=== PATIENT | female | born 1990 ===

== ENCOUNTER 2017-07-04 11:11 | Inpatient (IN) | payer MEDICAID ==
--- NOTE | 2017-07-04 12:13 | C.PDOC ---
History Of Present Illness 27 year old female, with PMHx of chronic kidney disease on dialysis, presents to ED for evaluation of cough, fever, nausea, vomiting, and shortness of breath for the last 3 days. Patient has h/o ESRD on HD . Notes last dialysis was 2 days ago, and is due for dialysis today. Slp Teacher is . Otherwise, denies chest pain, palpitations, headache, dizziness, abdominal pain , diarrhea, or any other associated symptoms at this time. Chief Complaint (Nursing): Shortness Of Breath History Per: Patient History/Exam Limitations: no limitations Onset/Duration Of Symptoms: Days Current Symptoms Are (Timing): Still Present Associated Symptoms: Fever. denies: Sweating, Chest Pain, Bloody Cough, Heart Racing, Leg/Calf Pain, Ankle/Leg Swelling, Dizziness, Light-headedness Recent travel outside of the [place]: No Additional History Per: Patient Past Medical History Reviewed: Historical Data, Nursing Documentation, Vital Signs Vital Signs: Last Vital Signs Temp 98.8 F 07/04/17 17:00 Pulse 82 07/04/17 17:00 Resp 24 07/04/17 17:00 BP 129/76 07/04/17 17:00 Pulse Ox 95 07/04/17 17:00 - Medical History PMH: HTN, Chronic Kidney Disease Family History: States: Unknown Family Hx - Social History Hx Alcohol Use: No Hx Substance Use: No - Immunization History Hx Tetanus Toxoid Vaccination: No Hx Influenza Vaccination: No Hx Pneumococcal Vaccination: No Review Of Systems Except As Marked, All Systems Reviewed And Found Negative. Constitutional: Positive for: Fever Cardiovascular: Negative for: Chest Pain, Palpitations, Edema, Light Headedness Respiratory: Positive for: Cough, Shortness of Breath Gastrointestinal: Positive for: Nausea, Vomiting. Negative for: Abdominal Pain , Diarrhea Genitourinary: Negative for: Dysuria, Frequency, Hematuria Neurological: Negative for: Headache, Dizziness Physical Exam - Physical Exam Appears: Non-toxic, Chronically Ill Skin: Normal Color, Warm, Dry Head: Atraumatic, Normacephalic Eye(s): bilateral: Normal Inspection, EOMI Oral Mucosa: Moist Neck: Normal ROM, Supple Chest: Symmetrical Cardiovascular: Rhythm Regular, No Murmur Respiratory: No Accessory Muscle Use, No Rales, No Rhonchi, No Wheezing, Other ( crackles bilaterally) Gastrointestinal/Abdominal: Soft, No Tenderness Extremity: Normal ROM, No Pedal Edema Neurological/Psych: Oriented x3, Normal Speech ED Course And Treatment - Laboratory Results Result Diagrams: 07/04/17 12:36 07/04/17 12:36 O2 Sat by Pulse Oximetry: 95 (RA) Pulse Ox Interpretation: Normal - Other Rad CXR X-Ray: Viewed By Me, Read By Radiologist Interpretation: Accession No. : [id number]. Patient Name / ID : KERRIE GILMAN / [id number]. Exam Date : 07/04/2017 14:33:44 ( Approved ). Study Comment : Sex / Age : F / 27Y. Creator : Sarbjit Eaton MD. Dictator : Sarbjit Eaton MD. Colloid Mill Operator : Dust Operator : Sarbjit Eaton MD. Approver2 : Report Date : 07/04/2017 15:24:06. My Comment : . HISTORY: fever/cough. COMPARISON: No prior. FINDINGS: LUNGS: There are heterogeneous opacity at the left lung may represent pneumonia. Mild-to- moderate pulmonary vascular congestion is noted. PLEURA: No significant pleural effusion identified, no pneumothorax apparent. CARDIOVASCULAR: Cardiomegaly is noted. OSSEOUS STRUCTURES: No significant abnormalities. VISUALIZED UPPER ABDOMEN: Normal. OTHER FINDINGS: None. IMPRESSION: Heterogeneous opacity at the left lung may represent a pneumonia. Mild-to- moderate pulmonary vascular congestion and moderate cardiomegaly. Progress Note: Blood work, influenza AB ordered and reviewed. Pt was given Tylenol. CXR is pos for Pneumonia. Rocephin and Zithro ordered. ase was d/w who accepted case for an admission. president finance company was informed. Disposition - Disposition Disposition: HOSPITALIZED Disposition Time: 15:12 Condition: FAIR - Clinical Impression Clinical Impression: Pneumonia - PA / MANAGER PHP / Resident Statement MD/DO has reviewed & agrees with the documentation as recorded. - Scribe Statement The provider has reviewed the documentation as recorded by the Scribe Tracey Darnell All medical record entries made by the Scribe were at my direction and personally dictated by me. I have reviewed the chart and agree that the record accurately reflects my personal performance of the history, physical exam, medical decision making, and the department course for this patient. I have also personally directed, reviewed, and agree with the discharge instructions and disposition. Decision To Admit - Pt Status Changed To: Hospital Disposition Of: Inpatient - Admit Certification Admit to Inpatient:: After my assessment, the patient will require hospitalization for at least two midnights. This is because of the severity of symptoms shown, intensity of services needed, and/or the medical risk in this patient being treated as an outpatient. - InPatient: Physician Admission Certification: I certify that this patient requires 2 or more midnights of care for the following reason:: Patient with Pmeumonia will need more than 2 days of IV antibiotics. - . Bed Request Type: Regular Patient Diagnosis: Pneumonia
[2017-07-04 12:43] LABS: BASO # 0.1 K/uL (0.0-0.2); BASO % 1.1 % (0.0-2.0); EOS # 0.1 K/uL (0.0-0.7); EOS % 1.1 % (0.0-4.0); HEMOGLOBIN 9.9 g/dL (11.0-16.0); LYMPH # 0.9 K/uL (1.0-4.3); LYMPH % 9.1 % (20.0-40.0); MEAN CELL VOLUME 82.7 fL (81.0-99.0); MEAN CORPUSCULAR HEMOGLOBIN 28.8 pg (27.0-31.0); MEAN CORPUSCULAR HGB CONC 34.8 g/dL (33.0-37.0); MEAN PLATELET VOLUME 7.1 fL (7.2-11.7); MONO % 10.2 % (0.0-10.0); NEUT # 7.6 K/uL (1.8-7.0); NEUT % 78.5 % (50.0-75.0); PLATELET COUNT 182 K/uL (130-400); RBC 3.43 Mil/uL (3.80-5.20); RED CELL DISTRIBUTION WIDTH 15.3 % (11.5-14.5); WHITE BLOOD COUNT 9.7 K/uL (4.8-10.8)
[2017-07-04 12:48] LABS: VENOUS BLOOD GAS BASE EXCESS 11.6 mmol/L (0.0-2.0); VENOUS BLOOD GAS PCO2 44 mmHg (40-60); VENOUS BLOOD GAS PO2 58 mm/Hg (30-55); VENOUS BLOOD PH 7.52 (7.32-7.43)
[2017-07-04 13:01] LABS: ANISOCYTOSIS SLIGHT; BANDS 5 % (0-2); HYPOCHROMIC SLIGHT; LYMPHOCYTE 11 % (20-40); MONOCYTE 10 % (0-10); NEUTROPHIL 74 % (50-75); PLATELET ESTIMATE NORMAL (NORMAL); TOTAL CELLS COUNTED 100
[2017-07-04 13:42] LABS: ALB/GLOB RATIO 1.3 (1.0-2.1); ALT/SGPT 20 U/L (9-52); AST/SGOT 13 U/L (14-36); BLOOD UREA NITROGEN 54 mg/dL (7-17); CALCIUM 9.2 mg/dl (8.6-10.4); GFR AFRICAN-AMERICAN 7; GFR NON-AFRICAN AMERICAN 6
[2017-07-04] MEDS ORDERED: Albuterol-Ipratrop 3 mg / 0.5 (3 ml) UD IH STA (14:37)
[2017-07-04] MEDS ORDERED: Azithromycin 500 MG in Sodium Chloride 0.9% 250 ML IVPB STA (15:02)
[2017-07-04] MEDS ORDERED: Albuterol-Ipratrop 3 mg / 0.5 (3 ml) UD ONE (15:04)
--- NOTE | 2017-07-04 15:25 | RAD ---
HISTORY: fever/cough COMPARISON: No prior. FINDINGS: LUNGS: There are heterogeneous opacity at the left lung may represent pneumonia. [id number] pulmonary vascular congestion is noted. PLEURA: No significant pleural effusion identified, no pneumothorax apparent. CARDIOVASCULAR: Cardiomegaly is noted. OSSEOUS STRUCTURES: No significant abnormalities. VISUALIZED UPPER ABDOMEN: Normal. OTHER FINDINGS: None. IMPRESSION: Heterogeneous opacity at the left lung may represent a pneumonia. [id number] pulmonary vascular congestion and moderate cardiomegaly.
--- NOTE | 2017-07-04 15:29 | CP.PCM.PN ---
Subjective - Date & Time of Evaluation Date of Evaluation: 07/04/17 Time of Evaluation: 15:22 - Subjective Subjective: PGY-2 H&P for Dr. Wilson's service: Patient is a 27 year old female, with PMHx of ESRD, presenting to ED for worsening cough. Patient reports that for the last three days she has been coughing "non-stop" producing a green pleghm. The cough became associated with fever, nausea, vomiting, and worsening shortness of breath over the last 2 days. She Notes last dialysis was 2 days ago, and is due for dialysis today. Otherwise, denies chest pain, palpitations, headache, dizziness, abdominal pain , diarrhea, or any other associated symptoms at this time. PMHx: PSHx: Allergies: shrimp, vancomycin SHx: Fam Hx: Meds: Objective - Vital Signs/Intake and Output Vital Signs (last 24 hours): Temp Pulse Resp BP Pulse Ox 99.7 F H 94 H 24 152/83 H 95 07/04/17 14:28 07/04/17 13:18 07/04/17 13:18 07/04/17 13:18 07/04/17 15:17 - Medications Medications: Current Medications Ceftriaxone Sodium 1 gm/ (Sodium Chloride) 100 mls @ 100 mls/hr IVPB STAT STA Stop: 07/04/17 16:01 Azithromycin 500 mg/ Sodium (Chloride) 250 mls @ 250 mls/hr IVPB STAT STA Stop: 07/04/17 16:01 - Labs Labs: 07/04/17 12:36 07/04/17 12:36
--- NOTE | 2017-07-04 15:38 | CP.PCM.HP ---
History of Present Illness - History of Present Illness History of Present Illness: PGY-2 H&P [address] Wilson's service: CC: "I've had a productive cough and fever for 3 days" HPI: Patient is a 27 year old female, with PMHx of ESRD, presenting to ED for worsening cough. Patient reports that for the last three days she has been coughing "non-stop" producing a green phlegm. The cough became associated with subjective fever, and worsening shortness of breath over the last 2 days. Patient was for dialysis today but it was aborted and she was sent up to the ED by Dr. Correia. Last completed dialysis was 2 days ago. Patient admits making small amount of urine, and reports her normal dry weight is 44.9 kg. She denies fever, chills, chest pain, palpitations, abdominal pain, diarrhea. She denies sick contacts. She denies receiving flu vaccine this year. PMHx: ESRD, HTN PSHx: Kidney transplant (~2008) Allergies: shrimp, vancomycin SHx: denies tobacco, alcohol, illicit drugs; lives with parents; unemployed Fam Hx: Denies PMD: unknown Nephro: Masood Meds: Prednisone 5mg PO Daily Mycophenolate 250mg PO BID Nifedipine 60 mg PO BID B Complex Vitamins Calcium Acetate 667 mg PO TID Present on Admission - Present on Admission Any Indicators Present on Admission: No Review of Systems - Constitutional Constitutional: Chills, Fever - EENT Eyes: absent: Change in Vision Ears: absent: Tinnitus - Cardiovascular Cardiovascular: absent: Chest Pain, Dyspnea - Respiratory Respiratory: Cough, Dyspnea - Gastrointestinal Gastrointestinal: Nausea, Vomiting. absent: Diarrhea - Genitourinary Genitourinary: absent: Difficulty Urinating, Dysuria - Musculoskeletal Musculoskeletal: absent: Numbness, Tingling - Integumentary Integumentary: absent: Dry Skin, Wounds - Neurological Neurological: absent: Tremor, Weakness - Psychiatric Psychiatric: absent: Anxiety, Depression - Endocrine Endocrine: absent: Fatigue, Palpitations Past Patient History - Past Social History Smoking Status: Never Smoked - CARDIAC Hx Hypertension: Yes - RENAL Hx Chronic Kidney Disease: Yes - PSYCHIATRIC Hx Substance Use: No - SURGICAL HISTORY Hx Surgeries: Yes Hx Vascular Access Device: Yes (left arm dialysis) Meds Allergies/Adverse Reactions: Allergies Allergy/AdvReac Type Severity Reaction Status Date / Time shrimp Allergy Verified 07/04/17 11:21 vancomycin Allergy Verified 07/04/17 11:21 Physical Exam - Constitutional Appears: Non-toxic, No Acute Distress, Chronically Ill - Head Exam Head Exam: ATRAUMATIC, NORMAL INSPECTION - Eye Exam Eye Exam: EOMI, Normal appearance. absent: Scleral icterus - ENT Exam ENT Exam: Mucous Membranes Moist - Neck Exam Neck exam: Positive for: Full Rom. Negative for: Tenderness - Respiratory Exam Respiratory Exam: Rhonchi (bases bilaterally), NORMAL BREATHING PATTERN. absent : Clear to Auscultation Bilateral - Cardiovascular Exam Cardiovascular Exam: REGULAR RHYTHM, +S1, +S2 - GI/Abdominal Exam GI & Abdominal Exam: Normal Bowel Sounds, Soft. absent: Tenderness - Extremities Exam Extremities exam: Positive for: normal inspection. Negative for: pedal edema Additional comments: avf left extremity - Back Exam Back exam: absent: CVA tenderness (L), CVA tenderness (R) Additional comments: Scar left midline: Kidney transplant right - Neurological Exam Neurological exam: Alert, Oriented x3 - Psychiatric Exam Psychiatric exam: Normal Affect, Normal Mood - Skin Skin Exam: Normal Color, Warm Results - Vital Signs Recent Vital Signs: Last Vital Signs Temp 99.7 F H 07/04/17 14:28 Pulse 94 H 07/04/17 13:18 Resp 24 07/04/17 13:18 BP 152/83 H 07/04/17 13:18 Pulse Ox 95 07/04/17 15:17 - Labs Result Diagrams: 07/04/17 12:36 07/04/17 12:36 Labs: Laboratory Results - last 24 hr 07/04/17 07/04/17 07/04/17 12:20 12:36 12:36 WBC 9.7 RBC 3.43 L Hgb 9.9 L Hct 28.4 L MCV 82.7 MCH 28.8 MCHC 34.8 RDW 15.3 H Plt Count 182 MPV 7.1 L Neut % (Auto) 78.5 H Lymph % (Auto) 9.1 L [place] % (Auto) 10.2 H Eos % (Auto) 1.1 Baso % (Auto) 1.1 Neut # (Auto) 7.6 H Lymph # (Auto) 0.9 L [place] # (Auto) 1.0 H Eos # (Auto) 0.1 Baso # (Auto) 0.1 Neutrophils % (Manual) 74 Band Neutrophils % 5 H Lymphocytes % (Manual) 11 L Monocytes % (Manual) 10 Platelet Estimate Normal Hypochromasia (manual) Slight Anisocytosis (manual) Slight pO2 VBG pH VBG pCO2 VBG HCO3 VBG Total CO2 VBG O2 Sat (Calc) VBG Base Excess VBG Potassium Sodium 136 Chloride 88 L Glucose Lactate Potassium 4.3 Carbon Dioxide 32 H Anion Gap 20 BUN 54 H Creatinine 8.4 H* Est GFR ( Amer) 7 Est GFR (Non-Af Amer) 6 Random Glucose 90 Calcium 9.2 Total Bilirubin 1.3 AST 13 L ALT 20 Alkaline Phosphatase 55 Total Protein 7.1 Albumin 4.0 Globulin 3.2 Albumin/Globulin Ratio 1.3 Beta HCG, Quant < 2.39 Venous Blood Potassium Influenza Typ A,B (EIA) Negative for flu a/b 07/04/17 12:36 WBC RBC Hgb Hct MCV MCH MCHC RDW Plt Count MPV Neut % (Auto) Lymph % (Auto) [place] % (Auto) Eos % (Auto) Baso % (Auto) Neut # (Auto) Lymph # (Auto) [place] # (Auto) Eos # (Auto) Baso # (Auto) Neutrophils % (Manual) Band Neutrophils % Lymphocytes % (Manual) Monocytes % (Manual) Platelet Estimate Hypochromasia (manual) Anisocytosis (manual) pO2 58 H VBG pH 7.52 H VBG pCO2 44 VBG HCO3 33.8 VBG Total CO2 37.3 H VBG O2 Sat (Calc) 91.4 H VBG Base Excess 11.6 H VBG Potassium 4.2 Sodium 137.0 Chloride 97.0 L Glucose 88 Lactate 0.7 Potassium Carbon Dioxide Anion Gap BUN Creatinine Est GFR ( Amer) Est GFR (Non-Af Amer) Random Glucose Calcium Total Bilirubin AST ALT Alkaline Phosphatase Total Protein Albumin Globulin Albumin/Globulin Ratio Beta HCG, Quant Venous Blood Potassium 4.2 Influenza Typ A,B (EIA) Assessment & Plan - Assessment and Plan (Free Text) Plan: Community Acquired Pneumonia Admit to med/surg No elevated WBC; minor left shift, 5 bands 2L O2 PRN CXR (07/04/17): Heterogeneous opacity at left lung base. Mild to moderate pulmonary vascular congestion. Moderated cardiomegaly. Lactate 0.7 Negative for flu Nephrology consult, Dr. Castro, help appreciated - f/u reccs Ceftriaxone 1gm IV Daily (start 07/04/17) Azithromycin 500mg IV Daily (start 07/04/17) Duonebs Q4H PRN Tylenol 650mg PO Q4H PRN Robitussin PRN cough f/u blood cultures f/u atypicals ESRD (MWF) Pt reports dry weight of 44.[address] Correia, [place], help appreciated: - last dialysis 07/02/17 History of kidney transplant Transplant 8 years ago - Left Continue Cellcept 250mg PO BID Anemia of Chronic Disease 2/2 CKD Hgb 9.9 f/u Nephro reccs Monitor Prophylaxis Lovenox 30mg SC Daily (renally adjusted) SCDs Pepcid 20mg PO Daily Heart Healthy, low sodium, renal dialysis diet Nicolas Archuleta PGY-2 All medical management per Dr. Wilson
[2017-07-04] MEDS ORDERED: cefTRIAXone IV 1 gm in Dextros 0 ML IVPB ONE (15:43)
[2017-07-04] MEDS ORDERED: cefTRIAXone IV 1 gm in Dextros 50 ML IVPB STA (15:45)
[2017-07-04] MEDS ORDERED: cefTRIAXone IV 1 gm in Dextros 50 ML IVPB ONE (15:46)
[2017-07-04] MEDS ORDERED: Albuterol-Ipratrop 3 mg / 0.5 (3 ml) UD INH PRN (16:24)
--- NOTE | 2017-07-04 19:04 | CP.PCM.CON ---
History of Present Illness - History of Present Illness History of Present Illness: 27 year old female, with PMHx of chronic kidney disease on dialysis, presents to ED for evaluation of cough, fever, nausea, vomiting, and shortness of breath for the last 3 days. Patient has h/o ESRD on HD . Notes last dialysis was 2 days ago, and is due for dialysis today. Grade Recorder is . Otherwise, denies chest pain, palpitations, headache, dizziness, abdominal pain , diarrhea, or any other associated symptoms at this time. is on mycophenalate- ? indication unclear coughing up yellow phlegm add zyvox for MRSA pending cultures in view of HD status - Medical History PMH: HTN, Chronic Kidney Disease Family History: States: Unknown Family Hx Review of Systems - Review of Systems All systems: reviewed and no additional remarkable complaints except - Constitutional Constitutional: As Per HPI, Chills, Fever - EENT Eyes: absent: As Per HPI, Blind Spots, Blurred Vision, Change in Vision, Decreased Night Vision, Diplopia, Discharge, Dry Eye, Exophthalmos, Floaters, Irritation, Itchy Eyes, Loss of Peripheral Vision, Pain, Photophobia, Requires Corrective Lenses, Sees Flashes, Spots in Vision, Tunnel Vision, Other Visual Disturbances, Loss of Vision, Other Ears: absent: As Per HPI, Decreased Hearing, Ear Discharge, Ear Pain, Tinnitus, Abnormal Hearing, Disequilibrium, Dizziness, Other Nose/Mouth/Throat: absent: As Per HPI, Epistaxis, Nasal Congestion, Nasal Discharge, Nasal Obstruction, Nasal Trauma, Nose Pain, Post Nasal Drip, Sinus Pain, Sinus Pressure, Bleeding Gums, Change in Voice, Dental Pain, Dry Mouth, Dysphagia, Halitosis, Hoarsness, Lip Swelling, Mouth Lesions, Mouth Pain, Odynophagia, Sore Throat, Throat Swelling, Tongue Swelling, Facial Pain, Neck Pain, Neck Mass, Other - Breasts Breasts: absent: As Per HPI, Change in Shape, Mass, Pain, Nipple Discharge, Nipple Inversion, Skin Changes, Swelling, Other - Cardiovascular Cardiovascular: As Per HPI - Respiratory Respiratory: As Per HPI, Cough, Dyspnea. absent: Hemoptysis - Gastrointestinal Gastrointestinal: absent: As Per HPI, Abdominal Pain, Belching, Bloating, Change in Bowel Habits, Change in Stool Character, Coffee Ground Emesis, Constipation, Cramping, Diarrhea, Dyspepsia, Dysphagia, Early Satiety, Excessive Flatus, Fecal Incontinence, Heartburn, Hematemesis, Hematochezia, Loose Stools, Melena, Nausea, Odynophagia, Temesmus, Vomiting, Other - Genitourinary Genitourinary: absent: As Per HPI, Change in Urinary Stream, Difficulty Urinating, Dysuria, Flank Pain, Hematuria, Pyuria, Nocturia, Urinary Incontinence, Urinary Frequency, Urinary Hesitance, Urinary Urgency, Voiding Freq/Small Amts, Freq UTI, Hx Renal/Bladder Calculi, Hx /Renal Surgery, Bladder Distension, Other - Reproductive: Female Reproductive:Female: absent: As Per HPI, Amenorrhea, Amenorrhea/ Control, Currently Menstual, Cycle <21 Days, Cycle >35 Days, Cycle Variable, Menses 1-7 Days, Menses >/= 8 Days, Menses Variable, Cycle > 4 Weeks Between, No Menses for 6 Months, Heavy Menses, Light Menses, Normal Menses, Spotting Between Cycles , S/P Hysterectomy, Menopausal, Post Menopausal, Premenarche, Abnormal Vaginal Bleeding, Dysmenorrhea, Dyspareunia, Genital Lesions, Genital Pruritis, Pelvic Pain, Prolapse Symptoms, Sexual Dysfunction, Vaginal Discharge, Vaginal Dryness , Vaginal Odor, Vaginal Pruritis, Other - Menstruation Menstruation: absent: As Per HPI, Amenorrhea, Amenorrhea/ Control, Currently Menstual, Cycle <21 Days, Cycle >35 Days, Cycle Variable, Menses 1-7 Days, Menses >/= 8 Days, Menses Variable, Cycle > 4 Weeks Between, No Menses for 6 Months, Heavy Menses, Light Menses, Normal Menses, Spotting Between Cycles , S/P Hysterectomy, Menopausal, Post Menopausal, Premenarche, Abnormal Vaginal Bleeding, Dysmenorrhea, Other - Musculoskeletal Musculoskeletal: absent: As Per HPI, Abnormal Gait, Arthralgias, Atrophy, Back Pain, Deformity, Joint Swelling, Limited Range of Motion, Loss of Height, Muscle Cramps, Muscle Weakness, Myalgias, Neck Pain, Numbness, Radiating Pain into Limb, Stiffness, Tingling, Other - Integumentary Integumentary: absent: As Per HPI, Acne, Alopecia, Bleeding Lesions, Change in Hair, Change in Nails, Change in Pigmentation, Changing Lesions, Dry Skin, Erythema, Furuncle, Hirsutism, Lesions, New Lesions, Non-Healing Lesions, Photosensitivity, Pruritus, Rash, Skin Pain, Skin Ulcer, Sores, Striae, Swelling , Unusual Bruising, Wounds, Jaundice, Other - Neurological Neurological: absent: As Per HPI, Abnormal Gait, Abnormal Hearing, Abnormal Movements, Abnormal Speech, Behavioral Changes, Burning Sensations, Confusion, Convulsions, Disequilibrium, Dizziness, Numbness, Focal Weakness, Frequent Falls , Headaches, Lack of Coordination, Loss of Vision, Memory Loss, Paresthesias, Radicular Pain, Restless Legs, Sensory Deficit, Syncope, Tingling, Tremor, Vertigo, Weakness, Other Visual Disturbances, Other - Psychiatric Psychiatric: absent: As Per HPI, Abnormal Sleep Pattern, Anhedonia, Anxiety, Auditory Hallucinations, Behavioral Changes, Change in Appetite, Change in Libido, Confusion, Depression, Difficulty Concentrating, Hallucinations, Homicidal Ideation, Hopelessness, Irritability, Memory Loss, Mood Swings, Panic Attacks, Paranoia, Suicidal Ideation, Visual Hallucinations, Tactile Hallucinations, Other - Endocrine Endocrine: absent: As Per HPI, Change in Body Appearance, Change in Libido, Cold Intolorance, Deepening of Voice, Excessive Sweating, Fatigue, Flushing, Heat Intolorance, Increase in Ring/Shoe/Hat Size, Palpitations, Polydipsia, Polyphagia, Polyuria, Other - Hematologic/Lymphatic Hematologic: absent: As Per HPI, Easy Bleeding, Easy Bruising, Lymphadenopathy, Other Past Patient History - Past Social History Smoking Status: Never Smoked - CARDIAC Hx Hypertension: Yes - RENAL Hx Chronic Kidney Disease: Yes - PSYCHIATRIC Hx Substance Use: No - SURGICAL HISTORY Hx Surgeries: Yes Hx Vascular Access Device: Yes (left arm dialysis) Meds Allergies/Adverse Reactions: Allergies Allergy/AdvReac Type Severity Reaction Status Date / Time shrimp Allergy Verified 07/04/17 11:21 vancomycin Allergy Verified 07/04/17 11:21 - Medications Medications: Current Medications Acetaminophen (Tylenol 325mg Tab) 650 mg PO Q6 PRN PRN Reason: Fever >100.4 F Albuterol/Ipratropium (Duoneb 3 Mg/0.5 Mg (3 Ml) Ud) 3 ml INH RQ4 PRN PRN Reason: Shortness of Breath Enoxaparin Sodium (Lovenox) 30 mg SC DAILY VASILIY Guaifenesin (Robitussin) 100 mg PO Q4H PRN PRN Reason: Cough Ceftriaxone Sodium 1 gm/ (Sodium Chloride) 100 mls @ 100 mls/hr IVPB DAILY [facility] Azithromycin 500 mg/ Sodium (Chloride) 250 mls @ 250 mls/hr IVPB DAILY [facility] Mycophenolate Mofetil (Cellcept Cap) 250 mg PO BID VASILIY Physical Exam - Constitutional Appears: Toxic, No Acute Distress - Head Exam Head Exam: NORMOCEPHALIC - Eye Exam Eye Exam: PERRL. absent: Scleral icterus - ENT Exam ENT Exam: Mucous Membranes Dry, Normal External Ear Exam - Neck Exam Neck exam: Negative for: Lymphadenopathy - Respiratory Exam Respiratory Exam: Decreased Breath Sounds, Rales, Rhonchi - Cardiovascular Exam Cardiovascular Exam: REGULAR RHYTHM, +S1, +S2 - GI/Abdominal Exam GI & Abdominal Exam: Diminished Bowel Sounds, Soft. absent: Tenderness - Rectal Exam Rectal Exam: Deferred - Exam Exam: NORMAL INSPECTION - Extremities Exam Extremities exam: Positive for: pedal pulses present. Negative for: calf tenderness, pedal edema, tenderness - Back Exam Back exam: absent: CVA tenderness (L), CVA tenderness (R) - Neurological Exam Neurological exam: Alert, CN II-XII Intact, Oriented x3, Reflexes Normal - Psychiatric Exam Psychiatric exam: Depressed Results - Vital Signs Recent Vital Signs: Last Vital Signs Temp 98.8 F 07/04/17 17:00 Pulse 82 07/04/17 17:00 Resp 24 07/04/17 17:00 BP 129/76 07/04/17 17:00 Pulse Ox 95 07/04/17 17:31 - Labs Result Diagrams: 07/04/17 12:36 07/04/17 12:36 Labs: Laboratory Results - last 24 hr 07/04/17 07/04/17 07/04/17 12:20 12:36 12:36 WBC 9.7 RBC 3.43 L Hgb 9.9 L Hct 28.4 L MCV 82.7 MCH 28.8 MCHC 34.8 RDW 15.3 H Plt Count 182 MPV 7.1 L Neut % (Auto) 78.5 H Lymph % (Auto) 9.1 L [place] % (Auto) 10.2 H Eos % (Auto) 1.1 Baso % (Auto) 1.1 Neut # (Auto) 7.6 H Lymph # (Auto) 0.9 L [place] # (Auto) 1.0 H Eos # (Auto) 0.1 Baso # (Auto) 0.1 Neutrophils % (Manual) 74 Band Neutrophils % 5 H Lymphocytes % (Manual) 11 L Monocytes % (Manual) 10 Platelet Estimate Normal Hypochromasia (manual) Slight Anisocytosis (manual) Slight pO2 VBG pH VBG pCO2 VBG HCO3 VBG Total CO2 VBG O2 Sat (Calc) VBG Base Excess VBG Potassium Sodium 136 Chloride 88 L Glucose Lactate Potassium 4.3 Carbon Dioxide 32 H Anion Gap 20 BUN 54 H Creatinine 8.4 H* Est GFR ( Amer) 7 Est GFR (Non-Af Amer) 6 Random Glucose 90 Calcium 9.2 Total Bilirubin 1.3 AST 13 L ALT 20 Alkaline Phosphatase 55 Total Protein 7.1 Albumin 4.0 Globulin 3.2 Albumin/Globulin Ratio 1.3 Beta HCG, Quant < 2.39 Venous Blood Potassium Influenza Typ A,B (EIA) Negative for flu a/b 07/04/17 12:36 WBC RBC Hgb Hct MCV MCH MCHC RDW Plt Count MPV Neut % (Auto) Lymph % (Auto) [place] % (Auto) Eos % (Auto) Baso % (Auto) Neut # (Auto) Lymph # (Auto) [place] # (Auto) Eos # (Auto) Baso # (Auto) Neutrophils % (Manual) Band Neutrophils % Lymphocytes % (Manual) Monocytes % (Manual) Platelet Estimate Hypochromasia (manual) Anisocytosis (manual) pO2 58 H VBG pH 7.52 H VBG pCO2 44 VBG HCO3 33.8 VBG Total CO2 37.3 H VBG O2 Sat (Calc) 91.4 H VBG Base Excess 11.6 H VBG Potassium 4.2 Sodium 137.0 Chloride 97.0 L Glucose 88 Lactate 0.7 Potassium Carbon Dioxide Anion Gap BUN Creatinine Est GFR ( Amer) Est GFR (Non-Af Amer) Random Glucose Calcium Total Bilirubin AST ALT Alkaline Phosphatase Total Protein Albumin Globulin Albumin/Globulin Ratio Beta HCG, Quant Venous Blood Potassium 4.2 Influenza Typ A,B (EIA) Assessment & Plan (1) ESRD (end stage renal disease) on dialysis Status: Acute (2) Immunocompromised state Status: Acute (3) Pneumonia Status: Acute
[2017-07-04] MEDS: Linezolid 600 mg in D5W 300 ml 600 MG/300 ML BAG IVPB SCH (21:25)
[2017-07-05] MEDS: Linezolid 600 mg in D5W 300 ml 600 MG/300 ML BAG IVPB SCH ×2 (08:07→19:26)
[2017-07-05] MEDS: guaiFENesin 100 mg/5 ml Syrup UD PO PRN ×2 (08:12→17:56)
[2017-07-05 08:44] LABS: BASO % 0.5 % (0.0-2.0); EOS # 0.2 K/uL (0.0-0.7); EOS % 1.9 % (0.0-4.0); HEMOGLOBIN 9.7 g/dL (11.0-16.0); LYMPH # 1.4 K/uL (1.0-4.3); LYMPH % 16.9 % (20.0-40.0); MEAN CELL VOLUME 83.5 fL (81.0-99.0); MEAN CORPUSCULAR HEMOGLOBIN 28.8 pg (27.0-31.0); MEAN CORPUSCULAR HGB CONC 34.5 g/dL (33.0-37.0); MEAN PLATELET VOLUME 7.5 fL (7.2-11.7); MONO # 0.8 K/uL (0.0-0.8); NEUT # 5.7 K/uL (1.8-7.0); NEUT % 70.7 % (50.0-75.0); RBC 3.36 Mil/uL (3.80-5.20); RED CELL DISTRIBUTION WIDTH 15.5 % (11.5-14.5); WHITE BLOOD COUNT 8.1 K/uL (4.8-10.8)
[2017-07-05 08:52] LABS: ALB/GLOB RATIO 1.2 (1.0-2.1); ALBUMIN 3.6 g/dL (3.5-5.0); CALCIUM 8.7 mg/dl (8.6-10.4); MAGNESIUM 1.9 mg/dL (1.6-2.3)
[2017-07-05] MEDS ORDERED: Albuterol-Ipratrop 3 mg / 0.5 (3 ml) UD INH STA (08:52)
[2017-07-05] MEDS ORDERED: Azithromycin 500 MG in Sodium Chloride 0.9% 250 ML IVPB SCH (10:00)
--- NOTE | 2017-07-05 10:27 | CP.PCM.CON ---
History of Present Illness - History of Present Illness History of Present Illness: Patient is a 27 year old female, with PMHx of ESRD, presenting to ED for fever, worsening cough. Patient reports that for the last three days she has been coughing "non-stop" producing a green phlegm. The cough became associated with subjective fever, and worsening shortness of breath over the last 2 days. Patient was for dialysis today but it was aborted and she was sent up to the ED because of fever . Last completed dialysis was 2 days ago. Patient admits making small amount of urine . She denies fever, chills, chest pain, palpitations, abdominal pain, diarrhea. She denies sick contacts. She denies receiving flu vaccine this year. CXR done in the ER showed- b/l infiltrates , concer for PNA and also volume overload She had dialysis last night PMHx: ESRD, HTN PSHx: Kidney transplant (~2008) Allergies: shrimp, vancomycin SHx: denies tobacco, alcohol, illicit drugs; lives with parents; unemployed Fam Hx: no family history of kidney disease Review of Systems - Review of Systems Review of Systems: as per HPI, other than that 10 point ROS negative Past Patient History - Past Medical History & Family History Past Medical History?: Yes - Past Social History Smoking Status: Never Smoked - CARDIAC Hx Cardiac Disorders: Yes Hx Hypertension: Yes - PULMONARY Hx Respiratory Disorders: No Other/Comment: patient ahving pnemonia at present. - NEUROLOGICAL Hx Neurological Disorder: No - HEENT Hx HEENT Problems: No - RENAL Hx Chronic Kidney Disease: Yes Hx Dialysis: Yes Type of Dialysis Access: left arm av shunt. Date of Last Dialysis Treatment: 07/02/17 - ENDOCRINE/METABOLIC Hx Endocrine Disorders: No - HEMATOLOGICAL/ONCOLOGICAL Hx Blood Disorders: No - INTEGUMENTARY Hx Dermatological Problems: No - MUSCULOSKELETAL/RHEUMATOLOGICAL Hx Musculoskeletal Disorders: No Hx Falls: No - GASTROINTESTINAL Hx Gastrointestinal Disorders: No - GENITOURINARY/GYNECOLOGICAL Hx Genitourinary Disorders: No - PSYCHIATRIC Hx Psychophysiologic Disorder: No Hx Substance Use: No - SURGICAL HISTORY Hx Surgeries: Yes Hx Vascular Access Device: Yes (left arm dialysis) - ANESTHESIA Hx Anesthesia: Yes Hx Anesthesia Reactions: No Hx Malignant Hyperthermia: No Has any member of the family had a problem w/ anesthesia?: No Meds Allergies/Adverse Reactions: Allergies Allergy/AdvReac Type Severity Reaction Status Date / Time shrimp Allergy Verified 07/04/17 11:21 vancomycin Allergy Verified 07/04/17 11:21 - Medications Medications: Current Medications Acetaminophen (Tylenol 325mg Tab) 650 mg PO Q6 PRN PRN Reason: Fever >100.4 F Albuterol/Ipratropium (Duoneb 3 Mg/0.5 Mg (3 Ml) Ud) 3 ml INH RQ4 PRN PRN Reason: Shortness of Breath Enoxaparin Sodium (Lovenox) 30 mg SC DAILY [facility] Guaifenesin (Robitussin) 100 mg PO Q4H PRN PRN Reason: Cough Last Admin: 07/05/17 08:12 Dose: 100 mg Ceftriaxone Sodium (Rocephin Iv 1 Gm Duplex) 50 mls @ 100 mls/hr IVPB DAILY [facility] Azithromycin 500 mg/ Sodium (Chloride) 250 mls @ 250 mls/hr IVPB DAILY [facility] Linezolid (Zyvox 600mg/300ml D5w) 600 mg in 300 mls @ 200 mls/hr IVPB Q12H [facility] Last Admin: 07/05/17 08:07 Dose: 200 mls/hr Mycophenolate Mofetil (Cellcept Cap) 250 mg PO BID [facility] Physical Exam - Constitutional Appears: Non-toxic, In Acute Distress - Head Exam Head Exam: ATRAUMATIC, NORMOCEPHALIC - Eye Exam Eye Exam: EOMI, PERRL - ENT Exam ENT Exam: Mucous Membranes Moist - Respiratory Exam Respiratory Exam: Clear to Auscultation Bilateral. absent: Rhonchi, Wheezes - Cardiovascular Exam Cardiovascular Exam: REGULAR RHYTHM, +S1, +S2 - GI/Abdominal Exam GI & Abdominal Exam: Soft. absent: Tenderness - Extremities Exam Extremities exam: Positive for: full ROM. Negative for: pedal edema - Neurological Exam Neurological exam: Alert, Oriented x3 - Psychiatric Exam Psychiatric exam: Normal Affect, Normal Mood - Skin Skin Exam: Dry, Normal Color Results - Vital Signs Recent Vital Signs: Last Vital Signs Temp 98.3 F 07/05/17 01:00 Pulse 61 07/05/17 01:00 Resp 18 07/05/17 01:00 BP 111/70 07/05/17 01:00 Pulse Ox 98 07/05/17 01:00 - Labs Result Diagrams: 07/05/17 08:26 07/05/17 08:26 Labs: Laboratory Results - last 24 hr 07/04/17 07/04/17 07/04/17 12:20 12:36 12:36 WBC 9.7 RBC 3.43 L Hgb 9.9 L Hct 28.4 L MCV 82.7 MCH 28.8 MCHC 34.8 RDW 15.3 H Plt Count 182 MPV 7.1 L Neut % (Auto) 78.5 H Lymph % (Auto) 9.1 L [place] % (Auto) 10.2 H Eos % (Auto) 1.1 Baso % (Auto) 1.1 Neut # (Auto) 7.6 H Lymph # (Auto) 0.9 L [place] # (Auto) 1.0 H Eos # (Auto) 0.1 Baso # (Auto) 0.1 Neutrophils % (Manual) 74 Band Neutrophils % 5 H Lymphocytes % (Manual) 11 L Monocytes % (Manual) 10 Platelet Estimate Normal Hypochromasia (manual) Slight Anisocytosis (manual) Slight pO2 VBG pH VBG pCO2 VBG HCO3 VBG Total CO2 VBG O2 Sat (Calc) VBG Base Excess VBG Potassium Sodium 136 Chloride 88 L Glucose Lactate Potassium 4.3 Carbon Dioxide 32 H Anion Gap 20 BUN 54 H Creatinine 8.4 H* Est GFR ( Amer) 7 Est GFR (Non-Af Amer) 6 Random Glucose 90 Calcium 9.2 Phosphorus Magnesium Total Bilirubin 1.3 AST 13 L ALT 20 Alkaline Phosphatase 55 Total Protein 7.1 Albumin 4.0 Globulin 3.2 Albumin/Globulin Ratio 1.3 Beta HCG, Quant < 2.39 Venous Blood Potassium Influenza Typ A,B (EIA) Negative for flu a/b 07/04/17 07/05/17 07/05/17 12:36 08:26 08:26 WBC 8.1 RBC 3.36 L Hgb 9.7 L Hct 28.0 L MCV 83.5 MCH 28.8 MCHC 34.5 RDW 15.5 H Plt Count 170 MPV 7.5 Neut % (Auto) 70.7 Lymph % (Auto) 16.9 L [place] % (Auto) 10.0 Eos % (Auto) 1.9 Baso % (Auto) 0.5 Neut # (Auto) 5.7 Lymph # (Auto) 1.4 [place] # (Auto) 0.8 Eos # (Auto) 0.2 Baso # (Auto) 0.0 Neutrophils % (Manual) Band Neutrophils % Lymphocytes % (Manual) Monocytes % (Manual) Platelet Estimate Hypochromasia (manual) Anisocytosis (manual) pO2 58 H VBG pH 7.52 H VBG pCO2 44 VBG HCO3 33.8 VBG Total CO2 37.3 H VBG O2 Sat (Calc) 91.4 H VBG Base Excess 11.6 H VBG Potassium 4.2 Sodium 137.0 137 Chloride 97.0 L 91 L Glucose 88 Lactate 0.7 Potassium 4.3 Carbon Dioxide 33 H Anion Gap 18 BUN 32 H Creatinine 5.8 H Est GFR ( Amer) 11 Est GFR (Non-Af Amer) 9 Random Glucose 80 Calcium 8.7 Phosphorus 5.2 H Magnesium 1.9 Total Bilirubin 1.1 AST 13 L ALT 21 Alkaline Phosphatase 45 Total Protein 6.7 Albumin 3.6 Globulin 3.1 Albumin/Globulin Ratio 1.2 Beta HCG, Quant Venous Blood Potassium 4.2 Influenza Typ A,B (EIA) Assessment & Plan (1) Anemia Status: Acute (2) ESRD (end stage renal disease) on dialysis Status: Acute (3) Immunocompromised state Status: Acute (4) Pneumonia Status: Acute - Assessment and Plan (Free Text) Plan: Maintain HD MWF will try3-4 L uf friday fluid restriction Antibiotics for pneumonia check blood cultures - Date & Time Date: 07/05/17 Time: 10:30
[2017-07-05] MEDS: cefTRIAXone IV 1 gm in Dextros 50 ML IVPB SCH (10:57)
[2017-07-05] MEDS: Enoxaparin 30 mg Syringe SC SCH (10:59)
--- NOTE | 2017-07-05 17:09 | CP.PCM.PN ---
Subjective - Date & Time of Evaluation Date of Evaluation: 07/05/17 Time of Evaluation: 17:03 - Subjective Subjective: Medicine progress note for Dr. Wilson's service Patient was seen and examined at bedside in no acute distress. Patient reports feeling slightly better, however still feels short of breath and cough with yellow phlegm. Patient had dialysis yesterday and states she normally has dialysis MWF. Patient denies having chest pain, abdominal pain, vomiting, fevers , and headaches. Objective - Vital Signs/Intake and Output Vital Signs (last 24 hours): Temp Pulse Resp BP Pulse Ox 99.4 F 88 20 117/80 96 07/05/17 17:01 07/05/17 17:01 07/05/17 17:01 07/05/17 17:01 07/05/17 16:48 Intake and Output: 07/05/17 07/05/17 06:59 18:59 Intake Total 520 Balance 520 - Medications Medications: Current Medications Acetaminophen (Tylenol 325mg Tab) 650 mg PO Q6 PRN PRN Reason: Fever >100.4 F Albuterol/Ipratropium (Duoneb 3 Mg/0.5 Mg (3 Ml) Ud) 3 ml INH RQ4 PRN PRN Reason: Shortness of Breath Last Admin: 07/05/17 17:01 Dose: 3 ml Azithromycin (Zithromax) 500 mg PO DAILY [facility] Enoxaparin Sodium (Lovenox) 30 mg SC DAILY [facility] Last Admin: 07/05/17 10:59 Dose: 30 mg Guaifenesin (Robitussin) 100 mg PO Q4H PRN PRN Reason: Cough Last Admin: 07/05/17 08:12 Dose: 100 mg Ceftriaxone Sodium (Rocephin Iv 1 Gm Duplex) 50 mls @ 100 mls/hr IVPB DAILY [facility] Last Admin: 07/05/17 10:57 Dose: 100 mls/hr Linezolid (Zyvox 600mg/300ml D5w) 600 mg in 300 mls @ 200 mls/hr IVPB Q12H [facility] Last Admin: 07/05/17 08:07 Dose: 200 mls/hr Mycophenolate Mofetil (Cellcept Cap) 250 mg PO BID [facility] Last Admin: 07/05/17 10:59 Dose: 250 mg Ondansetron HCl (Zofran Inj) 4 mg IVP Q6H PRN PRN Reason: Nausea/Vomiting Pneumococcal Polyvalent Vaccine (Pneumovax 23 Vaccine) 0.5 ml IM .ONCE ONE Stop: 07/07/17 10:01 - Labs Labs: 07/05/17 08:26 07/05/17 08:26 - Constitutional Appears: No Acute Distress - Head Exam Head Exam: ATRAUMATIC, NORMAL INSPECTION - Eye Exam Eye Exam: EOMI, Normal appearance - ENT Exam ENT Exam: Mucous Membranes Moist - Respiratory Exam Respiratory Exam: Rhonchi, Wheezes, NORMAL BREATHING PATTERN. absent: Clear to Ausculation Bilateral, Rales, Respiratory Distress - Cardiovascular Exam Cardiovascular Exam: REGULAR RHYTHM, +S1, +S2 - GI/Abdominal Exam GI & Abdominal Exam: Soft, Normal Bowel Sounds. absent: Distended, Firm, Tenderness - Neurological Exam Neurological Exam: Alert, Awake, Oriented x3 - Psychiatric Exam Psychiatric exam: Normal Affect, Normal Mood - Skin Skin Exam: Dry, Intact, Normal Color, Warm Assessment and Plan - Assessment and Plan (Free Text) Plan: Community Acquired Pneumonia * Admit to med/surg * No elevated WBC; minor left shift, 5 bands * 2L O2 PRN * CXR (07/04/17): Heterogeneous opacity at left lung base. Mild to moderate pulmonary vascular congestion. Moderated cardiomegaly. * Lactate 0.7 * Negative for flu * ID consult, Dr. Castro, help appreciated * f/u reccs * Pulmonology consulted, Dr. Wing, help appreciated * Blood cultures- no growth * f/u atypicals * Medications: * Ceftriaxone 1gm IV Daily (start 07/04/17) * Azithromycin 500mg IV Daily (start 07/04/17) * Duonebs Q4H [facility] * Tylenol 650mg PO Q4H PRN * Robitussin PRN cough * Solumedrol 40mg IV BID ESRD (MWF) * Pt reports dry weight of 44.9 kg * Dr. Correia, [employer], help appreciated: * Had HD 07/04/17 History of kidney transplant * Transplant 8 years ago - Left * Continue Cellcept 250mg PO BID Anemia of Chronic Disease * 2/2 CKD * Hgb 9.9 * f/u Nephro reccs * Monitor Hyperphosphatemia * phoslo daily Prophylaxis * Lovenox 30mg SC Daily (renally adjusted) * SCDs * Pepcid 20mg PO Daily * Heart Healthy, low sodium, renal dialysis diet * Zofran for nausea Discussed with Dr. Wilson All medical management per Dr. Wilson
[2017-07-05] MEDS: MethylPREDNISolone 40 mg Vial IVP SCH (17:59)
[2017-07-05] MEDS: Albuterol-Ipratrop 3 mg / 0.5 (3 ml) UD INH SCH (19:53)
[2017-07-06] MEDS: Albuterol-Ipratrop 3 mg / 0.5 (3 ml) UD INH SCH ×6 (00:59→20:02)
[2017-07-06] MEDS: Linezolid 600 mg in D5W 300 ml 600 MG/300 ML BAG IVPB SCH (08:20)
[2017-07-06 09:00] LABS: BASO % 0.4 % (0.0-2.0); HEMOGLOBIN 10.2 g/dL (11.0-16.0); LYMPH # 1.1 K/uL (1.0-4.3); LYMPH % 18.8 % (20.0-40.0); MEAN CELL VOLUME 82.8 fL (81.0-99.0); MEAN CORPUSCULAR HEMOGLOBIN 28.2 pg (27.0-31.0); MEAN CORPUSCULAR HGB CONC 34.1 g/dL (33.0-37.0); MEAN PLATELET VOLUME 7.9 fL (7.2-11.7); MONO # 0.5 K/uL (0.0-0.8); MONO % 8.5 % (0.0-10.0); NEUT # 4.2 K/uL (1.8-7.0); NEUT % 72.3 % (50.0-75.0); NRBC % 0.1 % (0.0-2.0); RBC 3.61 Mil/uL (3.80-5.20); RED CELL DISTRIBUTION WIDTH 15.3 % (11.5-14.5); WHITE BLOOD COUNT 5.8 K/uL (4.8-10.8)
--- NOTE | 2017-07-06 09:20 | CP.PCM.PN ---
Subjective - Date & Time of Evaluation Date of Evaluation: 07/06/17 Time of Evaluation: 09:18 - Subjective Subjective: Medicine progress note for Dr. Wilson's service Patient was seen and examined at bedside in no acute distress. Patient laying comfortably in bed and reports feeling better and has no complaints. Patient reports her breathing has improved. Patient denies having chest pain, abdominal pain, vomiting, fevers, and headaches. Objective - Vital Signs/Intake and Output Vital Signs (last 24 hours): Temp Pulse Resp BP Pulse Ox 98.7 F 77 20 156/75 H 97 07/06/17 00:00 07/06/17 00:00 07/06/17 00:00 07/06/17 00:00 07/06/17 00:00 Intake and Output: 07/06/17 07/06/17 06:59 18:59 Intake Total 550 Balance 550 - Medications Medications: Current Medications Acetaminophen (Tylenol 325mg Tab) 650 mg PO Q6 PRN PRN Reason: Fever >100.4 F Albuterol/Ipratropium (Duoneb 3 Mg/0.5 Mg (3 Ml) Ud) 3 ml INH RQ4 [facility] Last Admin: 07/06/17 07:53 Dose: 3 ml Azithromycin (Zithromax) 500 mg PO DAILY [facility] Calcium Acetate (Phoslo) 667 mg PO BIDCC [facility] Last Admin: 07/06/17 08:19 Dose: 667 mg Enoxaparin Sodium (Lovenox) 30 mg SC DAILY [facility] Last Admin: 07/05/17 10:59 Dose: 30 mg Guaifenesin (Robitussin) 100 mg PO Q4H PRN PRN Reason: Cough Last Admin: 07/05/17 17:56 Dose: 100 mg Ceftriaxone Sodium (Rocephin Iv 1 Gm Duplex) 50 mls @ 100 mls/hr IVPB DAILY [facility] Last Admin: 07/05/17 10:57 Dose: 100 mls/hr Linezolid (Zyvox 600mg/300ml D5w) 600 mg in 300 mls @ 200 mls/hr IVPB Q12H [facility] Last Admin: 07/06/17 08:20 Dose: 200 mls/hr Methylprednisolone (Solu-Medrol) 40 mg IVP BID [facility] Last Admin: 07/05/17 17:59 Dose: 40 mg Mycophenolate Mofetil (Cellcept Cap) 250 mg PO BID [facility] Last Admin: 07/05/17 17:55 Dose: 250 mg Ondansetron HCl (Zofran Inj) 4 mg IVP Q6H PRN PRN Reason: Nausea/Vomiting Pneumococcal Polyvalent Vaccine (Pneumovax 23 Vaccine) 0.5 ml IM .ONCE ONE Stop: 07/07/17 10:01 - Labs Labs: 07/06/17 08:38 07/05/17 08:26 - Additional Findings Additional findings: - Constitutional Appears: No Acute Distress - Head Exam Head Exam: ATRAUMATIC, NORMAL INSPECTION - Eye Exam Eye Exam: EOMI, Normal appearance - ENT Exam ENT Exam: Mucous Membranes Moist - Respiratory Exam Respiratory Exam: Wheezes (improving), NORMAL BREATHING PATTERN. absent: Clear to Ausculation Bilateral, Rales, Respiratory Distress, Rhonchi. - Cardiovascular Exam Cardiovascular Exam: REGULAR RHYTHM, +S1, +S2 - GI/Abdominal Exam GI & Abdominal Exam: Soft, Normal Bowel Sounds. absent: Distended, Firm, Tenderness - Neurological Exam Neurological Exam: Alert, Awake, Oriented x3 - Psychiatric Exam Psychiatric exam: Normal Affect, Normal Mood - Skin Skin Exam: Dry, Intact, Normal Color, Warm Assessment and Plan - Assessment and Plan (Free Text) Plan: Community Acquired Pneumonia * Admit to med/surg * No elevated WBC; minor left shift, 5 bands * 2L O2 PRN * CXR (07/04/17): Heterogeneous opacity at left lung base. Mild to moderate pulmonary vascular congestion. Moderated cardiomegaly. * Lactate 0.7 * Negative for flu * ID consult, Dr. Castro, help appreciated * f/u reccs * Pulmonology consulted, Dr. Wing, help appreciated * Blood cultures- no growth * f/u atypicals * Medications: * Ceftriaxone 1gm IV Daily (start 07/04/17) * Azithromycin 500mg IV Daily (start 07/04/17) * Duonebs Q4H [facility] * Tylenol 650mg PO Q4H PRN * Robitussin PRN cough * Solumedrol 40mg IV BID ESRD (MWF) * Pt reports dry weight of 44.9 kg * Dr. Correia, [employer], help appreciated: * Had HD 07/04/17 * Continue to monitor BUN/Cr History of kidney transplant * Transplant 8 years ago - Left * Continue Cellcept 250mg PO BID HTN * Continue home med: Nifidepine 60mg PO BID * Monitor vitals Anemia of Chronic Disease * 2/2 CKD * Hgb 9.9, improving--> 10.2 * f/u Nephro reccs * Monitor Hyperphosphatemia * phoslo daily Prophylaxis * Lovenox 30mg SC Daily (renally adjusted) * SCDs * Pepcid 20mg PO Daily * Heart Healthy, low sodium, renal dialysis diet * Zofran for nausea Will discuss with Dr. Wilson All medical management per Dr. Wilson
[2017-07-06 09:22] LABS: ALB/GLOB RATIO 1.3 (1.0-2.1); CALCIUM 8.6 mg/dl (8.6-10.4); MAGNESIUM 2.2 mg/dL (1.6-2.3)
[2017-07-06] MEDS: MethylPREDNISolone 40 mg Vial IVP SCH ×2 (11:17→17:44)
[2017-07-06] MEDS: Enoxaparin 30 mg Syringe SC SCH (11:17)
[2017-07-06] MEDS: cefTRIAXone IV 1 gm in Dextros 50 ML IVPB SCH (11:18)
[2017-07-06] MEDS: guaiFENesin 100 mg/5 ml Syrup UD PO PRN ×2 (11:19→17:44)
[2017-07-06] MEDS: NIFEdipine 60 mg ER Tab PO SCH ×2 (11:31→17:44)
--- NOTE | 2017-07-06 15:32 | CP.PCM.PN ---
Subjective - Date & Time of Evaluation Date of Evaluation: 07/06/17 Time of Evaluation: 09:00 - Subjective Subjective: afebrile on Cellcept less cough less sob cultures pending PMHx: ESRD, HTN PSHx: Kidney transplant (~2008) Allergies: shrimp, vancomycin SHx: denies tobacco, alcohol, illicit drugs; lives with parents; unemployed Fam Hx: no family history of kidney disease Objective - Vital Signs/Intake and Output Vital Signs (last 24 hours): Temp Pulse Resp BP Pulse Ox 98.7 F 77 20 180/112 H 90 L 07/06/17 00:00 07/06/17 00:00 07/06/17 00:00 07/06/17 10:29 07/06/17 10:29 Intake and Output: 07/06/17 07/06/17 06:59 18:59 Intake Total 550 Balance 550 - Medications Medications: Current Medications Acetaminophen (Tylenol 325mg Tab) 650 mg PO Q6 PRN PRN Reason: Fever >100.4 F Albuterol/Ipratropium (Duoneb 3 Mg/0.5 Mg (3 Ml) Ud) 3 ml INH RQ4 [facility] Last Admin: 07/06/17 13:45 Dose: 3 ml Azithromycin (Zithromax) 500 mg PO DAILY [facility] Last Admin: 07/06/17 11:19 Dose: 500 mg Calcium Acetate (Phoslo) 667 mg PO BIDCC [facility] Last Admin: 07/06/17 08:19 Dose: 667 mg Enoxaparin Sodium (Lovenox) 30 mg SC DAILY [facility] Last Admin: 07/06/17 11:17 Dose: 30 mg Guaifenesin (Robitussin) 100 mg PO Q4H PRN PRN Reason: Cough Last Admin: 07/06/17 11:19 Dose: 100 mg Ceftriaxone Sodium (Rocephin Iv 1 Gm Duplex) 50 mls @ 100 mls/hr IVPB DAILY [facility] Last Admin: 07/06/17 11:18 Dose: 100 mls/hr Linezolid (Zyvox 600mg/300ml D5w) 600 mg in 300 mls @ 200 mls/hr IVPB Q12H [facility] Last Admin: 07/06/17 08:20 Dose: 200 mls/hr Methylprednisolone (Solu-Medrol) 40 mg IVP BID [facility] Last Admin: 07/06/17 11:17 Dose: 40 mg Mycophenolate Mofetil (Cellcept Cap) 250 mg PO BID [facility] Last Admin: 07/06/17 11:19 Dose: 250 mg Nifedipine (Procardia Xl) 60 mg PO BID [facility] Last Admin: 07/06/17 11:31 Dose: 60 mg Ondansetron HCl (Zofran Inj) 4 mg IVP Q6H PRN PRN Reason: Nausea/Vomiting Pneumococcal Polyvalent Vaccine (Pneumovax 23 Vaccine) 0.5 ml IM .ONCE ONE Stop: 07/07/17 10:01 - Labs Labs: 07/06/17 08:38 07/06/17 08:38 - Constitutional Appears: Non-toxic, Chronically Ill - Head Exam Head Exam: NORMOCEPHALIC - Eye Exam Eye Exam: PERRL - ENT Exam ENT Exam: Mucous Membranes Dry - Neck Exam Neck Exam: absent: Lymphadenopathy - Respiratory Exam Respiratory Exam: Decreased Breath Sounds - Cardiovascular Exam Cardiovascular Exam: REGULAR RHYTHM, +S1, +S2 - GI/Abdominal Exam GI & Abdominal Exam: Distended, Soft - Rectal Exam Rectal Exam: Deferred - Exam Exam: NORMAL INSPECTION - Extremities Exam Extremities Exam: absent: Pedal Edema - Back Exam Back Exam: absent: CVA tenderness (L), CVA tenderness (R) - Neurological Exam Neurological Exam: Alert, Awake, CN II-XII Intact, Oriented x3 Neuro motor strength exam: Left Upper Extremity: 4, Right Upper Extremity: 4, Left Lower Extremity: 4, Right Lower Extremity: 4 - Psychiatric Exam Psychiatric exam: Depressed - Skin Skin Exam: Dry Assessment and Plan (1) ESRD (end stage renal disease) on dialysis Status: Acute (2) Immunocompromised state Status: Acute (3) Pneumonia Status: Acute - Assessment and Plan (Free Text) Assessment: 27 year old female, with PMHx of ESRD, presenting to ED for fever, worsening cough. Patient reports that for the last three days she has been coughing "non-stop" producing a green phlegm.
[2017-07-07] MEDS: Albuterol-Ipratrop 3 mg / 0.5 (3 ml) UD INH SCH ×6 (00:34→20:04)
--- NOTE | 2017-07-07 07:38 | CP.PCM.PN ---
Subjective - Date & Time of Evaluation Date of Evaluation: 07/07/17 Time of Evaluation: 07:38 - Subjective Subjective: Medicine progress note for Dr. Wilson's service Patient was seen and examined at bedside in the morning. Patient was getting dialysis. Patient had a few episodes of vomiting in the morning and continued to have nausea/vomiting during dialysis. Patient admits to acid/burning sensation in chest and throat. Patient denies abdominal pain, fevers, headaches. Objective - Vital Signs/Intake and Output Vital Signs (last 24 hours): Temp Pulse Resp BP Pulse Ox 98.5 F 91 H 20 167/92 H 95 07/06/17 23:50 07/06/17 23:50 07/06/17 23:50 07/06/17 23:50 07/06/17 23:50 Intake and Output: 07/07/17 07/07/17 06:59 18:59 Intake Total 300 Balance 300 - Medications Medications: Current Medications Acetaminophen (Tylenol 325mg Tab) 650 mg PO Q6 PRN PRN Reason: Fever >100.4 F Last Admin: 07/07/17 06:57 Dose: 650 mg Albuterol/Ipratropium (Duoneb 3 Mg/0.5 Mg (3 Ml) Ud) 3 ml INH RQ4 [facility] Last Admin: 07/07/17 04:00 Dose: Not Given Azithromycin (Zithromax) 500 mg PO DAILY [facility] Last Admin: 07/06/17 11:19 Dose: 500 mg Calcium Acetate (Phoslo) 667 mg PO BIDCC [facility] Last Admin: 07/06/17 17:44 Dose: 667 mg Enoxaparin Sodium (Lovenox) 30 mg SC DAILY [facility] Last Admin: 07/06/17 11:17 Dose: 30 mg Guaifenesin (Robitussin) 100 mg PO Q4H PRN PRN Reason: Cough Last Admin: 07/06/17 17:44 Dose: 100 mg Ceftriaxone Sodium (Rocephin Iv 1 Gm Duplex) 50 mls @ 100 mls/hr IVPB DAILY [facility] Last Admin: 07/06/17 11:18 Dose: 100 mls/hr Methylprednisolone (Solu-Medrol) 40 mg IVP BID [facility] Last Admin: 07/06/17 17:44 Dose: 40 mg Mycophenolate Mofetil (Cellcept Cap) 250 mg PO BID [facility] Last Admin: 07/06/17 17:43 Dose: 250 mg Nifedipine (Procardia Xl) 60 mg PO BID [facility] Last Admin: 07/06/17 17:44 Dose: 60 mg Ondansetron HCl (Zofran Inj) 4 mg IVP Q6H PRN PRN Reason: Nausea/Vomiting Pneumococcal Polyvalent Vaccine (Pneumovax 23 Vaccine) 0.5 ml IM .ONCE ONE Stop: 07/07/17 10:01 - Labs Labs: 07/06/17 08:38 07/06/17 08:38 - Head Exam Head Exam: ATRAUMATIC, NORMAL INSPECTION - Eye Exam Eye Exam: EOMI, Normal appearance - ENT Exam ENT Exam: Mucous Membranes Moist - Respiratory Exam Respiratory Exam: Rhonchi, Wheezes, NORMAL BREATHING PATTERN. absent: Clear to Ausculation Bilateral, Rales, Respiratory Distress - Cardiovascular Exam Cardiovascular Exam: REGULAR RHYTHM, +S1, +S2 - GI/Abdominal Exam GI & Abdominal Exam: Soft, Tenderness (epigastric), Normal Bowel Sounds - Extremities Exam Extremities Exam: Normal Inspection - Neurological Exam Neurological Exam: Alert, Awake - Skin Skin Exam: Dry, Intact, Normal Color, Warm Assessment and Plan - Assessment and Plan (Free Text) Plan: Community Acquired Pneumonia * Admit to med/surg * No elevated WBC; minor left shift, 5 bands * 2L O2 PRN * CXR (07/04/17): Heterogeneous opacity at left lung base. Mild to moderate pulmonary vascular congestion. Moderated cardiomegaly. * Lactate 0.7 * Negative for flu * ID consult, Dr. Castro, help appreciated * f/u reccs * Pulmonology consulted, Dr. Wing, help appreciated * Blood cultures- no growth * f/u atypicals * Medications: * Ceftriaxone 1gm IV Daily (start 07/04/17) * Azithromycin 500mg IV Daily (start 07/04/17) * Duonebs Q4H [facility] * Tylenol 650mg PO Q4H PRN * Robitussin PRN cough * Solumedrol 20mg IV BID ESRD (MWF) * Pt reports dry weight of 44.9 kg * Dr. Correia, [employer], help appreciated: * Had HD 07/04/17, 07/07/17 * Continue to monitor BUN/Cr History of kidney transplant * Transplant 8 years ago - Left * Discontinue Cellcept 250mg PO BID as per Dr. Correia; Patient does not need to continue taking medication HTN * Continue home med: Nifidepine 60mg PO BID * Clonidine 0.2mg PO BID * Labetalol 100mg PO BID * Monitor vitals Anemia of Chronic Disease * 2/2 CKD * Hgb 9.9, improving--> 10.2 * f/u Nephro reccs * Monitor Hyperphosphatemia * phoslo daily Prolonged QT on EKG * Discontinued zofran. * Avoid QT prolonging medications. Epigastric pain * Abdominal/pelvic CT: f/u results Prophylaxis * Lovenox 30mg SC Daily (renally adjusted)--> held as per Dr. Correia * SCDs * Protonix 40mg PO daily * Heart Healthy, low sodium, renal dialysis diet Discussed with Dr. Wilson All medical management per Dr. Wilson
[2017-07-07 08:20] LABS: ALB/GLOB RATIO 1.2 (1.0-2.1); ALBUMIN 4.1 g/dL (3.5-5.0); CALCIUM 9.1 mg/dl (8.6-10.4); MAGNESIUM 2.5 mg/dL (1.6-2.3)
[2017-07-07 08:21] LABS: BASO % 0.2 % (0.0-2.0); HEMOGLOBIN 10.4 g/dL (11.0-16.0); LYMPH # 1.5 K/uL (1.0-4.3); LYMPH % 12.6 % (20.0-40.0); MEAN CELL VOLUME 82.9 fL (81.0-99.0); MEAN CORPUSCULAR HEMOGLOBIN 28.1 pg (27.0-31.0); MEAN CORPUSCULAR HGB CONC 33.9 g/dL (33.0-37.0); MEAN PLATELET VOLUME 7.8 fL (7.2-11.7); MONO # 1.3 K/uL (0.0-0.8); MONO % 11.5 % (0.0-10.0); NEUT # 8.7 K/uL (1.8-7.0); NEUT % 75.7 % (50.0-75.0); NRBC % 0.1 % (0.0-2.0); RBC 3.7 Mil/uL (3.80-5.20); RED CELL DISTRIBUTION WIDTH 15.5 % (11.5-14.5); WHITE BLOOD COUNT 11.5 K/uL (4.8-10.8)
[2017-07-07] MEDS: guaiFENesin 100 mg/5 ml Syrup UD PO PRN (09:10)
[2017-07-07] MEDS: Enoxaparin 30 mg Syringe SC SCH (09:43)
[2017-07-07] MEDS ORDERED: Pneumococcal 23-Valent Vaccine IM ONE (10:00)
[2017-07-07] MEDS ORDERED: Influenza Vaccine 60 mcg/0.5 mL SYR (4YR UP) IM ONE (10:00)
[2017-07-07] MEDS: NIFEdipine 60 mg ER Tab PO SCH ×2 (11:34→17:57)
--- NOTE | 2017-07-07 11:41 | CP.PCM.PN ---
Subjective - Date & Time of Evaluation Date of Evaluation: 07/07/17 Time of Evaluation: 11:38 - Subjective Subjective: seen at dialysis wretching coffee grounds BP still uncontrolled phos elevated Objective - Vital Signs/Intake and Output Vital Signs (last 24 hours): Temp Pulse Resp BP Pulse Ox 97.4 F L 90 20 163/107 H 98 07/07/17 09:20 07/07/17 09:20 07/07/17 09:20 07/07/17 10:35 07/07/17 09:20 Intake and Output: 07/07/17 07/07/17 06:59 18:59 Intake Total 300 Balance 300 - Medications Medications: Current Medications Acetaminophen (Tylenol 325mg Tab) 650 mg PO Q6 PRN PRN Reason: Fever >100.4 F Last Admin: 07/07/17 06:57 Dose: 650 mg Albuterol/Ipratropium (Duoneb 3 Mg/0.5 Mg (3 Ml) Ud) 3 ml INH RQ4 [facility] Last Admin: 07/07/17 11:20 Dose: Not Given Azithromycin (Zithromax) 500 mg PO DAILY [facility] Last Admin: 07/06/17 11:19 Dose: 500 mg Calcium Acetate (Phoslo) 1,334 mg PO TID [facility] Clonidine HCl (Catapres) 0.2 mg PO BID [facility] Guaifenesin (Robitussin) 100 mg PO Q4H PRN PRN Reason: Cough Last Admin: 07/07/17 09:10 Dose: 100 mg Ceftriaxone Sodium (Rocephin Iv 1 Gm Duplex) 50 mls @ 100 mls/hr IVPB DAILY [facility] Last Admin: 07/06/17 11:18 Dose: 100 mls/hr Methylprednisolone (Solu-Medrol) 20 mg IVP BID [facility] Nifedipine (Procardia Xl) 60 mg PO BID [facility] Last Admin: 07/07/17 11:34 Dose: 60 mg Ondansetron HCl (Zofran Inj) 4 mg IVP Q6H PRN PRN Reason: Nausea/Vomiting Last Admin: 07/07/17 08:07 Dose: 4 mg Pantoprazole Sodium (Protonix Ec Tab) 40 mg PO DAILY [facility] - Labs Labs: 07/07/17 07:44 07/07/17 07:44 - Constitutional Appears: In Acute Distress, Chronically Ill - Head Exam Head Exam: ATRAUMATIC, NORMAL INSPECTION - Eye Exam Eye Exam: EOMI, Normal appearance - Neck Exam Neck Exam: Normal Inspection. absent: Tenderness - Respiratory Exam Respiratory Exam: Decreased Breath Sounds, Respiratory Distress - Cardiovascular Exam Cardiovascular Exam: REGULAR RHYTHM, +S1 - GI/Abdominal Exam GI & Abdominal Exam: Soft. absent: Tenderness - Extremities Exam Extremities Exam: Normal Inspection. absent: Tenderness - Neurological Exam Neurological Exam: Alert, CN II-XII Intact - Skin Skin Exam: Dry, Warm Assessment and Plan (1) CHF (congestive heart failure) Status: Acute (2) HTN (hypertension) Status: Acute (3) ESRD (end stage renal disease) on dialysis Status: Acute (4) Pneumonia Status: Acute - Assessment and Plan (Free Text) Plan: Increase UF goal with HD Increase UF BP meds stop lovenox decrease steroids stop cellcept-unclear why pt is on this increase phoslo
[2017-07-07] MEDS: MethylPREDNISolone 40 mg Vial IVP SCH ×2 (12:11→18:00)
[2017-07-07] MEDS: Pantoprazole 40 mg EC Tab PO SCH (12:55)
[2017-07-07] MEDS: cefTRIAXone IV 1 gm in Dextros 50 ML IVPB SCH (12:59)
--- NOTE | 2017-07-07 13:59 | CP.PCM.CON ---
History of Present Illness - History of Present Illness History of Present Illness: reason for consultation: cough and fever 27-year-old female with end-stage renal disease on hemodialysis, hypertension presented to emergency room with cough and shortness of breath associated with fever for the past 2 days. Chest x-ray done in the emergency room consistent with pneumonia. PMHx: ESRD, HTN PSHx: Kidney transplant (~2008) Allergies: shrimp, vancomycin SHx: denies tobacco, alcohol, illicit drugs; lives with parents; unemployed Fam Hx: Denies Review of Systems - Review of Systems All systems: reviewed and no additional remarkable complaints except (cough and shortness of breath) Past Patient History - Past Medical History & Family History Past Medical History?: Yes - Past Social History Smoking Status: Never Smoked - CARDIAC Hx Cardiac Disorders: Yes Hx Hypertension: Yes - PULMONARY Hx Respiratory Disorders: No Other/Comment: patient ahving pnemonia at present. - NEUROLOGICAL Hx Neurological Disorder: No - HEENT Hx HEENT Problems: No - RENAL Hx Chronic Kidney Disease: Yes Hx Dialysis: Yes Type of Dialysis Access: left arm av shunt. Date of Last Dialysis Treatment: 07/02/17 - ENDOCRINE/METABOLIC Hx Endocrine Disorders: No - HEMATOLOGICAL/ONCOLOGICAL Hx Blood Disorders: No - INTEGUMENTARY Hx Dermatological Problems: No - MUSCULOSKELETAL/RHEUMATOLOGICAL Hx Musculoskeletal Disorders: No Hx Falls: No - GASTROINTESTINAL Hx Gastrointestinal Disorders: No - GENITOURINARY/GYNECOLOGICAL Hx Genitourinary Disorders: No - PSYCHIATRIC Hx Psychophysiologic Disorder: No Hx Substance Use: No - SURGICAL HISTORY Hx Surgeries: Yes Hx Vascular Access Device: Yes (left arm dialysis) - ANESTHESIA Hx Anesthesia: Yes Hx Anesthesia Reactions: No Hx Malignant Hyperthermia: No Has any member of the family had a problem w/ anesthesia?: No Meds Allergies/Adverse Reactions: Allergies Allergy/AdvReac Type Severity Reaction Status Date / Time shrimp Allergy Verified 07/04/17 11:21 vancomycin Allergy Verified 07/04/17 11:21 - Medications Medications: Current Medications Acetaminophen (Tylenol 325mg Tab) 650 mg PO Q6 PRN PRN Reason: Fever >100.4 F Last Admin: 07/07/17 06:57 Dose: 650 mg Albuterol/Ipratropium (Duoneb 3 Mg/0.5 Mg (3 Ml) Ud) 3 ml INH RQ4 [facility] Last Admin: 07/07/17 11:20 Dose: Not Given Azithromycin (Zithromax) 500 mg PO DAILY [facility] Calcium Acetate (Phoslo) 1,334 mg PO TIDCC [facility] Last Admin: 07/07/17 12:55 Dose: 1,334 mg Clonidine HCl (Catapres) 0.2 mg PO BID [facility] Guaifenesin (Robitussin) 100 mg PO Q4H PRN PRN Reason: Cough Last Admin: 07/07/17 09:10 Dose: 100 mg Ceftriaxone Sodium (Rocephin Iv 1 Gm Duplex) 50 mls @ 100 mls/hr IVPB DAILY [facility] Last Admin: 07/07/17 12:59 Dose: 100 mls/hr Methylprednisolone (Solu-Medrol) 20 mg IVP BID [facility] Nifedipine (Procardia Xl) 60 mg PO BID [facility] Last Admin: 07/07/17 11:34 Dose: 60 mg Ondansetron HCl (Zofran Inj) 4 mg IVP Q6H PRN PRN Reason: Nausea/Vomiting Last Admin: 07/07/17 08:07 Dose: 4 mg Pantoprazole Sodium (Protonix Ec Tab) 40 mg PO DAILY [facility] Last Admin: 07/07/17 12:55 Dose: 40 mg Physical Exam - Head Exam Head Exam: ATRAUMATIC, NORMOCEPHALIC - Eye Exam Eye Exam: Normal appearance - ENT Exam ENT Exam: Mucous Membranes Moist - Neck Exam Neck exam: Positive for: Normal Inspection - Respiratory Exam Respiratory Exam: Rales - Cardiovascular Exam Cardiovascular Exam: REGULAR RHYTHM - GI/Abdominal Exam GI & Abdominal Exam: Normal Bowel Sounds Results - Vital Signs Recent Vital Signs: Last Vital Signs Temp 98 F 07/07/17 12:20 Pulse 90 07/07/17 09:20 Resp 18 07/07/17 12:20 BP 194/109 H 07/07/17 12:20 Pulse Ox 100 07/07/17 12:20 - Labs Result Diagrams: 07/07/17 07:44 07/07/17 07:44 Labs: Laboratory Results - last 24 hr 07/07/17 07/07/17 07:44 07:44 WBC 11.5 H D RBC 3.70 L Hgb 10.4 L Hct 30.7 L MCV 82.9 MCH 28.1 MCHC 33.9 RDW 15.5 H Plt Count 234 MPV 7.8 Neut % (Auto) 75.7 H Lymph % (Auto) 12.6 L [place] % (Auto) 11.5 H Eos % (Auto) 0.0 Baso % (Auto) 0.2 Neut # (Auto) 8.7 H Lymph # (Auto) 1.5 [place] # (Auto) 1.3 H Eos # (Auto) 0.0 Baso # (Auto) 0.0 Sodium 135 Potassium 4.7 Chloride 85 L Carbon Dioxide 31 H Anion Gap 24 H BUN 80 H Creatinine 10.9 H* D Est GFR ( Amer) 5 Est GFR (Non-Af Amer) 4 Random Glucose 105 Calcium 9.1 Phosphorus 6.5 H Magnesium 2.5 H Total Bilirubin 1.0 AST 25 ALT 22 Alkaline Phosphatase 50 Total Protein 7.7 Albumin 4.1 Globulin 3.6 Albumin/Globulin Ratio 1.2 Assessment & Plan - Assessment and Plan (Free Text) Assessment: 27-year-old female presented to emergency room with shortness of breath and cough for the past 2 days Chest x-ray showed left lower lung infiltrate. Continue IV antibiotics Followup culture and sensitivity Check pro calcitonin level Continue hemodialysis
--- NOTE | 2017-07-07 15:45 | PCM.RRT ---
[facility] Nurses Assessment - Situation Date: 07/07/17 - Head Head Exam: NORMAL INSPECTION - Eyes Eye Exam: EOMI, Normal appearance - Cardiovascular Exam Cardiovascular Exam: Tachycardia, +S1, +S2 - GI/Abdominal Exam GI & Abdominal Exam: Soft, Tenderness (epigastric). absent: Distended, Firm - Neurological Exam Neurological Exam: Awake - Extremities Exam Extremities Exam: Normal Inspection Plan - Assessment of Findings&Treatment Plan [facility] was called for hypertension. Patient with history ESRD s/p dialysis this morning has had persistent elevated blood pressure. Patient's blood pressure medication, Nifidepine 60mg PO was given after dialysis. Blood pressure was retaken and still elevated. Labetalol 200mg PO was added. Patient vomited, likely vomited up medication. Vitals were taken: BP 170/101, HR 112, T98.4, O2sat 96%. [facility] was called. Patient was alert, awake, but appeared uncomfortable. Vitals were retaken, 175/108. Hydralazine 10mg IVP was given once. EKG was ordered and showed QT prolongation. Zofran (prn for nausea/ vomiting) was discontinued. Ativan 1mg IV once was given. Abdomen/pelvis CT without contrast was ordered for epigastric pain. Vitals were rechecked: BP 151/ 102, HR 102. Patient laying in bed comfortably.
[2017-07-08] MEDS: Albuterol-Ipratrop 3 mg / 0.5 (3 ml) UD INH SCH ×6 (00:01→19:23)
[2017-07-08 07:40] LABS: BASO % 0.3 % (0.0-2.0); HEMOGLOBIN 11.6 g/dL (11.0-16.0); LYMPH # 2.5 K/uL (1.0-4.3); LYMPH % 18.7 % (20.0-40.0); MEAN CELL VOLUME 82.2 fL (81.0-99.0); MEAN CORPUSCULAR HEMOGLOBIN 28.5 pg (27.0-31.0); MEAN CORPUSCULAR HGB CONC 34.6 g/dL (33.0-37.0); MEAN PLATELET VOLUME 7.4 fL (7.2-11.7); MONO # 1.6 K/uL (0.0-0.8); MONO % 12.3 % (0.0-10.0); NEUT # 9.1 K/uL (1.8-7.0); NEUT % 68.7 % (50.0-75.0); RBC 4.07 Mil/uL (3.80-5.20); RED CELL DISTRIBUTION WIDTH 15.9 % (11.5-14.5); WHITE BLOOD COUNT 13.3 K/uL (4.8-10.8)
[2017-07-08 08:14] LABS: ALB/GLOB RATIO 1.1 (1.0-2.1); ALBUMIN 3.8 g/dL (3.5-5.0); MAGNESIUM 2.4 mg/dL (1.6-2.3)
[2017-07-08] MEDS: NIFEdipine 60 mg ER Tab PO SCH ×2 (09:28→17:24)
[2017-07-08] MEDS: Pantoprazole 40 mg EC Tab PO SCH (09:28)
[2017-07-08] MEDS: cefTRIAXone IV 1 gm in Dextros 50 ML IVPB SCH (09:29)
[2017-07-08] MEDS: MethylPREDNISolone 40 mg Vial IVP SCH ×2 (09:29→17:27)
--- NOTE | 2017-07-08 10:11 | CP.PCM.PN ---
Subjective - Date & Time of Evaluation Date of Evaluation: 07/08/17 Time of Evaluation: 10:08 - Subjective Subjective: Medicine progress note for Dr. Wilson's service Patient was seen and examined at bedside in the morning. Patient reports feeling better than yesterday, denies nausea, vomiting, epigastric pain. Patient had no acute events overnight. Patient denies chest pain, shortness of breath, abdominal pain, nausea, vomiting, fevers, headaches. Objective - Vital Signs/Intake and Output Vital Signs (last 24 hours): Temp Pulse Resp BP Pulse Ox 98.3 F 98 H 20 118/63 97 07/08/17 07:40 07/08/17 07:40 07/08/17 07:40 07/08/17 07:40 07/08/17 07:40 Intake and Output: 07/08/17 07/08/17 06:59 18:59 Intake Total 120 Balance 120 - Medications Medications: Current Medications Acetaminophen (Tylenol 325mg Tab) 650 mg PO Q6 PRN PRN Reason: Fever >100.4 F Last Admin: 07/07/17 06:57 Dose: 650 mg Albuterol/Ipratropium (Duoneb 3 Mg/0.5 Mg (3 Ml) Ud) 3 ml INH RQ4 [facility] Last Admin: 07/08/17 08:45 Dose: 3 ml Azithromycin (Zithromax) 500 mg PO DAILY [facility] Last Admin: 07/08/17 09:32 Dose: 500 mg Calcium Acetate (Phoslo) 1,334 mg PO TIDCC [facility] Last Admin: 07/08/17 07:42 Dose: 1,334 mg Clonidine HCl (Catapres) 0.2 mg PO BID [facility] Last Admin: 07/08/17 09:28 Dose: 0.2 mg Guaifenesin (Robitussin) 100 mg PO Q4H PRN PRN Reason: Cough Last Admin: 07/07/17 09:10 Dose: 100 mg Ceftriaxone Sodium (Rocephin Iv 1 Gm Duplex) 50 mls @ 100 mls/hr IVPB DAILY [facility] Last Admin: 07/08/17 09:29 Dose: 100 mls/hr Labetalol HCl (Trandate) 100 mg PO BID [facility] Last Admin: 07/08/17 09:32 Dose: Not Given Methylprednisolone (Solu-Medrol) 20 mg IVP BID [facility] Last Admin: 07/08/17 09:29 Dose: 20 mg Nifedipine (Procardia Xl) 60 mg PO BID [facility] Last Admin: 07/08/17 09:28 Dose: 60 mg Pantoprazole Sodium (Protonix Ec Tab) 40 mg PO DAILY [facility] Last Admin: 07/08/17 09:28 Dose: 40 mg - Labs Labs: 07/08/17 07:27 07/08/17 07:27 - Additional Findings Additional findings: - Head Exam Head Exam: ATRAUMATIC, NORMAL INSPECTION - Eye Exam Eye Exam: EOMI, Normal appearance - ENT Exam ENT Exam: Mucous Membranes Moist - Respiratory Exam Respiratory Exam: Wheezes, NORMAL BREATHING PATTERN. absent: Clear to Ausculation Bilateral, Rales, Respiratory Distress, Rhonchi - Cardiovascular Exam Cardiovascular Exam: REGULAR RHYTHM, +S1, +S2 - GI/Abdominal Exam GI & Abdominal Exam: Soft, Normal Bowel Sounds. Absent: Tenderness - Extremities Exam Extremities Exam: Normal Inspection - Neurological Exam Neurological Exam: Alert, Awake - Skin Skin Exam: Dry, Intact, Normal Color, Warm Assessment and Plan - Assessment and Plan (Free Text) Plan: Community Acquired Pneumonia * Admit to med/surg * No elevated WBC; minor left shift, 5 bands * 2L O2 PRN * CXR (07/04/17): Heterogeneous opacity at left lung base. Mild to moderate pulmonary vascular congestion. Moderated cardiomegaly. * Lactate 0.7 * Negative for flu * ID consult, Dr. Castro, help appreciated * f/u reccs * Pulmonology consulted, Dr. Wing, help appreciated * Blood cultures- no growth * f/u atypicals * Procalcitonin: f/u * Medications: * Ceftriaxone 1gm IV Daily (start 07/04/17) * Azithromycin 500mg IV Daily (start 07/04/17) * Duonebs Q4H [facility] * Tylenol 650mg PO Q4H PRN * Robitussin PRN cough * Solumedrol 20mg IV BID ESRD (MWF) * Pt reports dry weight of 44.9 kg * Dr. Correia, Rehabilitation Tech, help appreciated: * Had HD 07/04/17, 07/07/17 * Continue to monitor BUN/Cr History of kidney transplant * Transplant 8 years ago - Left * Discontinue Cellcept 250mg PO BID as per Dr. Correia,patient does not need to continue taking medication HTN * Continue home med: Nifidepine 60mg PO BID * Clonidine 0.2mg PO BID * Labetalol 100mg PO BID (hold if SBP <160, HR<60) * Monitor vitals Anemia of Chronic Disease * 2/2 CKD * Hgb 9.9, improving--> 10.2 * f/u Nephro reccs * Monitor Hyperphosphatemia * phoslo daily Prolonged QT on EKG * Discontinued zofran. * Avoid QT prolonging medications. Epigastric pain * Abdominal/pelvic CT: f/u results Prophylaxis * Lovenox 30mg SC Daily (renally adjusted)--> held as per Dr. Correia * SCDs * Protonix 40mg PO daily * Heart Healthy, low sodium, renal dialysis diet Discussed with Dr. Wilson All medical management per Dr. Wilson
--- NOTE | 2017-07-08 11:20 | CP.PCM.PN ---
Subjective - Date & Time of Evaluation Date of Evaluation: 07/08/17 Time of Evaluation: 11:19 - Subjective Subjective: s/p hd yesterday improved breathing denies any fevers chills nausea vomiting diarrhea dizziness rash. Objective - Vital Signs/Intake and Output Vital Signs (last 24 hours): Temp Pulse Resp BP Pulse Ox 98.3 F 98 H 20 118/63 97 07/08/17 07:40 07/08/17 07:40 07/08/17 07:40 07/08/17 07:40 07/08/17 07:40 Intake and Output: 07/08/17 07/08/17 06:59 18:59 Intake Total 120 Balance 120 - Medications Medications: Current Medications Acetaminophen (Tylenol 325mg Tab) 650 mg PO Q6 PRN PRN Reason: Fever >100.4 F Last Admin: 07/07/17 06:57 Dose: 650 mg Albuterol/Ipratropium (Duoneb 3 Mg/0.5 Mg (3 Ml) Ud) 3 ml INH RQ4 [facility] Last Admin: 07/08/17 08:45 Dose: 3 ml Azithromycin (Zithromax) 500 mg PO DAILY [facility] Last Admin: 07/08/17 09:32 Dose: 500 mg Calcium Acetate (Phoslo) 1,334 mg PO TIDCC [facility] Last Admin: 07/08/17 07:42 Dose: 1,334 mg Clonidine HCl (Catapres) 0.2 mg PO BID [facility] Last Admin: 07/08/17 09:28 Dose: 0.2 mg Guaifenesin (Robitussin) 100 mg PO Q4H PRN PRN Reason: Cough Last Admin: 07/07/17 09:10 Dose: 100 mg Ceftriaxone Sodium (Rocephin Iv 1 Gm Duplex) 50 mls @ 100 mls/hr IVPB DAILY [facility] Last Admin: 07/08/17 09:29 Dose: 100 mls/hr Labetalol HCl (Trandate) 100 mg PO BID [facility] Last Admin: 07/08/17 09:32 Dose: Not Given Methylprednisolone (Solu-Medrol) 20 mg IVP BID [facility] Last Admin: 07/08/17 09:29 Dose: 20 mg Nifedipine (Procardia Xl) 60 mg PO BID [facility] Last Admin: 07/08/17 09:28 Dose: 60 mg Pantoprazole Sodium (Protonix Ec Tab) 40 mg PO DAILY [facility] Last Admin: 07/08/17 09:28 Dose: 40 mg - Labs Labs: 07/08/17 07:27 07/08/17 07:27 - Constitutional Appears: Non-toxic, No Acute Distress - Head Exam Head Exam: NORMAL INSPECTION - Eye Exam Eye Exam: Normal appearance, PERRL Pupil Exam: PERRL - ENT Exam ENT Exam: Mucous Membranes Moist, Normal Exam - Neck Exam Neck Exam: Full ROM, Normal Inspection - Respiratory Exam Respiratory Exam: Decreased Breath Sounds, NORMAL BREATHING PATTERN - Cardiovascular Exam Cardiovascular Exam: REGULAR RHYTHM, RRR - GI/Abdominal Exam GI & Abdominal Exam: Soft, Normal Bowel Sounds - Extremities Exam Extremities Exam: Full ROM, Normal Inspection Assessment and Plan (1) Anemia Status: Acute (2) ESRD (end stage renal disease) on dialysis Status: Acute (3) HTN (hypertension) Status: Acute (4) Pneumonia Status: Acute - Assessment and Plan (Free Text) Assessment: maintain hd mwf antibiotics supportive care bp acceptable
--- NOTE | 2017-07-08 12:27 | CT ---
PROCEDURE: CT Abdomen and Pelvis without Oral or IV contrast. HISTORY: epigastric pain, nausea/vomiting COMPARISON: Chest x-ray performed 07/04/17 TECHNIQUE: Contiguous axial images of the abdomen and pelvis. No oral or IV contrast administered. Coronal and Sagittal reformats generated and reviewed. Radiation dose: Total exam DLP = 360.18 mGy-cm. This CT exam was performed using one or more of the following dose reduction techniques: Automated exposure control, adjustment of the mA and/or kV according to patient size, and/or use of iterative reconstruction technique. FINDINGS: Markedly limited study due to lack of oral or IV contrast as well as patient motion and paucity of intra-abdominal or intrapelvic fat. LOWER THORAX: Bilateral lower lobe infiltrates/edema. Severe cardiomegaly and large pericardial effusion, partially imaged. There is no visible pleural effusion or pneumothorax. LIVER: Unremarkable unenhanced appearance. GALLBLADDER AND BILE DUCTS: Not well-visualized. Grossly unremarkable unenhanced appearance. PANCREAS: Not well-visualized. Grossly unremarkable unenhanced appearance. SPLEEN: Unremarkable unenhanced appearance. ADRENALS: Unremarkable unenhanced appearance. KIDNEYS AND URETERS: Atrophic [place] kidneys. Right iliac fossa transplant kidney with fatty hilum. BLADDER: Under distension limits evaluation. REPRODUCTIVE: Uterus is present. APPENDIX: Not visualized. BOWEL: The stomach is nondistended. Lack of oral contrast limits evaluation for bowel pathology. The bowel loops appear within normal limits of caliber without evidence of intestinal obstruction. PERITONEUM: Moderate pelvic ascites. No definite free air. LYMPH NODES: No bulky lymphadenopathy identified. VASCULATURE: No aortic aneurysm. BONES: No acute osseous abnormality is detected. OTHER FINDINGS: None. IMPRESSION: Limited study as above. Severe cardiomegaly and large pericardial effusion, partially imaged. Bilateral lower lobe infiltrates/edema. Moderate pelvic ascites. Atrophic [place] kidneys. Right iliac fossa transplant kidney with fatty hilum. Additional findings as above.
--- NOTE | 2017-07-08 17:14 | CP.PCM.PN ---
Subjective - Date & Time of Evaluation Date of Evaluation: 07/08/17 Time of Evaluation: 13:00 - Subjective Subjective: Patient seen and examined at bedside. Patient reports that she is much less short of breath than yesterday after receiving her breathing treatments. She denies chest pain and subjective fevers. She reports decreased nausea and is tolerating food well. Objective - Vital Signs/Intake and Output Vital Signs (last 24 hours): Temp Pulse Resp BP Pulse Ox 98.4 F 93 H 20 111/49 L 93 L 07/08/17 16:00 07/08/17 16:00 07/08/17 16:00 07/08/17 16:00 07/08/17 16:00 Intake and Output: 07/08/17 07/08/17 06:59 18:59 Intake Total 120 Balance 120 - Medications Medications: Current Medications Acetaminophen (Tylenol 325mg Tab) 650 mg PO Q6 PRN PRN Reason: Fever >100.4 F Last Admin: 07/07/17 06:57 Dose: 650 mg Albuterol/Ipratropium (Duoneb 3 Mg/0.5 Mg (3 Ml) Ud) 3 ml INH RQ4 [facility] Last Admin: 07/08/17 16:35 Dose: 3 ml Azithromycin (Zithromax) 500 mg PO DAILY [facility] Last Admin: 07/08/17 09:32 Dose: 500 mg Calcium Acetate (Phoslo) 1,334 mg PO TIDCC [facility] Last Admin: 07/08/17 12:09 Dose: 1,334 mg Clonidine HCl (Catapres) 0.2 mg PO BID [facility] Last Admin: 07/08/17 09:28 Dose: 0.2 mg Guaifenesin (Robitussin) 100 mg PO Q4H PRN PRN Reason: Cough Last Admin: 07/07/17 09:10 Dose: 100 mg Ceftriaxone Sodium (Rocephin Iv 1 Gm Duplex) 50 mls @ 100 mls/hr IVPB DAILY [facility] Last Admin: 07/08/17 09:29 Dose: 100 mls/hr Labetalol HCl (Trandate) 100 mg PO BID [facility] Last Admin: 07/08/17 09:32 Dose: Not Given Methylprednisolone (Solu-Medrol) 20 mg IVP BID [facility] Last Admin: 07/08/17 09:29 Dose: 20 mg Nifedipine (Procardia Xl) 60 mg PO BID [facility] Last Admin: 07/08/17 09:28 Dose: 60 mg Pantoprazole Sodium (Protonix Ec Tab) 40 mg PO DAILY [facility] Last Admin: 07/08/17 09:28 Dose: 40 mg - Labs Labs: 07/08/17 07:27 07/08/17 07:27 - Head Exam Head Exam: ATRAUMATIC, NORMOCEPHALIC - Eye Exam Eye Exam: Normal appearance - ENT Exam ENT Exam: Mucous Membranes Moist - Neck Exam Neck Exam: Normal Inspection - Respiratory Exam Respiratory Exam: Rales - Cardiovascular Exam Cardiovascular Exam: REGULAR RHYTHM - GI/Abdominal Exam GI & Abdominal Exam: Soft, Normal Bowel Sounds Assessment and Plan - Assessment and Plan (Free Text) Plan: 1. Pneumonia - Continue IV antibiotics - Influenza A/B negative - follow up on Pro-calcitonin results - followup culture and sensitivity
[2017-07-09] MEDS: Albuterol-Ipratrop 3 mg / 0.5 (3 ml) UD INH SCH ×6 (00:04→19:32)
--- NOTE | 2017-07-09 07:13 | CP.PCM.PN ---
Subjective - Date & Time of Evaluation Date of Evaluation: 07/09/17 Time of Evaluation: 07:13 - Subjective Subjective: Medicine progress note for [facility] service Patient was seen and examined at bedside in the morning. Patient getting dialysis. She reports feeling well today, but admits to having a cough with white phlegm. Patient had no acute events overnight. Patient denies chest pain, shortness of breath, abdominal pain, nausea, vomiting, fevers, headaches. Objective - Vital Signs/Intake and Output Vital Signs (last 24 hours): Temp Pulse Resp BP Pulse Ox 98.9 F 82 20 125/57 L 96 07/09/17 00:00 07/09/17 00:00 07/09/17 00:00 07/09/17 00:00 07/09/17 00:00 Intake and Output: 07/09/17 07/09/17 06:59 18:59 Intake Total 150 Balance 150 - Medications Medications: Current Medications Acetaminophen (Tylenol 325mg Tab) 650 mg PO Q6 PRN PRN Reason: Fever >100.4 F Last Admin: 07/07/17 06:57 Dose: 650 mg Albuterol/Ipratropium (Duoneb 3 Mg/0.5 Mg (3 Ml) Ud) 3 ml INH RQ4 [facility] Last Admin: 07/09/17 03:20 Dose: Not Given Azithromycin (Zithromax) 500 mg PO DAILY [facility] Last Admin: 07/08/17 09:32 Dose: 500 mg Calcium Acetate (Phoslo) 1,334 mg PO TIDCC [facility] Last Admin: 07/08/17 17:25 Dose: 1,334 mg Clonidine HCl (Catapres) 0.2 mg PO BID [facility] Last Admin: 07/08/17 17:24 Dose: 0.2 mg Guaifenesin (Robitussin) 100 mg PO Q4H PRN PRN Reason: Cough Last Admin: 07/07/17 09:10 Dose: 100 mg Ceftriaxone Sodium (Rocephin Iv 1 Gm Duplex) 50 mls @ 100 mls/hr IVPB DAILY [facility] Last Admin: 07/08/17 09:29 Dose: 100 mls/hr Labetalol HCl (Trandate) 100 mg PO BID [facility] Last Admin: 07/08/17 17:25 Dose: Not Given Methylprednisolone (Solu-Medrol) 20 mg IVP BID [facility] Last Admin: 07/08/17 17:27 Dose: 20 mg Nifedipine (Procardia Xl) 60 mg PO BID [facility] Last Admin: 07/08/17 17:24 Dose: 60 mg Pantoprazole Sodium (Protonix Ec Tab) 40 mg PO DAILY [facility] Last Admin: 07/08/17 09:28 Dose: 40 mg - Labs Labs: 07/08/17 07:27 07/08/17 07:27 - Additional Findings Additional findings: - Head Exam Head Exam: ATRAUMATIC, NORMAL INSPECTION - Eye Exam Eye Exam: EOMI, Normal appearance - ENT Exam ENT Exam: Mucous Membranes Moist - Respiratory Exam Respiratory Exam: Wheezes, Rhonchi, NORMAL BREATHING PATTERN. absent: Clear to Ausculation Bilateral, Rales, Respiratory Distress, - Cardiovascular Exam Cardiovascular Exam: REGULAR RHYTHM, +S1, +S2 - GI/Abdominal Exam GI & Abdominal Exam: Soft, Normal Bowel Sounds. Absent: Tenderness - Extremities Exam Extremities Exam: Normal Inspection - Neurological Exam Neurological Exam: Alert, Awake - Skin Skin Exam: Dry, Intact, Normal Color, Warm Assessment and Plan - Assessment and Plan (Free Text) Plan: Community Acquired Pneumonia * Admit to med/surg * No elevated WBC; minor left shift, 5 bands * 2L O2 PRN * CXR (07/04/17): Heterogeneous opacity at left lung base. Mild to moderate pulmonary vascular congestion. Moderated cardiomegaly. * Lactate 0.7 * Negative for flu * ID consult, Dr. Castro, help appreciated * f/u reccs * Pulmonology consulted, Dr. Wing, help appreciated * Blood cultures- no growth * f/u atypicals * Mycoplasma IgG 3.33, IgM 528 * Procalcitonin: 1.51 * Medications: * Ceftriaxone 1gm IV Daily (start 07/04/17) * Azithromycin 500mg IV Daily (start 07/04/17) * Duonebs Q4H [facility] * Tylenol 650mg PO Q4H PRN * Robitussin PRN cough * Solumedrol 20mg IV BID ESRD (MWF) * Pt reports dry weight of 44.9 kg * Dr. Correia, Evening Or Night Nurse Supervisor, help appreciated: * Had HD 07/04/17, 07/07/17, 07/09/17 * Continue to monitor BUN/Cr History of kidney transplant * Transplant 8 years ago - Left * Discontinue Cellcept 250mg PO BID as per Dr. Correia,patient does not need to continue taking medication HTN * Continue home med: Nifidepine 60mg PO BID * Clonidine 0.2mg PO BID * Labetalol 100mg PO BID (hold if SBP <160, HR<60) * Monitor vitals Anemia of Chronic Disease * 2/2 CKD * Hgb 9.9, improving--> 10.2 * f/u Nephro reccs * Monitor Hyperphosphatemia * phoslo daily Prolonged QT on EKG * Discontinued zofran. * Avoid QT prolonging medications. Epigastric pain * Abdominal/pelvic CT: severe cardiomegaly, large pericardial effusion; b/l lower lobe infiltrates/edema; moderate pelvic ascites; atrophic [place] kidney; right iliac fossa transplant kidney with fatty hilum. Prophylaxis * Lovenox 30mg SC Daily (renally adjusted)--> held as per Dr. Correia * SCDs * Protonix 40mg PO daily * Heart Healthy, low sodium, renal dialysis diet Discussed with Dr. Wilson All medical management per Dr. Wilson
[2017-07-09 08:11] LABS: BASO % 0.2 % (0.0-2.0); EOS % 0.1 % (0.0-4.0); LYMPH # 2.2 K/uL (1.0-4.3); LYMPH % 19.2 % (20.0-40.0); MEAN CELL VOLUME 82.2 fL (81.0-99.0); MEAN CORPUSCULAR HEMOGLOBIN 27.2 pg (27.0-31.0); MEAN CORPUSCULAR HGB CONC 33.1 g/dL (33.0-37.0); MEAN PLATELET VOLUME 7.5 fL (7.2-11.7); MONO # 1.5 K/uL (0.0-0.8); MONO % 13.5 % (0.0-10.0); NEUT # 7.6 K/uL (1.8-7.0); RBC 3.42 Mil/uL (3.80-5.20); WHITE BLOOD COUNT 11.3 K/uL (4.8-10.8)
[2017-07-09 08:18] LABS: HEMOGLOBIN 9.3 g/dL (11.0-16.0)
[2017-07-09 08:56] LABS: ALB/GLOB RATIO 1.3 (1.0-2.1); ALBUMIN 3.6 g/dL (3.5-5.0); CALCIUM 9.1 mg/dl (8.6-10.4)
[2017-07-09] MEDS: guaiFENesin 100 mg/5 ml Syrup UD PO PRN (10:34)
[2017-07-09] MEDS: NIFEdipine 60 mg ER Tab PO SCH ×2 (10:43→17:57)
[2017-07-09] MEDS: Pantoprazole 40 mg EC Tab PO SCH (10:43)
--- NOTE | 2017-07-09 13:10 | CP.PCM.PN ---
Subjective - Date & Time of Evaluation Date of Evaluation: 07/09/17 Time of Evaluation: 13:07 - Subjective Subjective: Seen at dialysis today BP now controlled UF 2500ml with HD afebrile now; no chill, nausea, SOB, diarrhea, CPs Objective - Vital Signs/Intake and Output Vital Signs (last 24 hours): Temp Pulse Resp BP Pulse Ox 98 F 90 15 138/74 95 07/09/17 09:30 07/09/17 12:00 07/09/17 12:00 07/09/17 12:00 07/09/17 12:00 Intake and Output: 07/09/17 07/09/17 06:59 18:59 Intake Total 150 Balance 150 - Medications Medications: Current Medications Acetaminophen (Tylenol 325mg Tab) 650 mg PO Q6 PRN PRN Reason: Fever >100.4 F Last Admin: 07/07/17 06:57 Dose: 650 mg Albuterol/Ipratropium (Duoneb 3 Mg/0.5 Mg (3 Ml) Ud) 3 ml INH RQ4 [facility] Last Admin: 07/09/17 11:14 Dose: Not Given Azithromycin (Zithromax) 500 mg PO DAILY [facility] Last Admin: 07/08/17 09:32 Dose: 500 mg Calcium Acetate (Phoslo) 1,334 mg PO TIDCC [facility] Last Admin: 07/09/17 07:50 Dose: 1,334 mg Clonidine HCl (Catapres) 0.2 mg PO BID [facility] Last Admin: 07/09/17 10:42 Dose: Not Given Guaifenesin (Robitussin) 100 mg PO Q4H PRN PRN Reason: Cough Last Admin: 07/09/17 10:34 Dose: 100 mg Ceftriaxone Sodium (Rocephin Iv 1 Gm Duplex) 50 mls @ 100 mls/hr IVPB DAILY [facility] Last Admin: 07/08/17 09:29 Dose: 100 mls/hr Labetalol HCl (Trandate) 100 mg PO BID [facility] Last Admin: 07/09/17 10:43 Dose: Not Given Methylprednisolone (Solu-Medrol) 20 mg IVP BID [facility] Last Admin: 07/08/17 17:27 Dose: 20 mg Nifedipine (Procardia Xl) 60 mg PO BID [facility] Last Admin: 07/09/17 10:43 Dose: Not Given Pantoprazole Sodium (Protonix Ec Tab) 40 mg PO DAILY [facility] Last Admin: 07/09/17 10:43 Dose: Not Given - Labs Labs: 07/09/17 07:50 07/09/17 07:50 - Constitutional Appears: No Acute Distress, Chronically Ill - Head Exam Head Exam: ATRAUMATIC, NORMAL INSPECTION - Eye Exam Eye Exam: EOMI, Normal appearance - Neck Exam Neck Exam: Normal Inspection. absent: Tenderness - Respiratory Exam Respiratory Exam: Clear to Ausculation Bilateral, NORMAL BREATHING PATTERN - Cardiovascular Exam Cardiovascular Exam: REGULAR RHYTHM, +S1 - GI/Abdominal Exam GI & Abdominal Exam: Soft. absent: Tenderness - Extremities Exam Extremities Exam: Normal Inspection. absent: Tenderness - Neurological Exam Neurological Exam: Alert, CN II-XII Intact - Skin Skin Exam: Dry, Warm Assessment and Plan (1) CHF (congestive heart failure) Status: Acute (2) HTN (hypertension) Status: Acute (3) ESRD (end stage renal disease) on dialysis Status: Acute (4) Pneumonia Status: Acute - Assessment and Plan (Free Text) Plan: Same dialysis Same BP meds OK for discharge soon- same HD, meds as outpt
[2017-07-09] MEDS: cefTRIAXone IV 1 gm in Dextros 50 ML IVPB SCH (14:01)
[2017-07-09] MEDS: MethylPREDNISolone 40 mg Vial IVP SCH ×2 (14:03→17:58)
--- NOTE | 2017-07-09 18:35 | CP.PCM.PN ---
Subjective - Date & Time of Evaluation Date of Evaluation: 07/09/17 Time of Evaluation: 10:00 - Subjective Subjective: afebrile alert less cough and less sob Objective - Vital Signs/Intake and Output Vital Signs (last 24 hours): Temp Pulse Resp BP Pulse Ox 98.8 F 91 H 20 121/56 L 93 L 07/09/17 15:56 07/09/17 15:56 07/09/17 15:56 07/09/17 15:56 07/09/17 15:56 Intake and Output: 07/09/17 07/09/17 06:59 18:59 Intake Total 150 530 Balance 150 530 - Medications Medications: Current Medications Acetaminophen (Tylenol 325mg Tab) 650 mg PO Q6 PRN PRN Reason: Fever >100.4 F Last Admin: 07/07/17 06:57 Dose: 650 mg Albuterol/Ipratropium (Duoneb 3 Mg/0.5 Mg (3 Ml) Ud) 3 ml INH RQ4 [facility] Last Admin: 07/09/17 16:05 Dose: 3 ml Azithromycin (Zithromax) 500 mg PO DAILY [facility] Last Admin: 07/09/17 14:01 Dose: 500 mg Calcium Acetate (Phoslo) 1,334 mg PO TIDCC [facility] Last Admin: 07/09/17 17:57 Dose: 1,334 mg Clonidine HCl (Catapres) 0.2 mg PO BID [facility] Last Admin: 07/09/17 17:57 Dose: 0.2 mg Guaifenesin (Robitussin) 100 mg PO Q4H PRN PRN Reason: Cough Last Admin: 07/09/17 10:34 Dose: 100 mg Ceftriaxone Sodium (Rocephin Iv 1 Gm Duplex) 50 mls @ 100 mls/hr IVPB DAILY [facility] Last Admin: 07/09/17 14:01 Dose: 100 mls/hr Labetalol HCl (Trandate) 100 mg PO BID [facility] Last Admin: 07/09/17 17:57 Dose: 100 mg Methylprednisolone (Solu-Medrol) 20 mg IVP BID [facility] Last Admin: 07/09/17 17:58 Dose: 20 mg Nifedipine (Procardia Xl) 60 mg PO BID [facility] Last Admin: 07/09/17 17:57 Dose: 60 mg Pantoprazole Sodium (Protonix Ec Tab) 40 mg PO DAILY [facility] Last Admin: 07/09/17 10:43 Dose: Not Given - Labs Labs: 07/09/17 07:50 07/09/17 07:50 - Constitutional Appears: Non-toxic, Chronically Ill - Head Exam Head Exam: NORMOCEPHALIC - Eye Exam Eye Exam: PERRL - ENT Exam ENT Exam: Mucous Membranes Dry - Neck Exam Neck Exam: absent: Lymphadenopathy - Respiratory Exam Respiratory Exam: Decreased Breath Sounds, Rhonchi - Cardiovascular Exam Cardiovascular Exam: REGULAR RHYTHM, +S1, +S2 - GI/Abdominal Exam GI & Abdominal Exam: Distended, Soft - Rectal Exam Rectal Exam: Deferred - Exam Exam: NORMAL INSPECTION Assessment and Plan (1) ESRD (end stage renal disease) on dialysis Status: Acute (2) Immunocompromised state Status: Acute (3) Pneumonia Status: Acute - Assessment and Plan (Free Text) Assessment: cont iv then po rx
[2017-07-10] MEDS: Albuterol-Ipratrop 3 mg / 0.5 (3 ml) UD INH SCH ×6 (00:22→19:58)
--- NOTE | 2017-07-10 06:58 | CP.PCM.PN ---
Subjective - Date & Time of Evaluation Date of Evaluation: 07/10/17 Time of Evaluation: 06:58 - Subjective Subjective: Medicine progress note for [facility] service Patient was seen and examined at bedside in the morning. Patient reports feeling well today and has no complaints. Patient had no acute events overnight. Patient denies chest pain, shortness of breath, abdominal pain, nausea, vomiting, fevers, headaches. Objective - Vital Signs/Intake and Output Vital Signs (last 24 hours): Temp Pulse Resp BP Pulse Ox 98 F 77 20 124/72 96 07/09/17 23:58 07/09/17 23:58 07/09/17 23:58 07/09/17 23:58 07/09/17 23:58 Intake and Output: 07/09/17 07/10/17 18:59 06:59 Intake Total 530 300 Balance 530 300 - Medications Medications: Current Medications Acetaminophen (Tylenol 325mg Tab) 650 mg PO Q6 PRN PRN Reason: Fever >100.4 F Last Admin: 07/07/17 06:57 Dose: 650 mg Albuterol/Ipratropium (Duoneb 3 Mg/0.5 Mg (3 Ml) Ud) 3 ml INH RQ4 [facility] Last Admin: 07/10/17 03:14 Dose: Not Given Azithromycin (Zithromax) 500 mg PO DAILY [facility] Last Admin: 07/09/17 14:01 Dose: 500 mg Calcium Acetate (Phoslo) 1,334 mg PO TIDCC [facility] Last Admin: 07/09/17 17:57 Dose: 1,334 mg Clonidine HCl (Catapres) 0.2 mg PO BID [facility] Last Admin: 07/09/17 17:57 Dose: 0.2 mg Guaifenesin (Robitussin) 100 mg PO Q4H PRN PRN Reason: Cough Last Admin: 07/09/17 10:34 Dose: 100 mg Ceftriaxone Sodium (Rocephin Iv 1 Gm Duplex) 50 mls @ 100 mls/hr IVPB DAILY [facility] Last Admin: 07/09/17 14:01 Dose: 100 mls/hr Labetalol HCl (Trandate) 100 mg PO BID [facility] Last Admin: 07/09/17 17:57 Dose: 100 mg Methylprednisolone (Solu-Medrol) 20 mg IVP BID [facility] Last Admin: 07/09/17 17:58 Dose: 20 mg Nifedipine (Procardia Xl) 60 mg PO BID [facility] Last Admin: 07/09/17 17:57 Dose: 60 mg Pantoprazole Sodium (Protonix Ec Tab) 40 mg PO DAILY [facility] Last Admin: 07/09/17 10:43 Dose: Not Given - Labs Labs: 07/09/17 07:50 07/09/17 07:50 - Additional Findings Additional findings: - Head Exam Head Exam: ATRAUMATIC, NORMAL INSPECTION - Eye Exam Eye Exam: EOMI, Normal appearance - ENT Exam ENT Exam: Mucous Membranes Moist - Respiratory Exam Respiratory Exam: Wheezes, Rhonchi, NORMAL BREATHING PATTERN. absent: Clear to Ausculation Bilateral, Rales, Respiratory Distress, - Cardiovascular Exam Cardiovascular Exam: REGULAR RHYTHM, +S1, +S2 - GI/Abdominal Exam GI & Abdominal Exam: Soft, Normal Bowel Sounds. Absent: Tenderness - Extremities Exam Extremities Exam: Normal Inspection - Neurological Exam Neurological Exam: Alert, Awake - Skin Skin Exam: Dry, Intact, Normal Color, Warm Assessment and Plan - Assessment and Plan (Free Text) Plan: Community Acquired Pneumonia * Admit to med/surg * No elevated WBC; minor left shift, 5 bands * 2L O2 PRN * CXR (07/04/17): Heterogeneous opacity at left lung base. Mild to moderate pulmonary vascular congestion. Moderated cardiomegaly. * Lactate 0.7 * Negative for flu * ID consult, Dr. Castro, help appreciated * f/u reccs * Pulmonology consulted, Dr. Wing, help appreciated * Blood cultures- no growth * f/u atypicals * Mycoplasma IgG 3.33, IgM 528 * Procalcitonin: 1.51 * Procalcitonin repeat: f/u * Medications: * Ceftriaxone 1gm IV Daily (start 07/04/17) * Azithromycin 500mg IV Daily (start 07/04/17) * Duonebs Q4H [facility] * Tylenol 650mg PO Q4H PRN * Robitussin PRN cough * Solumedrol 20mg IV BID ESRD (MWF) * Pt reports dry weight of 44.9 kg * Dr. Correia, Shank Pinner, help appreciated: * Had HD 07/04/17, 07/07/17, 07/09/17 * Continue to monitor BUN/Cr History of kidney transplant * Transplant 8 years ago - Left * Discontinue Cellcept 250mg PO BID as per Dr. Correia,patient does not need to continue taking medication HTN * Stable * Continue home med: Nifidepine 60mg PO BID * Clonidine 0.2mg PO BID * Labetalol 100mg PO BID (hold if SBP <160, HR<60) * Monitor vitals Anemia of Chronic Disease * 2/2 CKD * Hgb 9.9, improving--> 10.2 * f/u Nephro reccs * Monitor Hyperphosphatemia * phoslo daily Prolonged QT on EKG * Discontinued zofran. * Avoid QT prolonging medications. Epigastric pain * Abdominal/pelvic CT: severe cardiomegaly, large pericardial effusion; b/l lower lobe infiltrates/edema; moderate pelvic ascites; atrophic [place] kidney; right iliac fossa transplant kidney with fatty hilum. Prophylaxis * Lovenox 30mg SC Daily (renally adjusted)--> held as per Dr. Correia * SCDs * Protonix 40mg PO daily * Heart Healthy, low sodium, renal dialysis diet Discussed with Dr. Wilson All medical management per Dr. Wilson
[2017-07-10 07:48] LABS: BASO % 0.1 % (0.0-2.0); HEMOGLOBIN 9.8 g/dL (11.0-16.0); LYMPH # 1.5 K/uL (1.0-4.3); MEAN CELL VOLUME 83.7 fL (81.0-99.0); MEAN CORPUSCULAR HEMOGLOBIN 28.4 pg (27.0-31.0); MEAN PLATELET VOLUME 7.4 fL (7.2-11.7); MONO # 1.1 K/uL (0.0-0.8); NEUT # 7.7 K/uL (1.8-7.0); NEUT % 74.9 % (50.0-75.0); NRBC % 0.1 % (0.0-2.0); RBC 3.44 Mil/uL (3.80-5.20); RED CELL DISTRIBUTION WIDTH 15.8 % (11.5-14.5); WHITE BLOOD COUNT 10.3 K/uL (4.8-10.8)
[2017-07-10 08:07] LABS: ALB/GLOB RATIO 1.2 (1.0-2.1); ALBUMIN 3.4 g/dL (3.5-5.0)
[2017-07-10] MEDS: NIFEdipine 60 mg ER Tab PO SCH ×2 (09:31→17:58)
[2017-07-10] MEDS: Pantoprazole 40 mg EC Tab PO SCH (09:32)
[2017-07-10] MEDS: MethylPREDNISolone 40 mg Vial IVP SCH ×2 (09:33→17:58)
[2017-07-10] MEDS: guaiFENesin 100 mg/5 ml Syrup UD PO PRN (09:35)
--- NOTE | 2017-07-10 09:54 | CP.PCM.PN ---
Subjective - Date & Time of Evaluation Date of Evaluation: 07/10/17 Time of Evaluation: 09:51 - Subjective Subjective: less dyspneic stable dialysis 2/7- UF 2500ml BP controlled less cough Objective - Vital Signs/Intake and Output Vital Signs (last 24 hours): Temp Pulse Resp BP Pulse Ox 98.5 F 70 20 131/66 96 07/10/17 07:32 07/10/17 07:32 07/10/17 07:32 07/10/17 07:32 07/09/17 23:58 Intake and Output: 07/10/17 07/10/17 06:59 18:59 Intake Total 300 Balance 300 - Medications Medications: Current Medications Acetaminophen (Tylenol 325mg Tab) 650 mg PO Q6 PRN PRN Reason: Fever >100.4 F Last Admin: 07/07/17 06:57 Dose: 650 mg Albuterol/Ipratropium (Duoneb 3 Mg/0.5 Mg (3 Ml) Ud) 3 ml INH RQ4 [facility] Last Admin: 07/10/17 07:27 Dose: 3 ml Azithromycin (Zithromax) 500 mg PO DAILY [facility] Last Admin: 07/10/17 09:33 Dose: 500 mg Calcium Acetate (Phoslo) 1,334 mg PO TIDCC [facility] Last Admin: 07/10/17 08:00 Dose: 1,334 mg Clonidine HCl (Catapres) 0.2 mg PO BID [facility] Last Admin: 07/10/17 09:33 Dose: 0.2 mg Guaifenesin (Robitussin) 100 mg PO Q4H PRN PRN Reason: Cough Last Admin: 07/10/17 09:35 Dose: 100 mg Ceftriaxone Sodium (Rocephin Iv 1 Gm Duplex) 50 mls @ 100 mls/hr IVPB DAILY [facility] Last Admin: 07/09/17 14:01 Dose: 100 mls/hr Labetalol HCl (Trandate) 100 mg PO BID [facility] Last Admin: 07/10/17 09:31 Dose: 100 mg Methylprednisolone (Solu-Medrol) 20 mg IVP BID [facility] Last Admin: 07/10/17 09:33 Dose: 20 mg Nifedipine (Procardia Xl) 60 mg PO BID [facility] Last Admin: 07/10/17 09:31 Dose: 60 mg Pantoprazole Sodium (Protonix Ec Tab) 40 mg PO DAILY [facility] Last Admin: 07/10/17 09:32 Dose: 40 mg - Labs Labs: 07/10/17 07:17 07/10/17 07:17 - Constitutional Appears: No Acute Distress, Chronically Ill - Head Exam Head Exam: ATRAUMATIC, NORMAL INSPECTION - Eye Exam Eye Exam: EOMI, Normal appearance - Neck Exam Neck Exam: Normal Inspection. absent: Tenderness - Respiratory Exam Respiratory Exam: Rhonchi, NORMAL BREATHING PATTERN - Cardiovascular Exam Cardiovascular Exam: REGULAR RHYTHM, +S1 - GI/Abdominal Exam GI & Abdominal Exam: Soft. absent: Tenderness - Extremities Exam Extremities Exam: Normal Inspection. absent: Tenderness - Neurological Exam Neurological Exam: Alert, CN II-XII Intact - Skin Skin Exam: Dry, Warm Assessment and Plan (1) CHF (congestive heart failure) Status: Acute (2) HTN (hypertension) Status: Acute (3) ESRD (end stage renal disease) on dialysis Status: Acute (4) Pneumonia Status: Acute - Assessment and Plan (Free Text) Plan: IV ABs as per ID increase UF with HD Same BP meds recheck labs
[2017-07-10] MEDS: cefTRIAXone IV 1 gm in Dextros 50 ML IVPB SCH (10:00)
--- NOTE | 2017-07-10 17:31 | CP.PCM.PN ---
Subjective - Date & Time of Evaluation Date of Evaluation: 07/10/17 Time of Evaluation: 07:00 - Subjective Subjective: less cough wheezing still all cultures neg Objective - Vital Signs/Intake and Output Vital Signs (last 24 hours): Temp Pulse Resp BP Pulse Ox 98 F 81 20 146/80 93 L 07/10/17 16:00 07/10/17 16:00 07/10/17 16:00 07/10/17 16:00 07/10/17 16:00 Intake and Output: 07/10/17 07/10/17 06:59 18:59 Intake Total 300 Balance 300 - Medications Medications: Current Medications Acetaminophen (Tylenol 325mg Tab) 650 mg PO Q6 PRN PRN Reason: Fever >100.4 F Last Admin: 07/07/17 06:57 Dose: 650 mg Albuterol/Ipratropium (Duoneb 3 Mg/0.5 Mg (3 Ml) Ud) 3 ml INH RQ4 [facility] Last Admin: 07/10/17 16:29 Dose: 3 ml Azithromycin (Zithromax) 500 mg PO DAILY [facility] Last Admin: 07/10/17 09:33 Dose: 500 mg Calcium Acetate (Phoslo) 1,334 mg PO TIDCC [facility] Last Admin: 07/10/17 12:00 Dose: 1,334 mg Clonidine HCl (Catapres) 0.2 mg PO BID [facility] Last Admin: 07/10/17 09:33 Dose: 0.2 mg Guaifenesin (Robitussin) 100 mg PO Q4H PRN PRN Reason: Cough Last Admin: 07/10/17 09:35 Dose: 100 mg Ceftriaxone Sodium (Rocephin Iv 1 Gm Duplex) 50 mls @ 100 mls/hr IVPB DAILY [facility] Last Admin: 07/10/17 10:00 Dose: 100 mls/hr Labetalol HCl (Trandate) 100 mg PO BID [facility] Last Admin: 07/10/17 09:31 Dose: 100 mg Methylprednisolone (Solu-Medrol) 20 mg IVP BID [facility] Last Admin: 07/10/17 09:33 Dose: 20 mg Nifedipine (Procardia Xl) 60 mg PO BID [facility] Last Admin: 07/10/17 09:31 Dose: 60 mg Pantoprazole Sodium (Protonix Ec Tab) 40 mg PO DAILY [facility] Last Admin: 02/08/18 09:32 Dose: 40 mg - Labs Labs: 07/10/17 07:17 07/10/17 07:17 - Constitutional Appears: Non-toxic, Chronically Ill - Head Exam Head Exam: NORMOCEPHALIC - Eye Exam Eye Exam: absent: Scleral icterus - ENT Exam ENT Exam: Mucous Membranes Dry - Neck Exam Neck Exam: absent: Lymphadenopathy - Respiratory Exam Respiratory Exam: Decreased Breath Sounds, Rhonchi - Cardiovascular Exam Cardiovascular Exam: REGULAR RHYTHM - GI/Abdominal Exam GI & Abdominal Exam: Distended, Soft - Rectal Exam Rectal Exam: Deferred Assessment and Plan (1) ESRD (end stage renal disease) on dialysis Status: Acute (2) Immunocompromised state Status: Acute (3) Pneumonia Status: Acute - Assessment and Plan (Free Text) Assessment: will repeat procalcitonin level
--- NOTE | 2017-07-10 17:58 | CP.PCM.PN ---
Subjective - Date & Time of Evaluation Date of Evaluation: 07/10/17 Time of Evaluation: 11:30 - Subjective Subjective: Patient seen and examined at bedside. Patient reports that her shortness of breath has completely resolved. She denies chest pain and subjective fevers. She reports decreased nausea and is tolerating food well. Patient is inquiring about when she will be discharged. 1. Pneumonia - Continue IV antibiotics - Influenza A/B negative - Pro-calcitonin:1.51 - Mycoplasma IgM below range - duonebs q4h - Robitussin PRN -Solumedrol 20 mg IV BID Objective - Vital Signs/Intake and Output Vital Signs (last 24 hours): Temp Pulse Resp BP Pulse Ox 98 F 81 20 146/80 93 L 07/10/17 16:00 07/10/17 16:00 07/10/17 16:00 07/10/17 16:00 07/10/17 16:00 Intake and Output: 07/10/17 07/10/17 06:59 18:59 Intake Total 300 Balance 300 - Medications Medications: Current Medications Acetaminophen (Tylenol 325mg Tab) 650 mg PO Q6 PRN PRN Reason: Fever >100.4 F Last Admin: 07/07/17 06:57 Dose: 650 mg Albuterol/Ipratropium (Duoneb 3 Mg/0.5 Mg (3 Ml) Ud) 3 ml INH RQ4 [facility] Last Admin: 07/10/17 16:29 Dose: 3 ml Azithromycin (Zithromax) 500 mg PO DAILY [facility] Last Admin: 07/10/17 09:33 Dose: 500 mg Calcium Acetate (Phoslo) 1,334 mg PO TIDCC [facility] Last Admin: 07/10/17 12:00 Dose: 1,334 mg Clonidine HCl (Catapres) 0.2 mg PO BID [facility] Last Admin: 07/10/17 09:33 Dose: 0.2 mg Guaifenesin (Robitussin) 100 mg PO Q4H PRN PRN Reason: Cough Last Admin: 07/10/17 09:35 Dose: 100 mg Ceftriaxone Sodium (Rocephin Iv 1 Gm Duplex) 50 mls @ 100 mls/hr IVPB DAILY [facility] Last Admin: 07/10/17 10:00 Dose: 100 mls/hr Labetalol HCl (Trandate) 100 mg PO BID [facility] Last Admin: 07/10/17 09:31 Dose: 100 mg Methylprednisolone (Solu-Medrol) 20 mg IVP BID [facility] Last Admin: 07/10/17 09:33 Dose: 20 mg Nifedipine (Procardia Xl) 60 mg PO BID [facility] Last Admin: 07/10/17 09:31 Dose: 60 mg Pantoprazole Sodium (Protonix Ec Tab) 40 mg PO DAILY [facility] Last Admin: 07/10/17 09:32 Dose: 40 mg - Labs Labs: 07/10/17 07:17 07/10/17 07:17
[2017-07-11] MEDS: Albuterol-Ipratrop 3 mg / 0.5 (3 ml) UD INH SCH ×4 (00:28→17:24)
[2017-07-11 07:12] LABS: BASO % 0.2 % (0.0-2.0); EOS % 0.1 % (0.0-4.0); HEMOGLOBIN 9.9 g/dL (11.0-16.0); LYMPH # 2.1 K/uL (1.0-4.3); LYMPH % 12.6 % (20.0-40.0); MEAN CELL VOLUME 83.3 fL (81.0-99.0); MEAN CORPUSCULAR HEMOGLOBIN 27.8 pg (27.0-31.0); MEAN CORPUSCULAR HGB CONC 33.4 g/dL (33.0-37.0); MEAN PLATELET VOLUME 7.2 fL (7.2-11.7); MONO # 1.5 K/uL (0.0-0.8); MONO % 8.9 % (0.0-10.0); NEUT # 12.9 K/uL (1.8-7.0); NEUT % 78.2 % (50.0-75.0); RBC 3.57 Mil/uL (3.80-5.20); RED CELL DISTRIBUTION WIDTH 15.6 % (11.5-14.5); WHITE BLOOD COUNT 16.5 K/uL (4.8-10.8)
[2017-07-11 08:42] LABS: ALB/GLOB RATIO 1.2 (1.0-2.1); ALBUMIN 3.6 g/dL (3.5-5.0); CALCIUM 9.5 mg/dl (8.6-10.4)
--- NOTE | 2017-07-11 10:02 | CP.PCM.PN ---
Subjective - Date & Time of Evaluation Date of Evaluation: 07/11/17 Time of Evaluation: 10:00 - Subjective Subjective: Medicine progress note for [facility] service Patient was seen and examined at bedside in the morning. Patient reports feeling well today and has no complaints. Patient had no acute events overnight. She says her cough has improved and has minimal white phelgm. Patient denies chest pain, shortness of breath, abdominal pain, nausea, vomiting , fevers, headaches. Objective - Vital Signs/Intake and Output Vital Signs (last 24 hours): Temp Pulse Resp BP Pulse Ox 98.1 F 66 20 141/80 100 07/11/17 07:31 07/11/17 07:31 07/11/17 07:31 07/11/17 07:31 07/11/17 07:31 Intake and Output: 07/11/17 07/11/17 06:59 18:59 Intake Total 450 Balance 450 - Medications Medications: Current Medications Acetaminophen (Tylenol 325mg Tab) 650 mg PO Q6 PRN PRN Reason: Fever >100.4 F Last Admin: 07/07/17 06:57 Dose: 650 mg Albuterol/Ipratropium (Duoneb 3 Mg/0.5 Mg (3 Ml) Ud) 3 ml INH RQ4 [facility] Last Admin: 07/11/17 07:32 Dose: 3 ml Azithromycin (Zithromax) 500 mg PO DAILY [facility] Last Admin: 07/10/17 09:33 Dose: 500 mg Calcium Acetate (Phoslo) 1,334 mg PO TIDCC [facility] Last Admin: 07/11/17 08:12 Dose: 1,334 mg Clonidine HCl (Catapres) 0.2 mg PO BID [facility] Last Admin: 07/10/17 17:58 Dose: 0.2 mg Guaifenesin (Robitussin) 100 mg PO Q4H PRN PRN Reason: Cough Last Admin: 07/10/17 09:35 Dose: 100 mg Ceftriaxone Sodium (Rocephin Iv 1 Gm Duplex) 50 mls @ 100 mls/hr IVPB DAILY [facility] Last Admin: 07/10/17 10:00 Dose: 100 mls/hr Labetalol HCl (Trandate) 100 mg PO BID [facility] Last Admin: 07/10/17 17:59 Dose: 100 mg Methylprednisolone (Solu-Medrol) 20 mg IVP BID [facility] Last Admin: 07/10/17 17:58 Dose: 20 mg Nifedipine (Procardia Xl) 60 mg PO BID [facility] Last Admin: 07/10/17 17:58 Dose: 60 mg Pantoprazole Sodium (Protonix Ec Tab) 40 mg PO DAILY [facility] Last Admin: 07/10/17 09:32 Dose: 40 mg - Labs Labs: 07/11/17 06:37 07/11/17 06:37 - Additional Findings Additional findings: - Head Exam Head Exam: ATRAUMATIC, NORMAL INSPECTION - Eye Exam Eye Exam: EOMI, Normal appearance - ENT Exam ENT Exam: Mucous Membranes Moist - Respiratory Exam Respiratory Exam: Wheezes (improving), Rhonchi (improving), NORMAL BREATHING PATTERN. absent: Clear to Ausculation Bilateral, Rales, Respiratory Distress, - Cardiovascular Exam Cardiovascular Exam: REGULAR RHYTHM, +S1, +S2 - GI/Abdominal Exam GI & Abdominal Exam: Soft, Normal Bowel Sounds. Absent: Tenderness - Extremities Exam Extremities Exam: Normal Inspection - Neurological Exam Neurological Exam: Alert, Awake - Skin Skin Exam: Dry, Intact, Normal Color, Warm Assessment and Plan - Assessment and Plan (Free Text) Plan: Community Acquired Pneumonia * Admit to med/surg * No elevated WBC; minor left shift, 5 bands * 2L O2 PRN * CXR (07/04/17): Heterogeneous opacity at left lung base. Mild to moderate pulmonary vascular congestion. Moderated cardiomegaly. * Lactate 0.7 * Negative for flu * ID consult, Dr. Castro, help appreciated * f/u reccs * Pulmonology consulted, Dr. Wing, help appreciated * Blood cultures- no growth * f/u atypicals * Mycoplasma IgG 3.33, IgM 528 * Procalcitonin: 1.51 * Procalcitonin repeat: f/u * Medications: * Ceftriaxone 1gm IV Daily (start 07/04/17) * Azithromycin 500mg IV Daily (start 07/04/17) * Duonebs Q4H [facility] * Tylenol 650mg PO Q4H PRN * Robitussin PRN cough * Solumedrol 20mg IV BID ESRD (MWF) * Pt reports dry weight of 44.9 kg * Dr. Correia, [employer], help appreciated: * Had HD 07/04/17, 07/07/17, 07/09/17 * Planned for HD today, 07/11/17 * Continue to monitor BUN/Cr History of kidney transplant * Transplant 8 years ago - Left * Discontinue Cellcept 250mg PO BID as per Dr. Correia,patient does not need to continue taking medication HTN * Stable * Continue home med: Nifidepine 60mg PO BID * Clonidine 0.2mg PO BID * Labetalol 100mg PO BID (hold if SBP <160, HR<60) * Monitor vitals Anemia of Chronic Disease * 2/2 CKD * Hgb 9.9, improving--> 10.2 * f/u Nephro reccs * Monitor Hyperphosphatemia * phoslo daily Prolonged QT on EKG * Discontinued zofran. * Avoid QT prolonging medications. Epigastric pain * Abdominal/pelvic CT: severe cardiomegaly, large pericardial effusion; b/l lower lobe infiltrates/edema; moderate pelvic ascites; atrophic [place] kidney; right iliac fossa transplant kidney with fatty hilum. Prophylaxis * Lovenox 30mg SC Daily (renally adjusted)--> held as per Dr. Correia * SCDs * Protonix 40mg PO daily * Heart Healthy, low sodium, renal dialysis diet Discussed with Dr. Wilson All medical management per Dr. Wilson
[2017-07-11] MEDS: NIFEdipine 60 mg ER Tab PO SCH ×2 (10:31→17:11)
--- NOTE | 2017-07-11 12:23 | CP.PCM.PN ---
Subjective - Date & Time of Evaluation Date of Evaluation: 07/11/17 Time of Evaluation: 12:21 - Subjective Subjective: Seen at dialysis- to UF 3000ml BP better controlled Still sl tachy all cultures neg feels better Objective - Vital Signs/Intake and Output Vital Signs (last 24 hours): Temp Pulse Resp BP Pulse Ox 97.7 F 83 16 155/83 H 96 07/11/17 10:00 07/11/17 11:00 07/11/17 11:00 07/11/17 11:00 07/11/17 11:00 Intake and Output: 07/11/17 07/11/17 06:59 18:59 Intake Total 450 Balance 450 - Medications Medications: Current Medications Acetaminophen (Tylenol 325mg Tab) 650 mg PO Q6 PRN PRN Reason: Fever >100.4 F Last Admin: 07/07/17 06:57 Dose: 650 mg Albuterol/Ipratropium (Duoneb 3 Mg/0.5 Mg (3 Ml) Ud) 3 ml INH RQ4 [facility] Last Admin: 07/11/17 07:32 Dose: 3 ml Azithromycin (Zithromax) 500 mg PO DAILY [facility] Last Admin: 07/10/17 09:33 Dose: 500 mg Calcium Acetate (Phoslo) 1,334 mg PO TIDCC [facility] Last Admin: 07/11/17 08:12 Dose: 1,334 mg Clonidine HCl (Catapres) 0.2 mg PO BID [facility] Last Admin: 07/11/17 10:31 Dose: Not Given Guaifenesin (Robitussin) 100 mg PO Q4H PRN PRN Reason: Cough Last Admin: 07/10/17 09:35 Dose: 100 mg Ceftriaxone Sodium (Rocephin Iv 1 Gm Duplex) 50 mls @ 100 mls/hr IVPB DAILY [facility] Last Admin: 07/10/17 10:00 Dose: 100 mls/hr Labetalol HCl (Trandate) 100 mg PO BID [facility] Last Admin: 07/11/17 10:33 Dose: Not Given Methylprednisolone (Solu-Medrol) 20 mg IVP BID [facility] Last Admin: 07/10/17 17:58 Dose: 20 mg Nifedipine (Procardia Xl) 60 mg PO BID [facility] Last Admin: 07/11/17 10:31 Dose: Not Given Pantoprazole Sodium (Protonix Ec Tab) 40 mg PO DAILY [facility] Last Admin: 07/10/17 09:32 Dose: 40 mg - Labs Labs: 07/11/17 06:37 07/11/17 06:37 - Constitutional Appears: No Acute Distress, Chronically Ill - Head Exam Head Exam: ATRAUMATIC, NORMAL INSPECTION - Eye Exam Eye Exam: EOMI, Normal appearance - Neck Exam Neck Exam: Normal Inspection. absent: Tenderness - Respiratory Exam Respiratory Exam: Rhonchi, NORMAL BREATHING PATTERN - Cardiovascular Exam Cardiovascular Exam: REGULAR RHYTHM, +S1 - GI/Abdominal Exam GI & Abdominal Exam: Soft. absent: Tenderness - Extremities Exam Extremities Exam: Normal Inspection. absent: Tenderness - Neurological Exam Neurological Exam: Alert, CN II-XII Intact - Skin Skin Exam: Dry, Warm Assessment and Plan (1) CHF (congestive heart failure) Status: Acute (2) HTN (hypertension) Status: Acute (3) ESRD (end stage renal disease) on dialysis Status: Acute (4) Pneumonia Status: Acute - Assessment and Plan (Free Text) Plan: Same dialysis MWF IV ABs as per ID Increase labetalol dose
[2017-07-11] MEDS: MethylPREDNISolone 40 mg Vial IVP SCH ×2 (13:59→17:12)
[2017-07-11] MEDS: Pantoprazole 40 mg EC Tab PO SCH (14:00)
[2017-07-11] MEDS: cefTRIAXone IV 1 gm in Dextros 50 ML IVPB SCH (14:01)
[2017-07-11 16:22] VITALS: PULSE 86
[2017-07-11 17:20] VITALS: BP 131/68; RESP 20; TEMP 98.2; O2SAT 94
--- NOTE | 2017-07-11 18:56 | CP.PCM.DIS ---
Provider - Provider Date of Admission: 07/04/17 15:11 Attending physician: Smith Wilson Jr, MD Consults: Nephrology: Dr. Correia ID: Dr. Castro Pulmonology: Dr. Wing Time Spent in preparation of Discharge (in minutes): 45 Hospital Course - Lab Results Lab Results: Micro Results 07/04/17 12:55 Blood Blood Culture - Final NO GROWTH AFTER 5 DAYS 07/04/17 12:55 Blood Gram Stain - Final TEST NOT PERFORMED 07/04/17 12:30 Blood Blood Culture - Final NO GROWTH AFTER 5 DAYS 07/04/17 12:30 Blood Gram Stain - Final TEST NOT PERFORMED Most Recent Lab Values WBC 16.5 K/uL (4.8-10.8) H D 07/11/17 06:37 RBC 3.57 Mil/uL (3.80-5.20) L 07/11/17 06:37 Hgb 9.9 g/dL (11.0-16.0) L 07/11/17 06:37 Hct 29.7 % (34.0-47.0) L 07/11/17 06:37 MCV 83.3 fL (81.0-99.0) 07/11/17 06:37 MCH 27.8 pg (27.0-31.0) 07/11/17 06:37 MCHC 33.4 g/dL (33.0-37.0) 07/11/17 06:37 RDW 15.6 % (11.5-14.5) H 07/11/17 06:37 Plt Count 339 K/uL (130-400) 07/11/17 06:37 MPV 7.2 fL (7.2-11.7) 07/11/17 06:37 Neut % (Auto) 78.2 % (50.0-75.0) H 07/11/17 06:37 Lymph % (Auto) 12.6 % (20.0-40.0) L 07/11/17 06:37 Parke % (Auto) 8.9 % (0.0-10.0) 07/11/17 06:37 Eos % (Auto) 0.1 % (0.0-4.0) 07/11/17 06:37 Baso % (Auto) 0.2 % (0.0-2.0) 07/11/17 06:37 Neut # (Auto) 12.9 K/uL (1.8-7.0) H 07/11/17 06:37 Lymph # (Auto) 2.1 K/uL (1.0-4.3) 07/11/17 06:37 Parke # (Auto) 1.5 K/uL (0.0-0.8) H 07/11/17 06:37 Eos # (Auto) 0.0 K/uL (0.0-0.7) 07/11/17 06:37 Baso # (Auto) 0.0 K/uL (0.0-0.2) 07/11/17 06:37 Neutrophils % (Manual) 74 % (50-75) 07/04/17 12:36 Band Neutrophils % 5 % (0-2) H 07/04/17 12:36 Lymphocytes % (Manual) 11 % (20-40) L 07/04/17 12:36 Monocytes % (Manual) 10 % (0-10) 07/04/17 12:36 Platelet Estimate Normal (NORMAL) 07/04/17 12:36 Hypochromasia (manual) Slight 07/04/17 12:36 Anisocytosis (manual) Slight 07/04/17 12:36 pO2 58 mm/Hg (30-55) H 07/04/17 12:36 VBG pH 7.52 (7.32-7.43) H 07/04/17 12:36 VBG pCO2 44 mmHg (40-60) 07/04/17 12:36 VBG HCO3 33.8 mmol/L 07/04/17 12:36 VBG Total CO2 37.3 mmol/L (22-28) H 07/04/17 12:36 VBG O2 Sat (Calc) 91.4 % (40-65) H 07/04/17 12:36 VBG Base Excess 11.6 mmol/L (0.0-2.0) H 07/04/17 12:36 VBG Potassium 4.2 mmol/L (3.6-5.2) 07/04/17 12:36 Sodium 137.0 mmol/l (132-148) 07/04/17 12:36 Chloride 97.0 mmol/L (98-107) L 07/04/17 12:36 Glucose 88 mg/dl (65-105) 07/04/17 12:36 Lactate 0.7 mmol/L (0.7-2.1) 07/04/17 12:36 Sodium 131 mmol/L (132-148) L 07/11/17 06:37 Potassium 4.4 mmol/L (3.6-5.2) 07/11/17 06:37 Chloride 90 mmol/L (98-107) L 07/11/17 06:37 Carbon Dioxide 28 mmol/L (22-30) 07/11/17 06:37 Anion Gap 17 (10-20) 07/11/17 06:37 BUN 71 mg/dL (7-17) H 07/11/17 06:37 Creatinine 7.9 mg/dL (0.7-1.2) H* D 07/11/17 06:37 Est GFR ( Amer) 8 07/11/17 06:37 Est GFR (Non-Af Amer) 6 07/11/17 06:37 POC Glucose (mg/dL) 94 mg/dL (65-110) 07/09/17 11:51 Random Glucose 96 mg/dL (65-105) 07/11/17 06:37 Calcium 9.5 mg/dl (8.6-10.4) 07/11/17 06:37 Phosphorus 3.2 mg/dL (2.5-4.5) 07/11/17 06:37 Magnesium 2.4 mg/dL (1.6-2.3) H 07/08/17 07:27 % Saturation 34 (20-55) 07/11/17 06:37 Ferritin 622.0 ng/mL 07/11/17 06:37 Total Bilirubin 0.7 mg/dL (0.2-1.3) 07/11/17 06:37 AST 24 U/L (14-36) 07/11/17 06:37 ALT 38 U/L (9-52) 07/11/17 06:37 Alkaline Phosphatase 43 U/L (38-126) 07/11/17 06:37 Total Protein 6.6 g/dL (6.3-8.3) 07/11/17 06:37 Albumin 3.6 g/dL (3.5-5.0) 07/11/17 06:37 Globulin 3.0 gm/dL (2.2-3.9) 07/11/17 06:37 Albumin/Globulin Ratio 1.2 (1.0-2.1) 07/11/17 06:37 Procalcitonin 0.56 NG/ML (0.19-0.49) H 07/11/17 06:37 Beta HCG, Quant < 2.39 mIU/ML 07/04/17 12:36 Venous Blood Potassium 4.2 mmol/L (3.6-5.2) 07/04/17 12:36 Influenza Typ A,B (EIA) Negative for flu a/b (NEGATIVE) 07/04/17 12:20 Mycoplasma pneumon IgG 3.33 (<=0.90) H 07/04/17 16:46 Mycoplasma pneumon IgM 528 U/mL (<770) 07/04/17 16:46 - Hospital Course Hospital Course: CC: "I've had a productive cough and fever for 3 days" HPI: Patient is a 27 year old female, with PMHx of ESRD, presenting to ED for worsening cough. Patient reports that for the last three days she has been coughing "non-stop" producing a green phlegm. The cough became associated with subjective fever, and worsening shortness of breath over the last 2 days. Patient was for dialysis today but it was aborted and she was sent up to the ED by Dr. Correia. Last completed dialysis was 2 days ago. Patient admits making small amount of urine, and reports her normal dry weight is 44.9 kg. She denies fever, chills, chest pain, palpitations, abdominal pain, diarrhea. She denies sick contacts. She denies receiving flu vaccine this year. PMD: unknown Nephro: Masood PMHx: ESRD, HTN PSHx: Kidney transplant (~2008) Allergies: shrimp, vancomycin SHx: denies tobacco, alcohol, illicit drugs; lives with parents; unemployed Fam Hx: Denies Meds: Prednisone 5mg PO Daily, Mycophenolate 250mg PO BID, Nifedipine 60 mg PO BID, B Complex Vitamins, Calcium Acetate 667 mg PO TID Hospital course: Patient was admitted on 07/04/17 for pneumonia. In the ED, labs were drawn, images taken, and medications were given. Chest xray showed heterogeneous opacity at left lung base; mild to moderate pulmonary vascular congestion; moderated cardiomegaly. On labs, no leukocytosis or elevated lactate noted. Procalcitonin was slightly elevated, however, trended down. Influenza was negative. Atypical pneumonias were tested and were negative for acute infection. Patient was started on antibiotics, nebulizer treatments, and robitussin. Pulmonology, Dr. Wing, and ID, Dr. Castro, were consulted. History of ESRD with dialysis was monitored daily and patient continued her dialysis schedule of MWF. Personnel Representative, Dr. Correia, was consulted. Rapid response was called for hypertension. Patient was started on clonidine and labetalol. Patient hypertension then stablized and remained controlled throughout hospital course. Patient was seen and examined; patient reports feeling better, breathing has improved and cough has improved. Patient has no complaints today. Patient is stable for discharge to home with new medications, azithromycin, advair, labetalol and clonidine. Patient must continue MWF dialysis schedule and must follow up with PMD and peace officer. This is a brief summary of the hospital course. Please see EMR for more details. Discharge Exam - Additional Findings Additional findings: - Head Exam Head Exam: ATRAUMATIC, NORMAL INSPECTION - Eye Exam Eye Exam: EOMI, Normal appearance - ENT Exam ENT Exam: Mucous Membranes Moist - Respiratory Exam Respiratory Exam: Wheezes (improving), Rhonchi (improving), NORMAL BREATHING PATTERN. absent: Clear to Ausculation Bilateral, Rales, Respiratory Distress, - Cardiovascular Exam Cardiovascular Exam: REGULAR RHYTHM, +S1, +S2 - GI/Abdominal Exam GI & Abdominal Exam: Soft, Normal Bowel Sounds. Absent: Tenderness - Extremities Exam Extremities Exam: Normal Inspection - Neurological Exam Neurological Exam: Alert, Awake - Skin Skin Exam: Dry, Intact, Normal Color, Warm Discharge Plan - Discharge Medications Prescriptions: Azithromycin [Z-Sean] 250 mg PO ASDIR #6 tab cloNIDine [Catapres] 0.2 mg PO BID #60 tab Fluticasone/Salmeterol [Advair 250-50 Diskus] 1 each IH DAILY #1 inh Labetalol [Trandate] 200 mg PO BID #60 tab - Follow Up Plan Condition: GOOD Disposition: HOME/ ROUTINE Instructions: Labetalol (By mouth), Clonidine (By mouth), Azithromycin (By mouth), Fluticasone/Salmeterol (By breathing), Dialysis Diet (DC), Pneumonia (DC ), End Stage Kidney Disease (DC) Additional Instructions: Patient is stable for discharge to home. Patient must continue home medications and must continue dialysis schedule (MWF). Patient must discontinue Cellcept. Patient must take new medications as directed: 1. Azithromycin (Z-pack)- take as directed 2. Labetalol 200mg PO BID- take 1 tablet twice a day for hypertension 3. Clonidine 0.2mg PO BID- take 1 tablet twice a day for hypertension 4. Advair Diskus 250-50- take 1 puff daily [Rx sent electronically to preferred pharmacy] Patient must follow up with PMD within 1-2 weeks of discharge. Patient must follow up with peace officer within 1 week of discharge. If symptoms reoccur or worsen, patient should return to the ED. Referrals: Dav Correia MD [Staff Provider] - Smith Wilson Jr., MD [Family Provider] -
--- NOTE | 2017-07-14 11:37 | CARD ---
APPROVED REPORT EKG Measurement Heart [id number] <Conclusion> Sinus rhythm with short OH Biatrial enlargement Prolonged QT Abnormal ECG
== END 2017-07-11 20:18 | disposition home or self-care (01) | DRG 89 ==
LOC: C.ER 11:11 → C.9S 15:11 → C.9E 16:50 → C.3T 18:23
PROVIDERS: ADMIT Internal Medicine; ATTEND Internal Medicine
PROC: 5A1D70Z Performance of Urinary Filtration, Intermittent, Less than 6 Hours Per Day (ICD-10-PCS; principal; 2017-07-04)
DX: J18.9 Pneumonia, unspecified organism (principal); I13.2 Hypertensive heart and chronic kidney disease with heart failure and with stage 5 chronic kidney disease, or end stage renal disease; N18.6 End stage renal disease; D89.9 Disorder involving the immune mechanism, unspecified; Z94.0 Kidney transplant status; E83.39 Other disorders of phosphorus metabolism; I50.9 Heart failure, unspecified; Z99.2 Dependence on renal dialysis; D63.1 Anemia in chronic kidney disease

== ENCOUNTER 2017-07-30 13:47 | Inpatient (IN) | payer MEDICAID ==
--- NOTE | 2017-07-30 14:49 | C.PDOC ---
History Of Present Illness 27 y/o female, with history of HTN and chronic kidney disease, sent by dialysis to the ER for an onset of midsternal chest pain and SOB which began 1 hour [employer]IST. Patient describes the pain as sharp and states that the pain radiates to her throat. Patient had a renal transplant 9 years ago which failed. She denies cough. She is currently undergoing dialysis on Friday, Wednesdays, and Fridays. According to Beto Correia she was diagnosed with a pericardial effusion several weeks ago. Time Seen by Provider: 07/30/17 14:38 Chief Complaint (Nursing): Chest Pain History Per: Patient History/Exam Limitations: no limitations Onset/Duration Of Symptoms: Hrs Current Symptoms Are (Timing): Still Present Severity: Moderate Past Medical History Reviewed: Historical Data, Nursing Documentation, Vital Signs Vital Signs: Last Vital Signs Temp 99.2 F 07/30/17 19:04 Pulse 85 07/30/17 19:04 Resp 16 07/30/17 19:04 BP 114/59 L 07/30/17 19:04 Pulse Ox 100 07/30/17 19:04 - Medical History PMH: HTN, Chronic Kidney Disease - [facility] Procedures (07/04/17) Family History: States: Unknown Family Hx - Social History Hx Alcohol Use: No Hx Substance Use: No - Immunization History Hx Tetanus Toxoid Vaccination: No Hx Influenza Vaccination: No Hx Pneumococcal Vaccination: No Review Of Systems Except As Marked, All Systems Reviewed And Found Negative. Constitutional: Negative for: Fever, Chills Cardiovascular: Positive for: Chest Pain Respiratory: Positive for: Shortness of Breath. Negative for: Cough Physical Exam - Physical Exam Appears: Non-toxic, Other (anxious, restless) Skin: Normal Color, Warm Head: Atraumatic, Normacephalic Eye(s): bilateral: Normal Inspection Nose: Normal Oral Mucosa: Moist Neck: Supple Chest: Symmetrical Cardiovascular: Rhythm Irregular (tachycardiac) Respiratory: Normal Breath Sounds, No Accessory Muscle Use, No Rales, No Rhonchi , No Wheezing Gastrointestinal/Abdominal: Normal Exam, Soft, No Tenderness Extremity: Normal ROM Neurological/Psych: Oriented x3, Normal Speech, Normal Motor, Normal Sensation ED Course And Treatment - Laboratory Results Result Diagrams: 07/30/17 16:12 07/30/17 15:39 ECG: Interpreted By Me ECG Rhythm: Sinus Tachycardia, ST/T Changes, Nonspecific Changes O2 Sat by Pulse Oximetry: 99 (RA) Pulse Ox Interpretation: Normal - Radiology CXR: Viewed By Me CXR Interpretation: Yes: Cardiomegaly Reevaluation Time: 19:34 Reassessment Condition: Unchanged - Physician Consult Information Physician Contacted: Smith Wilson Jr. Outcome Of Conversation: Patient to be admitted for cardiac evaluation and anemia Medical Decision Making Medical Decision Making: Plan: --Labs --Angio Chest PE Disposition - Disposition Disposition: HOSPITALIZED Disposition Time: 18:00 Condition: FAIR - POA Present On Arrival: None - Clinical Impression Clinical Impression: Precordial pain, ESRD (end stage renal disease) on dialysis, Pericardial effusion, Anemia - Scribe Statement The provider has reviewed the documentation as recorded by the Marina Randolph Provider Attestation: All medical record entries made by the Leonelaibe were at my direction and personally dictated by me. I have reviewed the chart and agree that the record accurately reflects my personal performance of the history, physical exam, medical decision making, and the department course for this patient. I have also personally directed, reviewed, and agree with the discharge instructions and disposition.
[2017-07-30 14:50] VITALS: BMI 20.8
--- NOTE | 2017-07-30 14:59 | CP.PCM.CON ---
History of Present Illness - History of Present Illness History of Present Illness: 27 y/o HF presents with severe CPs all through dialysis sesion today Finished about 2.5 hrs of dialysis; BP initially high, then decreased Recent hospitalization noted for uncontrolled BP and CHF. Also CT had shown large pericardial effusion. PMH: FAILED RENAL TRANSPLANT- BACK ON DILAYSIS LAST 10 MOS HTN CHF PSH: RENAL TRANSPLANT AV FISTULA Review of Systems - Review of Systems Systems not reviewed;Unavailable: Acuity of Condition - Cardiovascular Cardiovascular: Chest Pain at Rest - Respiratory Respiratory: Dyspnea on Exertion - Genitourinary Genitourinary: As Per HPI - Musculoskeletal Musculoskeletal: Muscle Weakness, Myalgias - Psychiatric Psychiatric: Anxiety, Panic Attacks Past Patient History - Past Medical History & Family History Past Medical History?: Yes Past Family History: Reviewed and not pertinent - Past Social History Smoking Status: Never Smoked Chewing Tobacco Use: No Cigar Use: No Alcohol: None Drugs: Denies Home Situation {Lives}: With Family - CARDIAC Hx Hypertension: Yes - PULMONARY Hx Respiratory Disorders: No Other/Comment: patient ahving pnemonia at present. - NEUROLOGICAL Hx Neurological Disorder: No - HEENT Hx HEENT Problems: No - RENAL Hx Chronic Kidney Disease: Yes - ENDOCRINE/METABOLIC Hx Endocrine Disorders: No - HEMATOLOGICAL/ONCOLOGICAL Hx Blood Disorders: No - INTEGUMENTARY Hx Dermatological Problems: No - MUSCULOSKELETAL/RHEUMATOLOGICAL Hx Musculoskeletal Disorders: No Hx Falls: No - GASTROINTESTINAL Hx Gastrointestinal Disorders: No - GENITOURINARY/GYNECOLOGICAL Hx Genitourinary Disorders: No - PSYCHIATRIC Hx Substance Use: No - SURGICAL HISTORY Hx Surgeries: Yes Hx Vascular Access Device: Yes (left arm dialysis) - ANESTHESIA Hx Anesthesia: Yes Hx Anesthesia Reactions: No Hx Malignant Hyperthermia: No Meds Allergies/Adverse Reactions: Allergies Allergy/AdvReac Type Severity Reaction Status Date / Time shrimp Allergy Verified 07/04/17 11:21 vancomycin Allergy Verified 07/04/17 11:21 Physical Exam - Constitutional Appears: In Acute Distress, Chronically Ill - Head Exam Head Exam: ATRAUMATIC, NORMAL INSPECTION - Eye Exam Eye Exam: EOMI, Normal appearance - Neck Exam Neck exam: Positive for: Normal Inspection. Negative for: Tenderness - Respiratory Exam Respiratory Exam: Clear to Auscultation Bilateral, NORMAL BREATHING PATTERN - Cardiovascular Exam Cardiovascular Exam: Tachycardia, Rubs, +S1, Systolic Murmur - GI/Abdominal Exam GI & Abdominal Exam: Soft. absent: Tenderness - Extremities Exam Extremities exam: Positive for: normal inspection. Negative for: tenderness - Neurological Exam Neurological exam: Alert, Oriented x3 - Skin Skin Exam: Dry, Warm Results - Vital Signs Recent Vital Signs: Last Vital Signs Temp 97.9 F 07/30/17 14:11 Pulse 101 H 07/30/17 14:11 Resp 20 07/30/17 14:11 BP 118/64 07/30/17 14:11 Pulse Ox 99 07/30/17 14:49 Assessment & Plan (1) Hypertensive chronic kidney disease with stage 5 chronic kidney disease or end stage renal disease Status: Acute (2) Failed kidney transplant Status: Acute (3) Pericardial effusion Status: Acute (4) End stage renal disease Status: Acute - Assessment and Plan (Free Text) Plan: Monitor BP- hold meds for now Stat echo dialysis MWF can do CT chest to assess effusion again might need pericardiocentesis
[2017-07-30 16:00] LABS: ALB/GLOB RATIO 1.5 (1.0-2.1); ALBUMIN 3.3 g/dL (3.5-5.0); CALCIUM 8.7 mg/dl (8.6-10.4)
[2017-07-30 16:09] LABS: TROPONIN I 0.051 ng/mL (0.00-0.120)
[2017-07-30 16:15] LABS: BASO # 0.1 K/uL (0.0-0.2); BASO % 0.5 % (0.0-2.0); EOS % 0.1 % (0.0-4.0); LYMPH # 2.2 K/uL (1.0-4.3); LYMPH % 13.1 % (20.0-40.0); MEAN CELL VOLUME 90.7 fL (81.0-99.0); MEAN CORPUSCULAR HEMOGLOBIN 29.5 pg (27.0-31.0); MEAN CORPUSCULAR HGB CONC 32.6 g/dL (33.0-37.0); MEAN PLATELET VOLUME 7.4 fL (7.2-11.7); MONO # 1.7 K/uL (0.0-0.8); MONO % 10.1 % (0.0-10.0); NEUT # 12.6 K/uL (1.8-7.0); NEUT % 76.2 % (50.0-75.0); NRBC % 0.1 % (0.0-2.0); RBC 1.35 Mil/uL (3.80-5.20); RED CELL DISTRIBUTION WIDTH 22.2 % (11.5-14.5); WHITE BLOOD COUNT 16.5 K/uL (4.8-10.8)
--- NOTE | 2017-07-30 18:38 | CP.PCM.HP ---
History of Present Illness - History of Present Illness History of Present Illness: HPI: Patient is a 27 year old female with PMH of HTN and ESRD on hemodialysis MWF, who presents to the ED with midsternal chest pain and SOB that started during dialysis this afternoon, about 1 hour prior to coming to the ED. Patient was given morphine prior to arrival and is not answering my questions, just mumbling. Patient's parents are present at bedside and say she has not been speaking to them since the dose of morphine because she is drowsy, therefore ROS was unattainable. Per ED note patient was complaining of sharp pain radiating to her throat. Of note, patient was recently admitted for pneumonia and chest CT showed pericardial effusion, and Echo done in the ED on this admission confirmed large pericardial effusion. PMH: HTN, ESRD on HD MWF PSH: Failed kidney transplant (2008), AV fistula Meds: will need to call pharmacy, as parents do not have a list and are unsure Allergies: denies, but per EMR zoltano and fredi FH: HTN (father) SH: denies tobacco, alcohol, and drug use Present on Admission - Present on Admission Any Indicators Present on Admission: No Review of Systems - Review of Systems Systems not reviewed;Unavailable: Altered Mental Status Past Patient History - Past Medical History & Family History Past Medical History?: Yes Past Family History: Reviewed and not pertinent - Past Social History Smoking Status: Never Smoked Chewing Tobacco Use: No Cigar Use: No Alcohol: None Drugs: Denies Home Situation {Lives}: With Family - CARDIAC Hx Hypertension: Yes - PULMONARY Hx Respiratory Disorders: No Other/Comment: patient ahving pnemonia at present. - NEUROLOGICAL Hx Neurological Disorder: No - HEENT Hx HEENT Problems: No - RENAL Hx Chronic Kidney Disease: Yes - ENDOCRINE/METABOLIC Hx Endocrine Disorders: No - HEMATOLOGICAL/ONCOLOGICAL Hx Blood Disorders: No - INTEGUMENTARY Hx Dermatological Problems: No - MUSCULOSKELETAL/RHEUMATOLOGICAL Hx Musculoskeletal Disorders: No Hx Falls: No - GASTROINTESTINAL Hx Gastrointestinal Disorders: No - GENITOURINARY/GYNECOLOGICAL Hx Genitourinary Disorders: No - PSYCHIATRIC Hx Substance Use: No - SURGICAL HISTORY Hx Surgeries: Yes Hx Vascular Access Device: Yes (left arm dialysis) - ANESTHESIA Hx Anesthesia: Yes Hx Anesthesia Reactions: No Hx Malignant Hyperthermia: No Meds Allergies/Adverse Reactions: Allergies Allergy/AdvReac Type Severity Reaction Status Date / Time shrimp Allergy Verified 07/30/17 15:46 vancomycin Allergy Verified 07/30/17 15:46 Physical Exam - Constitutional Appears: Non-toxic, No Acute Distress, Confused (2/2 morphine ) - Head Exam Head Exam: ATRAUMATIC, NORMOCEPHALIC - ENT Exam ENT Exam: Mucous Membranes Moist - Neck Exam Neck exam: Negative for: Lymphadenopathy, Thyromegaly - Respiratory Exam Respiratory Exam: Clear to Auscultation Bilateral, NORMAL BREATHING PATTERN. absent: Accessory Muscle Use, Rales, Rhonchi, Wheezes, Respiratory Distress - Cardiovascular Exam Cardiovascular Exam: Tachycardia, RRR, Rubs, +S1, +S2, Systolic Murmur. absent : Bradycardia - GI/Abdominal Exam GI & Abdominal Exam: Normal Bowel Sounds, Soft. absent: Distended - Extremities Exam Extremities exam: Positive for: normal capillary refill, normal inspection, pedal pulses present. Negative for: pedal edema Additional comments: AV fistula - Neurological Exam Neurological exam: Altered - Skin Skin Exam: Dry, Intact, Normal Color, Warm Results - Vital Signs Recent Vital Signs: Last Vital Signs Temp 97.9 F 07/30/17 14:11 Pulse 92 H 07/30/17 16:13 Resp 20 07/30/17 16:13 BP 102/41 L 07/30/17 16:13 Pulse Ox 99 07/30/17 16:13 - Labs Result Diagrams: 07/30/17 16:12 07/30/17 15:39 Labs: Laboratory Results - last 24 hr 07/30/17 07/30/17 07/30/17 15:39 15:39 16:12 WBC 16.5 H RBC 1.35 L Hgb 4.0 L* D Hct 12.2 L MCV 90.7 D MCH 29.5 MCHC 32.6 L RDW 22.2 H Plt Count 145 D MPV 7.4 Neut % (Auto) 76.2 H Lymph % (Auto) 13.1 L Christian % (Auto) 10.1 H Eos % (Auto) 0.1 Baso % (Auto) 0.5 Neut # (Auto) 12.6 H Lymph # (Auto) 2.2 Christian # (Auto) 1.7 H Eos # (Auto) 0.0 Baso # (Auto) 0.1 Sodium 134 Potassium 3.2 L Chloride 89 L Carbon Dioxide 35 H Anion Gap 13 BUN 31 H Creatinine 3.4 H Est GFR ( Amer) 20 Est GFR (Non-Af Amer) 16 Random Glucose 76 Calcium 8.7 Total Bilirubin 0.4 AST 26 ALT 33 Alkaline Phosphatase 37 L Troponin I 0.0510 Total Protein 5.5 L Albumin 3.3 L Globulin 2.2 Albumin/Globulin Ratio 1.5 Beta HCG, Quant < 2.39 Blood Type Blood Type Confirm Antibody Screen 07/30/17 16:45 WBC RBC Hgb Hct MCV MCH MCHC RDW Plt Count MPV Neut % (Auto) Lymph % (Auto) Christian % (Auto) Eos % (Auto) Baso % (Auto) Neut # (Auto) Lymph # (Auto) Christian # (Auto) Eos # (Auto) Baso # (Auto) Sodium Potassium Chloride Carbon Dioxide Anion Gap BUN Creatinine Est GFR ( Amer) Est GFR (Non-Af Amer) Random Glucose Calcium Total Bilirubin AST ALT Alkaline Phosphatase Troponin I Total Protein Albumin Globulin Albumin/Globulin Ratio Beta HCG, Quant Blood Type A NEGATIVE Blood Type Confirm A NEGATIVE Antibody Screen Negative Assessment & Plan (1) Anemia Assessment and Plan: * admit to telemetry * H&H: 4.0/12.2 * Tachycardic * Transfused 2 units of pRBCs in ED * Ordered additional 1 unit of pRBCs to transfuse after * f/u morning labs Status: Acute (2) Pericardial effusion Assessment and Plan: * Echo done in ED, preliminary read confirms pericardial effusion seen on chest CT last admission * Cardiology consuled, Dr. Jacobs, help appreciated Status: Acute (3) Leukocytosis Assessment and Plan: * WBC: 16.5 on admission * recent admission had pneumonia, discharged with azithromycin (completed) * f/u CXR * f/u blood cultures Status: Acute (4) ESRD (end stage renal disease) on dialysis Assessment and Plan: * BUN/Cr: 31/3.4 * Nephrology consulted, Dr. Correia, help appreciated * Recommends continuing MWF dialysis * hold BP meds for now Status: Chronic (5) HTN (hypertension) Assessment and Plan: * BP low on admission (102/41) * Per Dr. Correia, hold BP meds at this time Status: Chronic (6) Prophylactic measure Assessment and Plan: * DVT: SCDs, chemical ppx contraindicated * GI: Protonix daily Status: Acute
--- NOTE | 2017-07-30 22:49 | CP.PCM.CON ---
History of Present Illness - History of Present Illness History of Present Illness: Patient seen and evaluated for Pericardial effusion No hemodynamic compromise Check ECHO HPI: Patient is a 27 year old female with PMH of HTN and ESRD on hemodialysis MWF, who presents to the ED with midsternal chest pain and SOB that started during dialysis this afternoon, about 1 hour prior to coming to the ED. Patient was given morphine prior to arrival and is not answering my questions, just mumbling. Patient's parents are present at bedside and say she has not been speaking to them since the dose of morphine because she is drowsy, therefore ROS was unattainable. Per ED note patient was complaining of sharp pain radiating to her throat. Of note, patient was recently admitted for pneumonia and chest CT showed pericardial effusion, and Echo done in the ED on this admission confirmed large pericardial effusion. PMH: HTN, ESRD on HD MWF PSH: Failed kidney transplant (2008), AV fistula Meds: will need to call pharmacy, as parents do not have a list and are unsure Allergies: denies, but per EMR dinah and fredi FH: HTN (father) SH: denies tobacco, alcohol, and drug use Review of Systems - Review of Systems Systems not reviewed;Unavailable: Altered Mental Status Physical Exam - Constitutional Appears: Non-toxic, No Acute Distress, Confused (2/2 morphine ) - Head Exam Head Exam: ATRAUMATIC, NORMOCEPHALIC - ENT Exam ENT Exam: Mucous Membranes Moist - Neck Exam Neck exam: Negative for: Lymphadenopathy, Thyromegaly - Respiratory Exam Respiratory Exam: Clear to Auscultation Bilateral, NORMAL BREATHING PATTERN. absent: Accessory Muscle Use, Rales, Rhonchi, Wheezes, Respiratory Distress - Cardiovascular Exam Cardiovascular Exam: Tachycardia, RRR, Rubs, +S1, +S2, Systolic Murmur. absent : Bradycardia - GI/Abdominal Exam GI & Abdominal Exam: Normal Bowel Sounds, Soft. absent: Distended - Extremities Exam Extremities exam: Positive for: normal capillary refill, normal inspection, pedal pulses present. Negative for: pedal edema Additional comments: AV fistula - Neurological Exam Neurological exam: Altered - Skin Skin Exam: Dry, Intact, Normal Color, Warm Results Past Patient History - Past Medical History & Family History Past Medical History?: Yes Past Family History: Reviewed and not pertinent - Past Social History Smoking Status: Never Smoked Chewing Tobacco Use: No Cigar Use: No Alcohol: None Drugs: Denies Home Situation {Lives}: With Family - CARDIAC Hx Hypertension: Yes - PULMONARY Hx Respiratory Disorders: No Other/Comment: patient ahving pnemonia at present. - NEUROLOGICAL Hx Neurological Disorder: No - HEENT Hx HEENT Problems: No - RENAL Hx Chronic Kidney Disease: Yes - ENDOCRINE/METABOLIC Hx Endocrine Disorders: No - HEMATOLOGICAL/ONCOLOGICAL Hx Blood Disorders: No - INTEGUMENTARY Hx Dermatological Problems: No - MUSCULOSKELETAL/RHEUMATOLOGICAL Hx Falls: No - GASTROINTESTINAL Hx Gastrointestinal Disorders: No - GENITOURINARY/GYNECOLOGICAL Hx Genitourinary Disorders: No - PSYCHIATRIC Hx Substance Use: No - SURGICAL HISTORY Hx Surgeries: Yes Hx Vascular Access Device: Yes (left arm dialysis) - ANESTHESIA Hx Anesthesia: Yes Hx Anesthesia Reactions: No Hx Malignant Hyperthermia: No Meds Allergies/Adverse Reactions: Allergies Allergy/AdvReac Type Severity Reaction Status Date / Time shrimp Allergy Verified 07/30/17 15:46 vancomycin Allergy Verified 07/30/17 15:46 - Medications Medications: Current Medications Pantoprazole Sodium (Protonix Ec Tab) 40 mg PO DAILY VASILIY Results - Vital Signs Recent Vital Signs: Last Vital Signs Temp 99.0 F 07/30/17 22:19 Pulse 87 07/30/17 22:19 Resp 20 07/30/17 22:19 BP 111/64 07/30/17 22:19 Pulse Ox 100 07/30/17 20:08 - Labs Result Diagrams: 07/31/17 11:11 07/31/17 11:11 Labs: Laboratory Results - last 24 hr 07/30/17 07/30/17 07/30/17 15:39 15:39 16:12 WBC 16.5 H RBC 1.35 L Hgb 4.0 L* D Hct 12.2 L MCV 90.7 D MCH 29.5 MCHC 32.6 L RDW 22.2 H Plt Count 145 D MPV 7.4 Neut % (Auto) 76.2 H Lymph % (Auto) 13.1 L Chester % (Auto) 10.1 H Eos % (Auto) 0.1 Baso % (Auto) 0.5 Neut # (Auto) 12.6 H Lymph # (Auto) 2.2 Chester # (Auto) 1.7 H Eos # (Auto) 0.0 Baso # (Auto) 0.1 Sodium 134 Potassium 3.2 L Chloride 89 L Carbon Dioxide 35 H Anion Gap 13 BUN 31 H Creatinine 3.4 H Est GFR ( Amer) 20 Est GFR (Non-Af Amer) 16 Random Glucose 76 Calcium 8.7 Total Bilirubin 0.4 AST 26 ALT 33 Alkaline Phosphatase 37 L Troponin I 0.0510 Total Protein 5.5 L Albumin 3.3 L Globulin 2.2 Albumin/Globulin Ratio 1.5 Beta HCG, Quant < 2.39 Blood Type Blood Type Confirm Antibody Screen 07/30/17 16:45 WBC RBC Hgb Hct MCV MCH MCHC RDW Plt Count MPV Neut % (Auto) Lymph % (Auto) Chester % (Auto) Eos % (Auto) Baso % (Auto) Neut # (Auto) Lymph # (Auto) Chester # (Auto) Eos # (Auto) Baso # (Auto) Sodium Potassium Chloride Carbon Dioxide Anion Gap BUN Creatinine Est GFR ( Amer) Est GFR (Non-Af Amer) Random Glucose Calcium Total Bilirubin AST ALT Alkaline Phosphatase Troponin I Total Protein Albumin Globulin Albumin/Globulin Ratio Beta HCG, Quant Blood Type A NEGATIVE Blood Type Confirm A NEGATIVE Antibody Screen Negative Assessment & Plan - Assessment and Plan (Free Text) Assessment: (1) Anemia Assessment and Plan: * admit to telemetry * H&H: 4.0/12.2 * Tachycardic * Transfused 2 units of pRBCs in ED * Ordered additional 1 unit of pRBCs to transfuse after * f/u morning labs Status: Acute (2) Pericardial effusion Assessment and Plan: * No signs of Tamponade * ECHO in am Status: Acute (3) Leukocytosis Assessment and Plan: * WBC: 16.5 on admission * recent admission had pneumonia, discharged with azithromycin (completed) * f/u CXR * f/u blood cultures Status: Acute (4) ESRD (end stage renal disease) on dialysis Assessment and Plan: * BUN/Cr: 31/3.4 * Nephrology consulted, Dr. Correia, help appreciated * Recommends continuing MWF dialysis * hold BP meds for now Status: Chronic (5) HTN (hypertension) Assessment and Plan: * BP low on admission (102/41) * Per Dr. Correia, hold BP meds at this time Status: Chronic (6) Prophylactic measure Assessment and Plan: * DVT: SCDs, chemical ppx contraindicated * GI: Protonix daily Status: Acute
[2017-07-31] MEDS: Potassium Chloride 20 mEq ER Tab PO SCH ×2 (02:06→09:40)
--- NOTE | 2017-07-31 07:52 | CP.PCM.PN ---
Subjective - Date & Time of Evaluation Date of Evaluation: 07/31/17 Time of Evaluation: 07:51 - Subjective Subjective: PGY1 Medicine Note for Dr. Wilson Patient seen and examined at bedside this morning. Patient states she feels like she has much more energy compared to yesterday. She vomited dark, coffee ground emesis in front of resident. She stated that she did not experience any abdominal pain and was only nauseous for a short period. Patient stated after she vomited she felt much better. Denies fevers, chills, diarrhea, constipation , chest pain, abdominal pain, headaches, blurry vision, double vision, numbness or tingling. Objective - Vital Signs/Intake and Output Vital Signs (last 24 hours): Temp Pulse Resp BP Pulse Ox 98.5 F 84 18 108/65 100 07/31/17 05:58 07/31/17 05:58 07/31/17 05:58 07/31/17 05:58 07/30/17 23:10 Intake and Output: 07/31/17 07/31/17 06:59 18:59 Intake Total 1400 Balance 1400 - Medications Medications: Current Medications Pantoprazole Sodium (Protonix Ec Tab) 40 mg PO DAILY VASILIY Potassium Chloride (K-Dur 20 Meq Er Tab) 40 meq PO DAILY VASILIY Last Admin: 07/31/17 02:06 Dose: 40 meq - Labs Labs: 07/30/17 16:12 07/30/17 15:39 - Constitutional Appears: Non-toxic, No Acute Distress - Head Exam Head Exam: ATRAUMATIC, NORMOCEPHALIC - Eye Exam Eye Exam: EOMI - ENT Exam ENT Exam: Mucous Membranes Moist - Respiratory Exam Respiratory Exam: Clear to Ausculation Bilateral, NORMAL BREATHING PATTERN. absent: Accessory Muscle Use, Rales, Rhonchi, Wheezes, Respiratory Distress - Cardiovascular Exam Cardiovascular Exam: REGULAR RHYTHM, +S1, +S2 - GI/Abdominal Exam GI & Abdominal Exam: Soft, Normal Bowel Sounds. absent: Distended, Firm, Guarding, Rigid, Tenderness Additional comments: Large amount of coffee ground emesis. - Rectal Exam Additional comments: Positive stool occult. - Extremities Exam Extremities Exam: absent: Calf Tenderness, Pedal Edema - Neurological Exam Neurological Exam: Alert, Awake, Oriented x3 - Psychiatric Exam Psychiatric exam: Normal Affect, Normal Mood - Skin Skin Exam: Dry, Warm Assessment and Plan - Assessment and Plan (Free Text) Plan: GI Bleed * Fecal stool occult positive * Coffee ground emesis - Heme positive * Consult GI, Dr. Stevenson - help appreciated Anemia * H&H: 4.0/12.2 upon admission * Today's H&H: 8.7/25.5 * Transfused 3 units of pRBCs on 07/30/17 Pericardial effusion * Echo done in ED, preliminary read confirms pericardial effusion seen on chest CT last admission * Cardiology consuled, Dr. Jacobs, help appreciated Leukocytosis * WBC: 10.3 * 16.5 on admission * recent admission for pneumonia, discharged with azithromycin (completed) * CXR - small left pleural effusion with left basilar consolidative changes. Small nodular density at the right lung base may represent vessel on end. Venous congestion. Cardiomegaly. * f/u blood cultures ESRD (end stage renal disease) on dialysis * BUN/Cr: 50/5.5 * Nephrology consulted, Dr. Correia, help appreciated * MWF dialysis * hold BP meds for now HTN (hypertension) * BP low on admission (102/41) * Per Dr. Correia, hold BP meds at this time Hyperkalemia * K+ 5.6 * EKG - unchanged * Calcium Gluconate 4.65 IV meq given * Sodium Bicarb 50 IV meq given * Kayexalate 30 gm PO once Prophylactic measure * DVT: SCDs, chemical ppx contraindicated * GI: Protonix daily Case discussed with Dr. Katie Hazel Opal PGY1
--- NOTE | 2017-07-31 08:59 | RAD ---
Chest x-ray single frontal view History: Leukocytosis. Comparison: 07/04/2017 Findings: Small left pleural effusion with adjacent left basilar consolidative changes. Small nodular density at the right lung base may represent vessel on end. Venous congestion. Cardiomegaly. Degenerative changes in the spine. Impression: Small left pleural effusion with adjacent left basilar consolidative changes. Small nodular density at the right lung base may represent vessel on end. Venous congestion. Cardiomegaly.
--- NOTE | 2017-07-31 09:24 | CP.PCM.PN ---
Subjective - Date & Time of Evaluation Date of Evaluation: 07/31/17 Time of Evaluation: 09:21 - Subjective Subjective: seen in ED last PM; Hg came back at 4.0 receiving total 4 units prbc blood transfusions claims to have had heavy menses x mos echo confirmed large pericardial effusions BP low but feeling better Objective - Vital Signs/Intake and Output Vital Signs (last 24 hours): Temp Pulse Resp BP Pulse Ox 98.1 F 76 18 118/75 96 07/31/17 08:00 07/31/17 08:00 07/31/17 08:00 07/31/17 08:00 07/31/17 08:00 Intake and Output: 07/31/17 07/31/17 06:59 18:59 Intake Total 1400 Balance 1400 - Medications Medications: Current Medications Pantoprazole Sodium (Protonix Ec Tab) 40 mg PO DAILY VASILIY Potassium Chloride (K-Dur 20 Meq Er Tab) 40 meq PO DAILY VASILIY Last Admin: 07/31/17 02:06 Dose: 40 meq - Labs Labs: 07/30/17 16:12 07/30/17 15:39 - Constitutional Appears: No Acute Distress, Chronically Ill - Head Exam Head Exam: ATRAUMATIC, NORMAL INSPECTION - Eye Exam Eye Exam: EOMI, Normal appearance - Neck Exam Neck Exam: Normal Inspection. absent: Tenderness - Respiratory Exam Respiratory Exam: Clear to Ausculation Bilateral, NORMAL BREATHING PATTERN - Cardiovascular Exam Cardiovascular Exam: REGULAR RHYTHM, +S1 - GI/Abdominal Exam GI & Abdominal Exam: Soft. absent: Tenderness - Extremities Exam Extremities Exam: Normal Inspection. absent: Tenderness - Neurological Exam Neurological Exam: Awake, CN II-XII Intact - Skin Skin Exam: Dry, Warm Assessment and Plan (1) Hypertensive chronic kidney disease with stage 5 chronic kidney disease or end stage renal disease Status: Acute (2) Failed kidney transplant Status: Acute (3) Pericardial effusion Status: Acute (4) End stage renal disease Status: Acute - Assessment and Plan (Free Text) Plan: cardio eval- will need pericardectomy HD MWF blood transfusions now add provera monitor BP
[2017-07-31] MEDS: Pantoprazole 40 mg EC Tab PO SCH (09:40)
[2017-07-31 11:19] LABS: BASO % 0.2 % (0.0-2.0); EOS # 0.1 K/uL (0.0-0.7); EOS % 0.7 % (0.0-4.0); LYMPH # 1.9 K/uL (1.0-4.3); LYMPH % 18.5 % (20.0-40.0); MEAN CELL VOLUME 89.5 fL (81.0-99.0); MEAN CORPUSCULAR HEMOGLOBIN 30.7 pg (27.0-31.0); MEAN CORPUSCULAR HGB CONC 34.3 g/dL (33.0-37.0); MEAN PLATELET VOLUME 7.5 fL (7.2-11.7); MONO # 1.1 K/uL (0.0-0.8); MONO % 10.7 % (0.0-10.0); NEUT # 7.2 K/uL (1.8-7.0); NEUT % 69.9 % (50.0-75.0); RBC 2.85 Mil/uL (3.80-5.20); RED CELL DISTRIBUTION WIDTH 17.3 % (11.5-14.5); WHITE BLOOD COUNT 10.3 K/uL (4.8-10.8)
[2017-07-31 11:21] LABS: HEMOGLOBIN 8.7 g/dL (11.0-16.0)
[2017-07-31 11:34] LABS: PROTHROMBIN TIME 10.8 SECONDS (9.7-12.2)
[2017-07-31 11:38] LABS: ALB/GLOB RATIO 1.4 (1.0-2.1); ALBUMIN 3.2 g/dL (3.5-5.0); CALCIUM 7.7 mg/dl (8.6-10.4)
[2017-07-31] MEDS ORDERED: Sod Polystyrene Sulf 15 gm/60 ml Susp PO ONE (13:15)
[2017-07-31] MEDS ORDERED: Calcium Gluconate 4.65 mEq/10 ml Inj IVP ONE (13:45)
[2017-07-31] MEDS ORDERED: Sodium Bicarbonate (8.4%) 50 Meq Syringe IVP ONE (13:49)
--- NOTE | 2017-07-31 18:44 | CARD ---
APPROVED REPORT EXAM: Two-dimensional and M-mode echocardiogram with Doppler and color Doppler. Other Information Quality : GoodRhythm : INDICATION Pericardial Effusion CKD/ Renal Failure 2D DIMENSIONS IVSd0.9 (0.7-1.1cm)LVDd5.7 (3.9-5.9cm) PWd1.2 (0.7-1.1cm)LVDs3.7 (2.5-4.0cm) FS (%) 34.7 %LVEF (%)63.1 (>50%) M-Mode DIMENSIONS Left Atrium (MM)3.88 (2.5-4.0cm)Aortic Root3.04 (2.2-3.7cm) Aortic Cusp Exc.2.54 (1.5-2.0cm) Aortic Valve AoV Peak Bzgrrpza114.5cm/Rafa Peak GR.24mmHg Mitral Valve MV E Zgarejnb564.3cm/sMV A Yftqeyns816.8cm/sE/A ratio1.5 TDI E/Lateral E'0.0E/Medial E'0.0 Tricuspid Valve TR Peak [id number]/sTR Peak Gr.[id number] LEFT VENTRICLE The left ventricle is normal size. There is mild concentric left ventricular hypertrophy. The left ventricular function is normal. The left ventricular ejection fraction is within the normal range. 60%. No regional wall motion abnormalities noted. Transmitral Doppler flow pattern is Grade II-pseudonormal filling dynamics. No left ventricle thrombus noted on this study. There is no ventricular septal defect visualized. There is no left ventricular aneurysm. There is no mass noted in the left ventricle. RIGHT VENTRICLE The right ventricle is normal size. There is normal right ventricular wall thickness. The right ventricular systolic function is normal. ATRIA The left atrium size is normal. The right atrium size is normal. The interatrial septum is intact with no evidence for an atrial septal defect. AORTIC VALVE The aortic valve is normal in structure and function. Mild aortic regurgitation is present. There is no aortic valvular stenosis. There is no aortic valvular vegetation. MITRAL VALVE The mitral valve is normal in structure and function. There is no evidence of mitral valve prolapse. There is no mitral valve stenosis. There is mild mitral valve regurgitation noted. TRICUSPID VALVE The tricuspid valve is normal in structure and function. There is moderate tricuspid valve regurgitation noted. Estimated PA systolic pressure is 68 mm Hg. There is no tricuspid valve prolapse or vegetation. There is no tricuspid valve stenosis. PULMONIC VALVE The pulmonary valve is normal in structure and function. There is no pulmonic valvular regurgitation. There is no pulmonic valvular stenosis. GREAT VESSELS The aortic root is normal in size. The ascending aorta is normal in size. The pulmonary artery is normal. The IVC is normal in size and collapses >50% with inspiration. PERICARDIAL EFFUSION The pericardium appears normal. A small pleural effusion is noted, circumferential. With PW doppler, onl a 15% respiratory variation is noted. <Conclusion> Normal LV systolic function with mild LVH/ Type II diastolic filling, pseudonormal pattern. Small pericardial effusion. Severe pulmonary HTN. Mild aortic and mild mitral regurgitation.
--- NOTE | 2017-07-31 18:55 | CARD ---
APPROVED REPORT EKG Measurement Heart [id number] <Conclusion> Sinus tachycardia Nonspecific ST and T wave abnormality Prolonged QT Abnormal ECG
--- NOTE | 2017-07-31 21:06 | CP.PCM.PN ---
Subjective - Date & Time of Evaluation Date of Evaluation: 07/31/17 Time of Evaluation: 08:30 - Subjective Subjective: Patient seen and evaluated Denies chest pain Physical examination - Constitutional Appears: Non-toxic, No Acute Distress - Head Exam Head Exam: ATRAUMATIC, NORMOCEPHALIC - Eye Exam Eye Exam: EOMI - ENT Exam ENT Exam: Mucous Membranes Moist - Respiratory Exam Respiratory Exam: Clear to Ausculation Bilateral, NORMAL BREATHING PATTERN. absent: Accessory Muscle Use, Rales, Rhonchi, Wheezes, Respiratory Distress - Cardiovascular Exam Cardiovascular Exam: REGULAR RHYTHM, +S1, +S2 - GI/Abdominal Exam GI & Abdominal Exam: Soft, Normal Bowel Sounds. absent: Distended, Firm, Guarding, Rigid, Tenderness Additional comments: Large amount of coffee ground emesis. - Rectal Exam Additional comments: Positive stool occult. - Extremities Exam Extremities Exam: absent: Calf Tenderness, Pedal Edema - Neurological Exam Neurological Exam: Alert, Awake, Oriented x3 - Psychiatric Exam Psychiatric exam: Normal Affect, Normal Mood - Skin Skin Exam: Dry, Warm Objective - Vital Signs/Intake and Output Vital Signs (last 24 hours): Temp Pulse Resp BP Pulse Ox 99 F 86 20 159/91 H 100 07/31/17 17:21 07/31/17 17:21 07/31/17 17:21 07/31/17 17:21 07/31/17 17:21 Intake and Output: 07/31/17 08/01/17 18:59 06:59 Intake Total 325 Balance 325 - Medications Medications: Current Medications Epoetin Mustapha (Procrit) 10,000 unit IV MWF [facility] Pantoprazole Sodium (Protonix Ec Tab) 40 mg PO DAILY [facility] Last Admin: 07/31/17 09:40 Dose: 40 mg Potassium Chloride (K-Dur 20 Meq Er Tab) 40 meq PO DAILY [facility] Last Admin: 07/31/17 09:40 Dose: 40 meq - Labs Labs: 07/31/17 11:11 07/31/17 11:11 PT 10.8 SECONDS (9.7-12.2) 07/31/17 11:11 INR 1.0 07/31/17 11:11 APTT 27 SECONDS (21-34) 07/31/17 11:11 Assessment and Plan - Assessment and Plan (Free Text) Assessment: (1) Anemia Assessment and Plan: * PMD management Status: Acute (2) Pericardial effusion Assessment and Plan: * No signs of Tamponade * ECHO: Mild pericardial effusion Status: Acute (3) Leukocytosis Assessment and Plan: * WBC: 16.5 on admission * recent admission had pneumonia, discharged with azithromycin (completed) * f/u CXR * f/u blood cultures Status: Acute (4) ESRD (end stage renal disease) on dialysis Assessment and Plan: * BUN/Cr: 31/3.4 * Nephrology consulted, Dr. Correia, help appreciated * Recommends continuing MWF dialysis * hold BP meds for now Status: Chronic (5) HTN (hypertension) Assessment and Plan: * BP low on admission (102/41) * Per Dr. Correia, hold BP meds at this time Status: Chronic (6) Prophylactic measure Assessment and Plan: * DVT: SCDs, chemical ppx contraindicated * GI: Protonix daily Status: Acute
[2017-08-01 07:01] LABS: ALB/GLOB RATIO 1.3 (1.0-2.1); ALBUMIN 2.8 g/dL (3.5-5.0); ALT/SGPT 30 U/L (9-52); AST/SGOT 25 U/L (14-36); BLOOD UREA NITROGEN 93 mg/dL (7-17); CALCIUM 7.7 mg/dl (8.6-10.4); GFR AFRICAN-AMERICAN 8; GFR NON-AFRICAN AMERICAN 7
[2017-08-01 07:16] LABS: BASO % 0.2 % (0.0-2.0); EOS # 0.1 K/uL (0.0-0.7); LYMPH # 2.4 K/uL (1.0-4.3); LYMPH % 19.4 % (20.0-40.0); MEAN CORPUSCULAR HEMOGLOBIN 30.4 pg (27.0-31.0); MEAN CORPUSCULAR HGB CONC 33.7 g/dL (33.0-37.0); MEAN PLATELET VOLUME 7.8 fL (7.2-11.7); MONO # 1.3 K/uL (0.0-0.8); NEUT # 8.3 K/uL (1.8-7.0); NEUT % 68.4 % (50.0-75.0); NRBC % 0.1 % (0.0-2.0); RBC 2.1 Mil/uL (3.80-5.20); RED CELL DISTRIBUTION WIDTH 16.4 % (11.5-14.5); WHITE BLOOD COUNT 12.2 K/uL (4.8-10.8)
[2017-08-01 07:21] LABS: HEMOGLOBIN 6.4 g/dL (11.0-16.0)
[2017-08-01] MEDS ORDERED: Pantoprazole 80 MG in Sodium Chloride 0.9% 100 ML IVP SCH (07:30)
[2017-08-01] MEDS ORDERED: Phenylephrine 10 mg/ml Inj ONE (08:38)
[2017-08-01] MEDS ORDERED: ePHEDrine 50 mg/ml Inj ONE (08:43)
[2017-08-01] MEDS ORDERED: EPOETIN ALFA 10,000 UNIT/ML ML IV SCH (09:00)
[2017-08-01] MEDS ORDERED: Etomidate 20 mg/10ml Inj IV ONE ×2 (09:04→09:09)
[2017-08-01] MEDS ORDERED: Midazolam 2 MG/2 ML VIAL ONE (09:04)
[2017-08-01] MEDS ORDERED: Propofol 10 mg/ml Inj (20 ML) ONE (09:10)
[2017-08-01] MEDS: Pantoprazole 40 mg EC Tab PO SCH (10:56)
--- NOTE | 2017-08-01 13:51 | CP.PCM.PN ---
Subjective - Date & Time of Evaluation Date of Evaluation: 08/01/17 Time of Evaluation: 13:47 - Subjective Subjective: feels better receiving another unit prbc blood transfusion BP controlled for dialysis today Hg improved has had heavy menses HCG neg- can order provera echo- small pericardial effusion/ severe pulm HTN Objective - Vital Signs/Intake and Output Vital Signs (last 24 hours): Temp Pulse Resp BP Pulse Ox 98.8 F 99 H 20 143/83 100 08/01/17 12:05 08/01/17 12:05 08/01/17 12:05 08/01/17 12:05 08/01/17 09:55 Intake and Output: 08/01/17 08/01/17 06:59 18:59 Intake Total 0 50 Balance 0 50 - Medications Medications: Current Medications Epoetin Mustapha (Procrit) 10,000 unit IV MWF [facility] Pantoprazole Sodium 80 mg/ (Sodium Chloride) 100 mls @ 10 mls/hr IV .Q10H [facility] PRN Reason: 8 MG/HR Metoclopramide HCl (Reglan) 5 mg IVP Q6H [facility] Last Admin: 08/01/17 10:56 Dose: 5 mg Ondansetron HCl (Zofran Inj) 4 mg IVP Q4H PRN PRN Reason: Nausea/Vomiting - Labs Labs: 08/01/17 06:18 08/01/17 06:18 PT 10.8 SECONDS (9.7-12.2) 07/31/17 11:11 INR 1.0 07/31/17 11:11 APTT 27 SECONDS (21-34) 07/31/17 11:11 - Constitutional Appears: No Acute Distress, Chronically Ill - Head Exam Head Exam: ATRAUMATIC, NORMAL INSPECTION - Eye Exam Eye Exam: EOMI, Normal appearance - Neck Exam Neck Exam: Normal Inspection. absent: Tenderness - Respiratory Exam Respiratory Exam: Clear to Ausculation Bilateral, NORMAL BREATHING PATTERN - Cardiovascular Exam Cardiovascular Exam: REGULAR RHYTHM, +S1, Murmur - GI/Abdominal Exam GI & Abdominal Exam: Soft. absent: Tenderness - Extremities Exam Extremities Exam: Normal Inspection. absent: Tenderness - Neurological Exam Neurological Exam: Awake, CN II-XII Intact - Skin Skin Exam: Dry, Warm Assessment and Plan (1) Hypertensive chronic kidney disease with stage 5 chronic kidney disease or end stage renal disease Status: Acute (2) Failed kidney transplant Status: Acute (3) Pericardial effusion Status: Acute (4) End stage renal disease Status: Acute (5) Pulmonary HTN Status: Acute - Assessment and Plan (Free Text) Plan: provera blood transfusion increase UF with HD
--- NOTE | 2017-08-01 14:37 | CP.PCM.PN ---
Subjective - Date & Time of Evaluation Date of Evaluation: 08/01/17 Time of Evaluation: 07:35 - Subjective Subjective: PGY1 Medicine Note for Dr. Wilson Patient seen and examined at bedside this morning. Patient stated she was feeling well. She was experiencing some abdominal pain, which was relieved by pain medication. During the interview, the patient stated that she got extremely nauseous. She then vomiting a significant amount of dark red blood. Patient stated she felt much better after vomiting. She is currently in no pain. Patient is scheduled for EGD with Dr. Stevenson early this morning. Patient has no complaints at this time. Patient reports dark, black stools. Denies fevers, chills, diarrhea, constipation, cough, chest pain, headaches, lightheadedness, dizziness, numbness or tingling. Objective - Vital Signs/Intake and Output Vital Signs (last 24 hours): Temp Pulse Resp BP Pulse Ox 98.8 F 99 H 20 143/83 100 08/01/17 12:05 08/01/17 12:05 08/01/17 12:05 08/01/17 12:05 08/01/17 09:55 Intake and Output: 08/01/17 08/01/17 06:59 18:59 Intake Total 0 50 Balance 0 50 - Medications Medications: Current Medications Epoetin Mustapha (Procrit) 10,000 unit IV MWF [facility] Pantoprazole Sodium 80 mg/ (Sodium Chloride) 100 mls @ 10 mls/hr IV .Q10H [facility] PRN Reason: 8 MG/HR Medroxyprogesterone Acetate (Provera) 10 mg PO DAILY [facility] Metoclopramide HCl (Reglan) 5 mg IVP Q6H [facility] Last Admin: 08/01/17 10:56 Dose: 5 mg Ondansetron HCl (Zofran Inj) 4 mg IVP Q4H PRN PRN Reason: Nausea/Vomiting - Labs Labs: 08/01/17 06:18 08/01/17 06:18 PT 10.8 SECONDS (9.7-12.2) 07/31/17 11:11 INR 1.0 07/31/17 11:11 APTT 27 SECONDS (21-34) 07/31/17 11:11 - Constitutional Appears: Non-toxic, No Acute Distress - Head Exam Head Exam: ATRAUMATIC, NORMOCEPHALIC - Eye Exam Eye Exam: EOMI, Normal appearance - ENT Exam ENT Exam: Mucous Membranes Moist - Respiratory Exam Respiratory Exam: Clear to Ausculation Bilateral, NORMAL BREATHING PATTERN. absent: Accessory Muscle Use, Rales, Rhonchi, Wheezes, Respiratory Distress - Cardiovascular Exam Cardiovascular Exam: REGULAR RHYTHM, +S1, +S2 - GI/Abdominal Exam GI & Abdominal Exam: Soft, Normal Bowel Sounds. absent: Distended, Firm, Guarding, Rigid, Tenderness Additional comments: Patient vomited a significant amount of dark red blood during exam. Approximately 1 quarter of a large basin. - Extremities Exam Extremities Exam: absent: Calf Tenderness, Pedal Edema - Neurological Exam Neurological Exam: Alert, Awake, Oriented x3 - Psychiatric Exam Psychiatric exam: Normal Affect, Normal Mood - Skin Skin Exam: Dry, Warm Assessment and Plan - Assessment and Plan (Free Text) Plan: GI Bleed * Fecal stool occult positive * Coffee ground emesis - Heme positive * Protonix drip * Consult GI, Dr. Stevenson - help appreciated * EGD 08/01 - Erythematous mucosa in the stomach, gastric ulcer with clean base x 2 (biopsied). 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 Normal duodenum. * Dr. Stevenson recs * Clear liquid diet * Continue present medications * await path results * repeat EGD in 10 weeks for surveillance based on path results * Reglan 5mg IV QID * Abdominal US tomorrow. Anemia * Hgb dropped to 6.4 today from 8.7 on 07/31. - transfused 2 units of pRBCs * H&H: 4.0/12.2 upon admission * Transfused 3 units of pRBCs on 07/30/17 Pericardial effusion * Echo done in ED, preliminary read confirms pericardial effusion seen on chest CT last admission * Cardiology consuled, Dr. Jacobs, help appreciated Leukocytosis * WBC: 12.2 * 16.5 on admission * recent admission for pneumonia, discharged with azithromycin (completed) * CXR - small left pleural effusion with left basilar consolidative changes. Small nodular density at the right lung base may represent vessel on end. Venous congestion. Cardiomegaly. * blood cultures - no growth at 24 hours x 2 ESRD (end stage renal disease) on dialysis * BUN/Cr: 93/7.5 * Nephrology consulted, Dr. Correia, help appreciated * MWF dialysis * hold BP meds for now HTN (hypertension) * BP low on admission (102/41) * Per Dr. Correia, hold BP meds at this time Hyperkalemia * K+ 5.0 Prophylactic measure * DVT: SCDs, chemical ppx contraindicated * GI: Protonix daily Case discussed with Dr. Katie Hazel Opal PGY1
[2017-08-01] MEDS ORDERED: Epoetin Alfa 10,000 unit/ml Dialysis IV SCH (16:30)
[2017-08-01] MEDS: Pantoprazole 80 MG in Sodium Chloride 0.9% 100 ML IV SCH (19:13)
--- NOTE | 2017-08-01 23:41 | CP.PCM.PN ---
Subjective - Date & Time of Evaluation Date of Evaluation: 08/01/17 Time of Evaluation: 15:30 - Subjective Subjective: Patient seen and evaluated Denies chest pain and dyspnea Small to moderate pericardial effusion Anemia/GIB Objective - Vital Signs/Intake and Output Vital Signs (last 24 hours): Temp Pulse Resp BP Pulse Ox 98.6 F 96 H 20 174/101 H 100 08/01/17 19:06 08/01/17 19:06 08/01/17 19:06 08/01/17 19:06 08/01/17 19:06 Intake and Output: 08/01/17 08/02/17 18:59 06:59 Intake Total 700 Balance 700 - Medications Medications: Current Medications Epoetin Mustapha (Procrit) 10,000 unit IV MWF [facility] Last Admin: 08/01/17 17:22 Dose: 10,000 unit Pantoprazole Sodium 80 mg/ (Sodium Chloride) 100 mls @ 10 mls/hr IV .Q10H [facility] PRN Reason: 8 MG/HR Last Admin: 08/01/17 19:13 Dose: 10 mls/hr Medroxyprogesterone Acetate (Provera) 10 mg PO DAILY [facility] Last Admin: 08/01/17 19:12 Dose: 10 mg Metoclopramide HCl (Reglan) 5 mg IVP Q6H [facility] Last Admin: 08/01/17 22:41 Dose: 5 mg Ondansetron HCl (Zofran Inj) 4 mg IVP Q4H PRN PRN Reason: Nausea/Vomiting - Labs Labs: 08/01/17 06:18 08/01/17 06:18 PT 10.8 SECONDS (9.7-12.2) 07/31/17 11:11 INR 1.0 07/31/17 11:11 APTT 27 SECONDS (21-34) 07/31/17 11:11
[2017-08-02 00:42] LABS: BASO % 0.2 % (0.0-2.0); EOS # 0.1 K/uL (0.0-0.7); EOS % 0.5 % (0.0-4.0); HEMOGLOBIN 8.9 g/dL (11.0-16.0); LYMPH # 1.3 K/uL (1.0-4.3); MEAN CELL VOLUME 88.6 fL (81.0-99.0); MEAN CORPUSCULAR HEMOGLOBIN 30.5 pg (27.0-31.0); MEAN CORPUSCULAR HGB CONC 34.5 g/dL (33.0-37.0); MEAN PLATELET VOLUME 7.2 fL (7.2-11.7); MONO # 1.2 K/uL (0.0-0.8); NEUT # 9.3 K/uL (1.8-7.0); NEUT % 78.3 % (50.0-75.0); NRBC % 0.1 % (0.0-2.0); RBC 2.9 Mil/uL (3.80-5.20); RED CELL DISTRIBUTION WIDTH 15.2 % (11.5-14.5); WHITE BLOOD COUNT 11.9 K/uL (4.8-10.8)
[2017-08-02] MEDS: Pantoprazole 80 MG in Sodium Chloride 0.9% 100 ML IV SCH ×3 (03:30→14:30)
[2017-08-02 08:08] LABS: BASO # 0.1 K/uL (0.0-0.2); BASO % 0.6 % (0.0-2.0); EOS # 0.1 K/uL (0.0-0.7); EOS % 1.5 % (0.0-4.0); HEMOGLOBIN 9.2 g/dL (11.0-16.0); LYMPH # 1.5 K/uL (1.0-4.3); LYMPH % 16.8 % (20.0-40.0); MEAN CELL VOLUME 88.5 fL (81.0-99.0); MEAN CORPUSCULAR HEMOGLOBIN 31.3 pg (27.0-31.0); MEAN CORPUSCULAR HGB CONC 35.4 g/dL (33.0-37.0); MEAN PLATELET VOLUME 7.5 fL (7.2-11.7); MONO # 0.9 K/uL (0.0-0.8); MONO % 10.4 % (0.0-10.0); NEUT # 6.3 K/uL (1.8-7.0); NEUT % 70.7 % (50.0-75.0); RBC 2.94 Mil/uL (3.80-5.20); RED CELL DISTRIBUTION WIDTH 15.2 % (11.5-14.5); WHITE BLOOD COUNT 8.9 K/uL (4.8-10.8)
[2017-08-02 08:28] LABS: ALB/GLOB RATIO 1.2 (1.0-2.1); ALBUMIN 2.9 g/dL (3.5-5.0); CALCIUM 8.1 mg/dl (8.6-10.4)
--- NOTE | 2017-08-02 09:02 | CARD ---
APPROVED REPORT EKG Measurement Heart [id number] <Conclusion> Sinus rhythm Normal ECG
--- NOTE | 2017-08-02 09:41 | CP.PCM.PN ---
Subjective - Date & Time of Evaluation Date of Evaluation: 08/02/17 Time of Evaluation: 09:38 - Subjective Subjective: Notes reviewed Comfortable in bed No overnight events reported Hgb improving post transfusion No pain, no active bleeding reported Received dialysis without difficulty 3/2 Objective - Vital Signs/Intake and Output Vital Signs (last 24 hours): Temp Pulse Resp BP Pulse Ox 98.0 F 90 18 186/99 H 96 08/02/17 08:06 08/02/17 08:06 08/02/17 08:06 08/02/17 08:06 08/02/17 08:06 - Medications Medications: Current Medications Epoetin Mustapha (Procrit) 10,000 unit IV MWF [facility] Last Admin: 08/01/17 17:22 Dose: 10,000 unit Pantoprazole Sodium 80 mg/ (Sodium Chloride) 100 mls @ 10 mls/hr IV .Q10H [facility] PRN Reason: 8 MG/HR Last Admin: 08/02/17 05:44 Dose: 10 mls/hr Medroxyprogesterone Acetate (Provera) 10 mg PO DAILY [facility] Last Admin: 08/01/17 19:12 Dose: 10 mg Metoclopramide HCl (Reglan) 5 mg IVP Q6H [facility] Last Admin: 08/02/17 03:30 Dose: Not Given Ondansetron HCl (Zofran Inj) 4 mg IVP Q4H PRN PRN Reason: Nausea/Vomiting Sucralfate (Carafate Oral Susp) 1 gm PO TIDHS [facility] - Labs Labs: 08/02/17 07:58 08/02/17 07:58 PT 10.8 SECONDS (9.7-12.2) 07/31/17 11:11 INR 1.0 07/31/17 11:11 APTT 27 SECONDS (21-34) 07/31/17 11:11 - Constitutional Appears: Well, Non-toxic - Head Exam Head Exam: ATRAUMATIC, NORMAL INSPECTION - Eye Exam Eye Exam: EOMI, Normal appearance - ENT Exam ENT Exam: Mucous Membranes Moist, Normal Oropharynx - Neck Exam Neck Exam: absent: Lymphadenopathy, Thyromegaly - Respiratory Exam Respiratory Exam: Clear to Ausculation Bilateral, NORMAL BREATHING PATTERN. absent: Rales, Rhonchi, Wheezes - Cardiovascular Exam Cardiovascular Exam: +S1, +S2. absent: JVD, Rubs - GI/Abdominal Exam GI & Abdominal Exam: Soft, Normal Bowel Sounds - Extremities Exam Extremities Exam: absent: Joint Swelling, Pedal Edema, Tenderness - Neurological Exam Neurological Exam: Alert, Awake, Oriented x3 - Psychiatric Exam Psychiatric exam: Normal Affect, Normal Mood - Skin Skin Exam: Dry, Intact Assessment and Plan (1) Anemia Status: Acute (2) End stage renal disease Status: Acute (3) Hypertensive chronic kidney disease with stage 5 chronic kidney disease or end stage renal disease Status: Acute (4) HTN (hypertension) Status: Chronic - Assessment and Plan (Free Text) Assessment: Maintain dialysis schedule, next treatment 3/5 Increase bp meds Follow up with GI evaluation HGB appears to be stable post transfusion
[2017-08-02] MEDS: Sucralfate 1 gm/10 ml Oral Susp UD PO SCH ×4 (09:45→21:08)
--- NOTE | 2017-08-02 10:03 | US ---
HISTORY: coffee ground emesis; s/p EGD with no findings COMPARISON: None. TECHNIQUE: Sonographic evaluation of the abdomen. FINDINGS: LIVER: Measures 13.4 cm. Normal echogenicity of the liver parenchyma. No mass. No intrahepatic bile duct dilatation. GALLBLADDER: Small mobile gallstone versus polyp measuring 0.3 cm. COMMON BILE DUCT: Measures 2 mm. No stones. No dilatation. PANCREAS: Unremarkable as visualized. No mass. No ductal dilatation. RIGHT KIDNEY: Transplant kidney in the right lower quadrant. Measures 9.4 x 4.5 x 4.4cm. Normal echogenicity. No calculus, mass, or hydronephrosis. [place] right kidney not well-visualized. LEFT KIDNEY: [place] left kidney not well-visualized. SPLEEN: Normal in size and contour. No mass. AORTA: No aneurysmal dilatation. IVC: Unremarkable. OTHER FINDINGS: None. IMPRESSION: Small 3 mm mobile gallstone versus polyp. Right lower quadrant transplant kidney. Otherwise, unremarkable abdominal ultrasound.
--- NOTE | 2017-08-02 10:38 | CP.PCM.PN ---
Subjective - Date & Time of Evaluation Date of Evaluation: 08/02/17 Time of Evaluation: 09:00 - Subjective Subjective: Medicine Note For Dr. Wilson's Service Patient was seen and examined at bedside. Patient reports she no longer has coffee ground emesis. She reports having some blood in stools. Denied fever, chills, headache, chest pain, SOB, abdominal pain, n/v/d/c, or urinary symptoms. Objective - Vital Signs/Intake and Output Vital Signs (last 24 hours): Temp Pulse Resp BP Pulse Ox 98.0 F 90 18 186/99 H 96 08/02/17 08:06 08/02/17 08:06 08/02/17 08:06 08/02/17 08:06 08/02/17 08:06 - Medications Medications: Current Medications Amlodipine Besylate (Norvasc) 5 mg PO DAILY [facility] Epoetin Mustapha (Procrit) 10,000 unit IV MWF [facility] Last Admin: 08/01/17 17:22 Dose: 10,000 unit Pantoprazole Sodium 80 mg/ (Sodium Chloride) 100 mls @ 10 mls/hr IV .Q10H [facility] PRN Reason: 8 MG/HR Last Admin: 08/02/17 05:44 Dose: 10 mls/hr Medroxyprogesterone Acetate (Provera) 10 mg PO DAILY [facility] Last Admin: 08/02/17 09:45 Dose: 10 mg Metoclopramide HCl (Reglan) 5 mg IVP Q6H [facility] Last Admin: 08/02/17 09:45 Dose: 5 mg Ondansetron HCl (Zofran Inj) 4 mg IVP Q4H PRN PRN Reason: Nausea/Vomiting Sucralfate (Carafate Oral Susp) 1 gm PO TIDHS [facility] Last Admin: 08/02/17 09:45 Dose: 1 gm - Labs Labs: 08/02/17 07:58 08/02/17 07:58 PT 10.8 SECONDS (9.7-12.2) 07/31/17 11:11 INR 1.0 07/31/17 11:11 APTT 27 SECONDS (21-34) 07/31/17 11:11 - Additional Findings Additional findings: - Constitutional Appears: Non-toxic, No Acute Distress - Head Exam Head Exam: ATRAUMATIC, NORMOCEPHALIC - Eye Exam Eye Exam: EOMI, Normal appearance - ENT Exam ENT Exam: Mucous Membranes Moist - Respiratory Exam Respiratory Exam: Clear to Ausculation Bilateral, NORMAL BREATHING PATTERN. absent: Accessory Muscle Use, Rales, Rhonchi, Wheezes, Respiratory Distress - Cardiovascular Exam Cardiovascular Exam: REGULAR RHYTHM, +S1, +S2 - GI/Abdominal Exam GI & Abdominal Exam: Soft, Normal Bowel Sounds. absent: Distended, Firm, Guarding, Rigid, Tenderness Additional comments: - Extremities Exam Extremities Exam: absent: Calf Tenderness, Pedal Edema , AVF - Neurological Exam Neurological Exam: Alert, Awake, Oriented x3 - Psychiatric Exam Psychiatric exam: Normal Affect, Normal Mood - Skin Skin Exam: Dry, Warm Assessment and Plan - Assessment and Plan (Free Text) Plan: GI Bleed Consult GI, Dr. Stevenson - help appreciated * Fecal stool occult positive * Coffee ground emesis - Heme positive * Protonix drip * EGD 08/01 - Erythematous mucosa in the stomach, gastric ulcer with clean base x 2 (biopsied). 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 Normal duodenum. * Dr. Stevenson recs * Clear liquid diet * Continue present medications * await path results * repeat EGD in 10 weeks for surveillance based on path results * Reglan 5mg IV QID * Abdominal US f/U * Patient reported BRBPR - f/u stool occult Anemia Patient received total 5 units since admission; hemoglobin stable at 9.2 H&H: 4.0/12.2 upon admission Transfused 3 units of pRBCs on 07/30/17 * Hgb dropped to 6.4 today from 8.7 on 07/31. - transfused 2 units of pRBCs Pericardial effusion * Echo done in ED, preliminary read confirms pericardial effusion seen on chest CT last admission * Cardiology consuled, Dr. Jacobs, help appreciated ESRD (end stage renal disease) on dialysis * BUN/Cr: 93/7.5 * Nephrology consulted, Dr. Correia, help appreciated * MWF dialysis * Started on Norvasc 5mg PO daily HTN (hypertension) * BP low on admission (102/41) * Started on Norvasc 5mg PO daily by nephro 08/02/17 Leukocytosis - resolved * WBC: 12.2 * 16.5 on admission * recent admission for pneumonia, discharged with azithromycin (completed) * CXR - small left pleural effusion with left basilar consolidative changes. Small nodular density at the right lung base may represent vessel on end. Venous congestion. Cardiomegaly. * blood cultures - no growth at 24 hours x 2 Prophylactic measure * DVT: SCDs, chemical ppx contraindicated * GI: Protonix drip DW Dr. Wilson, Marva Pike DO, PGY-1
--- NOTE | 2017-08-02 13:09 | PN ---
DATE: LOCATION: [facility], bed A. This is a 27-year-old female, post upper endoscopy due to recurrent episodes of nausea and vomiting, appeared to be awake, alert, oriented with no reported active bleeding, chest pain or palpitation this morning. The entire chart is reviewed including but not limited to the most recent lab and radiology study results, current and the previous medication list, current and the previous medical events. Case discussed with the staff at length. Today's lab showed leukocytosis of 11.9, hemoglobin 8.9, hematocrit 25.7 with normal platelet count. Rest of the lab results still pending and the patient on hemodialysis with increased BUN and creatinine. PHYSICAL EXAMINATION: GENERAL: A 27 years old female, afebrile with pulse of 90, respiratory rate 20 to 22, blood pressure of 154/86. HEENT: Showed pale, dry, oral mucous membrane. Nonicteric sclerae. LUNGS: Few scattered crepitation. Decreased air entry at bases. HEART: S1 and S2. ABDOMEN: Soft with [id number] tenderness in the mid epigastric area. No mass or organomegaly. No rebound tenderness or guarding. EXTREMITIES: Without significant clubbing, cyanosis, or edema. NEUROLOGIC: No reported new neurological deficits, sensory or motor. IMPRESSION: 1. Gastric ulcer with acute gastritis and recurrent episode of nausea and vomiting secondary to above. 2. Poorly controlled hypertension, which could be a factor for the patient's nausea and vomiting. 3. Chronic renal failure, on hemodialysis. SUGGESTION: 1. Continue current management. 2. Proton pump inhibitors IV twice a day. Reglan IV 5 mg twice a day. 3. The patient will need abdominal ultrasound as well as serum lipase, amylase level. 4. Adjust diet as tolerated. Haylee Farley MD cc: Haylee Farley MD.
--- NOTE | 2017-08-02 22:29 | CP.PCM.PN ---
Subjective - Date & Time of Evaluation Date of Evaluation: 08/02/17 Time of Evaluation: 10:20 - Subjective Subjective: Patient seen and evaluated feels better denies chest pain and dyspnea Objective - Vital Signs/Intake and Output Vital Signs (last 24 hours): Temp Pulse Resp BP Pulse Ox 99 F 90 20 163/90 H 96 08/02/17 15:00 08/02/17 16:00 08/02/17 15:00 08/02/17 15:00 08/02/17 15:00 Intake and Output: 08/02/17 08/03/17 18:59 06:59 Intake Total 80 Balance 80 - Medications Medications: Current Medications Amlodipine Besylate (Norvasc) 5 mg PO DAILY [facility] Epoetin Mustapha (Procrit) 10,000 unit IV MWF [facility] Last Admin: 08/01/17 17:22 Dose: 10,000 unit Pantoprazole Sodium 80 mg/ (Sodium Chloride) 100 mls @ 10 mls/hr IV .Q10H [facility] PRN Reason: 8 MG/HR Last Admin: 08/02/17 14:30 Dose: 10 mls/hr Medroxyprogesterone Acetate (Provera) 10 mg PO DAILY [facility] Last Admin: 08/02/17 09:45 Dose: 10 mg Metoclopramide HCl (Reglan) 5 mg IVP Q6H [facility] Last Admin: 08/02/17 21:08 Dose: 5 mg Ondansetron HCl (Zofran Inj) 4 mg IVP Q4H PRN PRN Reason: Nausea/Vomiting Sucralfate (Carafate Oral Susp) 1 gm PO TIDHS [facility] Last Admin: 08/02/17 21:08 Dose: 1 gm - Labs Labs: 08/02/17 07:58 08/02/17 07:58 PT 10.8 SECONDS (9.7-12.2) 07/31/17 11:11 INR 1.0 07/31/17 11:11 APTT 27 SECONDS (21-34) 07/31/17 11:11
[2017-08-03] MEDS: Pantoprazole 80 MG in Sodium Chloride 0.9% 100 ML IV SCH ×2 (00:29→10:33)
[2017-08-03 07:56] LABS: BASO # 0.1 K/uL (0.0-0.2); BASO % 0.8 % (0.0-2.0); EOS # 0.2 K/uL (0.0-0.7); EOS % 2.4 % (0.0-4.0); HEMOGLOBIN 8.6 g/dL (11.0-16.0); LYMPH # 1.5 K/uL (1.0-4.3); LYMPH % 17.9 % (20.0-40.0); MEAN CELL VOLUME 89.7 fL (81.0-99.0); MEAN CORPUSCULAR HEMOGLOBIN 31.3 pg (27.0-31.0); MEAN CORPUSCULAR HGB CONC 34.9 g/dL (33.0-37.0); MEAN PLATELET VOLUME 7.4 fL (7.2-11.7); MONO # 0.8 K/uL (0.0-0.8); MONO % 9.6 % (0.0-10.0); NEUT % 69.3 % (50.0-75.0); RBC 2.75 Mil/uL (3.80-5.20); RED CELL DISTRIBUTION WIDTH 15.8 % (11.5-14.5); WHITE BLOOD COUNT 8.6 K/uL (4.8-10.8)
[2017-08-03 08:14] LABS: ALB/GLOB RATIO 1.1 (1.0-2.1); ALBUMIN 2.7 g/dL (3.5-5.0); CALCIUM 8.1 mg/dl (8.6-10.4)
[2017-08-03 09:27] VITALS: BP 171/99; PULSE 79; RESP 18; TEMP 98.4; O2SAT 98
--- NOTE | 2017-08-03 09:43 | CP.PCM.DIS ---
Provider - Provider Date of Admission: 07/30/17 18:12 Attending physician: Smith Wilson Jr, MD Consults: Dr. Correia, Dr. Jacobs, Dr. Stevenson Time Spent in preparation of Discharge (in minutes): 55 Hospital Course - Lab Results Lab Results: Micro Results 07/30/17 23:30 Blood Blood Culture - Preliminary NO GROWTH AFTER 48 HOURS 07/30/17 23:00 Blood Blood Culture - Preliminary NO GROWTH AFTER 48 HOURS Most Recent Lab Values WBC 8.6 K/uL (4.8-10.8) 08/03/17 07:37 RBC 2.75 Mil/uL (3.80-5.20) L 08/03/17 07:37 Hgb 8.6 g/dL (11.0-16.0) L 08/03/17 07:37 Hct 24.6 % (34.0-47.0) L 08/03/17 07:37 MCV 89.7 fL (81.0-99.0) 08/03/17 07:37 MCH 31.3 pg (27.0-31.0) H 08/03/17 07:37 MCHC 34.9 g/dL (33.0-37.0) 08/03/17 07:37 RDW 15.8 % (11.5-14.5) H 08/03/17 07:37 Plt Count 202 K/uL (130-400) 08/03/17 07:37 MPV 7.4 fL (7.2-11.7) 08/03/17 07:37 Neut % (Auto) 69.3 % (50.0-75.0) 08/03/17 07:37 Lymph % (Auto) 17.9 % (20.0-40.0) L 08/03/17 07:37 [place] % (Auto) 9.6 % (0.0-10.0) 08/03/17 07:37 Eos % (Auto) 2.4 % (0.0-4.0) 08/03/17 07:37 Baso % (Auto) 0.8 % (0.0-2.0) 08/03/17 07:37 Neut # (Auto) 6.0 K/uL (1.8-7.0) 08/03/17 07:37 Lymph # (Auto) 1.5 K/uL (1.0-4.3) 08/03/17 07:37 [place] # (Auto) 0.8 K/uL (0.0-0.8) 08/03/17 07:37 Eos # (Auto) 0.2 K/uL (0.0-0.7) 08/03/17 07:37 Baso # (Auto) 0.1 K/uL (0.0-0.2) 08/03/17 07:37 Smear Path Review 07/30/17 16:12 PT 10.8 SECONDS (9.7-12.2) 07/31/17 11:11 INR 1.0 07/31/17 11:11 APTT 27 SECONDS (21-34) 07/31/17 11:11 Sodium 138 mmol/L (132-148) 08/03/17 07:37 Potassium 5.1 mmol/L (3.6-5.2) 08/03/17 07:37 Chloride 98 mmol/L (98-107) 08/03/17 07:37 Carbon Dioxide 29 mmol/L (22-30) 08/03/17 07:37 Anion Gap 16 (10-20) 08/03/17 07:37 BUN 44 mg/dL (7-17) H 08/03/17 07:37 Creatinine 7.7 mg/dL (0.7-1.2) H* D 08/03/17 07:37 Est GFR ( Amer) 8 08/03/17 07:37 Est GFR (Non-Af Amer) 6 08/03/17 07:37 Random Glucose 73 mg/dL (65-105) 08/03/17 07:37 Calcium 8.1 mg/dl (8.6-10.4) L 08/03/17 07:37 Total Bilirubin 0.6 mg/dL (0.2-1.3) 08/03/17 07:37 AST 26 U/L (14-36) 08/03/17 07:37 ALT 22 U/L (9-52) 08/03/17 07:37 Alkaline Phosphatase 37 U/L (38-126) L 08/03/17 07:37 Troponin I 0.0510 ng/mL (0.00-0.120) 07/30/17 15:39 Total Protein 5.2 g/dL (6.3-8.3) L 08/03/17 07:37 Albumin 2.7 g/dL (3.5-5.0) L 08/03/17 07:37 Globulin 2.5 gm/dL (2.2-3.9) 08/03/17 07:37 Albumin/Globulin Ratio 1.1 (1.0-2.1) 08/03/17 07:37 Beta HCG, Quant < 2.39 mIU/ML 08/01/17 06:18 Blood Type A NEGATIVE 07/30/17 16:45 Blood Type Confirm A NEGATIVE 07/30/17 16:45 Antibody Screen Negative 07/30/17 16:45 - Hospital Course Hospital Course: Upon Admission: HPI: Patient is a 27 year old female with PMH of HTN and ESRD on hemodialysis MWF, who presents to the ED with midsternal chest pain and SOB that started during dialysis this afternoon, about 1 hour prior to coming to the ED. Patient was given morphine prior to arrival and is not answering my questions, just mumbling. Patient's parents are present at bedside and say she has not been speaking to them since the dose of morphine because she is drowsy, therefore ROS was unattainable. Per ED note patient was complaining of sharp pain radiating to her throat. Of note, patient was recently admitted for pneumonia and chest CT showed pericardial effusion, and Echo done in the ED on this admission confirmed large pericardial effusion. PMH: HTN, ESRD on HD MWF PSH: Failed kidney transplant (2008), AV fistula Meds: will need to call pharmacy, as parents do not have a list and are unsure Allergies: denies, but per EMR vanco and shrimp FH: HTN (father) SH: denies tobacco, alcohol, and drug use Throughout Hospital Course: GI Bleed Consult GI, Dr. Stevenson - help appreciated * Fecal stool occult positive * Coffee ground emesis - Heme positive * Protonix drip * EGD 3/2 - Erythematous mucosa in the stomach, gastric ulcer with clean base x 2 (biopsied). 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 Normal duodenum. * Dr. Stevenson recs * Clear liquid diet * Continue present medications * await path results * repeat EGD in 10 weeks for surveillance based on path results * Reglan 5mg IV QID * Abdominal US: small 3mm mobile gallstone versus polyp Anemia Patient received total 5 units since admission; hemoglobin stable 8.6 today H&H: 4.0/12.2 upon admission Transfused 3 units of pRBCs on 07/30/17 * Hgb dropped to 6.4 today from 8.7 on 07/31. - transfused 2 units of pRBCs Pericardial effusion * Echo done in ED, preliminary read confirms pericardial effusion seen on chest CT last admission * Cardiology consuled, Dr. Jacobs, help appreciated ESRD (end stage renal disease) on dialysis * BUN/Cr: 93/7.5 * Nephrology consulted, Dr. Correia, help appreciated * MWF dialysis * Started on Norvasc 5mg PO daily HTN (hypertension) * BP low on admission (102/41) * Started on Norvasc 5mg PO daily by nephro 08/02/17 Will restart home meds: Labetalol 100mg PO BID, Nifedipine xL 60mg PO BID Leukocytosis - resolved * WBC: 12.2 * 16.5 on admission * recent admission for pneumonia, discharged with azithromycin (completed) * CXR - small left pleural effusion with left basilar consolidative changes. Small nodular density at the right lung base may represent vessel on end. Venous congestion. Cardiomegaly. * blood cultures - no growth at 24 hours x 2 This is a brief summary of the patient's hospital course. Please review EMR for full record. Discharge Exam - Head Exam Head Exam: ATRAUMATIC, NORMAL INSPECTION Discharge Plan - Discharge Medications Prescriptions: Fluticasone/Salmeterol [Advair 250-50 Diskus] 1 each IH DAILY #1 inh Labetalol [Trandate] 200 mg PO BID #60 tab Nifedipine [Adalat cc] 60 mg PO BID #60 tablet.er Pantoprazole [Protonix] 40 mg PO DAILY #30 ect - Follow Up Plan Condition: FAIR Disposition: HOME/ ROUTINE Additional Instructions: Patient must continue home medications and must continue dialysis schedule (MWF) . You are to continue the following medications For your blood pressure: Labetalol 100mg PO BID Nifedipine xL 60mg PO BID Advair Diskus 250-50- take 1 puff daily Patient must discontinue Cellcept. Patient must follow up with PMD within 1-2 weeks of discharge. Patient must follow up with harpsichord maker within 1 week of discharge. If symptoms reoccur or worsen, patient should return to the Emergency Room. ------- El paciente debe continuar con los medicamentos en el hogar y debe continuar el programa de dilisis (MWF). Debe continuar los siguientes medicamentos Para echevarria presin arterial: Labetalol 100mg PO BID Nifedipine xL 60mg PO BID Advair Diskus 250-50: tome 1 inhalacin al da El paciente debe descontinuar Cellcept. El paciente debe seguir con PMD dentro de 1-2 semanas de kirstin. El paciente debe realizar un seguimiento con el nefrlogo dentro de la semana posterior al kirstin. Si los sntomas reaparecen o empeoran, el paciente debe regresar a la celia de emergencias. Referrals: Smith Wilson Jr., MD [Medical Doctor] -
[2017-08-03] MEDS: Sucralfate 1 gm/10 ml Oral Susp UD PO SCH (10:31)
--- NOTE | 2017-08-03 11:40 | CON ---
DATE: 07/31/[address] Farley to Dr. Wilson. I was called for GI consultation by the admitting MD. The patient is seen and fully examined at 07/31/2017 as requested by the admitting medical staff. The entire chart is reviewed including but not limited to the most recent lab and radiology and pathology results, current and the previous medication list, current and the previous medical events, allergy to medication list, as well as all the available current and previous medical records. Case discussed with the staff at length. This is a 27-year-old female with main complaint of mid lower sternal abdominal pain, epigastric pain, recurrent nausea and vomiting, intermittent periods of shortness of breath with generalized weakness and malaise. No reported chills, fever or active bleeding, but she was recently diagnosed with pericardial effusion several weeks ago. Recently, the patient to follow up episode of hematemesis of some coffee-ground material with sharp epigastric pain. PAST MEDICAL HISTORY: Including, but not limited to, 1. Hypertension. 2. Chronic renal failure, on hemodialysis. 3. Peptic ulcer disease. FAMILY HISTORY: Unknown. SOCIAL HISTORY: No known history of cigarette smoking, or alcohol intake. CURRENT MEDICATIONS: Medication lists were reviewed. ALLERGY: ALLERGY TO MEDICATION, UNCLEAR. LABORATORY DATA: At the time of admission, the patient's hemoglobin was 4.0, hematocrit 12.2, leukocytosis 16.5, BUN 31, creatinine 3.4, CO2 content 35, potassium 3.2. PHYSICAL EXAMINATION GENERAL/VITAL SIGNS: A 27-year-old female, Turkmen spoken, complaining of epigastric pain with nausea and vomiting with some coffee-ground material with low grade temperature of 99.2, pulse of 82, respiratory rate 18 to 20, and blood pressure 110/66. HEENT: Shows mildly pale dry oral mucous membrane, anicteric sclerae. LYMPH NODES: No lymphadenitis or lymphadenopathy. LUNGS: Few scattered crepitations with decreased air entry at bases. HEART: Positive S1 and S2. ABDOMEN: Soft with mid epigastric tenderness and mild distention. No mass or organomegaly. No rebound tenderness or guarding. RECTAL: The patient refused. EXTREMITIES: Mild lower extremity edematous changes. No clubbing or cyanosis. NEUROLOGIC: No reported new neurological deficits, sensory or motor. IMPRESSION: 1. Upper gastrointestinal bleeding, to rule out gastric versus duodenal ulcer. 2. Chronic renal failure, on hemodialysis. 3. History of hypertension. 4. Status post renal transplant 9 years ago, failed. 5. Severe anemia secondary to above. 6. Electrolyte imbalance due to the patient's renal failure. SUGGESTIONS: 1. Continue current management. 2. Blood transfusion to keep hemoglobin around 10 gm percent. 3. . 4. Abdominal ultrasound. Serum lipase and amylase level. 5. Upper endoscopy. Further recommendations to follow. Haylee Farley MD
--- NOTE | 2017-08-03 12:16 | PN ---
LOCATION: 651, bed A. SUBJECTIVE: This is a 27-year-old female, seen and examined early in rounds with much less reported nausea dyspepsia, but no reported vomiting this morning, with reported increased blood pressure again. No reported active bleeding, significant complaint of chest pain, shortness of breath or palpitation. No reported chills or fever, but with generalized weakness and malaise. All the information obtained through a executive meeting manager. The patient still has intermittent period of complaint of abdominal pain and mild distention. The entire chart is reviewed including, but not limited to the most recent lab and radiology study results, current and the previous medication list, current and the previous medical events. Today's lab is still pending, but the patient's latest white blood cells was normal with low hemoglobin, hematocrit, and normal platelet count with increased CO2 content indicative of respiratory alkalosis with increased BUN and creatinine compatible with the patient's known history of renal failure. Calcium is low as well as total protein and albumin. Abdominal ultrasound was performed yesterday indicative of a small mobile gallstone versus possible gallbladder polyp. Serum lipase and amylase level report is still pending. PHYSICAL EXAMINATION: GENERAL: A 27-year-old female. VITAL SIGNS: Afebrile with blood pressure 174/96, respiratory rate 20 to 22, pulse of 86. HEENT: Showed pale dry oral mucous membrane. Nonicteric sclerae. LUNGS: Few scattered crepitation. Decreased air entry at bases. HEART: Positive S1 and S2. ABDOMEN: Soft with mild generalized tenderness. No mass or organomegaly. No rebound tenderness or guarding. Mild abdominal distention noticed. EXTREMITIES: With slight lower extremity edematous changes. No clubbing or cyanosis. NEUROLOGIC: No reported new neurological deficits, sensory or motor. IMPRESSION: 1. Gastric ulcer with acute erosive gastritis inducing nausea and vomiting before. 2. Poorly controlled hypertension. 3. Chronic renal disease, no hemodialysis. 4. Electrolyte imbalance with anemia secondary to above. SUGGESTIONS: 1. Continue current management. 2. Due to the abnormal ultrasound of the abdomen, repeat serum lipase and amylase level at a.m. is advised. 3. Further recommendation to follow. 4. No further aggressive GI workup in the meantime. Alaa Salah-Graham, MD [facility] # [id number]
== END 2017-08-03 12:53 | disposition home or self-care (01) | DRG 544 ==
LOC: C.ER 13:47 → C.9E 18:12 → C.6T 19:55
PROVIDERS: ADMIT Internal Medicine; ATTEND Internal Medicine
PROC: 5A1D70Z Performance of Urinary Filtration, Intermittent, Less than 6 Hours Per Day (ICD-10-PCS; principal; 2017-07-31)
PROC: 0DB68ZX Excision of Stomach, Via Natural or Artificial Opening Endoscopic, Diagnostic (ICD-10-PCS; 2017-08-01)
DX: I13.2 Hypertensive heart and chronic kidney disease with heart failure and with stage 5 chronic kidney disease, or end stage renal disease (principal); K25.4 Chronic or unspecified gastric ulcer with hemorrhage; E87.3 Alkalosis; T86.12 Kidney transplant failure; I27.20 Pulmonary hypertension, unspecified; I31.3 Pericardial effusion (noninflammatory); N18.6 End stage renal disease; I50.9 Heart failure, unspecified; D72.829 Elevated white blood cell count, unspecified; K29.00 Acute gastritis without bleeding; N92.0 Excessive and frequent menstruation with regular cycle; Z99.2 Dependence on renal dialysis

== ENCOUNTER 2017-10-11 20:02 | Inpatient (IN) | payer MEDICAID ==
[2017-10-11 20:03] VITALS: BMI 20.8
[2017-10-11] MEDS ORDERED: Sodium Chloride 0.9% 1,000 ML IV ONE ×2 (20:19→20:28)
--- NOTE | 2017-10-11 20:24 | C.PDOC ---
History Of Present Illness 27 year old female presents to the ER with a complaint of severe lower abdominal pain that began tonight. Denies fever or chills. Chief Complaint (Nursing): Abdominal Pain History Per: Patient History/Exam Limitations: no limitations Onset/Duration Of Symptoms: Hrs Current Symptoms Are (Timing): Still Present Location Of Pain/Discomfort: RLQ, LLQ Quality Of Discomfort: Unable To Describe Associated Symptoms: denies: Fever, Chills Exacerbating Factors: None Alleviating Factors: None Recent travel outside of the [place]: No Abnormal Vaginal Bleeding: No Past Medical History Reviewed: Historical Data, Nursing Documentation, Vital Signs Vital Signs: Last Vital Signs Temp 98.1 F 10/11/17 20:11 Pulse 69 10/11/17 20:11 Resp 18 10/11/17 20:11 BP 107/80 10/11/17 20:11 Pulse Ox 97 10/11/17 23:15 - Medical History PMH: HTN, Chronic Kidney Disease - [facility] (07/30/17) EXCISION OF STOMACH, ENDO, DIAGN (07/30/17) Family History: States: Unknown Family Hx - Social History Hx Alcohol Use: No Hx Substance Use: No - Immunization History Hx Tetanus Toxoid Vaccination: Yes Hx Influenza Vaccination: Yes Hx Pneumococcal Vaccination: Yes Review Of Systems Constitutional: Negative for: Fever, Chills Cardiovascular: Negative for: Chest Pain, Palpitations Respiratory: Negative for: Cough, Shortness of Breath Gastrointestinal: Positive for: Abdominal Pain. Negative for: Nausea, Vomiting Physical Exam - Physical Exam Appears: Non-toxic, In Acute Distress Skin: Normal Color, Warm, Dry Head: Atraumatic, Normacephalic Eye(s): bilateral: Normal Inspection Oral Mucosa: Moist Neck: Normal, Supple Chest: Symmetrical, No Tenderness Cardiovascular: Rhythm Regular Respiratory: Normal Breath Sounds, No Rales, No Rhonchi, No Wheezing Gastrointestinal/Abdominal: Soft, Tenderness (Bilateral lower quadrants), Distention (Bilateral lower quadrants), No Guarding, No Rebound Neurological/Psych: Oriented x3, Normal Speech ED Course And Treatment - Laboratory Results Result Diagrams: 10/11/17 20:52 10/11/17 20:52 ECG: Interpreted By Me, Viewed By Me ECG Rhythm: Sinus Rhythm ECG Interpretation: Abnormal Interpretation Of ECG: NSR, RAD, nonspc. st-t abnormality, prolonged QT interval , abnormal traacings, no tenting of T wave. Rate From EC O2 Sat by Pulse Oximetry: 97 (Room air) Pulse Ox Interpretation: Normal Progress Note: CT abd/pel, blood work, and urinalysis ordered. Toradol and IV fluids administered. Case discussed with Dr. Wilson who will admit patient. Case discussed with Dr. Florentino who is covering for Dr. Correia, the patient's charge poster, who advised to do repeat potassium every 4 hours for further management. residential real estate sales manager aware of patient. Disposition Discussed With Dr.: Smith Wilson Jr. Doctor Will See Patient In The: Hospital Counseled Patient/Family Regarding: Diagnosis - Disposition Disposition: HOSPITALIZED Disposition Time: 23:13 Condition: STABLE Forms: [facility] (Upper Sorbian) - POA Present On Arrival: None - Clinical Impression Clinical Impression: ESRD (end stage renal disease) on dialysis, Hyperkalemia, Abdominal pain, Constipation, Pericardial effusion - Scribe Statement The provider has reviewed the documentation as recorded by the Scribpenny Betancourt All medical record entries made by the Leonelaibpenny were at my direction and personally dictated by me. I have reviewed the chart and agree that the record accurately reflects my personal performance of the history, physical exam, medical decision making, and the department course for this patient. I have also personally directed, reviewed, and agree with the discharge instructions and disposition.
[2017-10-11] MEDS ORDERED: Iodixanol 320 MG/ML 100 ML BOTTLE IV ONE (20:27)
[2017-10-11] MEDS ORDERED: Sodium Chloride 0.9% 1,000 ML ONE (20:28)
[2017-10-11] MEDS ORDERED: Iohexol 240 (50 ml) PO ONE (20:30)
[2017-10-11] MEDS ORDERED: Morphine 4 MG/ML VIAL ONE (20:34)
[2017-10-11 20:55] LABS: BASO # 0.1 K/uL (0.0-0.2); BASO % 0.7 % (0.0-2.0); EOS % 0.2 % (0.0-4.0); LYMPH # 0.8 K/uL (1.0-4.3); LYMPH % 5.2 % (20.0-40.0); MEAN CELL VOLUME 84.6 fL (81.0-99.0); MEAN CORPUSCULAR HEMOGLOBIN 27.4 pg (27.0-31.0); MEAN CORPUSCULAR HGB CONC 32.4 g/dL (33.0-37.0); MEAN PLATELET VOLUME 7.3 fL (7.2-11.7); MONO # 0.8 K/uL (0.0-0.8); MONO % 5.2 % (0.0-10.0); NEUT % 88.7 % (50.0-75.0); NRBC % 0.4 % (0.0-2.0); PLATELET COUNT 290 K/uL (130-400); RBC 4.02 Mil/uL (3.80-5.20); RED CELL DISTRIBUTION WIDTH 18.7 % (11.5-14.5); WHITE BLOOD COUNT 15.8 K/uL (4.8-10.8)
[2017-10-11 21:11] LABS: ALB/GLOB RATIO 1.4 (1.0-2.1); CALCIUM 9.6 mg/dl (8.6-10.4)
[2017-10-11] MEDS ORDERED: Dextrose 50% SYRINGE Inj (50 ml) IV STA (21:22)
[2017-10-11] MEDS ORDERED: (Novolin R) Insulin Human Regular 100 units/ml vial IV STA (21:22)
[2017-10-11 21:23] LABS: BANDS 6 % (0-2); GIANT PLATELETS PRESENT; LYMPHOCYTE 7 % (20-40); MONOCYTE 4 % (0-10); NEUTROPHIL 82 % (50-75); PLATELET ESTIMATE NORMAL (NORMAL); REACTIVE LYMPHOCYTES 1 % (0-0); TOTAL CELLS COUNTED 100
[2017-10-11] MEDS ORDERED: Sodium Bicarbonate (8.4%) 50 Meq Syringe IVP STA (21:23)
[2017-10-11] MEDS ORDERED: Sodium Bicarbonate (8.4%) 50 Meq Syringe ONE (21:29)
[2017-10-11] MEDS ORDERED: (Novolin R) Insulin Human Regular 100 units/ml vial ONE (21:29)
[2017-10-11] MEDS ORDERED: Dextrose 50% SYRINGE Inj (50 ml) ONE (21:30)
--- NOTE | 2017-10-11 22:39 | CT ---
EXAM: CT Chest Without Intravenous Contrast CT Abdomen and Pelvis Without Intravenous Contrast CLINICAL HISTORY: 27 years old, female; Pain; Abdominal pain; Generalized; Chest pain; Type not specified; Patient HX: Esrd; Additional info: Esrd/ abd pain TECHNIQUE: Axial computed tomography images of the chest, abdomen and pelvis without intravenous contrast. All CT scans at this facility use one or more dose reduction techniques, viz.: automated exposure control; ma/kV adjustment per patient size (including targeted exams where dose is matched to indication; i.e. head); or iterative reconstruction technique. Coronal and sagittal reformatted images were created and reviewed. COMPARISON: No relevant prior studies available. FINDINGS: CHEST: Lungs: Diffuse bilateral groundglass opacity throughout both lungs. Pleural space: Trace left pleural fluid. No pneumothorax. Heart: Severe cardiomegaly. Moderate pericardial effusion, stable. ABDOMEN: Liver: Hepatomegaly. Gallbladder and bile ducts: Unremarkable. No calcified stones. No ductal dilation. Pancreas: Unremarkable. No ductal dilation. Spleen: Unremarkable. No splenomegaly. Adrenals: Unremarkable. No mass. Kidneys and ureters: Atrophic [place] kidneys. Stomach and bowel: Large amount of retained stool in the colon. Impacted feces in region of splenic flexure. PELVIS: Appendix: No findings to suggest acute appendicitis. Bladder: Unremarkable. No stones. Reproductive: Unremarkable as visualized. CHEST, ABDOMEN and PELVIS: Intraperitoneal space: Small to moderate amount of ascites. No free air. Bones/joints: Right iliac fossa renal transplant Congenital left hip deformity. No acute fracture. No dislocation. Soft tissues: Unremarkable. Vasculature: Enlarged veins, left upper extremity, may be related to fistula. Lymph nodes: Unremarkable. No enlarged lymph nodes. IMPRESSION: 1. Severe constipation and fecal impaction, as above. 2. Severe cardiomegaly and moderate pericardial effusion, stable. 3. Small to moderate amount of ascites. 4. Remainder of findings as above.
[2017-10-11] MEDS ORDERED: Sod Polystyrene Sulf 15 gm/60 ml Susp PO STA (23:05)
--- NOTE | 2017-10-11 23:18 | CP.PCM.HP ---
History of Present Illness - History of Present Illness History of Present Illness: CC: Lower quadrant pain HPI 27F presents to the ER with a complaint of severe lower abdominal pain that began tonight. Patient states she had a normal BM in the morning of 10/10 and around 1pm, started feeling lower abdominal pain. Pain does not radiate anywhere. Patient did not take anything for the pain and decided to come straight to emergency room. Patient states she does not have a history of diverticulosis. Patient states no family history of colon cancer. Patient denies dizziness, fever, chills, nausea, vomiting, diarrhea, hematochezia, chest pain, shortness of breath. Patient had a CT abdomen/pelvis with contrast showing constipation. No obstruction noted. ED doctor spoke to Practice Clinician covering for Dr. Correia and requests follow up cmp at 1 am to see changes to CMP after treatment in ER. PMH: ESRD on HD M,W,F and HTN Surgical History: left kidney transplant (around 2008) Social History: denies smoking, drinking etoh, illicit drugs Allergies: Shrimp, vancomycin PMD: Dr. Wilson Present on Admission - Present on Admission Any Indicators Present on Admission: No History of DVT/PE: No History of Uncontrolled Diabetes: No Urinary Catheter: No Decubitus Ulcer Present: No Review of Systems - Review of Systems All systems: reviewed and no additional remarkable complaints except Past Patient History - Past Medical History & Family History Past Medical History?: Yes - Past Social History Smoking Status: Never Smoked - CARDIAC Hx Hypertension: Yes - PULMONARY Hx Respiratory Disorders: No - NEUROLOGICAL Hx Neurological Disorder: No - HEENT Hx HEENT Problems: No - RENAL Hx Chronic Kidney Disease: Yes - ENDOCRINE/METABOLIC Hx Endocrine Disorders: No - HEMATOLOGICAL/ONCOLOGICAL Hx Blood Disorders: No - INTEGUMENTARY Hx Dermatological Problems: No - MUSCULOSKELETAL/RHEUMATOLOGICAL Hx Falls: No - GASTROINTESTINAL Hx Gastrointestinal Disorders: No - GENITOURINARY/GYNECOLOGICAL Hx Genitourinary Disorders: No - PSYCHIATRIC Hx Substance Use: No - SURGICAL HISTORY Hx Surgeries: Yes Hx Vascular Access Device: Yes (LEFT ARM SHUNT) - ANESTHESIA Hx Anesthesia: Yes Hx Anesthesia Reactions: No Hx Malignant Hyperthermia: No Meds Allergies/Adverse Reactions: Allergies Allergy/AdvReac Type Severity Reaction Status Date / Time shrimp Allergy Verified 10/11/17 20:17 vancomycin Allergy Verified 10/11/17 20:17 Physical Exam - Head Exam Head Exam: ATRAUMATIC, NORMAL INSPECTION, NORMOCEPHALIC - Eye Exam Eye Exam: EOMI, Normal appearance - ENT Exam ENT Exam: Mucous Membranes Moist, Normal Exam - Neck Exam Neck exam: Positive for: Full Rom, Normal Inspection. Negative for: Lymphadenopathy - Respiratory Exam Respiratory Exam: Clear to Auscultation Bilateral, NORMAL BREATHING PATTERN. absent: Respiratory Distress - Cardiovascular Exam Cardiovascular Exam: REGULAR RHYTHM, +S1, +S2. absent: Bradycardia, Tachycardia - GI/Abdominal Exam GI & Abdominal Exam: Soft, Tenderness (mild LLQ). absent: Distended, Firm, Guarding - Extremities Exam Extremities exam: Positive for: full ROM. Negative for: pedal edema Additional comments: left AVF on upper arm - Back Exam Back exam: FULL ROM. absent: tenderness, vertebral tenderness - Neurological Exam Neurological exam: Alert, CN II-XII Intact, Oriented x3 - Skin Skin Exam: Dry, Normal Color, Warm Results - Vital Signs Recent Vital Signs: Last Vital Signs Temp 98.1 F 10/11/17 20:11 Pulse 69 10/11/17 20:11 Resp 18 10/11/17 20:11 BP 107/80 10/11/17 20:11 Pulse Ox 97 10/11/17 23:15 - Labs Result Diagrams: 10/11/17 20:52 10/11/17 20:52 Labs: Laboratory Results - last 24 hr 10/11/17 10/11/17 10/11/17 20:52 20:52 21:40 WBC 15.8 H D RBC 4.02 Hgb 11.0 D Hct 34.0 MCV 84.6 D MCH 27.4 MCHC 32.4 L RDW 18.7 H Plt Count 290 MPV 7.3 Neut % (Auto) 88.7 H Lymph % (Auto) 5.2 L [place] % (Auto) 5.2 Eos % (Auto) 0.2 Baso % (Auto) 0.7 Neut # (Auto) 14.0 H Lymph # (Auto) 0.8 L [place] # (Auto) 0.8 Eos # (Auto) 0.0 Baso # (Auto) 0.1 Neutrophils % (Manual) 82 H Band Neutrophils % 6 H Lymphocytes % (Manual) 7 L Reactive Lymphs % 1 H Monocytes % (Manual) 4 Platelet Estimate Normal Giant Platelets Present Sodium 141 Potassium 6.5 H* D Chloride 95 L Carbon Dioxide 32 H Anion Gap 20 BUN 32 H Creatinine 5.9 H Est GFR ( Amer) 11 Est GFR (Non-Af Amer) 9 Random Glucose 79 Calcium 9.6 Total Bilirubin 1.0 AST 21 ALT 18 Alkaline Phosphatase 88 Total Protein 6.9 Albumin 4.0 Globulin 2.9 Albumin/Globulin Ratio 1.4 Amylase 86 Lipase 93 Beta HCG, Quant < 2.39 Assessment & Plan - Assessment and Plan (Free Text) Assessment: 27 F pmh htn, ESRD on dialysis M,W,F presents for abdominal pain, was found to have constipation on CT abdomen and found to have hyperkalemia admit to telemetry. Hyperkalemia EKG f/u CMP 01:00 in ED: Kayexalate 30gm once, Insulin 10 u with D50, Phosphate enema 135 cc TX , Sodium Bicarb 50meq ESRD (end stage renal disease) on HD dialysis M,W,F Nephrology consulted, Dr. Correia, help appreciated Pericardial effusion, asymptomatic seen on previous CT Chest as well HTN (hypertension) Will restart home meds: Labetalol 100mg PO BID, Nifedipine xL 60mg PO BID was started on Norvasc 5mg PO daily by nephro 08/02/17, not in current orders. will monitor vitals to see if patient needs to continue. NS @ 50 cc/hr Prophylaxis: protonix 40mg PO QD SCDs, patient can ambulate Dr. Katie Valentino, PGY1 - Date & Time Date: 10/12/17 Time: 00:05
[2017-10-11] MEDS ORDERED: Sod Polystyrene Sulf 15 gm/60 ml Susp ONE (23:33)
[2017-10-12 01:58] LABS: BASO # 0.1 K/uL (0.0-0.2); BASO % 0.5 % (0.0-2.0); EOS % 0.1 % (0.0-4.0); HEMOGLOBIN 11.3 g/dL (11.0-16.0); LYMPH # 1.2 K/uL (1.0-4.3); LYMPH % 5.4 % (20.0-40.0); MEAN CELL VOLUME 85.4 fL (81.0-99.0); MEAN CORPUSCULAR HEMOGLOBIN 27.4 pg (27.0-31.0); MEAN CORPUSCULAR HGB CONC 32.1 g/dL (33.0-37.0); MEAN PLATELET VOLUME 7.5 fL (7.2-11.7); MONO # 1.4 K/uL (0.0-0.8); MONO % 6.5 % (0.0-10.0); NEUT # 19.5 K/uL (1.8-7.0); NEUT % 87.5 % (50.0-75.0); NRBC % 0.3 % (0.0-2.0); PLATELET COUNT 296 K/uL (130-400); RBC 4.14 Mil/uL (3.80-5.20); RED CELL DISTRIBUTION WIDTH 18.2 % (11.5-14.5); WHITE BLOOD COUNT 22.3 K/uL (4.8-10.8)
[2017-10-12 02:12] LABS: ALB/GLOB RATIO 1.3 (1.0-2.1); ALBUMIN 3.5 g/dL (3.5-5.0)
[2017-10-12 03:22] LABS: BANDS 7 % (0-2); LYMPHOCYTE 5 % (20-40); MONOCYTE 3 % (0-10); NEUTROPHIL 82 % (50-75); PLATELET ESTIMATE NORMAL (NORMAL); REACTIVE LYMPHOCYTES 3 % (0-0); TOTAL CELLS COUNTED 100
--- NOTE | 2017-10-12 07:43 | CP.PCM.PN ---
<Marva Pike - Last Filed: 10/12/17 10:35> Subjective - Date & Time of Evaluation Date of Evaluation: 10/12/17 Time of Evaluation: 07:00 - Subjective Subjective: Medicine Note for Dr. Wilson's Service Patient was seen and examined at bedside. Patient reports immense abdominal pain that started last night. The pain is unbearable. CT abdomen showed severe constipation and fecal impaction. Abdominal flat plate showed free air in the abdomen. Concern for perforation. Patient is for OR today with Dr. Hinds. Objective - Vital Signs/Intake and Output Vital Signs (last 24 hours): Temp Pulse Resp BP Pulse Ox 97.2 F L 94 H 16 135/84 95 10/12/17 00:10 10/12/17 00:10 10/12/17 00:10 10/12/17 00:10 10/12/17 05:33 Intake and Output: 10/12/17 10/12/17 06:59 18:59 Intake Total 320 Output Total 0 Balance 320 - Medications Medications: Current Medications Docusate Sodium (Colace) 100 mg PO TID VASILIY Sodium Chloride (Sodium Chloride 0.9%) 1,000 mls @ 50 mls/hr IV .Q20H ONE Stop: 10/12/17 16:27 Last Admin: 10/11/17 20:38 Dose: 50 mls/hr Labetalol HCl (Trandate) 200 mg PO BID VASILIY Nifedipine (Procardia Xl) 60 mg PO BID VASILIY Pantoprazole Sodium (Protonix Ec Tab) 40 mg PO DAILY VASILIY - Labs Labs: 10/12/17 01:55 10/12/17 01:55 - Constitutional Appears: In Acute Distress - Head Exam Head Exam: NORMAL INSPECTION, NORMOCEPHALIC - Eye Exam Eye Exam: EOMI, Normal appearance, PERRL - ENT Exam ENT Exam: Mucous Membranes Moist, Normal Exam - Neck Exam Neck Exam: Full ROM - Respiratory Exam Respiratory Exam: Clear to Ausculation Bilateral, NORMAL BREATHING PATTERN - Cardiovascular Exam Cardiovascular Exam: Tachycardia - GI/Abdominal Exam GI & Abdominal Exam: Distended, Soft, Tenderness, Normal Bowel Sounds - Rectal Exam Rectal Exam: Deferred - Extremities Exam Extremities Exam: Normal Inspection. absent: Pedal Edema, Tenderness - Neurological Exam Neurological Exam: Alert, Awake, CN II-XII Intact, Oriented x3 - Psychiatric Exam Psychiatric exam: Normal Affect, Normal Mood - Skin Skin Exam: Dry, Intact, Normal Color, Warm Assessment and Plan - Assessment and Plan (Free Text) Assessment: This is a 27 year old Female with PMHx of ESRD MWF, HTN, Anemia of Chronic Disease presents to the ED with severe abdominal pain found to have severe constipation and fecal impaction, noted free air on flat plate. Plan for OR today 11:30am. Plan: Free air in the abdomen Concern for perforation Surgery consulted - Dr. Hinds - patient for OR 11:30am Noted on Flat plate CT Abdomen/pelvis- severe constipation and fecal impaction Hyperkalemia On admission Was given in the ED: Kayexalate 30gm once, Insulin 10 u with D50, Phosphate enema 135 cc HI, Sodium Bicarb 50meq Repeat BMP 4.6 HTN Restarted home meds: Labetalol 100mg PO BID, Nifedipine xL 60mg PO BID, was started on Norvasc 5mg PO daily by nephro 08/02/17 Will monitor vitals; will resume as necessary ESRD MWF Nephrology consulted - Dr. Correia - help appreciated Pericardial Effusion Seen during previous admissions Disposition: Patient is for OR TODAY 11:30am for suspected perforation. DW Marva Peters DO, PGY-1 <Smith Wilson Jr. - Last Filed: 10/18/17 14:54> Objective - Vital Signs/Intake and Output Vital Signs (last 24 hours): Temp Pulse Resp BP Pulse Ox 100.5 F H 77 39 H 238/30 H 71 L 10/14/17 12:00 10/14/17 17:39 10/14/17 17:39 10/14/17 17:39 10/14/17 16:59 - Labs Labs: 10/14/17 15:53 10/14/17 15:05 PT 16.6 SECONDS (9.7-12.2) H D 10/14/17 11:00 INR 1.5 D 10/14/17 11:00 APTT 29 SECONDS (21-34) 10/14/17 11:00 Attending/Attestation - Attestation I have personally seen and examined this patient.: Yes I have fully participated in the care of the patient.: Yes I have reviewed all pertinent clinical information, including history, physical exam and plan: Yes Notes (Text): 10/18/17 14:54 agree with resident note findings and plan of care.
[2017-10-12] MEDS ORDERED: Morphine 4 MG/ML VIAL IVP PRN (08:47)
[2017-10-12] MEDS: NIFEdipine 60 mg ER Tab PO SCH ×2 (09:15→19:37)
[2017-10-12] MEDS ORDERED: Magnesium Hydroxide Susp 30 ml UD PO ONE (09:15)
--- NOTE | 2017-10-12 09:22 | CP.PCM.CON ---
<Giovanna Navarro - Last Filed: 10/12/17 11:11> History of Present Illness - History of Present Illness History of Present Illness: General surgery consult note for Dr. Hinds-Giovanna Navarro, PGY-1 Pt S & E at bedside at 0900 27F w/PMH sig for ERD On HD, HTN consulted for fecal impaction. Pt originally admitted for severe, constant, non radiating, diffuse abdominal pain x 1 day. Pt reports last BM was one day prior to evaluation. Stool was hard, which is normal for pt. Admits to diaphoresis, tiredness, SOB. Denies N & V, F & C, chest pain, other complaints. CT ab w/Large amount of retained stool in the colon. Impacted feces in region of splenic flexure.Pt on colace, given lactulose x 2, fleet's enema x1 without BM. Hyperkalemic on admission, given kayexelate. Leukocytosis of 22.3 from 15.8. Afebrile. Ab x-ray with free air. PMH: ESRD On HD (MWF), HTN, hx constipation PSH: Left kidney transplant, LUE AVF creation All: Shrimp, vancomycin SH: Denies ETOH, tobacco or illicit drug use FH: Aunt with breast CA, no colon CA hx or constipation hx PMD: Dr. Wilson Review of Systems - Review of Systems All systems: reviewed and no additional remarkable complaints except - Constitutional Constitutional: Weakness. absent: Chills, Fever - EENT Ears: absent: Dizziness Nose/Mouth/Throat: absent: Sore Throat - Cardiovascular Cardiovascular: absent: Chest Pain - Gastrointestinal Gastrointestinal: Abdominal Pain, Constipation. absent: Diarrhea, Nausea, Vomiting - Musculoskeletal Musculoskeletal: absent: Back Pain - Integumentary Integumentary: absent: New Lesions Past Patient History - Past Medical History & Family History Past Medical History?: Yes - Past Social History Smoking Status: Never Smoked - CARDIAC Hx Hypertension: Yes - PULMONARY Hx Respiratory Disorders: No - NEUROLOGICAL Hx Neurological Disorder: No - HEENT Hx HEENT Problems: No - RENAL Hx Chronic Kidney Disease: Yes - ENDOCRINE/METABOLIC Hx Endocrine Disorders: No - HEMATOLOGICAL/ONCOLOGICAL Hx Blood Disorders: No - INTEGUMENTARY Hx Dermatological Problems: No - MUSCULOSKELETAL/RHEUMATOLOGICAL Hx Falls: No - GASTROINTESTINAL Hx Gastrointestinal Disorders: No - GENITOURINARY/GYNECOLOGICAL Hx Genitourinary Disorders: No - PSYCHIATRIC Hx Substance Use: No - SURGICAL HISTORY Hx Surgeries: Yes Hx Vascular Access Device: Yes (LEFT ARM SHUNT) - ANESTHESIA Hx Anesthesia: Yes Hx Anesthesia Reactions: No Hx Malignant Hyperthermia: No Meds Allergies/Adverse Reactions: Allergies Allergy/AdvReac Type Severity Reaction Status Date / Time shrimp Allergy Verified 10/11/17 20:17 vancomycin Allergy Verified 10/11/17 20:17 - Medications Medications: Current Medications Docusate Sodium (Colace) 100 mg PO TID [facility] Last Admin: 10/12/17 09:15 Dose: 100 mg Sodium Chloride (Sodium Chloride 0.9%) 1,000 mls @ 50 mls/hr IV .Q20H ONE Stop: 10/12/17 16:27 Last Admin: 10/11/17 20:38 Dose: 50 mls/hr Ketorolac Tromethamine (Toradol) 30 mg IVP Q6 PRN PRN Reason: Pain, moderate (4-7) Last Admin: 10/12/17 09:13 Dose: 30 mg Labetalol HCl (Trandate) 200 mg PO BID [facility] Last Admin: 10/12/17 09:15 Dose: 200 mg Nifedipine (Procardia Xl) 60 mg PO BID [facility] Last Admin: 10/12/17 09:15 Dose: 60 mg Pantoprazole Sodium (Protonix Ec Tab) 40 mg PO DAILY [facility] Last Admin: 10/12/17 09:15 Dose: 40 mg Physical Exam - Constitutional Appears: Non-toxic, No Acute Distress - Head Exam Head Exam: ATRAUMATIC, NORMAL INSPECTION, NORMOCEPHALIC - Eye Exam Eye Exam: EOMI, Normal appearance - ENT Exam ENT Exam: Mucous Membranes Moist, Normal Exam - Neck Exam Neck exam: Positive for: Full Rom, Normal Inspection - Respiratory Exam Respiratory Exam: Clear to Auscultation Bilateral, NORMAL BREATHING PATTERN. absent: Rales, Rhonchi, Wheezes - Cardiovascular Exam Cardiovascular Exam: REGULAR RHYTHM, +S1, +S2 - GI/Abdominal Exam GI & Abdominal Exam: Distended, Hypoactive Bowel Sounds, Tenderness (diffuse). absent: Guarding, Hernia, Rigid - Rectal Exam Rectal Exam: NORMAL INSPECTION. absent: Black Stool, Bloody Stool, Fecal Impaction - Extremities Exam Extremities exam: Negative for: normal inspection (LUE AVF), tenderness - Back Exam Back exam: NORMAL INSPECTION - Neurological Exam Neurological exam: Alert, CN II-XII Intact, Oriented x3 - Psychiatric Exam Psychiatric exam: Normal Affect, Normal Mood - Skin Skin Exam: Dry, Intact, Normal Color, Warm Results - Vital Signs Recent Vital Signs: Last Vital Signs Temp 97.5 F L 10/12/17 07:00 Pulse 102 H 10/12/17 07:00 Resp 18 10/12/17 07:00 BP 148/93 H 10/12/17 07:00 Pulse Ox 95 10/12/17 07:00 - Labs Result Diagrams: 10/12/17 01:55 10/12/17 01:55 Labs: Laboratory Results - last 24 hr 10/11/17 10/11/17 10/11/17 20:52 20:52 21:40 WBC 15.8 H D RBC 4.02 Hgb 11.0 D Hct 34.0 MCV 84.6 D MCH 27.4 MCHC 32.4 L RDW 18.7 H Plt Count 290 MPV 7.3 Neut % (Auto) 88.7 H Lymph % (Auto) 5.2 L Faulkner % (Auto) 5.2 Eos % (Auto) 0.2 Baso % (Auto) 0.7 Neut # (Auto) 14.0 H Lymph # (Auto) 0.8 L Faulkner # (Auto) 0.8 Eos # (Auto) 0.0 Baso # (Auto) 0.1 Neutrophils % (Manual) 82 H Band Neutrophils % 6 H Lymphocytes % (Manual) 7 L Reactive Lymphs % 1 H Monocytes % (Manual) 4 Platelet Estimate Normal Giant Platelets Present Sodium 141 Potassium 6.5 H* D Chloride 95 L Carbon Dioxide 32 H Anion Gap 20 BUN 32 H Creatinine 5.9 H Est GFR ( Amer) 11 Est GFR (Non-Af Amer) 9 Random Glucose 79 Calcium 9.6 Phosphorus Magnesium Total Bilirubin 1.0 AST 21 ALT 18 Alkaline Phosphatase 88 Total Protein 6.9 Albumin 4.0 Globulin 2.9 Albumin/Globulin Ratio 1.4 Amylase 86 Lipase 93 Beta HCG, Quant < 2.39 10/12/17 10/12/17 10/12/17 01:55 01:55 07:27 WBC 22.3 H RBC 4.14 Hgb 11.3 Hct 35.3 MCV 85.4 MCH 27.4 MCHC 32.1 L RDW 18.2 H Plt Count 296 MPV 7.5 Neut % (Auto) 87.5 H Lymph % (Auto) 5.4 L Faulkner % (Auto) 6.5 Eos % (Auto) 0.1 Baso % (Auto) 0.5 Neut # (Auto) 19.5 H Lymph # (Auto) 1.2 Faulkner # (Auto) 1.4 H Eos # (Auto) 0.0 Baso # (Auto) 0.1 Neutrophils % (Manual) 82 H Band Neutrophils % 7 H Lymphocytes % (Manual) 5 L Reactive Lymphs % 3 H Monocytes % (Manual) 3 Platelet Estimate Normal Giant Platelets Sodium 147 Potassium 4.6 Chloride 97 L Carbon Dioxide 35 H Anion Gap 20 BUN 36 H Creatinine 6.4 H Est GFR ( Amer) 10 Est GFR (Non-Af Amer) 8 Random Glucose 60 L Calcium 9.0 Phosphorus 5.5 H Magnesium 2.6 H Total Bilirubin 1.3 AST 29 ALT 26 Alkaline Phosphatase 75 Total Protein 6.1 L Albumin 3.5 Globulin 2.6 Albumin/Globulin Ratio 1.3 Amylase Lipase Beta HCG, Quant Assessment & Plan - Assessment and Plan (Free Text) Assessment: 27F w/PMH sig for ESRD On HD, HTN consulted for severe fecal constipation, now with acute abdomen 2/2 free air Plan: OR today Consent in chart Type & screen Blood consent in chart Pain control NPO Further mgmt as per primary team SHEY attending Melanie, PGY-1 - Date & Time Date: 10/12/17 Time: 09:20 <Leonard Hinds - Last Filed: 10/18/17 18:01> Results - Vital Signs Recent Vital Signs: Last Vital Signs Temp 100.5 F H 10/14/17 12:00 Pulse 77 10/14/17 17:39 Resp 39 H 10/14/17 17:39 BP 238/30 H 10/14/17 17:39 Pulse Ox 71 L 10/14/17 16:59 - Labs Result Diagrams: 10/14/17 15:53 10/14/17 15:05 Attending/Attestation - Attestation I have personally seen and examined this patient.: Yes I have fully participated in the care of the patient.: Yes I have reviewed all pertinent clinical information: Yes Notes (Text): Pt was seen and examined at bedside Agree with above note and assessment Pt with severe abdominal griffin and board like rigidity Labs and radiology reviewed Ass: ESRD, Pl Effusion, Perforated viscus and acute abdomen Plan : OR for Exp Lap, Bowel resection and possible Ostomy Consent IV antibiotics NPO, IVF Plan d.w pt and parents in detail Risk and benefit explained in detail.
[2017-10-12] MEDS ORDERED: Pantoprazole 40 mg EC Tab PO SCH (10:00)
[2017-10-12] MEDS: Simethicone 80 mg Chewtab PO SCH ×3 (10:12→19:37)
--- NOTE | 2017-10-12 10:41 | RAD ---
HISTORY: abdominal distension COMPARISON: Chest, Abdomen and Pelvis CT 10/11/2017. FINDINGS: BOWEL: There is now free intraperitoneal gas outlining the joy of large and small bowel loops at the left diane abdomen laterally, so called Rigler's sign. Gas seen mild to mildly distending numerous loops of large and small bowel otherwise. No right hemidiaphragm free intrarenal gas appreciable grossly. No prominent intra-abdominal or pelvic calcifications. 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 OTHER FINDINGS: None. IMPRESSION: Prominent free intraperitoneal gas is identified at the left flank/ diane abdomen. Repeat abdomen pelvis CT advised. Right hemidiaphragm appears grossly nonfocal. Findings discussed with Dr. Durham with written down and read back verification 10/12/2017 10:20 a.m..
[2017-10-12] MEDS ORDERED: BUPIVACAINE 0.125%/0.9% NACL 600 ML IJ ONE (11:09)
[2017-10-12] MEDS ORDERED: Midazolam 2 MG/2 ML VIAL ONE (13:38)
[2017-10-12] MEDS ORDERED: Propofol 10 mg/ml Inj (20 ML) ONE (13:38)
[2017-10-12] MEDS ORDERED: Ciprofloxacin 400mg/200ml D5W 400 MG/200 ML BAG IVPB ONE (13:39)
[2017-10-12] MEDS ORDERED: metroNIDAZOLE IV 500 mg/100 ml 500 MG/100 ML BAG ONE (13:39)
[2017-10-12] MEDS: Ciprofloxacin 400mg/200ml D5W 400 MG/200 ML BAG IVPB SCH (14:15)
[2017-10-12] MEDS ORDERED: Succinylcholine Chloride 20 mg/ml Syr (5 ml) IV ONE (14:34)
[2017-10-12] MEDS ORDERED: Bupivacaine HCl 0.25% PF (30 ml) Inj ONE (15:28)
[2017-10-12] MEDS ORDERED: Dextrose 50% SYRINGE Inj (50 ml) ONE (17:12)
--- NOTE | 2017-10-12 17:19 | PCM.SURG1 ---
Surgeon's Initial Post Op Note - Surgeon's Notes Surgeon: Dr. Hinds Artist'S Manager: Giovanna Navarro, PGY-1 Pre-Operative Diagnosis: Acute abdomen, free air Operative Findings: See op report Post-Operative Diagnosis: necrotic transverse and descending colon due to fecal retention Operation Performed: Transverse and descending colon colectomy, primary anastomosis, drainage of abdominal collection, abdominal wash out with irricept and placement of OnQ Specimen/Specimens Removed: Transverse colon, peritoneal fluid Estimated Blood Loss: EBL {In ML}: 100 Blood Products Given: N/A Drains Used: Jason Post-Op Condition: Fair Date of Surgery/Procedure: 10/12/17 Time of Surgery/Procedure: 17:19
[2017-10-12 18:23] LABS: ABG ALLEN TEST POS; ARTERIAL BLOOD GAS HCO3 16.2 mmol/L (21-28); ARTERIAL BLOOD GAS O2 SAT 97.7 % (95-98); ARTERIAL BLOOD GAS PCO2 39 mm/Hg (35-45); ARTERIAL BLOOD GAS PH 7.22 (7.35-7.45); ARTERIAL BLOOD GAS PO2 96 mm/Hg (80-100); ARTERIAL BLOOD GAS TCO2 17.2 mmol/L (22-28)
[2017-10-12 18:29] LABS: HEMOGLOBIN 10.3 g/dL (11.0-16.0); MEAN CELL VOLUME 89.3 fL (81.0-99.0); MEAN CORPUSCULAR HGB CONC 31.3 g/dL (33.0-37.0); MEAN PLATELET VOLUME 7.8 fL (7.2-11.7); RBC 3.67 Mil/uL (3.80-5.20)
[2017-10-12] MEDS ORDERED: Glucagon Recombinant 1 mg Inj IV STA (18:36)
[2017-10-12 19:12] LABS: ALB/GLOB RATIO 1.1 (1.0-2.1); ALBUMIN 2.2 g/dL (3.5-5.0); CALCIUM 6.6 mg/dl (8.6-10.4); TROPONIN I 0.298 ng/mL (0.00-0.120)
--- NOTE | 2017-10-12 19:18 | PCM.STROKE ---
<Ilir Torres - Last Filed: 10/12/17 19:15> Interval History Critical Care Time Spent (in minutes): 45 Stroke Date: 10/12/17 Unable to obtain (state reason): Pt intubated. Additional history per family/caregiver (name): pt post op necrotic bowel - Education Written Stroke Education provided regarding: personal risk factors, stroke warning sign/symptoms, how to activate emergency medical services, need to follow up after discharge Hx Atrial Fibrillation: No Hx Atrial Flutter: No NIHSS Stroke Scale - Date/Time Evaluation Performed Date Performed: 10/12/17 When Was NIHSS Performed: Code Stroke - How Severe is the Stroke Level of Consciousness: 2=Obtunded LOC to Questions: 2=Neither correct LOC to commands: 2=Neither correct Best Gaze: 1=Partial gaze palsy Visual: 0=No visual loss Facial: 0=Normal Motor Arm - Left: NA - Amputation, joint fusion Motor Arm - Right: NA - Amputation, joint fusion Motor Leg - Left: NA - Amputation, joint fusion Motor Leg - Right: NA - Amputation, joint fusion Limb Ataxia: 0=Absent Sensory: 0=Normal Best Language: 0=No aphasia Dysarthia: 0=Normal articulation Extinction & Inattention (Neglect): 0=Normal, no object Score: 7 Exam - Vital Sign Vital Signs: Temp Pulse Resp BP Pulse Ox 97.5 F L 102 H 18 148/93 H 95 10/12/17 07:00 10/12/17 07:00 10/12/17 07:00 10/12/17 07:00 10/12/17 07:00 Constitutional: Other Right Pupil: Non-reactive Left Pupil: Non-reactive Mental Status: Normal: Other - Data reviewed Laboratory results: 10/12/17 18:26 10/12/17 18:26 Assessment and Plan - Assessment and Plan (Free Text) Assessment: -blood sugar 97 -Dr. Tang notified -D50 given -stat head ct and eeg ordered -pt taken under care of ICU Dr. Darnell <Kirsten Camargo V - Last Filed: 10/12/17 20:05> Interval History - Education Written Stroke Education provided regarding: personal risk factors, stroke warning sign/symptoms, how to activate emergency medical services, need to follow up after discharge Exam - Vital Sign Vital Signs: Temp Pulse Resp BP Pulse Ox 97.5 F L 102 H 18 148/93 H 95 10/12/17 07:00 10/12/17 07:00 10/12/17 07:00 10/12/17 07:00 10/12/17 07:00 - Data reviewed Laboratory results: 10/12/17 18:26 10/12/17 18:26 Attending/Attestation - Attestation Notes (Text): Brief Hospitalist Note:Responded to Code Stroke initiated by Anesthesia, patient is postoperative exlap POD 0 for emergent bowel surgery; noted for free air in upright chest xray. Anesthesia, Dr. Colon, called code stroke for dilated pupils 5mm and patient was unresponsive post procedure. Patient seen and evaluated Rozina Darnell, ICU in pacu/hospitalist team. During procedure, patient had receive general anesthesia. Patient noted to be hypoglygemic 29 in the OR, given ampD50. patient is not on sedation. Sugar at PACU at 97, then receive D50, and amp glucagon. Patient noted seizure activity noted; patient had repetitive blinking of the eyes, no apparent upper/lower extremity involvement during seizure activity.Patient noted seizure activity (eyes blinking repetitively) no clonus last for couple seconds. Calmed after ativan 1mg IV. ICU ordered for Ativan 1mg IV X1, instead Ativan 4mg IV given concerns for blood pressure, accuchecks Q1, and D10 100cc/hr Patient ordered for CT head w/o contrast with anesthesia and respiratory therapy and going to ICU post procedure. We have attempted to call to her name but patient does not follow direction, appears confused and obtunded. When I press on her belly, patient blinks in pain and moves her toes. Patient is intubated, cannot follow commands, on vent. We have attempted to use icu tele neuro computer; however the microphone is not working on the computer in-spite of many attempts. COmmunicated with neurologist via text since icu tele neuro computer not working Neurology able to see patient the computer; he has recommended Ativan 4mg IV, Decadron 10mg IV, and cortisol, CT head w/o contrast, MRI, and EEG. There is no cardiology technologist emission technician. Nursing title supervisor Em mohan has attempted to call as well. I have informed neurology, patient is intubated. He states can stay intubated until she starts following may need ativan/versed. Neuro: Patient is awake, not alert, not responsive to name, appears obtunded/confused on vent. Patient will not open hands or close hands on command. Patient does move her toes. There is no apparent babinkis on exam. Pupils dilated, repetitively blinking noted during seizure type activity Patient is under bear hugger. Patient does blink to pain over belly and over feet.
--- NOTE | 2017-10-12 19:22 | CP.PCM.CON ---
History of Present Illness - History of Present Illness History of Present Illness: Mrs. Graciela Harris is a 27-year-old woman with a past medical history of ESRD, on HD and DM, who underwent exploratory laparotomy and was difficult to wake up after surgery. Her serum glucose was 29. She was given D50. She was noted to have eyelid twitching. She still did not follow commands. When I saw her, she was intubated. Off sedation. Opening eyes. Confused, not following commands. Review of Systems - Review of Systems All systems: reviewed and no additional remarkable complaints except Past Patient History - Past Medical History & Family History Past Medical History?: Yes - Past Social History Smoking Status: Never Smoked - CARDIAC Hx Hypertension: Yes - PULMONARY Hx Respiratory Disorders: No - NEUROLOGICAL Hx Neurological Disorder: No - HEENT Hx HEENT Problems: No - RENAL Hx Chronic Kidney Disease: Yes - ENDOCRINE/METABOLIC Hx Endocrine Disorders: No - HEMATOLOGICAL/ONCOLOGICAL Hx Blood Disorders: No - INTEGUMENTARY Hx Dermatological Problems: No - MUSCULOSKELETAL/RHEUMATOLOGICAL Hx Falls: No - GASTROINTESTINAL Hx Gastrointestinal Disorders: No - GENITOURINARY/GYNECOLOGICAL Hx Genitourinary Disorders: No - PSYCHIATRIC Hx Substance Use: No - SURGICAL HISTORY Hx Surgeries: Yes Hx Vascular Access Device: Yes (LEFT ARM SHUNT) - ANESTHESIA Hx Anesthesia: Yes Hx Anesthesia Reactions: No Hx Malignant Hyperthermia: No Meds Allergies/Adverse Reactions: Allergies Allergy/AdvReac Type Severity Reaction Status Date / Time shrimp Allergy Verified 10/11/17 20:17 vancomycin Allergy Verified 10/11/17 20:17 - Medications Medications: Current Medications Docusate Sodium (Colace) 100 mg PO TID [facility] Last Admin: 10/12/17 13:40 Dose: Not Given BUPIVACAINE 0.125%/0.9% NACL (Bupivacaine-Ns 0.125% On-Q Patent Prosecution Paralegal) 600 mls @ 4 mls/ hr IJ ONCE ONE Stop: 10/18/17 17:08 Ciprofloxacin (Cipro 400mg/200ml Dsw) 400 mg in 200 mls @ 133 mls/hr IVPB Q24H [facility] PRN Reason: Protocol Last Admin: 10/12/17 14:15 Dose: 200 mls Metronidazole (Flagyl) 500 mg in 100 mls @ 100 mls/hr IVPB Q8 [facility] PRN Reason: Protocol Dextrose (Dextrose 5% In Water 1000 Ml) 1,000 mls @ 50 mls/hr IV .Q20H [facility] Labetalol HCl (Trandate) 200 mg PO BID [facility] Last Admin: 10/12/17 09:15 Dose: 200 mg Nifedipine (Procardia Xl) 60 mg PO BID [facility] Last Admin: 10/12/17 09:15 Dose: 60 mg Ondansetron HCl (Zofran Inj) 4 mg IVP Q6H PRN PRN Reason: Nausea/Vomiting Last Admin: 10/12/17 10:12 Dose: 4 mg Pantoprazole Sodium (Protonix Inj) 40 mg IVP DAILY [facility] Last Admin: 10/12/17 10:11 Dose: 40 mg Simethicone (Mylicon Chew Tab) 80 mg PO TID [facility] Last Admin: 10/12/17 13:40 Dose: Not Given Physical Exam - Neurological Exam Additional comments: Brainstem reflexes all intact. Opens eyes spontaneously, moves head, does not follow commands, occasional eye twitching noted. She moves lower extremities to painful stimulus. Results - Vital Signs Recent Vital Signs: Last Vital Signs Temp 97.5 F L 10/12/17 07:00 Pulse 102 H 10/12/17 07:00 Resp 18 10/12/17 07:00 BP 148/93 H 10/12/17 07:00 Pulse Ox 95 10/12/17 07:00 - Labs Result Diagrams: 10/12/17 18:26 10/12/17 18:26 Labs: Laboratory Results - last 24 hr 10/11/17 10/11/17 10/11/17 20:52 20:52 21:40 WBC 15.8 H D RBC 4.02 Hgb 11.0 D Hct 34.0 MCV 84.6 D MCH 27.4 MCHC 32.4 L RDW 18.7 H Plt Count 290 MPV 7.3 Neut % (Auto) 88.7 H Lymph % (Auto) 5.2 L Metcalfe % (Auto) 5.2 Eos % (Auto) 0.2 Baso % (Auto) 0.7 Neut # (Auto) 14.0 H Lymph # (Auto) 0.8 L [place]calfe # (Auto) 0.8 Eos # (Auto) 0.0 Baso # (Auto) 0.1 Neutrophils % (Manual) 82 H Band Neutrophils % 6 H Lymphocytes % (Manual) 7 L Reactive Lymphs % 1 H Monocytes % (Manual) 4 Platelet Estimate Normal Giant Platelets Present Puncture Site pCO2 pO2 HCO3 ABG pH ABG Total CO2 ABG O2 Saturation ABG Base Excess Alfredo Test ABG Potassium A-a O2 Difference Respiratory Index Glucose Lactate Vent Mode Mechanical Rate FiO2 Tidal Volume PEEP Crit Value Called To Crit Value Called By Crit Value Read Back Blood Gas Notified Time Sodium 141 Potassium 6.5 H* D Chloride 95 L Carbon Dioxide 32 H Anion Gap 20 BUN 32 H Creatinine 5.9 H Est GFR ( Amer) 11 Est GFR (Non-Af Amer) 9 POC Glucose (mg/dL) Random Glucose 79 Calcium 9.6 Phosphorus Magnesium Total Bilirubin 1.0 AST 21 ALT 18 Alkaline Phosphatase 88 Troponin I Total Protein 6.9 Albumin 4.0 Globulin 2.9 Albumin/Globulin Ratio 1.4 Amylase 86 Lipase 93 Beta HCG, Quant < 2.39 Arterial Blood Potassium Blood Type Antibody Screen 10/12/17 10/12/17 10/12/17 01:55 01:55 07:27 WBC 22.3 H RBC 4.14 Hgb 11.3 Hct 35.3 MCV 85.4 MCH 27.4 MCHC 32.1 L RDW 18.2 H Plt Count 296 MPV 7.5 Neut % (Auto) 87.5 H Lymph % (Auto) 5.4 L Metcalfe % (Auto) 6.5 Eos % (Auto) 0.1 Baso % (Auto) 0.5 Neut # (Auto) 19.5 H Lymph # (Auto) 1.2 Metcalfe # (Auto) 1.4 H Eos # (Auto) 0.0 Baso # (Auto) 0.1 Neutrophils % (Manual) 82 H Band Neutrophils % 7 H Lymphocytes % (Manual) 5 L Reactive Lymphs % 3 H Monocytes % (Manual) 3 Platelet Estimate Normal Giant Platelets Puncture Site pCO2 pO2 HCO3 ABG pH ABG Total CO2 ABG O2 Saturation ABG Base Excess Alfredo Test ABG Potassium A-a O2 Difference Respiratory Index Glucose Lactate Vent Mode Mechanical Rate FiO2 Tidal Volume PEEP Crit Value Called To Crit Value Called By Crit Value Read Back Blood Gas Notified Time Sodium 147 Potassium 4.6 Chloride 97 L Carbon Dioxide 35 H Anion Gap 20 BUN 36 H Creatinine 6.4 H Est GFR ( Amer) 10 Est GFR (Non-Af Amer) 8 POC Glucose (mg/dL) Random Glucose 60 L Calcium 9.0 Phosphorus 5.5 H Magnesium 2.6 H Total Bilirubin 1.3 AST 29 ALT 26 Alkaline Phosphatase 75 Troponin I Total Protein 6.1 L Albumin 3.5 Globulin 2.6 Albumin/Globulin Ratio 1.3 Amylase Lipase Beta HCG, Quant Arterial Blood Potassium Blood Type Antibody Screen 10/12/17 10/12/17 10/12/17 11:42 17:09 17:17 WBC RBC Hgb Hct MCV MCH MCHC RDW Plt Count MPV Neut % (Auto) Lymph % (Auto) Metcalfe % (Auto) Eos % (Auto) Baso % (Auto) Neut # (Auto) Lymph # (Auto) Metcalfe # (Auto) Eos # (Auto) Baso # (Auto) Neutrophils % (Manual) Band Neutrophils % Lymphocytes % (Manual) Reactive Lymphs % Monocytes % (Manual) Platelet Estimate Giant Platelets Puncture Site pCO2 pO2 HCO3 ABG pH ABG Total CO2 ABG O2 Saturation ABG Base Excess Alfredo Test ABG Potassium A-a O2 Difference Respiratory Index Glucose Lactate Vent Mode Mechanical Rate FiO2 Tidal Volume PEEP Crit Value Called To Crit Value Called By Crit Value Read Back Blood Gas Notified Time Sodium Potassium Chloride Carbon Dioxide Anion Gap BUN Creatinine Est GFR ( Amer) Est GFR (Non-Af Amer) POC Glucose (mg/dL) 21 L* 258 H Random Glucose Calcium Phosphorus Magnesium Total Bilirubin AST ALT Alkaline Phosphatase Troponin I Total Protein Albumin Globulin Albumin/Globulin Ratio Amylase Lipase Beta HCG, Quant Arterial Blood Potassium Blood Type A NEGATIVE Antibody Screen Negative 10/12/17 10/12/17 10/12/17 18:10 18:26 18:26 WBC 21.0 H RBC 3.67 L Hgb 10.3 L Hct 32.8 L MCV 89.3 D MCH 28.0 MCHC 31.3 L RDW 19.0 H Plt Count 232 MPV 7.8 Neut % (Auto) Lymph % (Auto) Metcalfe % (Auto) Eos % (Auto) Baso % (Auto) Neut # (Auto) Lymph # (Auto) Metcalfe # (Auto) Eos # (Auto) Baso # (Auto) Neutrophils % (Manual) Band Neutrophils % Lymphocytes % (Manual) Reactive Lymphs % Monocytes % (Manual) Platelet Estimate Giant Platelets Puncture Site Rba pCO2 39 pO2 96 HCO3 16.2 L ABG pH 7.22 L ABG Total CO2 17.2 L ABG O2 Saturation 97.7 ABG Base Excess -11.1 L Alfredo Test Pos ABG Potassium 5.6 H A-a O2 Difference 568.0 Respiratory Index 5.9 Glucose 127 H Lactate 8.7 H* Vent Mode Prvc Mechanical Rate 16 FiO2 100.0 Tidal Volume 500 PEEP 5 Crit Value Called To Dr kilpatrick Crit Value Called By Vitaliy calderon Crit Value Read Back Y Blood Gas Notified Time 182 Sodium 137.0 142 Potassium 5.9 H Chloride 104.0 104 Carbon Dioxide 13 L Anion Gap 31 H BUN 38 H Creatinine 6.2 H Est GFR ( Amer) 10 Est GFR (Non-Af Amer) 8 POC Glucose (mg/dL) Random Glucose 113 H Calcium 6.6 L Phosphorus Magnesium Total Bilirubin 1.4 H AST 81 H D ALT 30 Alkaline Phosphatase 68 Troponin I 0.2980 H* Total Protein 4.4 L Albumin 2.2 L D Globulin 2.1 L Albumin/Globulin Ratio 1.1 Amylase Lipase Beta HCG, Quant Arterial Blood Potassium 5.6 H Blood Type Antibody Screen Assessment & Plan (1) Hypoglycemia Assessment and Plan: Continue management per primary team with IV dextrose. Consider giving decadron 10 mg IV once. Status: Acute (2) Seizure Assessment and Plan: Give Ativan 4 mg IV once. Continue supportive care for hypoglycemia. Obtain STAT non-contrast CT head for evaluation. Please call back when complete. Thank you. Status: Acute
--- NOTE | 2017-10-12 20:01 | CT ---
EXAM: CT Head Without Intravenous Contrast EXAM DATE/TIME: Exam ordered 10/12/2017 7:20 PM CLINICAL HISTORY: 27 years old, female; Signs and symptoms and condition or disease; Other: Esrd; Other: Unresponsive after surgery; Patient HX: Acute abdomen, free air, status post transverse and descending colon colectomy. ; Additional info: Post-op pt unresponsive TECHNIQUE: Axial computed tomography images of the head/brain without intravenous contrast. All CT scans at this facility use one or more dose reduction techniques, viz.: automated exposure control; ma/kV adjustment per patient size (including targeted exams where dose is matched to indication; i.e. head); or iterative reconstruction technique. Coronal and sagittal reformatted images were created and reviewed. COMPARISON: No relevant prior studies available. FINDINGS: Brain: Unremarkable. No hemorrhage. No significant white matter disease. No edema. Ventricles: Unremarkable. No ventriculomegaly. Bones/joints: Unremarkable. No acute fracture. Soft tissues: Unremarkable. Sinuses: Unremarkable as visualized. No acute sinusitis. Mastoid air cells: Unremarkable as visualized. No mastoid effusion. IMPRESSION: Normal head/brain CT.
--- NOTE | 2017-10-12 20:32 | CP.PCM.PN ---
Subjective - Date & Time of Evaluation Date of Evaluation: 10/12/17 Time of Evaluation: 20:20 - Subjective Subjective: Patient slow to wake up post-operatively. Naloxone administered. Blood glucose was checked and found to be 21, 50 cc D50 administered. Repeat blood glucose 258. Patient subsequently opened eyes but not following commands. Patient brought to PACU intubated, ABG, CXR, CBC, chem drawn. Neurology (Dr. Tang) and ICU (Dr. Darnell) consulted, CT head performed (normal). Patient noted to have irregular eye motions and jerking movements of feet, possible seizure, 2 mg ativan given. After CT scan, patient transported to ICU for further monitoring. Discussed with surgeon, Dr. Croft, and patient's family. Objective - Vital Signs/Intake and Output Vital Signs (last 24 hours): Temp Pulse Resp BP Pulse Ox 97.5 F L 102 H 18 148/93 H 95 10/12/17 07:00 10/12/17 07:00 10/12/17 07:00 10/12/17 07:00 10/12/17 07:00 Intake and Output: 10/12/17 10/13/17 18:59 06:59 Intake Total 2100 Balance 2100 - Medications Medications: Current Medications Docusate Sodium (Colace) 100 mg PO TID [facility] Last Admin: 10/12/17 19:36 Dose: Not Given BUPIVACAINE 0.125%/0.9% NACL (Bupivacaine-Ns 0.125% On-Q Bereavement Counselor) 600 mls @ 4 mls/ hr IJ ONCE ONE Stop: 10/18/17 17:08 Ciprofloxacin (Cipro 400mg/200ml Dsw) 400 mg in 200 mls @ 133 mls/hr IVPB Q24H [facility] PRN Reason: Protocol Last Admin: 10/12/17 14:15 Dose: 200 mls Metronidazole (Flagyl) 500 mg in 100 mls @ 100 mls/hr IVPB Q8 [facility] PRN Reason: Protocol Dextrose (Dextrose 5% In Water 1000 Ml) 1,000 mls @ 50 mls/hr IV .Q20H [facility] Labetalol HCl (Trandate) 200 mg PO BID [facility] Last Admin: 10/12/17 19:37 Dose: Not Given Nifedipine (Procardia Xl) 60 mg PO BID [facility] Last Admin: 10/12/17 19:37 Dose: Not Given Ondansetron HCl (Zofran Inj) 4 mg IVP Q6H PRN PRN Reason: Nausea/Vomiting Last Admin: 10/12/17 10:12 Dose: 4 mg Pantoprazole Sodium (Protonix Inj) 40 mg IVP DAILY [facility] Last Admin: 10/12/17 10:11 Dose: 40 mg Simethicone (Mylicon Chew Tab) 80 mg PO TID [facility] Last Admin: 10/12/17 19:37 Dose: Not Given - Labs Labs: 10/12/17 18:26 10/12/17 18:26
[2017-10-12] MEDS: metroNIDAZOLE IV 500 mg/100 ml 500 MG/100 ML BAG IVPB SCH (21:15)
[2017-10-12] MEDS ORDERED: Meropenem 1 GM in Sodium Chloride 0.9% 100 ML IVPB ONE (21:29)
--- NOTE | 2017-10-12 21:39 | PCM.PROC ---
Procedures Attestation:: I certify that I have explained the specified Operation(s) or Procedure(s), risks, benefits and reasonable alternatives to the Patient and/or other person responsible. The opportunity was given to ask questions and all questions answered - Central Line Placement Right Internal Jugular Triple Lumen Catheter Aseptic technique was employed throughout the procedure: Full sterile barriers ( mask, hair cover, sterile gown, sterile gloves), Chloraprep Antiseptic: 30 second prep for IJ or SC sites CVP Time Out Performed: Yes Pt. Placed on Pulse Ox Monitor: Yes Central Line Prep: Chlorhexidine-Alcohol Combination Local Anesthesia Used: Lidocaine 1% Amount of Anesthesia Used (mls): 5 Ultrasound Used for Placement: Yes Central Line Lumen Inserted: triple Central Line Length: 20 cm Post Procedure: Sutured in Place, Good Blood Return, All Ports Aspirated, Flushed, Capped, Sterile Dressing Applied Secured by: Suture Post procedure dressing: Clear vapor permeable, Chlorhexidine disc (Biopatch) Post Procedure X-Ray: Yes Patient Tolerated Procedure: Well Immediate Complications: None
--- NOTE | 2017-10-12 21:42 | CP.PCM.CON ---
History of Present Illness - History of Present Illness History of Present Illness: 27 y/o female admitted to ER with c/o abdominal pain. Patient was dx with perforated transverse colon. Patient underwent abdominal surgery. Post surgery, patient did not awaken and blood sugar was found to be ~20s. ICu consulted for AMS post surgery and hypoxic respiratory failure. PAitent is intubated and cannot provide any ROS. Limited history except as documented in anesthesia chart PMH: ESRD on HD M,W,F and HTN Surgical History: left kidney transplant (around 2008) Social History: denies smoking, drinking etoh, illicit drugs Allergies: Shrimp, vancomycin Review of Systems - Review of Systems Systems not reviewed;Unavailable: Altered Mental Status Review of Systems: limited ROS 2nd AMS Past Patient History - Past Medical History & Family History Past Medical History?: Yes - Past Social History Smoking Status: Never Smoked - CARDIAC Hx Hypertension: Yes - PULMONARY Hx Respiratory Disorders: No - NEUROLOGICAL Hx Neurological Disorder: No - HEENT Hx HEENT Problems: No - RENAL Hx Chronic Kidney Disease: Yes - ENDOCRINE/METABOLIC Hx Endocrine Disorders: No - HEMATOLOGICAL/ONCOLOGICAL Hx Blood Disorders: No - INTEGUMENTARY Hx Dermatological Problems: No - MUSCULOSKELETAL/RHEUMATOLOGICAL Hx Falls: No - GASTROINTESTINAL Hx Gastrointestinal Disorders: No - GENITOURINARY/GYNECOLOGICAL Hx Genitourinary Disorders: No - PSYCHIATRIC Hx Substance Use: No - SURGICAL HISTORY Hx Surgeries: Yes Hx Vascular Access Device: Yes (LEFT ARM SHUNT) - ANESTHESIA Hx Anesthesia: Yes Hx Anesthesia Reactions: No Hx Malignant Hyperthermia: No Meds Allergies/Adverse Reactions: Allergies Allergy/AdvReac Type Severity Reaction Status Date / Time shrimp Allergy Verified 10/11/17 20:17 vancomycin Allergy Verified 10/11/17 20:17 - Medications Medications: Current Medications Docusate Sodium (Colace) 100 mg PO TID [facility] Last Admin: 10/12/17 19:36 Dose: Not Given BUPIVACAINE 0.125%/0.9% NACL (Bupivacaine-Ns 0.125% On-Q Prop Sawyer) 600 mls @ 4 mls/ hr IJ ONCE ONE Stop: 10/18/17 17:08 Ciprofloxacin (Cipro 400mg/200ml Dsw) 400 mg in 200 mls @ 133 mls/hr IVPB Q24H [facility] PRN Reason: Protocol Last Admin: 10/12/17 14:15 Dose: 200 mls Metronidazole (Flagyl) 500 mg in 100 mls @ 100 mls/hr IVPB Q8 [facility] PRN Reason: Protocol Last Admin: 10/12/17 21:15 Dose: 100 mls/hr Dextrose (Dextrose 5% In Water 1000 Ml) 1,000 mls @ 50 mls/hr IV .Q20H [facility] Meropenem 1 gm/ Sodium (Chloride) 100 mls @ 100 mls/hr IVPB ONCE ONE PRN Reason: Protocol Stop: 10/12/17 22:28 Norepinephrine Bitartrate 4 mg (/ Sodium Chloride) 254 mls @ 15.24 mls/hr IV .[id number] PRN; Protocol; 4 MCG/MIN PRN Reason: TITRATE PER MD ORDER Dextrose (Dextrose 10% In Water) 1,000 mls @ 100 mls/hr IV .Q10H [facility] Lorazepam (Ativan) 2 mg IVP Q2H PRN PRN Reason: Seizure activity Ondansetron HCl (Zofran Inj) 4 mg IVP Q6H PRN PRN Reason: Nausea/Vomiting Last Admin: 10/12/17 10:12 Dose: 4 mg Pantoprazole Sodium (Protonix Inj) 40 mg IVP DAILY [facility] Last Admin: 10/12/17 10:11 Dose: 40 mg Simethicone (Mylicon Chew Tab) 80 mg PO TID [facility] Last Admin: 10/12/17 19:37 Dose: Not Given Physical Exam - Constitutional Appears: Non-toxic Additional comments: intubated - Head Exam Head Exam: ATRAUMATIC - Eye Exam Eye Exam: absent: Conjunctival injection Pupil Exam: Irregular Additional comments: slugish - ENT Exam ENT Exam: Mucous Membranes Moist - Neck Exam Neck exam: Negative for: Meningismus - Respiratory Exam Respiratory Exam: Rales, Rhonchi - Cardiovascular Exam Cardiovascular Exam: REGULAR RHYTHM, +S1, +S2, Systolic Murmur - GI/Abdominal Exam GI & Abdominal Exam: Hypoactive Bowel Sounds, Soft. absent: Rebound, Rigid - Neurological Exam Neurological exam: Altered Results - Vital Signs Recent Vital Signs: Last Vital Signs Temp 97.2 F L 10/12/17 20:00 Pulse 80 10/12/17 21:00 Resp 22 10/12/17 21:00 BP 91/41 L 10/12/17 20:56 Pulse Ox 100 10/12/17 21:00 - Labs Result Diagrams: 10/12/17 22:15 10/12/17 22:15 Labs: Laboratory Results - last 24 hr 10/11/17 10/12/17 10/12/17 21:40 01:55 01:55 WBC 22.3 H RBC 4.14 Hgb 11.3 Hct 35.3 MCV 85.4 MCH 27.4 MCHC 32.1 L RDW 18.2 H Plt Count 296 MPV 7.5 Neut % (Auto) 87.5 H Lymph % (Auto) 5.4 L [place] % (Auto) 6.5 Eos % (Auto) 0.1 Baso % (Auto) 0.5 Neut # (Auto) 19.5 H Lymph # (Auto) 1.2 [place]row # (Auto) 1.4 H Eos # (Auto) 0.0 Baso # (Auto) 0.1 Neutrophils % (Manual) 82 H Band Neutrophils % 7 H Lymphocytes % (Manual) 5 L Reactive Lymphs % 3 H Monocytes % (Manual) 3 Platelet Estimate Normal Puncture Site pCO2 pO2 HCO3 ABG pH ABG Total CO2 ABG O2 Saturation ABG Base Excess Alfredo Test ABG Potassium A-a O2 Difference Respiratory Index Glucose Lactate Vent Mode Mechanical Rate FiO2 Tidal Volume PEEP Crit Value Called To Crit Value Called By Crit Value Read Back Blood Gas Notified Time Sodium 147 Potassium 4.6 Chloride 97 L Carbon Dioxide 35 H Anion Gap 20 BUN 36 H Creatinine 6.4 H Est GFR ( Amer) 10 Est GFR (Non-Af Amer) 8 POC Glucose (mg/dL) Random Glucose 60 L Calcium 9.0 Phosphorus Magnesium Total Bilirubin 1.3 AST 29 ALT 26 Alkaline Phosphatase 75 Troponin I Total Protein 6.1 L Albumin 3.5 Globulin 2.6 Albumin/Globulin Ratio 1.3 Beta HCG, Quant < 2.39 Arterial Blood Potassium Blood Type Antibody Screen 10/12/17 10/12/17 10/12/17 07:27 11:42 17:09 WBC RBC Hgb Hct MCV MCH MCHC RDW Plt Count MPV Neut % (Auto) Lymph % (Auto) [place] % (Auto) Eos % (Auto) Baso % (Auto) Neut # (Auto) Lymph # (Auto) [place] # (Auto) Eos # (Auto) Baso # (Auto) Neutrophils % (Manual) Band Neutrophils % Lymphocytes % (Manual) Reactive Lymphs % Monocytes % (Manual) Platelet Estimate Puncture Site pCO2 pO2 HCO3 ABG pH ABG Total CO2 ABG O2 Saturation ABG Base Excess Alfredo Test ABG Potassium A-a O2 Difference Respiratory Index Glucose Lactate Vent Mode Mechanical Rate FiO2 Tidal Volume PEEP Crit Value Called To Crit Value Called By Crit Value Read Back Blood Gas Notified Time Sodium Potassium Chloride Carbon Dioxide Anion Gap BUN Creatinine Est GFR ( Amer) Est GFR (Non-Af Amer) POC Glucose (mg/dL) 21 L* Random Glucose Calcium Phosphorus 5.5 H Magnesium 2.6 H Total Bilirubin AST ALT Alkaline Phosphatase Troponin I Total Protein Albumin Globulin Albumin/Globulin Ratio Beta HCG, Quant Arterial Blood Potassium Blood Type A NEGATIVE Antibody Screen Negative 10/12/17 10/12/17 10/12/17 17:17 18:10 18:26 WBC RBC Hgb Hct MCV MCH MCHC RDW Plt Count MPV Neut % (Auto) Lymph % (Auto) [place] % (Auto) Eos % (Auto) Baso % (Auto) Neut # (Auto) Lymph # (Auto) [place] # (Auto) Eos # (Auto) Baso # (Auto) Neutrophils % (Manual) Band Neutrophils % Lymphocytes % (Manual) Reactive Lymphs % Monocytes % (Manual) Platelet Estimate Puncture Site Rba pCO2 39 pO2 96 HCO3 16.2 L ABG pH 7.22 L ABG Total CO2 17.2 L ABG O2 Saturation 97.7 ABG Base Excess -11.1 L Alfredo Test Pos ABG Potassium 5.6 H A-a O2 Difference 568.0 Respiratory Index 5.9 Glucose 127 H Lactate 8.7 H* Vent Mode Prvc Mechanical Rate 16 FiO2 100.0 Tidal Volume 500 PEEP 5 Crit Value Called To Dr kilpatrick Crit Value Called By [facility] Crit Value Read Back Y Blood Gas Notified Time 1822 Sodium 137.0 142 Potassium 5.9 H Chloride 104.0 104 Carbon Dioxide 13 L Anion Gap 31 H BUN 38 H Creatinine 6.2 H Est GFR ( Amer) 10 Est GFR (Non-Af Amer) 8 POC Glucose (mg/dL) 258 H Random Glucose 113 H Calcium 6.6 L Phosphorus Magnesium Total Bilirubin 1.4 H AST 81 H D ALT 30 Alkaline Phosphatase 68 Troponin I 0.2980 H* Total Protein 4.4 L Albumin 2.2 L D Globulin 2.1 L Albumin/Globulin Ratio 1.1 Beta HCG, Quant Arterial Blood Potassium 5.6 H Blood Type Antibody Screen 10/12/17 10/12/17 10/12/17 18:26 19:50 21:04 WBC 21.0 H RBC 3.67 L Hgb 10.3 L Hct 32.8 L MCV 89.3 D MCH 28.0 MCHC 31.3 L RDW 19.0 H Plt Count 232 MPV 7.8 Neut % (Auto) Lymph % (Auto) [place] % (Auto) Eos % (Auto) Baso % (Auto) Neut # (Auto) Lymph # (Auto) [place] # (Auto) Eos # (Auto) Baso # (Auto) Neutrophils % (Manual) Band Neutrophils % Lymphocytes % (Manual) Reactive Lymphs % Monocytes % (Manual) Platelet Estimate Puncture Site pCO2 pO2 HCO3 ABG pH ABG Total CO2 ABG O2 Saturation ABG Base Excess Alfredo Test ABG Potassium A-a O2 Difference Respiratory Index Glucose Lactate Vent Mode Mechanical Rate FiO2 Tidal Volume PEEP Crit Value Called To Crit Value Called By Crit Value Read Back Blood Gas Notified Time Sodium Potassium Chloride Carbon Dioxide Anion Gap BUN Creatinine Est GFR ( Amer) Est GFR (Non-Af Amer) POC Glucose (mg/dL) 191 H 188 H Random Glucose Calcium Phosphorus Magnesium Total Bilirubin AST ALT Alkaline Phosphatase Troponin I Total Protein Albumin Globulin Albumin/Globulin Ratio Beta HCG, Quant Arterial Blood Potassium Blood Type Antibody Screen Assessment & Plan - Assessment and Plan (Free Text) Assessment: AMS: likely 2nd hypoglycemia, start dextrose water IV, started D5;however given poor PF ratio and need for more dextrose per hour, started d10 at 100 ml/hr to keep Blood sugar b./w 150-200, BGM q1hrs, check EEG and CT head and neurology consult -Sepsis: post abdominal surgery allergic to vanco and shrimp, start nathan + linezolid, serial lactic, and griffin culture, currently not in shock -Seizures: possible 2nd hypoglycemia, ativan PRN, EEG pending, -Myocardial infarction: likely type II, check EKG, trop and cardiolgy consult, would hold AC in light of recent surgery -Hypoxic respiratory failure: supect fluid overloaded, would fluid restrict, contineu ventilation to keep spo2 >92 and negative balance/HD in AM -hyperpotassemia: early HD, continue IV bicarb ggt and insulin, bronchodilators , cannot use NG for kayexelate -contineu DVT ppx -continue PUD ppx cc time spent 45 minutes excluding any time spent on procedures. Prognosis guarded pending neurological recovery. - Date & Time Date: 10/12/17 Time: 21:50
[2017-10-12] MEDS ORDERED: Sodium Bicarbonate 8.4% 150 MEQ in Dextrose 5% In Water 1,000 ML IV SCH (21:51)
[2017-10-12 22:23] LABS: BASO # 0.1 K/uL (0.0-0.2); BASO % 1.2 % (0.0-2.0); EOS % 0.3 % (0.0-4.0); HEMOGLOBIN 10.4 g/dL (11.0-16.0); LYMPH # 0.8 K/uL (1.0-4.3); LYMPH % 7.1 % (20.0-40.0); MEAN CELL VOLUME 86.2 fL (81.0-99.0); MEAN CORPUSCULAR HEMOGLOBIN 27.3 pg (27.0-31.0); MEAN CORPUSCULAR HGB CONC 31.7 g/dL (33.0-37.0); MEAN PLATELET VOLUME 7.8 fL (7.2-11.7); MONO # 0.2 K/uL (0.0-0.8); MONO % 1.3 % (0.0-10.0); NEUT # 10.6 K/uL (1.8-7.0); NEUT % 90.1 % (50.0-75.0); PLATELET COUNT 240 K/uL (130-400); RBC 3.82 Mil/uL (3.80-5.20); RED CELL DISTRIBUTION WIDTH 18.7 % (11.5-14.5); WHITE BLOOD COUNT 11.7 K/uL (4.8-10.8)
[2017-10-12 22:49] LABS: ALB/GLOB RATIO 1.2 (1.0-2.1); ALBUMIN 2.7 g/dL (3.5-5.0); CALCIUM 7.7 mg/dl (8.6-10.4)
[2017-10-12 23:20] LABS: BANDS 30 % (0-2); LYMPHOCYTE 7 % (20-40); MONOCYTE 2 % (0-10); MYELOCYTE 1 % (0-0); NEUTROPHIL 51 % (50-75); NUCLEATED RED BLOOD CELL 2 % (0-0); PLATELET ESTIMATE NORMAL (NORMAL); PROMYELOCYTE 2 % (0-0); REACTIVE LYMPHOCYTES 7 % (0-0); TOTAL CELLS COUNTED 100
--- NOTE | 2017-10-13 03:04 | OP ---
PROCEDURE DATE: 10/12/2017 PREOPERATIVE DIAGNOSES: 1. Acute abdomen. 2. Possible perforated viscus. 3. End-stage renal disease. POSTOPERATIVE DIAGNOSES: 1. [place] perforation of transverse colon. 2. Abdominal collection, purulence. 3. End-stage renal disease. PROCEDURES DONE: 1. Exploratory laparotomy. 2. Extended transverse colectomy. 3. Drainage of abdominal multiple collection and washout. 4. Bilateral On-Q pain catheter pump placement. 5. Partial omentectomy. 6. Mobilization of the splenic flexure. SURGEON: Dr. Hinds. WINDING MACHINE OPERATOR: Giovanna Navarro, PGY-1 resident. TYPE OF ANESTHESIA: General endotracheal tube anesthesia. ESTIMATED BLOOD LOSS: Around 100 mL. DRAINS: A 19-Jamaican Jason drain was placed. PATHOLOGY: 1. The purulent abdominal fluid was sent for culture and sensitivity. 2. Transverse colon, splenic flexure and part of the descending colon was sent for pathology. COMPLICATIONS: None. INTRAOPERATIVE FINDINGS: The patient had craig perforation of transverse colon and part of the splenic flexure and the patient has pneumatosis of the transverse colon as well as splenic flexure part of the colon and the patient had purulent ascitic fluid all over abdomen. Pt had large obstructing stool ball in distal transverese colon. There was no hard stool proximally and distally in sigmoid and descending colon. DESCRIPTION OF PROCEDURE: On intraoperative steps, this is 27-year-old female who was admitted initially with constipation and the patient today morning had severe abdominal pain and abdominal x-ray was suggestive of free air and the patient was consented for exploratory laparotomy, possible colon resection, possible ostomy. The patient was brought to the OR, placed supine on the operating table. After induction of anesthesia, abdomen was prepped and draped in the usual sterile fashion. The Gary catheter as well as NG tube was placed and the midline laparotomy was done. After incising skin, subcutaneous tissue, and fascia, the peritoneal cavity was entered. The patient had purulent ascitic fluid that was taken for culture and sensitivity and all the collection was drained and irrigation of the abdomen was done to do the washout. Now, the patient found to have transverse colon craig perforation and the patient also had pneumatosis that was extending to the splenic flexure. First, the left side of the colon was mobilized, the splenic flexure was also mobilized. After mobilization of the splenic flexure, the transverse colon was resected proximal to the acute perforation part at normal looking transverse colon and the mesocolon was resected with LigaSure and the dissection was carried down up to the descending colon and the descending colon was resected. After that, further mobilization of the descending colon as well as sigmoid was done for proper tension-free anastomosis, and the mid transverse colon to descending colon side to side anastomosis was done. The anastomosis was viable. There was no tension and there was really good blood supply. An intraoperative testing of the anastomosis was done and the gas was passing through the proximal colon to the distal collapsed colon without any leak. After that, the abdomen was washed out again with at least 4-5 liter of fluid and now the bilateral On-Q pain catheter pump was placed, a 19-Jamaican Jason drain was placed and the abdomen was closed in a two layer, the fascia with #1 loop PDS as well as 0 Prolene interrupted suture and the skin with yuri and dry sterile dressing was applied. The patient tolerated the procedure well. Count of the instrument and gauze was correct. There was no apparent complication. The patient was sent to the Postanesthesia Care Unit and found to have hypoglycemia with rolled over eyes. Stat Neuro consult was called and Pt was admitted to ICU after CT scan of brain. Leonard Hinds MD ANJALI
[2017-10-13] MEDS ORDERED: Phytonadione 10 mg/ml Inj (Adult) IV STA (03:53)
[2017-10-13] MEDS: metroNIDAZOLE IV 500 mg/100 ml 500 MG/100 ML BAG IVPB SCH ×3 (05:03→21:10)
[2017-10-13 05:43] LABS: ABG ALLEN TEST POS; ARTERIAL BLOOD GAS HCO3 30.2 mmol/L (21-28); ARTERIAL BLOOD GAS O2 SAT 82.7 % (95-98); ARTERIAL BLOOD GAS PCO2 41 mm/Hg (35-45); ARTERIAL BLOOD GAS PH 7.49 (7.35-7.45); ARTERIAL BLOOD GAS PO2 46 mm/Hg (80-100); ARTERIAL BLOOD GAS TCO2 32.5 mmol/L (22-28)
[2017-10-13 06:40] LABS: ABG ALLEN TEST POS; ARTERIAL BLOOD GAS HCO3 30.3 mmol/L (21-28); ARTERIAL BLOOD GAS O2 SAT 98.6 % (95-98); ARTERIAL BLOOD GAS PCO2 38 mm/Hg (35-45); ARTERIAL BLOOD GAS PH 7.51 (7.35-7.45); ARTERIAL BLOOD GAS PO2 104 mm/Hg (80-100); ARTERIAL BLOOD GAS TCO2 31.5 mmol/L (22-28); BASO % 0.2 % (0.0-2.0); EOS % 0.1 % (0.0-4.0); HEMOGLOBIN 11.3 g/dL (11.0-16.0); LYMPH # 0.3 K/uL (1.0-4.3); LYMPH % 2.6 % (20.0-40.0); MEAN CELL VOLUME 84.8 fL (81.0-99.0); MEAN CORPUSCULAR HEMOGLOBIN 28.4 pg (27.0-31.0); MEAN CORPUSCULAR HGB CONC 33.5 g/dL (33.0-37.0); MEAN PLATELET VOLUME 7.8 fL (7.2-11.7); MONO # 0.3 K/uL (0.0-0.8); MONO % 2.5 % (0.0-10.0); NEUT # 12.3 K/uL (1.8-7.0); NEUT % 94.6 % (50.0-75.0); NRBC % 0.3 % (0.0-2.0); PLATELET COUNT 222 K/uL (130-400); RBC 3.98 Mil/uL (3.80-5.20); RED CELL DISTRIBUTION WIDTH 18.7 % (11.5-14.5); WHITE BLOOD COUNT 13.1 K/uL (4.8-10.8)
--- NOTE | 2017-10-13 06:52 | CP.PCM.PN ---
Subjective - Date & Time of Evaluation Date of Evaluation: 10/13/17 Time of Evaluation: 06:51 - Subjective Subjective: Ms. Graciela Harris was seen and examined at the bedside in ICU. She remains on mechanical ventilator on PRVC mode. She opens her eyes spontaneously with both pupils dilated and sluggish during light accommodation. She has episodes of restlessness but able to redirect accordingly. She is able to raise her bilateral upper and lower extremities and points at her ET tube. Her current glucose is 144 mg/dl. There was no untoward events overnight. Objective - Vital Signs/Intake and Output Vital Signs (last 24 hours): Temp Pulse Resp BP Pulse Ox 98 F 89 22 132/70 98 10/13/17 04:00 10/13/17 06:16 10/13/17 06:16 10/13/17 06:16 10/13/17 06:16 Intake and Output: 10/12/17 10/13/17 18:59 06:59 Intake Total 2200 1200 Output Total 2280 Balance 2200 -1080 - Medications Medications: Current Medications Docusate Sodium (Colace) 100 mg PO TID [facility] Last Admin: 10/12/17 19:36 Dose: Not Given BUPIVACAINE 0.125%/0.9% NACL (Bupivacaine-Ns 0.125% On-Q Cash Applications Clerk) 600 mls @ 4 mls/ hr IJ ONCE ONE Stop: 10/18/17 17:08 Ciprofloxacin (Cipro 400mg/200ml Dsw) 400 mg in 200 mls @ 133 mls/hr IVPB Q24H VASILIY PRN Reason: Protocol Last Admin: 10/12/17 14:15 Dose: 200 mls Metronidazole (Flagyl) 500 mg in 100 mls @ 100 mls/hr IVPB Q8 VASILIY PRN Reason: Protocol Last Admin: 10/13/17 05:03 Dose: 100 mls/hr Norepinephrine Bitartrate 4 mg (/ Sodium Chloride) 254 mls @ 15.24 mls/hr IV .[id number] PRN; Protocol; 4 MCG/MIN PRN Reason: TITRATE PER MD ORDER Dextrose (Dextrose 10% In Water) 1,000 mls @ 100 mls/hr IV .Q10H [facility] Last Admin: 10/12/17 23:18 Dose: 100 mls/hr Sodium Bicarbonate 150 meq/ (Dextrose) 1,150 mls @ 50 mls/hr IV .Q23H [facility]ASILI[facility] Last Admin: 10/12/17 22:37 Dose: 50 mls/hr Meropenem 500 mg/ Sodium (Chloride) 100 mls @ 100 mls/hr IVPB DAILY VASILIY PRN Reason: Protocol Lorazepam (Ativan) 2 mg IVP Q2H PRN PRN Reason: Seizure activity Last Admin: 10/13/17 03:19 Dose: 2 mg Ondansetron HCl (Zofran Inj) 4 mg IVP Q6H PRN PRN Reason: Nausea/Vomiting Last Admin: 10/12/17 10:12 Dose: 4 mg Pantoprazole Sodium (Protonix Inj) 40 mg IVP DAILY [facility] Last Admin: 10/12/17 10:11 Dose: 40 mg Simethicone (Mylicon Chew Tab) 80 mg PO TID [facility] Last Admin: 10/12/17 19:37 Dose: Not Given - Labs Labs: 10/12/17 22:15 10/12/17 22:15 PT 22.0 SECONDS (9.7-12.2) H 10/12/17 22:15 INR 2.0 10/12/17 22:15 APTT 31 SECONDS (21-34) 10/12/17 22:15 - Constitutional Appears: No Acute Distress - Head Exam Head Exam: NORMAL INSPECTION - Eye Exam Pupil Exam: Mydriatic Additional comments: 6 mm sluggish bilateral - Neurological Exam Neurological Exam: Awake Neuro motor strength exam: Left Upper Extremity: 4, Right Upper Extremity: 4, Left Lower Extremity: 4, Right Lower Extremity: 4 Additional comments: She is awake, restless, able to follow some commands. Sensation is intact. Assessment and Plan (1) Encephalopathy acute Assessment & Plan: Case discussed with Dr. Chowdhury, continue all current medical regimen including glucose control. Pending EEG and echocardiogram. Status: Acute
[2017-10-13 07:14] LABS: ALB/GLOB RATIO 1.2 (1.0-2.1); CALCIUM 7.8 mg/dl (8.6-10.4); TROPONIN I 0.287 ng/mL (0.00-0.120)
--- NOTE | 2017-10-13 07:30 | CP.PCM.PN ---
<Franklin Hatch - Last Filed: 10/13/17 07:27> Subjective - Date & Time of Evaluation Date of Evaluation: 10/13/17 Time of Evaluation: 07:27 - Subjective Subjective: Surgery: Dr. Hinds Patient transferred into ICU last night for AMS. Patient negative for stroke. Patient intubated on PRVC RR22 Fio2 80 PEEP 5. Patient initially started on levophed but has since been weaned. No bowel function as of this am. Patient remains with NGT on suction and NPO. Objective - Vital Signs/Intake and Output Vital Signs (last 24 hours): Temp Pulse Resp BP Pulse Ox 98 F 89 22 132/70 98 10/13/17 04:00 10/13/17 06:16 10/13/17 06:16 10/13/17 06:16 10/13/17 06:16 Intake and Output: 10/13/17 10/13/17 06:59 18:59 Intake Total 1350 Output Total 2360 Balance -1010 - Medications Medications: Current Medications Docusate Sodium (Colace) 100 mg PO TID [facility] Last Admin: 10/12/17 19:36 Dose: Not Given BUPIVACAINE 0.125%/0.9% NACL (Bupivacaine-Ns 0.125% On-Q Scarrer) 600 mls @ 4 mls/ hr IJ ONCE ONE Stop: 10/18/17 17:08 Ciprofloxacin (Cipro 400mg/200ml Dsw) 400 mg in 200 mls @ 133 mls/hr IVPB Q24H VASILIY PRN Reason: Protocol Last Admin: 10/12/17 14:15 Dose: 200 mls Metronidazole (Flagyl) 500 mg in 100 mls @ 100 mls/hr IVPB Q8 VASILIY PRN Reason: Protocol Last Admin: 10/13/17 05:03 Dose: 100 mls/hr Norepinephrine Bitartrate 4 mg (/ Sodium Chloride) 254 mls @ 15.24 mls/hr IV .[id number] PRN; Protocol; 4 MCG/MIN PRN Reason: TITRATE PER MD ORDER Dextrose (Dextrose 10% In Water) 1,000 mls @ 100 mls/hr IV .Q10H [facility] Last Admin: 10/12/17 23:18 Dose: 100 mls/hr Sodium Bicarbonate 150 meq/ (Dextrose) 1,150 mls @ 50 mls/hr IV .Q23H [facility] Last Admin: 10/12/17 22:37 Dose: 50 mls/hr Meropenem 500 mg/ Sodium (Chloride) 100 mls @ 100 mls/hr IVPB DAILY VASILIY PRN Reason: Protocol Lorazepam (Ativan) 2 mg IVP Q2H PRN PRN Reason: Seizure activity Last Admin: 10/13/17 06:57 Dose: 2 mg Ondansetron HCl (Zofran Inj) 4 mg IVP Q6H PRN PRN Reason: Nausea/Vomiting Last Admin: 10/12/17 10:12 Dose: 4 mg Pantoprazole Sodium (Protonix Inj) 40 mg IVP DAILY [facility] Last Admin: 10/12/17 10:11 Dose: 40 mg Simethicone (Mylicon Chew Tab) 80 mg PO TID [facility] Last Admin: 10/12/17 19:37 Dose: Not Given - Labs Labs: 10/13/17 06:33 10/13/17 06:33 PT 22.0 SECONDS (9.7-12.2) H 10/12/17 22:15 INR 2.0 10/12/17 22:15 APTT 31 SECONDS (21-34) 10/12/17 22:15 - Constitutional Appears: Toxic - Head Exam Head Exam: ATRAUMATIC, NORMOCEPHALIC - Eye Exam Eye Exam: Normal appearance - ENT Exam ENT Exam: Mucous Membranes Dry Additional comments: ET OT tubes in place - Respiratory Exam Additional comments: on mechanical ventilation - Cardiovascular Exam Cardiovascular Exam: REGULAR RHYTHM. absent: Tachycardia - GI/Abdominal Exam GI & Abdominal Exam: Distended, Soft. absent: Guarding, Rebound Additional comments: dressing CDI with ONQ pump intact. - Extremities Exam Extremities Exam: Normal Capillary Refill. absent: Calf Tenderness, Pedal Edema - Neurological Exam Neurological Exam: Awake - Skin Skin Exam: Dry, Warm Assessment and Plan - Assessment and Plan (Free Text) Assessment: 27 y/o with sepsis 2/2 perforated colon s/p ex lap w/ left hemicolectomy and primary anastomosis POD1 Plan: cont NPO cont gastric tube on suction serial abdominal exams leave ON-Q for pain monitor for bowel function medical management per ICU team further recs per Dr. Hinds AKWhite PGY3 <Leonard Hinds B - Last Filed: 10/18/17 18:08> Objective - Vital Signs/Intake and Output Vital Signs (last 24 hours): Temp Pulse Resp BP Pulse Ox 100.5 F H 77 39 H 238/30 H 71 L 10/14/17 12:00 10/14/17 17:39 10/14/17 17:39 10/14/17 17:39 10/14/17 16:59 - Labs Labs: 10/14/17 15:53 10/14/17 15:05 PT 16.6 SECONDS (9.7-12.2) H D 10/14/17 11:00 INR 1.5 D 10/14/17 11:00 APTT 29 SECONDS (21-34) 10/14/17 11:00 Attending/Attestation - Attestation I have personally seen and examined this patient.: Yes I have fully participated in the care of the patient.: Yes I have reviewed all pertinent clinical information, including history, physical exam and plan: Yes Notes (Text): Pt was seen and examined at bedside Agree with above note and assessment Pt is s/p Exp Lap and Transverse colectomy Pt is still intubated and sedated EMG to r/o Encephalopathy C/w current ICU mx IV antibiotics NPO, IVF Plan d.w ICU attending in detail
[2017-10-13 08:21] LABS: BANDS 52 % (0-2); LYMPHOCYTE 1 % (20-40); MONOCYTE 2 % (0-10); NEUTROPHIL 45 % (50-75); TOTAL CELLS COUNTED 100
[2017-10-13 08:22] LABS: ANISOCYTOSIS SLIGHT; PLATELET ESTIMATE NORMAL (NORMAL)
[2017-10-13 08:23] LABS: HYPOCHROMIC SLIGHT; POLYCHROMIC SLIGHT
[2017-10-13 08:24] LABS: TARGET CELLS SLIGHT
--- NOTE | 2017-10-13 08:25 | RAD ---
HISTORY: eval coongestion COMPARISON: 10/12/2017 FINDINGS: LUNGS: No active pulmonary disease. PLEURA: No significant pleural effusion identified, no pneumothorax apparent. CARDIOVASCULAR: Cardiomegaly. ET tube, NG tube and right IJ central venous catheter unchanged. No congestive change. OSSEOUS STRUCTURES: No significant abnormalities. VISUALIZED UPPER ABDOMEN: Normal. OTHER FINDINGS: None. IMPRESSION: No active disease.
--- NOTE | 2017-10-13 08:34 | RAD ---
Chest x-ray single frontal view History: Intubated. Comparison: 07/30/2017 Findings: Prominent diffuse confluent airspace opacities throughout both lungs suggestive for severe venous congestion versus edema versus infiltrate. Bilateral pleural effusions. Cardiomegaly. Enlarged ectatic aorta. Endotracheal tube low lying approximately 6 millimeters above the schuyler pointing towards the right mainstem bronchus. Retraction approximately 1.5 centimeters is recommended. NG tube extending into the stomach. Impression: Prominent diffuse confluent airspace opacities throughout both lungs suggestive for severe venous congestion versus edema versus infiltrate. Bilateral pleural effusions. Cardiomegaly. Enlarged ectatic aorta. Endotracheal tube low lying approximately 6 millimeters above the schuyler pointing towards the right mainstem bronchus. Retraction approximately 1.5 centimeters is recommended. NG tube extending into the stomach.
--- NOTE | 2017-10-13 08:40 | RAD ---
Chest x-ray single frontal view History: Central line placement. Comparison: 10/12/2017 Findings: Right central venous catheter tip extending to the right SVC. Persistent low lying endotracheal tube extending approximately 6 millimeters above the schuyler and pointing towards the right mainstem bronchus. Retraction approximately 1.5 centimeters is recommended. NG tube extending into the stomach. Diffuse increased interstitial lung markings suggestive for edema versus infiltrate versus venous congestion. Left-sided pleural effusion with adjacent consolidative changes. Cardiomegaly. Enlarged ectatic aorta. Degenerative changes in the spine. Impression: Right central venous catheter tip extending to the right SVC. Persistent low lying endotracheal tube extending approximately 6 millimeters above the schuyler and pointing towards the right mainstem bronchus. Retraction approximately 1.5 centimeters is recommended. NG tube extending into the stomach. Diffuse increased interstitial lung markings suggestive for edema versus infiltrate versus venous congestion. Left-sided pleural effusion with adjacent consolidative changes. Cardiomegaly. Enlarged ectatic aorta.
[2017-10-13] MEDS: Meropenem 500 MG in Sodium Chloride 0.9% 100 ML IVPB SCH (10:00)
[2017-10-13] MEDS: Simethicone 80 mg Chewtab PO SCH (10:41)
--- NOTE | 2017-10-13 11:34 | CP.CCUPN ---
<Jordan Hess - Last Filed: 10/13/17 11:29> CCU Subjective - Physician Review Subjective (Free Text): Patient seen and examined w/ mother at bedside. No overnight events reported. Patient currently intubated and cannot provide ROS. CCU Objective - Vital Signs / Intake & Output Vital Signs (Last 4 hours): Vital Signs Temp Pulse Resp Pulse Ox 10/13/17 08:00 98.7 F 94 H 22 98 Intake and Output (Last 8hrs): Intake & Output 10/12/17 10/13/17 10/13/17 22:59 06:59 14:59 Intake Total 900 1350 150 Output Total 2360 0 Balance 900 -1010 150 Weight 112 lb Intake: IV 900 Intake, IV Amount 1350 150 Right Medial Port 450 50 Internal Jugular Right Proximal Port 900 100 Internal Jugular Output: Drainage 360 Right Lateral Abdomen 360 Urine 0 Urine, Voided 0 Emesis 0 Other 2000 Other: # Bowel Movements 0 - Physical Exam Physical Exam Limitations: Positive for: Other (Intubated) Head: Positive for: Atraumatic, Normocephalic Extroacular Muscles: Positive for: EOMI Conjunctiva: Positive for: Normal Ears: Positive for: Normal Mouth: Positive for: Moist Mucous Membranes Neck: Positive for: Normal Range of Motion Respiratory/Chest: Positive for: Clear to Auscultation Cardiovascular: Positive for: Normal S1, S2 Abdomen: Positive for: Tenderness, Other (Midline incision with dressing on it. Dressing Clean, Dry, and Intact. On-Q Catheter. ) Neurological: Positive for: GCS=15 Psychiatric: Positive for: Alert - Medications Active Medications: Active Medications Generic Name Dose Route Start Last Admin Trade Name Hector PRN Reason Stop Dose Admin Docusate Sodium 100 mg 10/12/17 10:00 10/13/17 10:41 Colace PO Not Given TID VASILIY BUPIVACAINE 0.125%/0.9% NACL 600 mls @ 4 mls/hr 10/12/17 11:09 Bupivacaine-Ns 0.125% On-Q Belt Puncher IJ 10/18/17 17:08 ONCE ONE Ciprofloxacin 400 mg in 200 mls @ 133 mls/hr 10/12/17 13:45 10/12/17 14:15 Cipro 400mg/200ml Dsw IVPB 200 mls Q24H VASILIY Administration Protocol Metronidazole 500 mg in 100 mls @ 100 mls/hr 10/12/17 14:00 10/13/17 05:03 Flagyl IVPB 100 mls/hr Q8 VASILIY Administration Protocol Norepinephrine Bitartrate 4 mg 254 mls @ 15.24 mls/hr 10/12/17 21:33 / Sodium Chloride IV .[id number] PRN TITRATE PER MD ORDER Protocol 4 MCG/MIN Dextrose 1,000 mls @ 100 mls/hr 10/12/17 22:00 10/12/17 23:18 Dextrose 10% In Water IV 100 mls/hr .Q10H VASILIY Administration Sodium Bicarbonate 150 meq/ 1,150 mls @ 50 mls/hr 10/12/17 21:51 10/12/17 22: 37 Dextrose IV 50 mls/hr .Q23H VASILIY Administration Meropenem 500 mg/ Sodium 100 mls @ 100 mls/hr 10/13/17 10:00 10/13/17 10:00 Chloride IVPB 100 mls/hr DAILY VASILIY Administration Protocol Lorazepam 2 mg 10/12/17 20:46 10/13/17 06:57 Ativan IVP 2 mg Q2H PRN Administration Seizure activity Ondansetron HCl 4 mg 10/12/17 10:00 10/12/17 10:12 Zofran Inj IVP 4 mg Q6H PRN Administration Nausea/Vomiting Pantoprazole Sodium 40 mg 10/12/17 10:00 10/13/17 10:40 Protonix Inj IVP 40 mg DAILY VASILIY Administration Simethicone 80 mg 10/12/17 10:00 10/13/17 10:41 Mylicon Chew Tab PO Not Given TID VASILIY - Patient Studies Lab Studies: Microbiology Studies 10/12/17 11:18 Blood Culture - Preliminary Blood-Venous NO GROWTH AFTER 24 HOURS 10/12/17 11:18 Blood Culture - Preliminary Blood-Venous NO GROWTH AFTER 24 HOURS 10/12/17 15:40 Gram Stain - Final Peritoneal Fluid 10/12/17 18:10 Gram Stain - Final Other: Please Indicate Lab Studies 10/13/17 10/13/17 10/13/17 Range/Units 09:13 07:50 06:51 WBC (4.8-10.8) K/uL RBC (3.80-5.20) Mil/uL Hgb (11.0-16.0) g/dL Hct (34.0-47.0) % MCV (81.0-99.0) fL MCH (27.0-31.0) pg MCHC (33.0-37.0) g/dL RDW (11.5-14.5) % Plt Count (130-400) K/uL MPV (7.2-11.7) fL Neut % (Auto) (50.0-75.0) % Lymph % (Auto) (20.0-40.0) % [place] % (Auto) (0.0-10.0) % Eos % (Auto) (0.0-4.0) % Baso % (Auto) (0.0-2.0) % Neut # (Auto) (1.8-7.0) K/uL Lymph # (Auto) (1.0-4.3) K/uL [place] # (Auto) (0.0-0.8) K/uL Eos # (Auto) (0.0-0.7) K/uL Baso # (Auto) (0.0-0.2) K/uL Neutrophils % (Manual) (50-75) % Band Neutrophils % (0-2) % Lymphocytes % (Manual) (20-40) % Reactive Lymphs % (0-0) % Monocytes % (Manual) (0-10) % Myelocytes % (0-0) % Promyelocytes % (0-0) % Nucleated RBC % (0-0) % Platelet Estimate (NORMAL) Polychromasia Hypochromasia (manual) Anisocytosis (manual) Target Cells PT (9.7-12.2) SECONDS INR APTT (21-34) SECONDS Fibrinogen (200-400) mg/dL Puncture Site pCO2 (35-45) mm/Hg pO2 (80-100) mm/Hg HCO3 (21-28) mmol/L ABG pH (7.35-7.45) ABG Total CO2 (22-28) mmol/L ABG O2 Saturation (95-98) % ABG Base Excess (-2.0-3.0) mmol/L Alfredo Test ABG Potassium (3.6-5.2) mmol/L A-a O2 Difference mm/Hg Respiratory Index Sodium (132-148) mmol/l Chloride (98-107) mmol/L Glucose (65-105) mg/dl Lactate (0.7-2.1) mmol/L Vent Mode Mechanical Rate FiO2 % Tidal Volume PEEP Crit Value Called To Crit Value Called By Crit Value Read Back Blood Gas Notified Time Potassium (3.6-5.2) mmol/L Carbon Dioxide (22-30) mmol/L Anion Gap (10-20) BUN (7-17) mg/dL Creatinine (0.7-1.2) mg/dL Est GFR ( Amer) Est GFR (Non-Af Amer) POC Glucose (mg/dL) 143 H 178 H 202 H (65-110) mg/dL Random Glucose (65-105) mg/dL Lactic Acid (0.7-2.1) mmol/L Calcium (8.6-10.4) mg/dl Phosphorus (2.5-4.5) mg/dL Magnesium (1.6-2.3) mg/dL Total Bilirubin (0.2-1.3) mg/dL AST (14-36) U/L ALT (9-52) U/L Alkaline Phosphatase (38-126) U/L Troponin I (0.00-0.120) ng/mL NT-Pro-B Natriuret Pep (0-450) pg/mL Total Protein (6.3-8.3) g/dL Albumin (3.5-5.0) g/dL Globulin (2.2-3.9) gm/dL Albumin/Globulin Ratio (1.0-2.1) TSH 3rd Generation (0.46-4.68) mIU/L Beta HCG, Quant mIU/ML Cortisol AM Sample (4.46-22.7) ug/dL Arterial Blood Potassium (3.6-5.2) mmol/L Blood Type Antibody Screen 10/13/17 10/13/17 10/13/17 Range/Units 06:36 06:33 06:33 WBC (4.8-10.8) K/uL RBC (3.80-5.20) Mil/uL Hgb (11.0-16.0) g/dL Hct (34.0-47.0) % MCV (81.0-99.0) fL MCH (27.0-31.0) pg MCHC (33.0-37.0) g/dL RDW (11.5-14.5) % Plt Count (130-400) K/uL MPV (7.2-11.7) fL Neut % (Auto) (50.0-75.0) % Lymph % (Auto) (20.0-40.0) % [place] % (Auto) (0.0-10.0) % Eos % (Auto) (0.0-4.0) % Baso % (Auto) (0.0-2.0) % Neut # (Auto) (1.8-7.0) K/uL Lymph # (Auto) (1.0-4.3) K/uL [place] # (Auto) (0.0-0.8) K/uL Eos # (Auto) (0.0-0.7) K/uL Baso # (Auto) (0.0-0.2) K/uL Neutrophils % (Manual) (50-75) % Band Neutrophils % (0-2) % Lymphocytes % (Manual) (20-40) % Reactive Lymphs % (0-0) % Monocytes % (Manual) (0-10) % Myelocytes % (0-0) % Promyelocytes % (0-0) % Nucleated RBC % (0-0) % Platelet Estimate (NORMAL) Polychromasia Hypochromasia (manual) Anisocytosis (manual) Target Cells PT (9.7-12.2) SECONDS INR APTT (21-34) SECONDS Fibrinogen (200-400) mg/dL Puncture Site R rad pCO2 38 (35-45) mm/Hg pO2 104 H (80-100) mm/Hg HCO3 30.3 H (21-28) mmol/L ABG pH 7.51 H (7.35-7.45) ABG Total CO2 31.5 H (22-28) mmol/L ABG O2 Saturation 98.6 H (95-98) % ABG Base Excess 6.9 H (-2.0-3.0) mmol/L Alfredo Test Pos ABG Potassium 4.0 (3.6-5.2) mmol/L A-a O2 Difference 562.0 mm/Hg Respiratory Index 5.4 Sodium 134.0 (132-148) mmol/l Chloride 97.0 L (98-107) mmol/L Glucose 179 H (65-105) mg/dl Lactate 2.5 H (0.7-2.1) mmol/L Vent Mode Prvc Mechanical Rate 22 FiO2 100.0 % Tidal Volume 500 PEEP 5 Crit Value Called To Crit Value Called By Crit Value Read Back Blood Gas Notified Time Potassium (3.6-5.2) mmol/L Carbon Dioxide (22-30) mmol/L Anion Gap (10-20) BUN (7-17) mg/dL Creatinine (0.7-1.2) mg/dL Est GFR ( Amer) Est GFR (Non-Af Amer) POC Glucose (mg/dL) (65-110) mg/dL Random Glucose (65-105) mg/dL Lactic Acid 2.8 H (0.7-2.1) mmol/L Calcium (8.6-10.4) mg/dl Phosphorus (2.5-4.5) mg/dL Magnesium (1.6-2.3) mg/dL Total Bilirubin (0.2-1.3) mg/dL AST (14-36) U/L ALT (9-52) U/L Alkaline Phosphatase (38-126) U/L Troponin I (0.00-0.120) ng/mL NT-Pro-B Natriuret Pep (0-450) pg/mL Total Protein (6.3-8.3) g/dL Albumin (3.5-5.0) g/dL Globulin (2.2-3.9) gm/dL Albumin/Globulin Ratio (1.0-2.1) TSH 3rd Generation 2.12 (0.46-4.68) mIU/L Beta HCG, Quant mIU/ML Cortisol AM Sample (4.46-22.7) ug/dL Arterial Blood Potassium 4.0 (3.6-5.2) mmol/L Blood Type Antibody Screen 10/13/17 10/13/17 10/13/17 Range/Units 06:33 06:33 06:33 WBC 13.1 H (4.8-10.8) K/uL RBC 3.98 (3.80-5.20) Mil/uL Hgb 11.3 (11.0-16.0) g/dL Hct 33.8 L (34.0-47.0) % MCV 84.8 (81.0-99.0) fL MCH 28.4 (27.0-31.0) pg MCHC 33.5 (33.0-37.0) g/dL RDW 18.7 H (11.5-14.5) % Plt Count 222 (130-400) K/uL MPV 7.8 (7.2-11.7) fL Neut % (Auto) 94.6 H (50.0-75.0) % Lymph % (Auto) 2.6 L (20.0-40.0) % [place] % (Auto) 2.5 (0.0-10.0) % Eos % (Auto) 0.1 (0.0-4.0) % Baso % (Auto) 0.2 (0.0-2.0) % Neut # (Auto) 12.3 H (1.8-7.0) K/uL Lymph # (Auto) 0.3 L (1.0-4.3) K/uL [place] # (Auto) 0.3 (0.0-0.8) K/uL Eos # (Auto) 0.0 (0.0-0.7) K/uL Baso # (Auto) 0.0 (0.0-0.2) K/uL Neutrophils % (Manual) 45 L (50-75) % Band Neutrophils % 52 H* (0-2) % Lymphocytes % (Manual) 1 L (20-40) % Reactive Lymphs % (0-0) % Monocytes % (Manual) 2 (0-10) % Myelocytes % (0-0) % Promyelocytes % (0-0) % Nucleated RBC % (0-0) % Platelet Estimate Normal (NORMAL) Polychromasia Slight Hypochromasia (manual) Slight Anisocytosis (manual) Slight Target Cells Slight PT (9.7-12.2) SECONDS INR APTT (21-34) SECONDS Fibrinogen (200-400) mg/dL Puncture Site pCO2 (35-45) mm/Hg pO2 (80-100) mm/Hg HCO3 (21-28) mmol/L ABG pH (7.35-7.45) ABG Total CO2 (22-28) mmol/L ABG O2 Saturation (95-98) % ABG Base Excess (-2.0-3.0) mmol/L Alfredo Test ABG Potassium (3.6-5.2) mmol/L A-a O2 Difference mm/Hg Respiratory Index Sodium 140 (132-148) mmol/l Chloride 95 L (98-107) mmol/L Glucose (65-105) mg/dl Lactate (0.7-2.1) mmol/L Vent Mode Mechanical Rate FiO2 % Tidal Volume PEEP Crit Value Called To Crit Value Called By Crit Value Read Back Blood Gas Notified Time Potassium 4.3 (3.6-5.2) mmol/L Carbon Dioxide 30 (22-30) mmol/L Anion Gap 20 (10-20) BUN 27 H (7-17) mg/dL Creatinine 4.2 H (0.7-1.2) mg/dL Est GFR ( Amer) 16 Est GFR (Non-Af Amer) 13 POC Glucose (mg/dL) (65-110) mg/dL Random Glucose 139 H (65-105) mg/dL Lactic Acid (0.7-2.1) mmol/L Calcium 7.8 L (8.6-10.4) mg/dl Phosphorus 3.8 (2.5-4.5) mg/dL Magnesium 2.6 H (1.6-2.3) mg/dL Total Bilirubin 1.3 (0.2-1.3) mg/dL AST 110 H D (14-36) U/L ALT 99 H D (9-52) U/L Alkaline Phosphatase 83 (38-126) U/L Troponin I 0.2870 H* (0.00-0.120) ng/mL NT-Pro-B Natriuret Pep (0-450) pg/mL Total Protein 5.4 L (6.3-8.3) g/dL Albumin 3.0 L (3.5-5.0) g/dL Globulin 2.5 (2.2-3.9) gm/dL Albumin/Globulin Ratio 1.2 (1.0-2.1) TSH 3rd Generation (0.46-4.68) mIU/L Beta HCG, Quant mIU/ML Cortisol AM Sample 19.4 (4.46-22.7) ug/dL Arterial Blood Potassium (3.6-5.2) mmol/L Blood Type Antibody Screen 10/13/17 10/13/17 10/13/17 Range/Units 05:51 05:18 04:59 WBC (4.8-10.8) K/uL RBC (3.80-5.20) Mil/uL Hgb (11.0-16.0) g/dL Hct (34.0-47.0) % MCV (81.0-99.0) fL MCH (27.0-31.0) pg MCHC (33.0-37.0) g/dL RDW (11.5-14.5) % Plt Count (130-400) K/uL MPV (7.2-11.7) fL Neut % (Auto) (50.0-75.0) % Lymph % (Auto) (20.0-40.0) % [place] % (Auto) (0.0-10.0) % Eos % (Auto) (0.0-4.0) % Baso % (Auto) (0.0-2.0) % Neut # (Auto) (1.8-7.0) K/uL Lymph # (Auto) (1.0-4.3) K/uL [place] # (Auto) (0.0-0.8) K/uL Eos # (Auto) (0.0-0.7) K/uL Baso # (Auto) (0.0-0.2) K/uL Neutrophils % (Manual) (50-75) % Band Neutrophils % (0-2) % Lymphocytes % (Manual) (20-40) % Reactive Lymphs % (0-0) % Monocytes % (Manual) (0-10) % Myelocytes % (0-0) % Promyelocytes % (0-0) % Nucleated RBC % (0-0) % Platelet Estimate (NORMAL) Polychromasia Hypochromasia (manual) Anisocytosis (manual) Target Cells PT (9.7-12.2) SECONDS INR APTT (21-34) SECONDS Fibrinogen (200-400) mg/dL Puncture Site Rr pCO2 41 (35-45) mm/Hg pO2 46 L (80-100) mm/Hg HCO3 30.2 H (21-28) mmol/L ABG pH 7.49 H (7.35-7.45) ABG Total CO2 32.5 H (22-28) mmol/L ABG O2 Saturation 82.7 L (95-98) % ABG Base Excess 7.2 H (-2.0-3.0) mmol/L Alfredo Test Pos ABG Potassium 4.5 (3.6-5.2) mmol/L A-a O2 Difference 616.0 mm/Hg Respiratory Index 13.4 Sodium 137.0 (132-148) mmol/l Chloride 100.0 (98-107) mmol/L Glucose 158 H (65-105) mg/dl Lactate 3.0 H (0.7-2.1) mmol/L Vent Mode Prvc Mechanical Rate 22 FiO2 100.0 % Tidal Volume 500 PEEP 5 Crit Value Called To Crit Value Called By Crit Value Read Back Blood Gas Notified Time Potassium (3.6-5.2) mmol/L Carbon Dioxide (22-30) mmol/L Anion Gap (10-20) BUN (7-17) mg/dL Creatinine (0.7-1.2) mg/dL Est GFR ( Amer) Est GFR (Non-Af Amer) POC Glucose (mg/dL) 186 H 158 H (65-110) mg/dL Random Glucose (65-105) mg/dL Lactic Acid (0.7-2.1) mmol/L Calcium (8.6-10.4) mg/dl Phosphorus (2.5-4.5) mg/dL Magnesium (1.6-2.3) mg/dL Total Bilirubin (0.2-1.3) mg/dL AST (14-36) U/L ALT (9-52) U/L Alkaline Phosphatase (38-126) U/L Troponin I (0.00-0.120) ng/mL NT-Pro-B Natriuret Pep (0-450) pg/mL Total Protein (6.3-8.3) g/dL Albumin (3.5-5.0) g/dL Globulin (2.2-3.9) gm/dL Albumin/Globulin Ratio (1.0-2.1) TSH 3rd Generation (0.46-4.68) mIU/L Beta HCG, Quant mIU/ML Cortisol AM Sample (4.46-22.7) ug/dL Arterial Blood Potassium 4.5 (3.6-5.2) mmol/L Blood Type Antibody Screen 10/13/17 10/13/17 10/13/17 Range/Units 03:09 02:10 01:56 WBC (4.8-10.8) K/uL RBC (3.80-5.20) Mil/uL Hgb (11.0-16.0) g/dL Hct (34.0-47.0) % MCV (81.0-99.0) fL MCH (27.0-31.0) pg MCHC (33.0-37.0) g/dL RDW (11.5-14.5) % Plt Count (130-400) K/uL MPV (7.2-11.7) fL Neut % (Auto) (50.0-75.0) % Lymph % (Auto) (20.0-40.0) % [place] % (Auto) (0.0-10.0) % Eos % (Auto) (0.0-4.0) % Baso % (Auto) (0.0-2.0) % Neut # (Auto) (1.8-7.0) K/uL Lymph # (Auto) (1.0-4.3) K/uL [place] # (Auto) (0.0-0.8) K/uL Eos # (Auto) (0.0-0.7) K/uL Baso # (Auto) (0.0-0.2) K/uL Neutrophils % (Manual) (50-75) % Band Neutrophils % (0-2) % Lymphocytes % (Manual) (20-40) % Reactive Lymphs % (0-0) % Monocytes % (Manual) (0-10) % Myelocytes % (0-0) % Promyelocytes % (0-0) % Nucleated RBC % (0-0) % Platelet Estimate (NORMAL) Polychromasia Hypochromasia (manual) Anisocytosis (manual) Target Cells PT (9.7-12.2) SECONDS INR APTT (21-34) SECONDS Fibrinogen (200-400) mg/dL Puncture Site pCO2 (35-45) mm/Hg pO2 (80-100) mm/Hg HCO3 (21-28) mmol/L ABG pH (7.35-7.45) ABG Total CO2 (22-28) mmol/L ABG O2 Saturation (95-98) % ABG Base Excess (-2.0-3.0) mmol/L Alfredo Test ABG Potassium (3.6-5.2) mmol/L A-a O2 Difference mm/Hg Respiratory Index Sodium (132-148) mmol/l Chloride (98-107) mmol/L Glucose (65-105) mg/dl Lactate (0.7-2.1) mmol/L Vent Mode Mechanical Rate FiO2 % Tidal Volume PEEP Crit Value Called To Crit Value Called By Crit Value Read Back Blood Gas Notified Time Potassium (3.6-5.2) mmol/L Carbon Dioxide (22-30) mmol/L Anion Gap (10-20) BUN (7-17) mg/dL Creatinine (0.7-1.2) mg/dL Est GFR ( Amer) Est GFR (Non-Af Amer) POC Glucose (mg/dL) 129 H 111 H (65-110) mg/dL Random Glucose (65-105) mg/dL Lactic Acid 1.8 (0.7-2.1) mmol/L Calcium (8.6-10.4) mg/dl Phosphorus (2.5-4.5) mg/dL Magnesium (1.6-2.3) mg/dL Total Bilirubin (0.2-1.3) mg/dL AST (14-36) U/L ALT (9-52) U/L Alkaline Phosphatase (38-126) U/L Troponin I (0.00-0.120) ng/mL NT-Pro-B Natriuret Pep (0-450) pg/mL Total Protein (6.3-8.3) g/dL Albumin (3.5-5.0) g/dL Globulin (2.2-3.9) gm/dL Albumin/Globulin Ratio (1.0-2.1) TSH 3rd Generation (0.46-4.68) mIU/L Beta HCG, Quant mIU/ML Cortisol AM Sample (4.46-22.7) ug/dL Arterial Blood Potassium (3.6-5.2) mmol/L Blood Type Antibody Screen 10/13/17 10/12/17 10/12/17 Range/Units 00:56 23:54 23:06 WBC (4.8-10.8) K/uL RBC (3.80-5.20) Mil/uL Hgb (11.0-16.0) g/dL Hct (34.0-47.0) % MCV (81.0-99.0) fL MCH (27.0-31.0) pg MCHC (33.0-37.0) g/dL RDW (11.5-14.5) % Plt Count (130-400) K/uL MPV (7.2-11.7) fL Neut % (Auto) (50.0-75.0) % Lymph % (Auto) (20.0-40.0) % [place] % (Auto) (0.0-10.0) % Eos % (Auto) (0.0-4.0) % Baso % (Auto) (0.0-2.0) % Neut # (Auto) (1.8-7.0) K/uL Lymph # (Auto) (1.0-4.3) K/uL [place] # (Auto) (0.0-0.8) K/uL Eos # (Auto) (0.0-0.7) K/uL Baso # (Auto) (0.0-0.2) K/uL Neutrophils % (Manual) (50-75) % Band Neutrophils % (0-2) % Lymphocytes % (Manual) (20-40) % Reactive Lymphs % (0-0) % Monocytes % (Manual) (0-10) % Myelocytes % (0-0) % Promyelocytes % (0-0) % Nucleated RBC % (0-0) % Platelet Estimate (NORMAL) Polychromasia Hypochromasia (manual) Anisocytosis (manual) Target Cells PT (9.7-12.2) SECONDS INR APTT (21-34) SECONDS Fibrinogen (200-400) mg/dL Puncture Site pCO2 (35-45) mm/Hg pO2 (80-100) mm/Hg HCO3 (21-28) mmol/L ABG pH (7.35-7.45) ABG Total CO2 (22-28) mmol/L ABG O2 Saturation (95-98) % ABG Base Excess (-2.0-3.0) mmol/L Alfredo Test ABG Potassium (3.6-5.2) mmol/L A-a O2 Difference mm/Hg Respiratory Index Sodium (132-148) mmol/l Chloride (98-107) mmol/L Glucose (65-105) mg/dl Lactate (0.7-2.1) mmol/L Vent Mode Mechanical Rate FiO2 % Tidal Volume PEEP Crit Value Called To Crit Value Called By Crit Value Read Back Blood Gas Notified Time Potassium (3.6-5.2) mmol/L Carbon Dioxide (22-30) mmol/L Anion Gap (10-20) BUN (7-17) mg/dL Creatinine (0.7-1.2) mg/dL Est GFR ( Amer) Est GFR (Non-Af Amer) POC Glucose (mg/dL) 121 H 100 119 H (65-110) mg/dL Random Glucose (65-105) mg/dL Lactic Acid (0.7-2.1) mmol/L Calcium (8.6-10.4) mg/dl Phosphorus (2.5-4.5) mg/dL Magnesium (1.6-2.3) mg/dL Total Bilirubin (0.2-1.3) mg/dL AST (14-36) U/L ALT (9-52) U/L Alkaline Phosphatase (38-126) U/L Troponin I (0.00-0.120) ng/mL NT-Pro-B Natriuret Pep (0-450) pg/mL Total Protein (6.3-8.3) g/dL Albumin (3.5-5.0) g/dL Globulin (2.2-3.9) gm/dL Albumin/Globulin Ratio (1.0-2.1) TSH 3rd Generation (0.46-4.68) mIU/L Beta HCG, Quant mIU/ML Cortisol AM Sample (4.46-22.7) ug/dL Arterial Blood Potassium (3.6-5.2) mmol/L Blood Type Antibody Screen 10/12/17 10/12/17 10/12/17 Range/Units 22:15 22:15 22:15 WBC 11.7 H (4.8-10.8) K/uL RBC 3.82 (3.80-5.20) Mil/uL Hgb 10.4 L (11.0-16.0) g/dL Hct 32.9 L (34.0-47.0) % MCV 86.2 D (81.0-99.0) fL MCH 27.3 (27.0-31.0) pg MCHC 31.7 L (33.0-37.0) g/dL RDW 18.7 H (11.5-14.5) % Plt Count 240 (130-400) K/uL MPV 7.8 (7.2-11.7) fL Neut % (Auto) 90.1 H (50.0-75.0) % Lymph % (Auto) 7.1 L (20.0-40.0) % [place] % (Auto) 1.3 (0.0-10.0) % Eos % (Auto) 0.3 (0.0-4.0) % Baso % (Auto) 1.2 (0.0-2.0) % Neut # (Auto) 10.6 H (1.8-7.0) K/uL Lymph # (Auto) 0.8 L (1.0-4.3) K/uL [place] # (Auto) 0.2 (0.0-0.8) K/uL Eos # (Auto) 0.0 (0.0-0.7) K/uL Baso # (Auto) 0.1 (0.0-0.2) K/uL Neutrophils % (Manual) 51 (50-75) % Band Neutrophils % 30 H* (0-2) % Lymphocytes % (Manual) 7 L (20-40) % Reactive Lymphs % 7 H (0-0) % Monocytes % (Manual) 2 (0-10) % Myelocytes % 1 H (0-0) % Promyelocytes % 2 H (0-0) % Nucleated RBC % 2 H (0-0) % Platelet Estimate Normal (NORMAL) Polychromasia Hypochromasia (manual) Anisocytosis (manual) Target Cells PT (9.7-12.2) SECONDS INR APTT (21-34) SECONDS Fibrinogen (200-400) mg/dL Puncture Site pCO2 (35-45) mm/Hg pO2 (80-100) mm/Hg HCO3 (21-28) mmol/L ABG pH (7.35-7.45) ABG Total CO2 (22-28) mmol/L ABG O2 Saturation (95-98) % ABG Base Excess (-2.0-3.0) mmol/L Alfredo Test ABG Potassium (3.6-5.2) mmol/L A-a O2 Difference mm/Hg Respiratory Index Sodium 139 (132-148) mmol/l Chloride 98 (98-107) mmol/L Glucose (65-105) mg/dl Lactate (0.7-2.1) mmol/L Vent Mode Mechanical Rate FiO2 % Tidal Volume PEEP Crit Value Called To Crit Value Called By Crit Value Read Back Blood Gas Notified Time Potassium 4.2 (3.6-5.2) mmol/L Carbon Dioxide 21 L (22-30) mmol/L Anion Gap 25 H (10-20) BUN 44 H (7-17) mg/dL Creatinine 6.1 H (0.7-1.2) mg/dL Est GFR ( Amer) 10 Est GFR (Non-Af Amer) 8 POC Glucose (mg/dL) (65-110) mg/dL Random Glucose 144 H (65-105) mg/dL Lactic Acid (0.7-2.1) mmol/L Calcium 7.7 L (8.6-10.4) mg/dl Phosphorus 6.5 H (2.5-4.5) mg/dL Magnesium 2.9 H (1.6-2.3) mg/dL Total Bilirubin 1.6 H (0.2-1.3) mg/dL AST 82 H (14-36) U/L ALT 70 H D (9-52) U/L Alkaline Phosphatase 83 (38-126) U/L Troponin I (0.00-0.120) ng/mL NT-Pro-B Natriuret Pep (0-450) pg/mL Total Protein 4.9 L (6.3-8.3) g/dL Albumin 2.7 L D (3.5-5.0) g/dL Globulin 2.2 (2.2-3.9) gm/dL Albumin/Globulin Ratio 1.2 (1.0-2.1) TSH 3rd Generation (0.46-4.68) mIU/L Beta HCG, Quant < 2.39 mIU/ML Cortisol AM Sample (4.46-22.7) ug/dL Arterial Blood Potassium (3.6-5.2) mmol/L Blood Type Antibody Screen 0510/12/17 10/12/17 Range/Units 22:15 22:15 22:15 WBC (4.8-10.8) K/uL RBC (3.80-5.20) Mil/uL Hgb (11.0-16.0) g/dL Hct (34.0-47.0) % MCV (81.0-99.0) fL MCH (27.0-31.0) pg MCHC (33.0-37.0) g/dL RDW (11.5-14.5) % Plt Count (130-400) K/uL MPV (7.2-11.7) fL Neut % (Auto) (50.0-75.0) % Lymph % (Auto) (20.0-40.0) % [place] % (Auto) (0.0-10.0) % Eos % (Auto) (0.0-4.0) % Baso % (Auto) (0.0-2.0) % Neut # (Auto) (1.8-7.0) K/uL Lymph # (Auto) (1.0-4.3) K/uL [place] # (Auto) (0.0-0.8) K/uL Eos # (Auto) (0.0-0.7) K/uL Baso # (Auto) (0.0-0.2) K/uL Neutrophils % (Manual) (50-75) % Band Neutrophils % (0-2) % Lymphocytes % (Manual) (20-40) % Reactive Lymphs % (0-0) % Monocytes % (Manual) (0-10) % Myelocytes % (0-0) % Promyelocytes % (0-0) % Nucleated RBC % (0-0) % Platelet Estimate (NORMAL) Polychromasia Hypochromasia (manual) Anisocytosis (manual) Target Cells PT 22.0 H (9.7-12.2) SECONDS INR 2.0 APTT 31 (21-34) SECONDS Fibrinogen 218 (200-400) mg/dL Puncture Site pCO2 (35-45) mm/Hg pO2 (80-100) mm/Hg HCO3 (21-28) mmol/L ABG pH (7.35-7.45) ABG Total CO2 (22-28) mmol/L ABG O2 Saturation (95-98) % ABG Base Excess (-2.0-3.0) mmol/L Alfredo Test ABG Potassium (3.6-5.2) mmol/L A-a O2 Difference mm/Hg Respiratory Index Sodium (132-148) mmol/l Chloride (98-107) mmol/L Glucose (65-105) mg/dl Lactate (0.7-2.1) mmol/L Vent Mode Mechanical Rate FiO2 % Tidal Volume PEEP Crit Value Called To Crit Value Called By Crit Value Read Back Blood Gas Notified Time Potassium (3.6-5.2) mmol/L Carbon Dioxide (22-30) mmol/L Anion Gap (10-20) BUN (7-17) mg/dL Creatinine (0.7-1.2) mg/dL Est GFR ( Amer) Est GFR (Non-Af Amer) POC Glucose (mg/dL) (65-110) mg/dL Random Glucose (65-105) mg/dL Lactic Acid (0.7-2.1) mmol/L Calcium (8.6-10.4) mg/dl Phosphorus (2.5-4.5) mg/dL Magnesium (1.6-2.3) mg/dL Total Bilirubin (0.2-1.3) mg/dL AST (14-36) U/L ALT (9-52) U/L Alkaline Phosphatase (38-126) U/L Troponin I 0.3220 H* (0.00-0.120) ng/mL NT-Pro-B Natriuret Pep 537533 H (0-450) pg/mL Total Protein (6.3-8.3) g/dL Albumin (3.5-5.0) g/dL Globulin (2.2-3.9) gm/dL Albumin/Globulin Ratio (1.0-2.1) TSH 3rd Generation (0.46-4.68) mIU/L Beta HCG, Quant mIU/ML Cortisol AM Sample (4.46-22.7) ug/dL Arterial Blood Potassium (3.6-5.2) mmol/L Blood Type Antibody Screen 10/12/17 10/12/17 10/12/17 Range/Units 22:15 21:52 21:04 WBC (4.8-10.8) K/uL RBC (3.80-5.20) Mil/uL Hgb (11.0-16.0) g/dL Hct (34.0-47.0) % MCV (81.0-99.0) fL MCH (27.0-31.0) pg MCHC (33.0-37.0) g/dL RDW (11.5-14.5) % Plt Count (130-400) K/uL MPV (7.2-11.7) fL Neut % (Auto) (50.0-75.0) % Lymph % (Auto) (20.0-40.0) % [place] % (Auto) (0.0-10.0) % Eos % (Auto) (0.0-4.0) % Baso % (Auto) (0.0-2.0) % Neut # (Auto) (1.8-7.0) K/uL Lymph # (Auto) (1.0-4.3) K/uL [place] # (Auto) (0.0-0.8) K/uL Eos # (Auto) (0.0-0.7) K/uL Baso # (Auto) (0.0-0.2) K/uL Neutrophils % (Manual) (50-75) % Band Neutrophils % (0-2) % Lymphocytes % (Manual) (20-40) % Reactive Lymphs % (0-0) % Monocytes % (Manual) (0-10) % Myelocytes % (0-0) % Promyelocytes % (0-0) % Nucleated RBC % (0-0) % Platelet Estimate (NORMAL) Polychromasia Hypochromasia (manual) Anisocytosis (manual) Target Cells PT (9.7-12.2) SECONDS INR APTT (21-34) SECONDS Fibrinogen (200-400) mg/dL Puncture Site pCO2 (35-45) mm/Hg pO2 (80-100) mm/Hg HCO3 (21-28) mmol/L ABG pH (7.35-7.45) ABG Total CO2 (22-28) mmol/L ABG O2 Saturation (95-98) % ABG Base Excess (-2.0-3.0) mmol/L Alfredo Test ABG Potassium (3.6-5.2) mmol/L A-a O2 Difference mm/Hg Respiratory Index Sodium (132-148) mmol/l Chloride (98-107) mmol/L Glucose (65-105) mg/dl Lactate (0.7-2.1) mmol/L Vent Mode Mechanical Rate FiO2 % Tidal Volume PEEP Crit Value Called To Crit Value Called By Crit Value Read Back Blood Gas Notified Time Potassium (3.6-5.2) mmol/L Carbon Dioxide (22-30) mmol/L Anion Gap (10-20) BUN (7-17) mg/dL Creatinine (0.7-1.2) mg/dL Est GFR ( Amer) Est GFR (Non-Af Amer) POC Glucose (mg/dL) 151 H 188 H (65-110) mg/dL Random Glucose (65-105) mg/dL Lactic Acid 5.9 H* (0.7-2.1) mmol/L Calcium (8.6-10.4) mg/dl Phosphorus (2.5-4.5) mg/dL Magnesium (1.6-2.3) mg/dL Total Bilirubin (0.2-1.3) mg/dL AST (14-36) U/L ALT (9-52) U/L Alkaline Phosphatase (38-126) U/L Troponin I (0.00-0.120) ng/mL NT-Pro-B Natriuret Pep (0-450) pg/mL Total Protein (6.3-8.3) g/dL Albumin (3.5-5.0) g/dL Globulin (2.2-3.9) gm/dL Albumin/Globulin Ratio (1.0-2.1) TSH 3rd Generation (0.46-4.68) mIU/L Beta HCG, Quant mIU/ML Cortisol AM Sample (4.46-22.7) ug/dL Arterial Blood Potassium (3.6-5.2) mmol/L Blood Type Antibody Screen 10/12/17 10/12/17 10/12/17 Range/Units 19:50 18:45 18:26 WBC 21.0 H (4.8-10.8) K/uL RBC 3.67 L (3.80-5.20) Mil/uL Hgb 10.3 L (11.0-16.0) g/dL Hct 32.8 L (34.0-47.0) % MCV 89.3 D (81.0-99.0) fL MCH 28.0 (27.0-31.0) pg MCHC 31.3 L (33.0-37.0) g/dL RDW 19.0 H (11.5-14.5) % Plt Count 232 (130-400) K/uL MPV 7.8 (7.2-11.7) fL Neut % (Auto) (50.0-75.0) % Lymph % (Auto) (20.0-40.0) % [place] % (Auto) (0.0-10.0) % Eos % (Auto) (0.0-4.0) % Baso % (Auto) (0.0-2.0) % Neut # (Auto) (1.8-7.0) K/uL Lymph # (Auto) (1.0-4.3) K/uL [place] # (Auto) (0.0-0.8) K/uL Eos # (Auto) (0.0-0.7) K/uL Baso # (Auto) (0.0-0.2) K/uL Neutrophils % (Manual) (50-75) % Band Neutrophils % (0-2) % Lymphocytes % (Manual) (20-40) % Reactive Lymphs % (0-0) % Monocytes % (Manual) (0-10) % Myelocytes % (0-0) % Promyelocytes % (0-0) % Nucleated RBC % (0-0) % Platelet Estimate (NORMAL) Polychromasia Hypochromasia (manual) Anisocytosis (manual) Target Cells PT (9.7-12.2) SECONDS INR APTT (21-34) SECONDS Fibrinogen (200-400) mg/dL Puncture Site pCO2 (35-45) mm/Hg pO2 (80-100) mm/Hg HCO3 (21-28) mmol/L ABG pH (7.35-7.45) ABG Total CO2 (22-28) mmol/L ABG O2 Saturation (95-98) % ABG Base Excess (-2.0-3.0) mmol/L Alfredo Test ABG Potassium (3.6-5.2) mmol/L A-a O2 Difference mm/Hg Respiratory Index Sodium (132-148) mmol/l Chloride (98-107) mmol/L Glucose (65-105) mg/dl Lactate (0.7-2.1) mmol/L Vent Mode Mechanical Rate FiO2 % Tidal Volume PEEP Crit Value Called To Crit Value Called By Crit Value Read Back Blood Gas Notified Time Potassium (3.6-5.2) mmol/L Carbon Dioxide (22-30) mmol/L Anion Gap (10-20) BUN (7-17) mg/dL Creatinine (0.7-1.2) mg/dL Est GFR ( Amer) Est GFR (Non-Af Amer) POC Glucose (mg/dL) 191 H 97 (65-110) mg/dL Random Glucose (65-105) mg/dL Lactic Acid (0.7-2.1) mmol/L Calcium (8.6-10.4) mg/dl Phosphorus (2.5-4.5) mg/dL Magnesium (1.6-2.3) mg/dL Total Bilirubin (0.2-1.3) mg/dL AST (14-36) U/L ALT (9-52) U/L Alkaline Phosphatase (38-126) U/L Troponin I (0.00-0.120) ng/mL NT-Pro-B Natriuret Pep (0-450) pg/mL Total Protein (6.3-8.3) g/dL Albumin (3.5-5.0) g/dL Globulin (2.2-3.9) gm/dL Albumin/Globulin Ratio (1.0-2.1) TSH 3rd Generation (0.46-4.68) mIU/L Beta HCG, Quant mIU/ML Cortisol AM Sample (4.46-22.7) ug/dL Arterial Blood Potassium (3.6-5.2) mmol/L Blood Type Antibody Screen 10/12/17 10/12/17 10/12/17 Range/Units 18:26 18:10 17:50 WBC (4.8-10.8) K/uL RBC (3.80-5.20) Mil/uL Hgb (11.0-16.0) g/dL Hct (34.0-47.0) % MCV (81.0-99.0) fL MCH (27.0-31.0) pg MCHC (33.0-37.0) g/dL RDW (11.5-14.5) % Plt Count (130-400) K/uL MPV (7.2-11.7) fL Neut % (Auto) (50.0-75.0) % Lymph % (Auto) (20.0-40.0) % [place] % (Auto) (0.0-10.0) % Eos % (Auto) (0.0-4.0) % Baso % (Auto) (0.0-2.0) % Neut # (Auto) (1.8-7.0) K/uL Lymph # (Auto) (1.0-4.3) K/uL [place] # (Auto) (0.0-0.8) K/uL Eos # (Auto) (0.0-0.7) K/uL Baso # (Auto) (0.0-0.2) K/uL Neutrophils % (Manual) (50-75) % Band Neutrophils % (0-2) % Lymphocytes % (Manual) (20-40) % Reactive Lymphs % (0-0) % Monocytes % (Manual) (0-10) % Myelocytes % (0-0) % Promyelocytes % (0-0) % Nucleated RBC % (0-0) % Platelet Estimate (NORMAL) Polychromasia Hypochromasia (manual) Anisocytosis (manual) Target Cells PT (9.7-12.2) SECONDS INR APTT (21-34) SECONDS Fibrinogen (200-400) mg/dL Puncture Site Rba pCO2 39 (35-45) mm/Hg pO2 96 (80-100) mm/Hg HCO3 16.2 L (21-28) mmol/L ABG pH 7.22 L (7.35-7.45) ABG Total CO2 17.2 L (22-28) mmol/L ABG O2 Saturation 97.7 (95-98) % ABG Base Excess -11.1 L (-2.0-3.0) mmol/L Alfredo Test Pos ABG Potassium 5.6 H (3.6-5.2) mmol/L A-a O2 Difference 568.0 mm/Hg Respiratory Index 5.9 Sodium 142 137.0 (132-148) mmol/l Chloride 104 104.0 (98-107) mmol/L Glucose 127 H (65-105) mg/dl Lactate 8.7 H* (0.7-2.1) mmol/L Vent Mode Prvc Mechanical Rate 16 FiO2 100.0 % Tidal Volume 500 PEEP 5 Crit Value Called To Dr kilpatrick Crit Value Called By [facility] Crit Value Read Back Y Blood Gas Notified Time 1822 Potassium 5.9 H (3.6-5.2) mmol/L Carbon Dioxide 13 L (22-30) mmol/L Anion Gap 31 H (10-20) BUN 38 H (7-17) mg/dL Creatinine 6.2 H (0.7-1.2) mg/dL Est GFR ( Amer) 10 Est GFR (Non-Af Amer) 8 POC Glucose (mg/dL) 164 H (65-110) mg/dL Random Glucose 113 H (65-105) mg/dL Lactic Acid (0.7-2.1) mmol/L Calcium 6.6 L (8.6-10.4) mg/dl Phosphorus (2.5-4.5) mg/dL Magnesium (1.6-2.3) mg/dL Total Bilirubin 1.4 H (0.2-1.3) mg/dL AST 81 H D (14-36) U/L ALT 30 (9-52) U/L Alkaline Phosphatase 68 (38-126) U/L Troponin I 0.2980 H* (0.00-0.120) ng/mL NT-Pro-B Natriuret Pep (0-450) pg/mL Total Protein 4.4 L (6.3-8.3) g/dL Albumin 2.2 L D (3.5-5.0) g/dL Globulin 2.1 L (2.2-3.9) gm/dL Albumin/Globulin Ratio 1.1 (1.0-2.1) TSH 3rd Generation (0.46-4.68) mIU/L Beta HCG, Quant mIU/ML Cortisol AM Sample (4.46-22.7) ug/dL Arterial Blood Potassium 5.6 H (3.6-5.2) mmol/L Blood Type Antibody Screen 10/12/17 10/12/17 10/12/17 Range/Units 17:17 17:09 11:42 WBC (4.8-10.8) K/uL RBC (3.80-5.20) Mil/uL Hgb (11.0-16.0) g/dL Hct (34.0-47.0) % MCV (81.0-99.0) fL MCH (27.0-31.0) pg MCHC (33.0-37.0) g/dL RDW (11.5-14.5) % Plt Count (130-400) K/uL MPV (7.2-11.7) fL Neut % (Auto) (50.0-75.0) % Lymph % (Auto) (20.0-40.0) % [place] % (Auto) (0.0-10.0) % Eos % (Auto) (0.0-4.0) % Baso % (Auto) (0.0-2.0) % Neut # (Auto) (1.8-7.0) K/uL Lymph # (Auto) (1.0-4.3) K/uL [place] # (Auto) (0.0-0.8) K/uL Eos # (Auto) (0.0-0.7) K/uL Baso # (Auto) (0.0-0.2) K/uL Neutrophils % (Manual) (50-75) % Band Neutrophils % (0-2) % Lymphocytes % (Manual) (20-40) % Reactive Lymphs % (0-0) % Monocytes % (Manual) (0-10) % Myelocytes % (0-0) % Promyelocytes % (0-0) % Nucleated RBC % (0-0) % Platelet Estimate (NORMAL) Polychromasia Hypochromasia (manual) Anisocytosis (manual) Target Cells PT (9.7-12.2) SECONDS INR APTT (21-34) SECONDS Fibrinogen (200-400) mg/dL Puncture Site pCO2 (35-45) mm/Hg pO2 (80-100) mm/Hg HCO3 (21-28) mmol/L ABG pH (7.35-7.45) ABG Total CO2 (22-28) mmol/L ABG O2 Saturation (95-98) % ABG Base Excess (-2.0-3.0) mmol/L Alfredo Test ABG Potassium (3.6-5.2) mmol/L A-a O2 Difference mm/Hg Respiratory Index Sodium (132-148) mmol/l Chloride (98-107) mmol/L Glucose (65-105) mg/dl Lactate (0.7-2.1) mmol/L Vent Mode Mechanical Rate FiO2 % Tidal Volume PEEP Crit Value Called To Crit Value Called By Crit Value Read Back Blood Gas Notified Time Potassium (3.6-5.2) mmol/L Carbon Dioxide (22-30) mmol/L Anion Gap (10-20) BUN (7-17) mg/dL Creatinine (0.7-1.2) mg/dL Est GFR ( Amer) Est GFR (Non-Af Amer) POC Glucose (mg/dL) 258 H 21 L* (65-110) mg/dL Random Glucose (65-105) mg/dL Lactic Acid (0.7-2.1) mmol/L Calcium (8.6-10.4) mg/dl Phosphorus (2.5-4.5) mg/dL Magnesium (1.6-2.3) mg/dL Total Bilirubin (0.2-1.3) mg/dL AST (14-36) U/L ALT (9-52) U/L Alkaline Phosphatase (38-126) U/L Troponin I (0.00-0.120) ng/mL NT-Pro-B Natriuret Pep (0-450) pg/mL Total Protein (6.3-8.3) g/dL Albumin (3.5-5.0) g/dL Globulin (2.2-3.9) gm/dL Albumin/Globulin Ratio (1.0-2.1) TSH 3rd Generation (0.46-4.68) mIU/L Beta HCG, Quant mIU/ML Cortisol AM Sample (4.46-22.7) ug/dL Arterial Blood Potassium (3.6-5.2) mmol/L Blood Type A NEGATIVE Antibody Screen Negative Laboratory Results - last 24 hr 10/12/17 10/12/17 10/12/17 11:42 17:09 17:17 WBC RBC Hgb Hct MCV MCH MCHC RDW Plt Count MPV Neut % (Auto) Lymph % (Auto) [place] % (Auto) Eos % (Auto) Baso % (Auto) Neut # (Auto) Lymph # (Auto) [place] # (Auto) Eos # (Auto) Baso # (Auto) Neutrophils % (Manual) Band Neutrophils % Lymphocytes % (Manual) Reactive Lymphs % Monocytes % (Manual) Myelocytes % Promyelocytes % Nucleated RBC % Platelet Estimate Polychromasia Hypochromasia (manual) Anisocytosis (manual) Target Cells PT INR APTT Fibrinogen Puncture Site pCO2 pO2 HCO3 ABG pH ABG Total CO2 ABG O2 Saturation ABG Base Excess Alfredo Test ABG Potassium A-a O2 Difference Respiratory Index Sodium Chloride Glucose Lactate Vent Mode Mechanical Rate FiO2 Tidal Volume PEEP Crit Value Called To Crit Value Called By Crit Value Read Back Blood Gas Notified Time Potassium Carbon Dioxide Anion Gap BUN Creatinine Est GFR ( Amer) Est GFR (Non-Af Amer) POC Glucose (mg/dL) 21 L* 258 H Random Glucose Lactic Acid Calcium Phosphorus Magnesium Total Bilirubin AST ALT Alkaline Phosphatase Troponin I NT-Pro-B Natriuret Pep Total Protein Albumin Globulin Albumin/Globulin Ratio TSH 3rd Generation Beta HCG, Quant Cortisol AM Sample Arterial Blood Potassium Blood Type A NEGATIVE Antibody Screen Negative 10/12/17 10/12/17 10/12/17 17:50 18:10 18:26 WBC RBC Hgb Hct MCV MCH MCHC RDW Plt Count MPV Neut % (Auto) Lymph % (Auto) [place] % (Auto) Eos % (Auto) Baso % (Auto) Neut # (Auto) Lymph # (Auto) [place] # (Auto) Eos # (Auto) Baso # (Auto) Neutrophils % (Manual) Band Neutrophils % Lymphocytes % (Manual) Reactive Lymphs % Monocytes % (Manual) Myelocytes % Promyelocytes % Nucleated RBC % Platelet Estimate Polychromasia Hypochromasia (manual) Anisocytosis (manual) Target Cells PT INR APTT Fibrinogen Puncture Site Rba pCO2 39 pO2 96 HCO3 16.2 L ABG pH 7.22 L ABG Total CO2 17.2 L ABG O2 Saturation 97.7 ABG Base Excess -11.1 L Alfredo Test Pos ABG Potassium 5.6 H A-a O2 Difference 568.0 Respiratory Index 5.9 Sodium 137.0 142 Chloride 104.0 104 Glucose 127 H Lactate 8.7 H* Vent Mode Prvc Mechanical Rate 16 FiO2 100.0 Tidal Volume 500 PEEP 5 Crit Value Called To Dr kilpatrick Crit Value Called By [facility] Crit Value Read Back Y Blood Gas Notified Time 1822 Potassium 5.9 H Carbon Dioxide 13 L Anion Gap 31 H BUN 38 H Creatinine 6.2 H Est GFR ( Amer) 10 Est GFR (Non-Af Amer) 8 POC Glucose (mg/dL) 164 H Random Glucose 113 H Lactic Acid Calcium 6.6 L Phosphorus Magnesium Total Bilirubin 1.4 H AST 81 H D ALT 30 Alkaline Phosphatase 68 Troponin I 0.2980 H* NT-Pro-B Natriuret Pep Total Protein 4.4 L Albumin 2.2 L D Globulin 2.1 L Albumin/Globulin Ratio 1.1 TSH 3rd Generation Beta HCG, Quant Cortisol AM Sample Arterial Blood Potassium 5.6 H Blood Type Antibody Screen 10/12/17 10/12/17 10/12/17 18:26 18:45 19:50 WBC 21.0 H RBC 3.67 L Hgb 10.3 L Hct 32.8 L MCV 89.3 D MCH 28.0 MCHC 31.3 L RDW 19.0 H Plt Count 232 MPV 7.8 Neut % (Auto) Lymph % (Auto) [place] % (Auto) Eos % (Auto) Baso % (Auto) Neut # (Auto) Lymph # (Auto) [place] # (Auto) Eos # (Auto) Baso # (Auto) Neutrophils % (Manual) Band Neutrophils % Lymphocytes % (Manual) Reactive Lymphs % Monocytes % (Manual) Myelocytes % Promyelocytes % Nucleated RBC % Platelet Estimate Polychromasia Hypochromasia (manual) Anisocytosis (manual) Target Cells PT INR APTT Fibrinogen Puncture Site pCO2 pO2 HCO3 ABG pH ABG Total CO2 ABG O2 Saturation ABG Base Excess Alfredo Test ABG Potassium A-a O2 Difference Respiratory Index Sodium Chloride Glucose Lactate Vent Mode Mechanical Rate FiO2 Tidal Volume PEEP Crit Value Called To Crit Value Called By Crit Value Read Back Blood Gas Notified Time Potassium Carbon Dioxide Anion Gap BUN Creatinine Est GFR ( Amer) Est GFR (Non-Af Amer) POC Glucose (mg/dL) 97 191 H Random Glucose Lactic Acid Calcium Phosphorus Magnesium Total Bilirubin AST ALT Alkaline Phosphatase Troponin I NT-Pro-B Natriuret Pep Total Protein Albumin Globulin Albumin/Globulin Ratio TSH 3rd Generation Beta HCG, Quant Cortisol AM Sample Arterial Blood Potassium Blood Type Antibody Screen 10/12/17 10/12/17 10/12/17 21:04 21:52 22:15 WBC RBC Hgb Hct MCV MCH MCHC RDW Plt Count MPV Neut % (Auto) Lymph % (Auto) [place] % (Auto) Eos % (Auto) Baso % (Auto) Neut # (Auto) Lymph # (Auto) [place] # (Auto) Eos # (Auto) Baso # (Auto) Neutrophils % (Manual) Band Neutrophils % Lymphocytes % (Manual) Reactive Lymphs % Monocytes % (Manual) Myelocytes % Promyelocytes % Nucleated RBC % Platelet Estimate Polychromasia Hypochromasia (manual) Anisocytosis (manual) Target Cells PT INR APTT Fibrinogen Puncture Site pCO2 pO2 HCO3 ABG pH ABG Total CO2 ABG O2 Saturation ABG Base Excess Alfredo Test ABG Potassium A-a O2 Difference Respiratory Index Sodium Chloride Glucose Lactate Vent Mode Mechanical Rate FiO2 Tidal Volume PEEP Crit Value Called To Crit Value Called By Crit Value Read Back Blood Gas Notified Time Potassium Carbon Dioxide Anion Gap BUN Creatinine Est GFR ( Amer) Est GFR (Non-Af Amer) POC Glucose (mg/dL) 188 H 151 H Random Glucose Lactic Acid 5.9 H* Calcium Phosphorus Magnesium Total Bilirubin AST ALT Alkaline Phosphatase Troponin I NT-Pro-B Natriuret Pep Total Protein Albumin Globulin Albumin/Globulin Ratio TSH 3rd Generation Beta HCG, Quant Cortisol AM Sample Arterial Blood Potassium Blood Type Antibody Screen 10/12/17 10/12/17 10/12/17 22:15 22:15 22:15 WBC RBC Hgb Hct MCV MCH MCHC RDW Plt Count MPV Neut % (Auto) Lymph % (Auto) [place] % (Auto) Eos % (Auto) Baso % (Auto) Neut # (Auto) Lymph # (Auto) [place] # (Auto) Eos # (Auto) Baso # (Auto) Neutrophils % (Manual) Band Neutrophils % Lymphocytes % (Manual) Reactive Lymphs % Monocytes % (Manual) Myelocytes % Promyelocytes % Nucleated RBC % Platelet Estimate Polychromasia Hypochromasia (manual) Anisocytosis (manual) Target Cells PT 22.0 H INR 2.0 APTT 31 Fibrinogen 218 Puncture Site pCO2 pO2 HCO3 ABG pH ABG Total CO2 ABG O2 Saturation ABG Base Excess Alfredo Test ABG Potassium A-a O2 Difference Respiratory Index Sodium Chloride Glucose Lactate Vent Mode Mechanical Rate FiO2 Tidal Volume PEEP Crit Value Called To Crit Value Called By Crit Value Read Back Blood Gas Notified Time Potassium Carbon Dioxide Anion Gap BUN Creatinine Est GFR ( Amer) Est GFR (Non-Af Amer) POC Glucose (mg/dL) Random Glucose Lactic Acid Calcium Phosphorus Magnesium Total Bilirubin AST ALT Alkaline Phosphatase Troponin I 0.3220 H* NT-Pro-B Natriuret Pep 897941 H Total Protein Albumin Globulin Albumin/Globulin Ratio TSH 3rd Generation Beta HCG, Quant Cortisol AM Sample Arterial Blood Potassium Blood Type Antibody Screen 10/12/17 10/12/17 10/12/17 22:15 22:15 22:15 WBC 11.7 H RBC 3.82 Hgb 10.4 L Hct 32.9 L MCV 86.2 D MCH 27.3 MCHC 31.7 L RDW 18.7 H Plt Count 240 MPV 7.8 Neut % (Auto) 90.1 H Lymph % (Auto) 7.1 L [place] % (Auto) 1.3 Eos % (Auto) 0.3 Baso % (Auto) 1.2 Neut # (Auto) 10.6 H Lymph # (Auto) 0.8 L [place] # (Auto) 0.2 Eos # (Auto) 0.0 Baso # (Auto) 0.1 Neutrophils % (Manual) 51 Band Neutrophils % 30 H* Lymphocytes % (Manual) 7 L Reactive Lymphs % 7 H Monocytes % (Manual) 2 Myelocytes % 1 H Promyelocytes % 2 H Nucleated RBC % 2 H Platelet Estimate Normal Polychromasia Hypochromasia (manual) Anisocytosis (manual) Target Cells PT INR APTT Fibrinogen Puncture Site pCO2 pO2 HCO3 ABG pH ABG Total CO2 ABG O2 Saturation ABG Base Excess Alfredo Test ABG Potassium A-a O2 Difference Respiratory Index Sodium 139 Chloride 98 Glucose Lactate Vent Mode Mechanical Rate FiO2 Tidal Volume PEEP Crit Value Called To Crit Value Called By Crit Value Read Back Blood Gas Notified Time Potassium 4.2 Carbon Dioxide 21 L Anion Gap 25 H BUN 44 H Creatinine 6.1 H Est GFR ( Amer) 10 Est GFR (Non-Af Amer) 8 POC Glucose (mg/dL) Random Glucose 144 H Lactic Acid Calcium 7.7 L Phosphorus 6.5 H Magnesium 2.9 H Total Bilirubin 1.6 H AST 82 H ALT 70 H D Alkaline Phosphatase 83 Troponin I NT-Pro-B Natriuret Pep Total Protein 4.9 L Albumin 2.7 L D Globulin 2.2 Albumin/Globulin Ratio 1.2 TSH 3rd Generation Beta HCG, Quant < 2.39 Cortisol AM Sample Arterial Blood Potassium Blood Type Antibody Screen 10/12/17 10/12/17 10/13/17 23:06 23:54 00:56 WBC RBC Hgb Hct MCV MCH MCHC RDW Plt Count MPV Neut % (Auto) Lymph % (Auto) [place] % (Auto) Eos % (Auto) Baso % (Auto) Neut # (Auto) Lymph # (Auto) [place] # (Auto) Eos # (Auto) Baso # (Auto) Neutrophils % (Manual) Band Neutrophils % Lymphocytes % (Manual) Reactive Lymphs % Monocytes % (Manual) Myelocytes % Promyelocytes % Nucleated RBC % Platelet Estimate Polychromasia Hypochromasia (manual) Anisocytosis (manual) Target Cells PT INR APTT Fibrinogen Puncture Site pCO2 pO2 HCO3 ABG pH ABG Total CO2 ABG O2 Saturation ABG Base Excess Alfredo Test ABG Potassium A-a O2 Difference Respiratory Index Sodium Chloride Glucose Lactate Vent Mode Mechanical Rate FiO2 Tidal Volume PEEP Crit Value Called To Crit Value Called By Crit Value Read Back Blood Gas Notified Time Potassium Carbon Dioxide Anion Gap BUN Creatinine Est GFR ( Amer) Est GFR (Non-Af Amer) POC Glucose (mg/dL) 119 H 100 121 H Random Glucose Lactic Acid Calcium Phosphorus Magnesium Total Bilirubin AST ALT Alkaline Phosphatase Troponin I NT-Pro-B Natriuret Pep Total Protein Albumin Globulin Albumin/Globulin Ratio TSH 3rd Generation Beta HCG, Quant Cortisol AM Sample Arterial Blood Potassium Blood Type Antibody Screen 10/13/17 10/13/17 10/13/17 01:56 02:10 03:09 WBC RBC Hgb Hct MCV MCH MCHC RDW Plt Count MPV Neut % (Auto) Lymph % (Auto) [place] % (Auto) Eos % (Auto) Baso % (Auto) Neut # (Auto) Lymph # (Auto) [place] # (Auto) Eos # (Auto) Baso # (Auto) Neutrophils % (Manual) Band Neutrophils % Lymphocytes % (Manual) Reactive Lymphs % Monocytes % (Manual) Myelocytes % Promyelocytes % Nucleated RBC % Platelet Estimate Polychromasia Hypochromasia (manual) Anisocytosis (manual) Target Cells PT INR APTT Fibrinogen Puncture Site pCO2 pO2 HCO3 ABG pH ABG Total CO2 ABG O2 Saturation ABG Base Excess Alfredo Test ABG Potassium A-a O2 Difference Respiratory Index Sodium Chloride Glucose Lactate Vent Mode Mechanical Rate FiO2 Tidal Volume PEEP Crit Value Called To Crit Value Called By Crit Value Read Back Blood Gas Notified Time Potassium Carbon Dioxide Anion Gap BUN Creatinine Est GFR ( Amer) Est GFR (Non-Af Amer) POC Glucose (mg/dL) 111 H 129 H Random Glucose Lactic Acid 1.8 Calcium Phosphorus Magnesium Total Bilirubin AST ALT Alkaline Phosphatase Troponin I NT-Pro-B Natriuret Pep Total Protein Albumin Globulin Albumin/Globulin Ratio TSH 3rd Generation Beta HCG, Quant Cortisol AM Sample Arterial Blood Potassium Blood Type Antibody Screen 10/13/17 10/13/17 10/13/17 04:59 05:18 05:51 WBC RBC Hgb Hct MCV MCH MCHC RDW Plt Count MPV Neut % (Auto) Lymph % (Auto) [place] % (Auto) Eos % (Auto) Baso % (Auto) Neut # (Auto) Lymph # (Auto) [place] # (Auto) Eos # (Auto) Baso # (Auto) Neutrophils % (Manual) Band Neutrophils % Lymphocytes % (Manual) Reactive Lymphs % Monocytes % (Manual) Myelocytes % Promyelocytes % Nucleated RBC % Platelet Estimate Polychromasia Hypochromasia (manual) Anisocytosis (manual) Target Cells PT INR APTT Fibrinogen Puncture Site Rr pCO2 41 pO2 46 L HCO3 30.2 H ABG pH 7.49 H ABG Total CO2 32.5 H ABG O2 Saturation 82.7 L ABG Base Excess 7.2 H Alfredo Test Pos ABG Potassium 4.5 A-a O2 Difference 616.0 Respiratory Index 13.4 Sodium 137.0 Chloride 100.0 Glucose 158 H Lactate 3.0 H Vent Mode Prvc Mechanical Rate 22 FiO2 100.0 Tidal Volume 500 PEEP 5 Crit Value Called To Crit Value Called By Crit Value Read Back Blood Gas Notified Time Potassium Carbon Dioxide Anion Gap BUN Creatinine Est GFR ( Amer) Est GFR (Non-Af Amer) POC Glucose (mg/dL) 158 H 186 H Random Glucose Lactic Acid Calcium Phosphorus Magnesium Total Bilirubin AST ALT Alkaline Phosphatase Troponin I NT-Pro-B Natriuret Pep Total Protein Albumin Globulin Albumin/Globulin Ratio TSH 3rd Generation Beta HCG, Quant Cortisol AM Sample Arterial Blood Potassium 4.5 Blood Type Antibody Screen 10/13/17 10/13/17 10/13/17 06:33 06:33 06:33 WBC 13.1 H RBC 3.98 Hgb 11.3 Hct 33.8 L MCV 84.8 MCH 28.4 MCHC 33.5 RDW 18.7 H Plt Count 222 MPV 7.8 Neut % (Auto) 94.6 H Lymph % (Auto) 2.6 L [place] % (Auto) 2.5 Eos % (Auto) 0.1 Baso % (Auto) 0.2 Neut # (Auto) 12.3 H Lymph # (Auto) 0.3 L [place] # (Auto) 0.3 Eos # (Auto) 0.0 Baso # (Auto) 0.0 Neutrophils % (Manual) 45 L Band Neutrophils % 52 H* Lymphocytes % (Manual) 1 L Reactive Lymphs % Monocytes % (Manual) 2 Myelocytes % Promyelocytes % Nucleated RBC % Platelet Estimate Normal Polychromasia Slight Hypochromasia (manual) Slight Anisocytosis (manual) Slight Target Cells Slight PT INR APTT Fibrinogen Puncture Site pCO2 pO2 HCO3 ABG pH ABG Total CO2 ABG O2 Saturation ABG Base Excess Alfredo Test ABG Potassium A-a O2 Difference Respiratory Index Sodium 140 Chloride 95 L Glucose Lactate Vent Mode Mechanical Rate FiO2 Tidal Volume PEEP Crit Value Called To Crit Value Called By Crit Value Read Back Blood Gas Notified Time Potassium 4.3 Carbon Dioxide 30 Anion Gap 20 BUN 27 H Creatinine 4.2 H Est GFR ( Amer) 16 Est GFR (Non-Af Amer) 13 POC Glucose (mg/dL) Random Glucose 139 H Lactic Acid Calcium 7.8 L Phosphorus 3.8 Magnesium 2.6 H Total Bilirubin 1.3 AST 110 H D ALT 99 H D Alkaline Phosphatase 83 Troponin I 0.2870 H* NT-Pro-B Natriuret Pep Total Protein 5.4 L Albumin 3.0 L Globulin 2.5 Albumin/Globulin Ratio 1.2 TSH 3rd Generation Beta HCG, Quant Cortisol AM Sample 19.4 Arterial Blood Potassium Blood Type Antibody Screen 10/13/17 10/13/17 10/13/17 06:33 06:33 06:36 WBC RBC Hgb Hct MCV MCH MCHC RDW Plt Count MPV Neut % (Auto) Lymph % (Auto) [place] % (Auto) Eos % (Auto) Baso % (Auto) Neut # (Auto) Lymph # (Auto) [place] # (Auto) Eos # (Auto) Baso # (Auto) Neutrophils % (Manual) Band Neutrophils % Lymphocytes % (Manual) Reactive Lymphs % Monocytes % (Manual) Myelocytes % Promyelocytes % Nucleated RBC % Platelet Estimate Polychromasia Hypochromasia (manual) Anisocytosis (manual) Target Cells PT INR APTT Fibrinogen Puncture Site R rad pCO2 38 pO2 104 H HCO3 30.3 H ABG pH 7.51 H ABG Total CO2 31.5 H ABG O2 Saturation 98.6 H ABG Base Excess 6.9 H Alfredo Test Pos ABG Potassium 4.0 A-a O2 Difference 562.0 Respiratory Index 5.4 Sodium 134.0 Chloride 97.0 L Glucose 179 H Lactate 2.5 H Vent Mode Prvc Mechanical Rate 22 FiO2 100.0 Tidal Volume 500 PEEP 5 Crit Value Called To Crit Value Called By Crit Value Read Back Blood Gas Notified Time Potassium Carbon Dioxide Anion Gap BUN Creatinine Est GFR ( Amer) Est GFR (Non-Af Amer) POC Glucose (mg/dL) Random Glucose Lactic Acid 2.8 H Calcium Phosphorus Magnesium Total Bilirubin AST ALT Alkaline Phosphatase Troponin I NT-Pro-B Natriuret Pep Total Protein Albumin Globulin Albumin/Globulin Ratio TSH 3rd Generation 2.12 Beta HCG, Quant Cortisol AM Sample Arterial Blood Potassium 4.0 Blood Type Antibody Screen 10/13/17 10/13/17 10/13/17 06:51 07:50 09:13 WBC RBC Hgb Hct MCV MCH MCHC RDW Plt Count MPV Neut % (Auto) Lymph % (Auto) [place] % (Auto) Eos % (Auto) Baso % (Auto) Neut # (Auto) Lymph # (Auto) [place] # (Auto) Eos # (Auto) Baso # (Auto) Neutrophils % (Manual) Band Neutrophils % Lymphocytes % (Manual) Reactive Lymphs % Monocytes % (Manual) Myelocytes % Promyelocytes % Nucleated RBC % Platelet Estimate Polychromasia Hypochromasia (manual) Anisocytosis (manual) Target Cells PT INR APTT Fibrinogen Puncture Site pCO2 pO2 HCO3 ABG pH ABG Total CO2 ABG O2 Saturation ABG Base Excess Alfredo Test ABG Potassium A-a O2 Difference Respiratory Index Sodium Chloride Glucose Lactate Vent Mode Mechanical Rate FiO2 Tidal Volume PEEP Crit Value Called To Crit Value Called By Crit Value Read Back Blood Gas Notified Time Potassium Carbon Dioxide Anion Gap BUN Creatinine Est GFR ( Amer) Est GFR (Non-Af Amer) POC Glucose (mg/dL) 202 H 178 H 143 H Random Glucose Lactic Acid Calcium Phosphorus Magnesium Total Bilirubin AST ALT Alkaline Phosphatase Troponin I NT-Pro-B Natriuret Pep Total Protein Albumin Globulin Albumin/Globulin Ratio TSH 3rd Generation Beta HCG, Quant Cortisol AM Sample Arterial Blood Potassium Blood Type Antibody Screen EKG/Cardiology Studies: Cardiology / EKG Studies 10/12/17 20:15 EKG [ELECTROCARDIOGRAM] Stat Comment: Mode Of Transportation: Reason For Exam: elevated troponin Fingerstick Blood Sugar Results: 178 Review of Systems - Review of Systems Systems not reviewed;Unavailable: Intubated Critical Care Progress Note - Nutrition Nutrition: Nutrition Category Date Time Status NPO Diet [DIET] Diets 10/12/17 Breakfast Active Assessment/Plan - Assessment and Plan (Free Text) Assessment: 27 y/o female admitted to ER with c/o abdominal pain. Patient was dx with perforated transverse colon. Patient underwent abdominal surgery. Post surgery, patient did not awaken and blood sugar was found to be ~20s. ICu consulted for AMS post surgery and hypoxic respiratory failure. Plan: Neuro: A: Altered Mental Status. Seizures GCS: 11T Sedation: None Head CT (10/12): NEGATIVE Neurology on [place]. F/U EEG. Cardio A: Hx of HTN. Patient is normotensive. Hold Anti-Hypertensi ves F/U ECHO. Troponins Downtrending. Pulm: A: Hypoxic Res. Failure ABG (10/13): 7.5/38/104/30 CXR Today NEGATIVE PRVC 22 RR, 100 Fi02, 500 TV, 5 PEEPD GI A: perforated colon s/p ex lap w/ left hemicolectom yand primary anastomosis POD 1 ON-Q G-Tube NPO Protonix IV Daily Gen Surg on Consult. Renal A: CARMELO on CKD, Hypocalcemia, Hypermangeseima. Cr improving Cont. IV Fluids HD on MWF ID A: Sepsis post Adominal Surgery, Leukocytosis, Increase Band Neutrophils. Cont. IV Antibiotics: Cipro, Flagyl, Meropenem. Proph SCD's IV protonix. Patient seen and examined with ICU Attending Jordan Hess, PGY - 1 <Jesús Neely - Last Filed: 10/13/17 12:11> CCU Subjective - Physician Review Events Since Last Encounter (Free Text): 10/13/17 12:08 Patient admitted to the intensive care unit following the exploratory laparotomy , for perforated viscus. Postoperatively patient developed episode of hypoglycemia, hypoglycemic metabolic encephalopathy. Patient intubated, currently in the intensive care unit. FiO2 80%. Patient is awake and responding. I spoke to the patient's mother this morning with the pot lining supervisor. I explained the family regarding the condition. Patient is currently otherwise is stable at this time. Patient will be also getting hemodialysis, seen by roll plugger machine operator. Patient will be weaned off from the ventilator wants to FiO2 improves. Meanwhile will continue the current treatment. CCU Objective - Vital Signs / Intake & Output Vital Signs (Last 4 hours): Vital Signs Pulse Resp BP Pulse Ox 10/13/17 11:15 93 H 22 110/74 99 10/13/17 11:00 95 H 22 98 10/13/17 10:26 90 19 111/72 97 10/13/17 10:16 96 H 24 130/76 98 10/13/17 10:00 94 H 15 98 10/13/17 09:16 92 H 22 136/76 98 10/13/17 09:00 91 H 22 99 10/13/17 08:16 90 22 128/71 99 Intake and Output (Last 8hrs): Intake & Output 10/12/17 10/13/17 10/13/17 22:59 06:59 14:59 Intake Total 900 1350 600 Output Total 2360 90 Balance 900 -1010 510 Weight 112 lb Intake: IV 900 Intake, IV Amount 1350 600 Right Medial Port 450 200 Internal Jugular Right Proximal Port 900 400 Internal Jugular Output: Drainage 360 90 Right Lateral Abdomen 360 90 Urine 0 Urine, Voided 0 Emesis 0 Other 2000 Other: # Bowel Movements 0 - Physical Exam Narrative Physical Exam (Free Text): 10/13/17 12:09 Follows comments. Chest good air entry Regular heart sound Abdominal drain noted following the surgery. Edema noted - Medications Active Medications: Active Medications Generic Name Dose Route Start Last Admin Trade Name Freq PRN Reason Stop Dose Admin BUPIVACAINE 0.125%/0.9% NACL 600 mls @ 4 mls/hr 10/12/17 11:09 Bupivacaine-Ns 0.125% On-Q Belt Puncher IJ 10/18/17 17:08 ONCE ONE Ciprofloxacin 400 mg in 200 mls @ 133 mls/hr 10/12/17 13:45 10/12/17 14:15 Cipro 400mg/200ml Dsw IVPB 200 mls Q24H VASILIY Administration Protocol Metronidazole 500 mg in 100 mls @ 100 mls/hr 10/12/17 14:00 10/13/17 05:03 Flagyl IVPB 100 mls/hr Q8 VASILIY Administration Protocol Norepinephrine Bitartrate 4 mg 254 mls @ 15.24 mls/hr 10/12/17 21:33 / Sodium Chloride IV .[id number] PRN TITRATE PER MD ORDER Protocol 4 MCG/MIN Dextrose 1,000 mls @ 100 mls/hr 10/12/17 22:00 10/12/17 23:18 Dextrose 10% In Water IV 100 mls/hr .Q10H VASILIY Administration Meropenem 500 mg/ Sodium 100 mls @ 100 mls/hr 10/13/17 10:00 10/13/17 10:00 Chloride IVPB 100 mls/hr DAILY VASILIY Administration Protocol Lorazepam 2 mg 10/12/17 20:46 10/13/17 06:57 Ativan IVP 2 mg Q2H PRN Administration Seizure activity Ondansetron HCl 4 mg 10/12/17 10:00 10/12/17 10:12 Zofran Inj IVP 4 mg Q6H PRN Administration Nausea/Vomiting Pantoprazole Sodium 40 mg 10/12/17 10:00 10/13/17 10:40 Protonix Inj IVP 40 mg DAILY VASILIY Administration - Patient Studies Lab Studies: Microbiology Studies 10/12/17 11:18 Blood Culture - Preliminary Blood-Venous NO GROWTH AFTER 24 HOURS 10/12/17 11:18 Blood Culture - Preliminary Blood-Venous NO GROWTH AFTER 24 HOURS 10/12/17 15:40 Gram Stain - Final Peritoneal Fluid 10/12/17 18:10 Gram Stain - Final Other: Please Indicate Lab Studies 10/13/17 10/13/17 10/13/17 Range/Units 11:23 09:13 07:50 WBC (4.8-10.8) K/uL RBC (3.80-5.20) Mil/uL Hgb (11.0-16.0) g/dL Hct (34.0-47.0) % MCV (81.0-99.0) fL MCH (27.0-31.0) pg MCHC (33.0-37.0) g/dL RDW (11.5-14.5) % Plt Count (130-400) K/uL MPV (7.2-11.7) fL Neut % (Auto) (50.0-75.0) % Lymph % (Auto) (20.0-40.0) % [place] % (Auto) (0.0-10.0) % Eos % (Auto) (0.0-4.0) % Baso % (Auto) (0.0-2.0) % Neut # (Auto) (1.8-7.0) K/uL Lymph # (Auto) (1.0-4.3) K/uL [place] # (Auto) (0.0-0.8) K/uL Eos # (Auto) (0.0-0.7) K/uL Baso # (Auto) (0.0-0.2) K/uL Neutrophils % (Manual) (50-75) % Band Neutrophils % (0-2) % Lymphocytes % (Manual) (20-40) % Reactive Lymphs % (0-0) % Monocytes % (Manual) (0-10) % Myelocytes % (0-0) % Promyelocytes % (0-0) % Nucleated RBC % (0-0) % Platelet Estimate (NORMAL) Polychromasia Hypochromasia (manual) Anisocytosis (manual) Target Cells PT (9.7-12.2) SECONDS INR APTT (21-34) SECONDS Fibrinogen (200-400) mg/dL Puncture Site pCO2 (35-45) mm/Hg pO2 (80-100) mm/Hg HCO3 (21-28) mmol/L ABG pH (7.35-7.45) ABG Total CO2 (22-28) mmol/L ABG O2 Saturation (95-98) % ABG Base Excess (-2.0-3.0) mmol/L Alfredo Test ABG Potassium (3.6-5.2) mmol/L A-a O2 Difference mm/Hg Respiratory Index Sodium (132-148) mmol/l Chloride (98-107) mmol/L Glucose (65-105) mg/dl Lactate (0.7-2.1) mmol/L Vent Mode Mechanical Rate FiO2 % Tidal Volume PEEP Crit Value Called To Crit Value Called By Crit Value Read Back Blood Gas Notified Time Potassium (3.6-5.2) mmol/L Carbon Dioxide (22-30) mmol/L Anion Gap (10-20) BUN (7-17) mg/dL Creatinine (0.7-1.2) mg/dL Est GFR ( Amer) Est GFR (Non-Af Amer) POC Glucose (mg/dL) 131 H 143 H 178 H (65-110) mg/dL Random Glucose (65-105) mg/dL Lactic Acid (0.7-2.1) mmol/L Calcium (8.6-10.4) mg/dl Phosphorus (2.5-4.5) mg/dL Magnesium (1.6-2.3) mg/dL Total Bilirubin (0.2-1.3) mg/dL AST (14-36) U/L ALT (9-52) U/L Alkaline Phosphatase (38-126) U/L Troponin I (0.00-0.120) ng/mL NT-Pro-B Natriuret Pep (0-450) pg/mL Total Protein (6.3-8.3) g/dL Albumin (3.5-5.0) g/dL Globulin (2.2-3.9) gm/dL Albumin/Globulin Ratio (1.0-2.1) TSH 3rd Generation (0.46-4.68) mIU/L Beta HCG, Quant mIU/ML Cortisol AM Sample (4.46-22.7) ug/dL Arterial Blood Potassium (3.6-5.2) mmol/L Blood Type Antibody Screen 10/13/17 10/13/17 10/13/17 Range/Units 06:51 06:36 06:33 WBC (4.8-10.8) K/uL RBC (3.80-5.20) Mil/uL Hgb (11.0-16.0) g/dL Hct (34.0-47.0) % MCV (81.0-99.0) fL MCH (27.0-31.0) pg MCHC (33.0-37.0) g/dL RDW (11.5-14.5) % Plt Count (130-400) K/uL MPV (7.2-11.7) fL Neut % (Auto) (50.0-75.0) % Lymph % (Auto) (20.0-40.0) % [place] % (Auto) (0.0-10.0) % Eos % (Auto) (0.0-4.0) % Baso % (Auto) (0.0-2.0) % Neut # (Auto) (1.8-7.0) K/uL Lymph # (Auto) (1.0-4.3) K/uL [place] # (Auto) (0.0-0.8) K/uL Eos # (Auto) (0.0-0.7) K/uL Baso # (Auto) (0.0-0.2) K/uL Neutrophils % (Manual) (50-75) % Band Neutrophils % (0-2) % Lymphocytes % (Manual) (20-40) % Reactive Lymphs % (0-0) % Monocytes % (Manual) (0-10) % Myelocytes % (0-0) % Promyelocytes % (0-0) % Nucleated RBC % (0-0) % Platelet Estimate (NORMAL) Polychromasia Hypochromasia (manual) Anisocytosis (manual) Target Cells PT (9.7-12.2) SECONDS INR APTT (21-34) SECONDS Fibrinogen (200-400) mg/dL Puncture Site R rad pCO2 38 (35-45) mm/Hg pO2 104 H (80-100) mm/Hg HCO3 30.3 H (21-28) mmol/L ABG pH 7.51 H (7.35-7.45) ABG Total CO2 31.5 H (22-28) mmol/L ABG O2 Saturation 98.6 H (95-98) % ABG Base Excess 6.9 H (-2.0-3.0) mmol/L Alfredo Test Pos ABG Potassium 4.0 (3.6-5.2) mmol/L A-a O2 Difference 562.0 mm/Hg Respiratory Index 5.4 Sodium 134.0 (132-148) mmol/l Chloride 97.0 L (98-107) mmol/L Glucose 179 H (65-105) mg/dl Lactate 2.5 H (0.7-2.1) mmol/L Vent Mode Prvc Mechanical Rate 22 FiO2 100.0 % Tidal Volume 500 PEEP 5 Crit Value Called To Crit Value Called By Crit Value Read Back Blood Gas Notified Time Potassium (3.6-5.2) mmol/L Carbon Dioxide (22-30) mmol/L Anion Gap (10-20) BUN (7-17) mg/dL Creatinine (0.7-1.2) mg/dL Est GFR ( Amer) Est GFR (Non-Af Amer) POC Glucose (mg/dL) 202 H (65-110) mg/dL Random Glucose (65-105) mg/dL Lactic Acid 2.8 H (0.7-2.1) mmol/L Calcium (8.6-10.4) mg/dl Phosphorus (2.5-4.5) mg/dL Magnesium (1.6-2.3) mg/dL Total Bilirubin (0.2-1.3) mg/dL AST (14-36) U/L ALT (9-52) U/L Alkaline Phosphatase (38-126) U/L Troponin I (0.00-0.120) ng/mL NT-Pro-B Natriuret Pep (0-450) pg/mL Total Protein (6.3-8.3) g/dL Albumin (3.5-5.0) g/dL Globulin (2.2-3.9) gm/dL Albumin/Globulin Ratio (1.0-2.1) TSH 3rd Generation (0.46-4.68) mIU/L Beta HCG, Quant mIU/ML Cortisol AM Sample (4.46-22.7) ug/dL Arterial Blood Potassium 4.0 (3.6-5.2) mmol/L Blood Type Antibody Screen 10/13/17 10/13/17 10/13/17 Range/Units 06:33 06:33 06:33 WBC (4.8-10.8) K/uL RBC (3.80-5.20) Mil/uL Hgb (11.0-16.0) g/dL Hct (34.0-47.0) % MCV (81.0-99.0) fL MCH (27.0-31.0) pg MCHC (33.0-37.0) g/dL RDW (11.5-14.5) % Plt Count (130-400) K/uL MPV (7.2-11.7) fL Neut % (Auto) (50.0-75.0) % Lymph % (Auto) (20.0-40.0) % [place] % (Auto) (0.0-10.0) % Eos % (Auto) (0.0-4.0) % Baso % (Auto) (0.0-2.0) % Neut # (Auto) (1.8-7.0) K/uL Lymph # (Auto) (1.0-4.3) K/uL [place] # (Auto) (0.0-0.8) K/uL Eos # (Auto) (0.0-0.7) K/uL Baso # (Auto) (0.0-0.2) K/uL Neutrophils % (Manual) (50-75) % Band Neutrophils % (0-2) % Lymphocytes % (Manual) (20-40) % Reactive Lymphs % (0-0) % Monocytes % (Manual) (0-10) % Myelocytes % (0-0) % Promyelocytes % (0-0) % Nucleated RBC % (0-0) % Platelet Estimate (NORMAL) Polychromasia Hypochromasia (manual) Anisocytosis (manual) Target Cells PT (9.7-12.2) SECONDS INR APTT (21-34) SECONDS Fibrinogen (200-400) mg/dL Puncture Site pCO2 (35-45) mm/Hg pO2 (80-100) mm/Hg HCO3 (21-28) mmol/L ABG pH (7.35-7.45) ABG Total CO2 (22-28) mmol/L ABG O2 Saturation (95-98) % ABG Base Excess (-2.0-3.0) mmol/L Alfredo Test ABG Potassium (3.6-5.2) mmol/L A-a O2 Difference mm/Hg Respiratory Index Sodium 140 (132-148) mmol/l Chloride 95 L (98-107) mmol/L Glucose (65-105) mg/dl Lactate (0.7-2.1) mmol/L Vent Mode Mechanical Rate FiO2 % Tidal Volume PEEP Crit Value Called To Crit Value Called By Crit Value Read Back Blood Gas Notified Time Potassium 4.3 (3.6-5.2) mmol/L Carbon Dioxide 30 (22-30) mmol/L Anion Gap 20 (10-20) BUN 27 H (7-17) mg/dL Creatinine 4.2 H (0.7-1.2) mg/dL Est GFR ( Amer) 16 Est GFR (Non-Af Amer) 13 POC Glucose (mg/dL) (65-110) mg/dL Random Glucose 139 H (65-105) mg/dL Lactic Acid (0.7-2.1) mmol/L Calcium 7.8 L (8.6-10.4) mg/dl Phosphorus 3.8 (2.5-4.5) mg/dL Magnesium 2.6 H (1.6-2.3) mg/dL Total Bilirubin 1.3 (0.2-1.3) mg/dL AST 110 H D (14-36) U/L ALT 99 H D (9-52) U/L Alkaline Phosphatase 83 (38-126) U/L Troponin I 0.2870 H* (0.00-0.120) ng/mL NT-Pro-B Natriuret Pep (0-450) pg/mL Total Protein 5.4 L (6.3-8.3) g/dL Albumin 3.0 L (3.5-5.0) g/dL Globulin 2.5 (2.2-3.9) gm/dL Albumin/Globulin Ratio 1.2 (1.0-2.1) TSH 3rd Generation 2.12 (0.46-4.68) mIU/L Beta HCG, Quant mIU/ML Cortisol AM Sample 19.4 (4.46-22.7) ug/dL Arterial Blood Potassium (3.6-5.2) mmol/L Blood Type Antibody Screen 10/13/17 10/13/17 10/13/17 Range/Units 06:33 05:51 05:18 WBC 13.1 H (4.8-10.8) K/uL RBC 3.98 (3.80-5.20) Mil/uL Hgb 11.3 (11.0-16.0) g/dL Hct 33.8 L (34.0-47.0) % MCV 84.8 (81.0-99.0) fL MCH 28.4 (27.0-31.0) pg MCHC 33.5 (33.0-37.0) g/dL RDW 18.7 H (11.5-14.5) % Plt Count 222 (130-400) K/uL MPV 7.8 (7.2-11.7) fL Neut % (Auto) 94.6 H (50.0-75.0) % Lymph % (Auto) 2.6 L (20.0-40.0) % [place] % (Auto) 2.5 (0.0-10.0) % Eos % (Auto) 0.1 (0.0-4.0) % Baso % (Auto) 0.2 (0.0-2.0) % Neut # (Auto) 12.3 H (1.8-7.0) K/uL Lymph # (Auto) 0.3 L (1.0-4.3) K/uL [place] # (Auto) 0.3 (0.0-0.8) K/uL Eos # (Auto) 0.0 (0.0-0.7) K/uL Baso # (Auto) 0.0 (0.0-0.2) K/uL Neutrophils % (Manual) 45 L (50-75) % Band Neutrophils % 52 H* (0-2) % Lymphocytes % (Manual) 1 L (20-40) % Reactive Lymphs % (0-0) % Monocytes % (Manual) 2 (0-10) % Myelocytes % (0-0) % Promyelocytes % (0-0) % Nucleated RBC % (0-0) % Platelet Estimate Normal (NORMAL) Polychromasia Slight Hypochromasia (manual) Slight Anisocytosis (manual) Slight Target Cells Slight PT (9.7-12.2) SECONDS INR APTT (21-34) SECONDS Fibrinogen (200-400) mg/dL Puncture Site Rr pCO2 41 (35-45) mm/Hg pO2 46 L (80-100) mm/Hg HCO3 30.2 H (21-28) mmol/L ABG pH 7.49 H (7.35-7.45) ABG Total CO2 32.5 H (22-28) mmol/L ABG O2 Saturation 82.7 L (95-98) % ABG Base Excess 7.2 H (-2.0-3.0) mmol/L Alfredo Test Pos ABG Potassium 4.5 (3.6-5.2) mmol/L A-a O2 Difference 616.0 mm/Hg Respiratory Index 13.4 Sodium 137.0 (132-148) mmol/l Chloride 100.0 (98-107) mmol/L Glucose 158 H (65-105) mg/dl Lactate 3.0 H (0.7-2.1) mmol/L Vent Mode Prvc Mechanical Rate 22 FiO2 100.0 % Tidal Volume 500 PEEP 5 Crit Value Called To Crit Value Called By Crit Value Read Back Blood Gas Notified Time Potassium (3.6-5.2) mmol/L Carbon Dioxide (22-30) mmol/L Anion Gap (10-20) BUN (7-17) mg/dL Creatinine (0.7-1.2) mg/dL Est GFR ( Amer) Est GFR (Non-Af Amer) POC Glucose (mg/dL) 186 H (65-110) mg/dL Random Glucose (65-105) mg/dL Lactic Acid (0.7-2.1) mmol/L Calcium (8.6-10.4) mg/dl Phosphorus (2.5-4.5) mg/dL Magnesium (1.6-2.3) mg/dL Total Bilirubin (0.2-1.3) mg/dL AST (14-36) U/L ALT (9-52) U/L Alkaline Phosphatase (38-126) U/L Troponin I (0.00-0.120) ng/mL NT-Pro-B Natriuret Pep (0-450) pg/mL Total Protein (6.3-8.3) g/dL Albumin (3.5-5.0) g/dL Globulin (2.2-3.9) gm/dL Albumin/Globulin Ratio (1.0-2.1) TSH 3rd Generation (0.46-4.68) mIU/L Beta HCG, Quant mIU/ML Cortisol AM Sample (4.46-22.7) ug/dL Arterial Blood Potassium 4.5 (3.6-5.2) mmol/L Blood Type Antibody Screen 10/13/17 10/13/17 10/13/17 Range/Units 04:59 03:09 02:10 WBC (4.8-10.8) K/uL RBC (3.80-5.20) Mil/uL Hgb (11.0-16.0) g/dL Hct (34.0-47.0) % MCV (81.0-99.0) fL MCH (27.0-31.0) pg MCHC (33.0-37.0) g/dL RDW (11.5-14.5) % Plt Count (130-400) K/uL MPV (7.2-11.7) fL Neut % (Auto) (50.0-75.0) % Lymph % (Auto) (20.0-40.0) % [place] % (Auto) (0.0-10.0) % Eos % (Auto) (0.0-4.0) % Baso % (Auto) (0.0-2.0) % Neut # (Auto) (1.8-7.0) K/uL Lymph # (Auto) (1.0-4.3) K/uL [place] # (Auto) (0.0-0.8) K/uL Eos # (Auto) (0.0-0.7) K/uL Baso # (Auto) (0.0-0.2) K/uL Neutrophils % (Manual) (50-75) % Band Neutrophils % (0-2) % Lymphocytes % (Manual) (20-40) % Reactive Lymphs % (0-0) % Monocytes % (Manual) (0-10) % Myelocytes % (0-0) % Promyelocytes % (0-0) % Nucleated RBC % (0-0) % Platelet Estimate (NORMAL) Polychromasia Hypochromasia (manual) Anisocytosis (manual) Target Cells PT (9.7-12.2) SECONDS INR APTT (21-34) SECONDS Fibrinogen (200-400) mg/dL Puncture Site pCO2 (35-45) mm/Hg pO2 (80-100) mm/Hg HCO3 (21-28) mmol/L ABG pH (7.35-7.45) ABG Total CO2 (22-28) mmol/L ABG O2 Saturation (95-98) % ABG Base Excess (-2.0-3.0) mmol/L Alfredo Test ABG Potassium (3.6-5.2) mmol/L A-a O2 Difference mm/Hg Respiratory Index Sodium (132-148) mmol/l Chloride (98-107) mmol/L Glucose (65-105) mg/dl Lactate (0.7-2.1) mmol/L Vent Mode Mechanical Rate FiO2 % Tidal Volume PEEP Crit Value Called To Crit Value Called By Crit Value Read Back Blood Gas Notified Time Potassium (3.6-5.2) mmol/L Carbon Dioxide (22-30) mmol/L Anion Gap (10-20) BUN (7-17) mg/dL Creatinine (0.7-1.2) mg/dL Est GFR ( Amer) Est GFR (Non-Af Amer) POC Glucose (mg/dL) 158 H 129 H (65-110) mg/dL Random Glucose (65-105) mg/dL Lactic Acid 1.8 (0.7-2.1) mmol/L Calcium (8.6-10.4) mg/dl Phosphorus (2.5-4.5) mg/dL Magnesium (1.6-2.3) mg/dL Total Bilirubin (0.2-1.3) mg/dL AST (14-36) U/L ALT (9-52) U/L Alkaline Phosphatase (38-126) U/L Troponin I (0.00-0.120) ng/mL NT-Pro-B Natriuret Pep (0-450) pg/mL Total Protein (6.3-8.3) g/dL Albumin (3.5-5.0) g/dL Globulin (2.2-3.9) gm/dL Albumin/Globulin Ratio (1.0-2.1) TSH 3rd Generation (0.46-4.68) mIU/L Beta HCG, Quant mIU/ML Cortisol AM Sample (4.46-22.7) ug/dL Arterial Blood Potassium (3.6-5.2) mmol/L Blood Type Antibody Screen 10/13/17 10/13/17 10/12/17 Range/Units 01:56 00:56 23:54 WBC (4.8-10.8) K/uL RBC (3.80-5.20) Mil/uL Hgb (11.0-16.0) g/dL Hct (34.0-47.0) % MCV (81.0-99.0) fL MCH (27.0-31.0) pg MCHC (33.0-37.0) g/dL RDW (11.5-14.5) % Plt Count (130-400) K/uL MPV (7.2-11.7) fL Neut % (Auto) (50.0-75.0) % Lymph % (Auto) (20.0-40.0) % [place] % (Auto) (0.0-10.0) % Eos % (Auto) (0.0-4.0) % Baso % (Auto) (0.0-2.0) % Neut # (Auto) (1.8-7.0) K/uL Lymph # (Auto) (1.0-4.3) K/uL [place] # (Auto) (0.0-0.8) K/uL Eos # (Auto) (0.0-0.7) K/uL Baso # (Auto) (0.0-0.2) K/uL Neutrophils % (Manual) (50-75) % Band Neutrophils % (0-2) % Lymphocytes % (Manual) (20-40) % Reactive Lymphs % (0-0) % Monocytes % (Manual) (0-10) % Myelocytes % (0-0) % Promyelocytes % (0-0) % Nucleated RBC % (0-0) % Platelet Estimate (NORMAL) Polychromasia Hypochromasia (manual) Anisocytosis (manual) Target Cells PT (9.7-12.2) SECONDS INR APTT (21-34) SECONDS Fibrinogen (200-400) mg/dL Puncture Site pCO2 (35-45) mm/Hg pO2 (80-100) mm/Hg HCO3 (21-28) mmol/L ABG pH (7.35-7.45) ABG Total CO2 (22-28) mmol/L ABG O2 Saturation (95-98) % ABG Base Excess (-2.0-3.0) mmol/L Alfredo Test ABG Potassium (3.6-5.2) mmol/L A-a O2 Difference mm/Hg Respiratory Index Sodium (132-148) mmol/l Chloride (98-107) mmol/L Glucose (65-105) mg/dl Lactate (0.7-2.1) mmol/L Vent Mode Mechanical Rate FiO2 % Tidal Volume PEEP Crit Value Called To Crit Value Called By Crit Value Read Back Blood Gas Notified Time Potassium (3.6-5.2) mmol/L Carbon Dioxide (22-30) mmol/L Anion Gap (10-20) BUN (7-17) mg/dL Creatinine (0.7-1.2) mg/dL Est GFR ( Amer) Est GFR (Non-Af Amer) POC Glucose (mg/dL) 111 H 121 H 100 (65-110) mg/dL Random Glucose (65-105) mg/dL Lactic Acid (0.7-2.1) mmol/L Calcium (8.6-10.4) mg/dl Phosphorus (2.5-4.5) mg/dL Magnesium (1.6-2.3) mg/dL Total Bilirubin (0.2-1.3) mg/dL AST (14-36) U/L ALT (9-52) U/L Alkaline Phosphatase (38-126) U/L Troponin I (0.00-0.120) ng/mL NT-Pro-B Natriuret Pep (0-450) pg/mL Total Protein (6.3-8.3) g/dL Albumin (3.5-5.0) g/dL Globulin (2.2-3.9) gm/dL Albumin/Globulin Ratio (1.0-2.1) TSH 3rd Generation (0.46-4.68) mIU/L Beta HCG, Quant mIU/ML Cortisol AM Sample (4.46-22.7) ug/dL Arterial Blood Potassium (3.6-5.2) mmol/L Blood Type Antibody Screen 10/12/17 10/12/17 10/12/17 Range/Units 23:06 22:15 22:15 WBC (4.8-10.8) K/uL RBC (3.80-5.20) Mil/uL Hgb (11.0-16.0) g/dL Hct (34.0-47.0) % MCV (81.0-99.0) fL MCH (27.0-31.0) pg MCHC (33.0-37.0) g/dL RDW (11.5-14.5) % Plt Count (130-400) K/uL MPV (7.2-11.7) fL Neut % (Auto) (50.0-75.0) % Lymph % (Auto) (20.0-40.0) % [place] % (Auto) (0.0-10.0) % Eos % (Auto) (0.0-4.0) % Baso % (Auto) (0.0-2.0) % Neut # (Auto) (1.8-7.0) K/uL Lymph # (Auto) (1.0-4.3) K/uL [place] # (Auto) (0.0-0.8) K/uL Eos # (Auto) (0.0-0.7) K/uL Baso # (Auto) (0.0-0.2) K/uL Neutrophils % (Manual) (50-75) % Band Neutrophils % (0-2) % Lymphocytes % (Manual) (20-40) % Reactive Lymphs % (0-0) % Monocytes % (Manual) (0-10) % Myelocytes % (0-0) % Promyelocytes % (0-0) % Nucleated RBC % (0-0) % Platelet Estimate (NORMAL) Polychromasia Hypochromasia (manual) Anisocytosis (manual) Target Cells PT (9.7-12.2) SECONDS INR APTT (21-34) SECONDS Fibrinogen (200-400) mg/dL Puncture Site pCO2 (35-45) mm/Hg pO2 (80-100) mm/Hg HCO3 (21-28) mmol/L ABG pH (7.35-7.45) ABG Total CO2 (22-28) mmol/L ABG O2 Saturation (95-98) % ABG Base Excess (-2.0-3.0) mmol/L Alfredo Test ABG Potassium (3.6-5.2) mmol/L A-a O2 Difference mm/Hg Respiratory Index Sodium 139 (132-148) mmol/l Chloride 98 (98-107) mmol/L Glucose (65-105) mg/dl Lactate (0.7-2.1) mmol/L Vent Mode Mechanical Rate FiO2 % Tidal Volume PEEP Crit Value Called To Crit Value Called By Crit Value Read Back Blood Gas Notified Time Potassium 4.2 (3.6-5.2) mmol/L Carbon Dioxide 21 L (22-30) mmol/L Anion Gap 25 H (10-20) BUN 44 H (7-17) mg/dL Creatinine 6.1 H (0.7-1.2) mg/dL Est GFR ( Amer) 10 Est GFR (Non-Af Amer) 8 POC Glucose (mg/dL) 119 H (65-110) mg/dL Random Glucose 144 H (65-105) mg/dL Lactic Acid (0.7-2.1) mmol/L Calcium 7.7 L (8.6-10.4) mg/dl Phosphorus 6.5 H (2.5-4.5) mg/dL Magnesium 2.9 H (1.6-2.3) mg/dL Total Bilirubin 1.6 H (0.2-1.3) mg/dL AST 82 H (14-36) U/L ALT 70 H D (9-52) U/L Alkaline Phosphatase 83 (38-126) U/L Troponin I (0.00-0.120) ng/mL NT-Pro-B Natriuret Pep (0-450) pg/mL Total Protein 4.9 L (6.3-8.3) g/dL Albumin 2.7 L D (3.5-5.0) g/dL Globulin 2.2 (2.2-3.9) gm/dL Albumin/Globulin Ratio 1.2 (1.0-2.1) TSH 3rd Generation (0.46-4.68) mIU/L Beta HCG, Quant < 2.39 mIU/ML Cortisol AM Sample (4.46-22.7) ug/dL Arterial Blood Potassium (3.6-5.2) mmol/L Blood Type Antibody Screen 10/12/17 10/12/17 10/12/17 Range/Units 22:15 22:15 22:15 WBC 11.7 H (4.8-10.8) K/uL RBC 3.82 (3.80-5.20) Mil/uL Hgb 10.4 L (11.0-16.0) g/dL Hct 32.9 L (34.0-47.0) % MCV 86.2 D (81.0-99.0) fL MCH 27.3 (27.0-31.0) pg MCHC 31.7 L (33.0-37.0) g/dL RDW 18.7 H (11.5-14.5) % Plt Count 240 (130-400) K/uL MPV 7.8 (7.2-11.7) fL Neut % (Auto) 90.1 H (50.0-75.0) % Lymph % (Auto) 7.1 L (20.0-40.0) % [place] % (Auto) 1.3 (0.0-10.0) % Eos % (Auto) 0.3 (0.0-4.0) % Baso % (Auto) 1.2 (0.0-2.0) % Neut # (Auto) 10.6 H (1.8-7.0) K/uL Lymph # (Auto) 0.8 L (1.0-4.3) K/uL [place] # (Auto) 0.2 (0.0-0.8) K/uL Eos # (Auto) 0.0 (0.0-0.7) K/uL Baso # (Auto) 0.1 (0.0-0.2) K/uL Neutrophils % (Manual) 51 (50-75) % Band Neutrophils % 30 H* (0-2) % Lymphocytes % (Manual) 7 L (20-40) % Reactive Lymphs % 7 H (0-0) % Monocytes % (Manual) 2 (0-10) % Myelocytes % 1 H (0-0) % Promyelocytes % 2 H (0-0) % Nucleated RBC % 2 H (0-0) % Platelet Estimate Normal (NORMAL) Polychromasia Hypochromasia (manual) Anisocytosis (manual) Target Cells PT 22.0 H (9.7-12.2) SECONDS INR 2.0 APTT 31 (21-34) SECONDS Fibrinogen 218 (200-400) mg/dL Puncture Site pCO2 (35-45) mm/Hg pO2 (80-100) mm/Hg HCO3 (21-28) mmol/L ABG pH (7.35-7.45) ABG Total CO2 (22-28) mmol/L ABG O2 Saturation (95-98) % ABG Base Excess (-2.0-3.0) mmol/L Alfredo Test ABG Potassium (3.6-5.2) mmol/L A-a O2 Difference mm/Hg Respiratory Index Sodium (132-148) mmol/l Chloride (98-107) mmol/L Glucose (65-105) mg/dl Lactate (0.7-2.1) mmol/L Vent Mode Mechanical Rate FiO2 % Tidal Volume PEEP Crit Value Called To Crit Value Called By Crit Value Read Back Blood Gas Notified Time Potassium (3.6-5.2) mmol/L Carbon Dioxide (22-30) mmol/L Anion Gap (10-20) BUN (7-17) mg/dL Creatinine (0.7-1.2) mg/dL Est GFR ( Amer) Est GFR (Non-Af Amer) POC Glucose (mg/dL) (65-110) mg/dL Random Glucose (65-105) mg/dL Lactic Acid (0.7-2.1) mmol/L Calcium (8.6-10.4) mg/dl Phosphorus (2.5-4.5) mg/dL Magnesium (1.6-2.3) mg/dL Total Bilirubin (0.2-1.3) mg/dL AST (14-36) U/L ALT (9-52) U/L Alkaline Phosphatase (38-126) U/L Troponin I (0.00-0.120) ng/mL NT-Pro-B Natriuret Pep 474263 H (0-450) pg/mL Total Protein (6.3-8.3) g/dL Albumin (3.5-5.0) g/dL Globulin (2.2-3.9) gm/dL Albumin/Globulin Ratio (1.0-2.1) TSH 3rd Generation (0.46-4.68) mIU/L Beta HCG, Quant mIU/ML Cortisol AM Sample (4.46-22.7) ug/dL Arterial Blood Potassium (3.6-5.2) mmol/L Blood Type Antibody Screen 10/12/17 10/12/17 10/12/17 Range/Units 22:15 22:15 21:52 WBC (4.8-10.8) K/uL RBC (3.80-5.20) Mil/uL Hgb (11.0-16.0) g/dL Hct (34.0-47.0) % MCV (81.0-99.0) fL MCH (27.0-31.0) pg MCHC (33.0-37.0) g/dL RDW (11.5-14.5) % Plt Count (130-400) K/uL MPV (7.2-11.7) fL Neut % (Auto) (50.0-75.0) % Lymph % (Auto) (20.0-40.0) % [place] % (Auto) (0.0-10.0) % Eos % (Auto) (0.0-4.0) % Baso % (Auto) (0.0-2.0) % Neut # (Auto) (1.8-7.0) K/uL Lymph # (Auto) (1.0-4.3) K/uL [place] # (Auto) (0.0-0.8) K/uL Eos # (Auto) (0.0-0.7) K/uL Baso # (Auto) (0.0-0.2) K/uL Neutrophils % (Manual) (50-75) % Band Neutrophils % (0-2) % Lymphocytes % (Manual) (20-40) % Reactive Lymphs % (0-0) % Monocytes % (Manual) (0-10) % Myelocytes % (0-0) % Promyelocytes % (0-0) % Nucleated RBC % (0-0) % Platelet Estimate (NORMAL) Polychromasia Hypochromasia (manual) Anisocytosis (manual) Target Cells PT (9.7-12.2) SECONDS INR APTT (21-34) SECONDS Fibrinogen (200-400) mg/dL Puncture Site pCO2 (35-45) mm/Hg pO2 (80-100) mm/Hg HCO3 (21-28) mmol/L ABG pH (7.35-7.45) ABG Total CO2 (22-28) mmol/L ABG O2 Saturation (95-98) % ABG Base Excess (-2.0-3.0) mmol/L Alfredo Test ABG Potassium (3.6-5.2) mmol/L A-a O2 Difference mm/Hg Respiratory Index Sodium (132-148) mmol/l Chloride (98-107) mmol/L Glucose (65-105) mg/dl Lactate (0.7-2.1) mmol/L Vent Mode Mechanical Rate FiO2 % Tidal Volume PEEP Crit Value Called To Crit Value Called By Crit Value Read Back Blood Gas Notified Time Potassium (3.6-5.2) mmol/L Carbon Dioxide (22-30) mmol/L Anion Gap (10-20) BUN (7-17) mg/dL Creatinine (0.7-1.2) mg/dL Est GFR ( Amer) Est GFR (Non-Af Amer) POC Glucose (mg/dL) 151 H (65-110) mg/dL Random Glucose (65-105) mg/dL Lactic Acid 5.9 H* (0.7-2.1) mmol/L Calcium (8.6-10.4) mg/dl Phosphorus (2.5-4.5) mg/dL Magnesium (1.6-2.3) mg/dL Total Bilirubin (0.2-1.3) mg/dL AST (14-36) U/L ALT (9-52) U/L Alkaline Phosphatase (38-126) U/L Troponin I 0.3220 H* (0.00-0.120) ng/mL NT-Pro-B Natriuret Pep (0-450) pg/mL Total Protein (6.3-8.3) g/dL Albumin (3.5-5.0) g/dL Globulin (2.2-3.9) gm/dL Albumin/Globulin Ratio (1.0-2.1) TSH 3rd Generation (0.46-4.68) mIU/L Beta HCG, Quant mIU/ML Cortisol AM Sample (4.46-22.7) ug/dL Arterial Blood Potassium (3.6-5.2) mmol/L Blood Type Antibody Screen 10/12/17 10/12/17 10/12/17 Range/Units 21:04 19:50 18:45 WBC (4.8-10.8) K/uL RBC (3.80-5.20) Mil/uL Hgb (11.0-16.0) g/dL Hct (34.0-47.0) % MCV (81.0-99.0) fL MCH (27.0-31.0) pg MCHC (33.0-37.0) g/dL RDW (11.5-14.5) % Plt Count (130-400) K/uL MPV (7.2-11.7) fL Neut % (Auto) (50.0-75.0) % Lymph % (Auto) (20.0-40.0) % [place] % (Auto) (0.0-10.0) % Eos % (Auto) (0.0-4.0) % Baso % (Auto) (0.0-2.0) % Neut # (Auto) (1.8-7.0) K/uL Lymph # (Auto) (1.0-4.3) K/uL [place] # (Auto) (0.0-0.8) K/uL Eos # (Auto) (0.0-0.7) K/uL Baso # (Auto) (0.0-0.2) K/uL Neutrophils % (Manual) (50-75) % Band Neutrophils % (0-2) % Lymphocytes % (Manual) (20-40) % Reactive Lymphs % (0-0) % Monocytes % (Manual) (0-10) % Myelocytes % (0-0) % Promyelocytes % (0-0) % Nucleated RBC % (0-0) % Platelet Estimate (NORMAL) Polychromasia Hypochromasia (manual) Anisocytosis (manual) Target Cells PT (9.7-12.2) SECONDS INR APTT (21-34) SECONDS Fibrinogen (200-400) mg/dL Puncture Site pCO2 (35-45) mm/Hg pO2 (80-100) mm/Hg HCO3 (21-28) mmol/L ABG pH (7.35-7.45) ABG Total CO2 (22-28) mmol/L ABG O2 Saturation (95-98) % ABG Base Excess (-2.0-3.0) mmol/L Alfredo Test ABG Potassium (3.6-5.2) mmol/L A-a O2 Difference mm/Hg Respiratory Index Sodium (132-148) mmol/l Chloride (98-107) mmol/L Glucose (65-105) mg/dl Lactate (0.7-2.1) mmol/L Vent Mode Mechanical Rate FiO2 % Tidal Volume PEEP Crit Value Called To Crit Value Called By Crit Value Read Back Blood Gas Notified Time Potassium (3.6-5.2) mmol/L Carbon Dioxide (22-30) mmol/L Anion Gap (10-20) BUN (7-17) mg/dL Creatinine (0.7-1.2) mg/dL Est GFR ( Amer) Est GFR (Non-Af Amer) POC Glucose (mg/dL) 188 H 191 H 97 (65-110) mg/dL Random Glucose (65-105) mg/dL Lactic Acid (0.7-2.1) mmol/L Calcium (8.6-10.4) mg/dl Phosphorus (2.5-4.5) mg/dL Magnesium (1.6-2.3) mg/dL Total Bilirubin (0.2-1.3) mg/dL AST (14-36) U/L ALT (9-52) U/L Alkaline Phosphatase (38-126) U/L Troponin I (0.00-0.120) ng/mL NT-Pro-B Natriuret Pep (0-450) pg/mL Total Protein (6.3-8.3) g/dL Albumin (3.5-5.0) g/dL Globulin (2.2-3.9) gm/dL Albumin/Globulin Ratio (1.0-2.1) TSH 3rd Generation (0.46-4.68) mIU/L Beta HCG, Quant mIU/ML Cortisol AM Sample (4.46-22.7) ug/dL Arterial Blood Potassium (3.6-5.2) mmol/L Blood Type Antibody Screen 10/12/17 10/12/17 10/12/17 Range/Units 18:26 18:26 18:10 WBC 21.0 H (4.8-10.8) K/uL RBC 3.67 L (3.80-5.20) Mil/uL Hgb 10.3 L (11.0-16.0) g/dL Hct 32.8 L (34.0-47.0) % MCV 89.3 D (81.0-99.0) fL MCH 28.0 (27.0-31.0) pg MCHC 31.3 L (33.0-37.0) g/dL RDW 19.0 H (11.5-14.5) % Plt Count 232 (130-400) K/uL MPV 7.8 (7.2-11.7) fL Neut % (Auto) (50.0-75.0) % Lymph % (Auto) (20.0-40.0) % [place] % (Auto) (0.0-10.0) % Eos % (Auto) (0.0-4.0) % Baso % (Auto) (0.0-2.0) % Neut # (Auto) (1.8-7.0) K/uL Lymph # (Auto) (1.0-4.3) K/uL [place] # (Auto) (0.0-0.8) K/uL Eos # (Auto) (0.0-0.7) K/uL Baso # (Auto) (0.0-0.2) K/uL Neutrophils % (Manual) (50-75) % Band Neutrophils % (0-2) % Lymphocytes % (Manual) (20-40) % Reactive Lymphs % (0-0) % Monocytes % (Manual) (0-10) % Myelocytes % (0-0) % Promyelocytes % (0-0) % Nucleated RBC % (0-0) % Platelet Estimate (NORMAL) Polychromasia Hypochromasia (manual) Anisocytosis (manual) Target Cells PT (9.7-12.2) SECONDS INR APTT (21-34) SECONDS Fibrinogen (200-400) mg/dL Puncture Site Rba pCO2 39 (35-45) mm/Hg pO2 96 (80-100) mm/Hg HCO3 16.2 L (21-28) mmol/L ABG pH 7.22 L (7.35-7.45) ABG Total CO2 17.2 L (22-28) mmol/L ABG O2 Saturation 97.7 (95-98) % ABG Base Excess -11.1 L (-2.0-3.0) mmol/L Alfredo Test Pos ABG Potassium 5.6 H (3.6-5.2) mmol/L A-a O2 Difference 568.0 mm/Hg Respiratory Index 5.9 Sodium 142 137.0 (132-148) mmol/l Chloride 104 104.0 (98-107) mmol/L Glucose 127 H (65-105) mg/dl Lactate 8.7 H* (0.7-2.1) mmol/L Vent Mode Prvc Mechanical Rate 16 FiO2 100.0 % Tidal Volume 500 PEEP 5 Crit Value Called To Dr kilpatrick Crit Value Called By [facility] Crit Value Read Back Y Blood Gas Notified Time 182 Potassium 5.9 H (3.6-5.2) mmol/L Carbon Dioxide 13 L (22-30) mmol/L Anion Gap 31 H (10-20) BUN 38 H (7-17) mg/dL Creatinine 6.2 H (0.7-1.2) mg/dL Est GFR ( Amer) 10 Est GFR (Non-Af Amer) 8 POC Glucose (mg/dL) (65-110) mg/dL Random Glucose 113 H (65-105) mg/dL Lactic Acid (0.7-2.1) mmol/L Calcium 6.6 L (8.6-10.4) mg/dl Phosphorus (2.5-4.5) mg/dL Magnesium (1.6-2.3) mg/dL Total Bilirubin 1.4 H (0.2-1.3) mg/dL AST 81 H D (14-36) U/L ALT 30 (9-52) U/L Alkaline Phosphatase 68 (38-126) U/L Troponin I 0.2980 H* (0.00-0.120) ng/mL NT-Pro-B Natriuret Pep (0-450) pg/mL Total Protein 4.4 L (6.3-8.3) g/dL Albumin 2.2 L D (3.5-5.0) g/dL Globulin 2.1 L (2.2-3.9) gm/dL Albumin/Globulin Ratio 1.1 (1.0-2.1) TSH 3rd Generation (0.46-4.68) mIU/L Beta HCG, Quant mIU/ML Cortisol AM Sample (4.46-22.7) ug/dL Arterial Blood Potassium 5.6 H (3.6-5.2) mmol/L Blood Type Antibody Screen 10/12/17 10/12/17 10/12/17 Range/Units 17:50 17:17 17:09 WBC (4.8-10.8) K/uL RBC (3.80-5.20) Mil/uL Hgb (11.0-16.0) g/dL Hct (34.0-47.0) % MCV (81.0-99.0) fL MCH (27.0-31.0) pg MCHC (33.0-37.0) g/dL RDW (11.5-14.5) % Plt Count (130-400) K/uL MPV (7.2-11.7) fL Neut % (Auto) (50.0-75.0) % Lymph % (Auto) (20.0-40.0) % [place] % (Auto) (0.0-10.0) % Eos % (Auto) (0.0-4.0) % Baso % (Auto) (0.0-2.0) % Neut # (Auto) (1.8-7.0) K/uL Lymph # (Auto) (1.0-4.3) K/uL [place] # (Auto) (0.0-0.8) K/uL Eos # (Auto) (0.0-0.7) K/uL Baso # (Auto) (0.0-0.2) K/uL Neutrophils % (Manual) (50-75) % Band Neutrophils % (0-2) % Lymphocytes % (Manual) (20-40) % Reactive Lymphs % (0-0) % Monocytes % (Manual) (0-10) % Myelocytes % (0-0) % Promyelocytes % (0-0) % Nucleated RBC % (0-0) % Platelet Estimate (NORMAL) Polychromasia Hypochromasia (manual) Anisocytosis (manual) Target Cells PT (9.7-12.2) SECONDS INR APTT (21-34) SECONDS Fibrinogen (200-400) mg/dL Puncture Site pCO2 (35-45) mm/Hg pO2 (80-100) mm/Hg HCO3 (21-28) mmol/L ABG pH (7.35-7.45) ABG Total CO2 (22-28) mmol/L ABG O2 Saturation (95-98) % ABG Base Excess (-2.0-3.0) mmol/L Alfredo Test ABG Potassium (3.6-5.2) mmol/L A-a O2 Difference mm/Hg Respiratory Index Sodium (132-148) mmol/l Chloride (98-107) mmol/L Glucose (65-105) mg/dl Lactate (0.7-2.1) mmol/L Vent Mode Mechanical Rate FiO2 % Tidal Volume PEEP Crit Value Called To Crit Value Called By Crit Value Read Back Blood Gas Notified Time Potassium (3.6-5.2) mmol/L Carbon Dioxide (22-30) mmol/L Anion Gap (10-20) BUN (7-17) mg/dL Creatinine (0.7-1.2) mg/dL Est GFR ( Amer) Est GFR (Non-Af Amer) POC Glucose (mg/dL) 164 H 258 H 21 L* (65-110) mg/dL Random Glucose (65-105) mg/dL Lactic Acid (0.7-2.1) mmol/L Calcium (8.6-10.4) mg/dl Phosphorus (2.5-4.5) mg/dL Magnesium (1.6-2.3) mg/dL Total Bilirubin (0.2-1.3) mg/dL AST (14-36) U/L ALT (9-52) U/L Alkaline Phosphatase (38-126) U/L Troponin I (0.00-0.120) ng/mL NT-Pro-B Natriuret Pep (0-450) pg/mL Total Protein (6.3-8.3) g/dL Albumin (3.5-5.0) g/dL Globulin (2.2-3.9) gm/dL Albumin/Globulin Ratio (1.0-2.1) TSH 3rd Generation (0.46-4.68) mIU/L Beta HCG, Quant mIU/ML Cortisol AM Sample (4.46-22.7) ug/dL Arterial Blood Potassium (3.6-5.2) mmol/L Blood Type Antibody Screen 10/12/17 Range/Units 11:42 WBC (4.8-10.8) K/uL RBC (3.80-5.20) Mil/uL Hgb (11.0-16.0) g/dL Hct (34.0-47.0) % MCV (81.0-99.0) fL MCH (27.0-31.0) pg MCHC (33.0-37.0) g/dL RDW (11.5-14.5) % Plt Count (130-400) K/uL MPV (7.2-11.7) fL Neut % (Auto) (50.0-75.0) % Lymph % (Auto) (20.0-40.0) % [place] % (Auto) (0.0-10.0) % Eos % (Auto) (0.0-4.0) % Baso % (Auto) (0.0-2.0) % Neut # (Auto) (1.8-7.0) K/uL Lymph # (Auto) (1.0-4.3) K/uL [place] # (Auto) (0.0-0.8) K/uL Eos # (Auto) (0.0-0.7) K/uL Baso # (Auto) (0.0-0.2) K/uL Neutrophils % (Manual) (50-75) % Band Neutrophils % (0-2) % Lymphocytes % (Manual) (20-40) % Reactive Lymphs % (0-0) % Monocytes % (Manual) (0-10) % Myelocytes % (0-0) % Promyelocytes % (0-0) % Nucleated RBC % (0-0) % Platelet Estimate (NORMAL) Polychromasia Hypochromasia (manual) Anisocytosis (manual) Target Cells PT (9.7-12.2) SECONDS INR APTT (21-34) SECONDS Fibrinogen (200-400) mg/dL Puncture Site pCO2 (35-45) mm/Hg pO2 (80-100) mm/Hg HCO3 (21-28) mmol/L ABG pH (7.35-7.45) ABG Total CO2 (22-28) mmol/L ABG O2 Saturation (95-98) % ABG Base Excess (-2.0-3.0) mmol/L Alfredo Test ABG Potassium (3.6-5.2) mmol/L A-a O2 Difference mm/Hg Respiratory Index Sodium (132-148) mmol/l Chloride (98-107) mmol/L Glucose (65-105) mg/dl Lactate (0.7-2.1) mmol/L Vent Mode Mechanical Rate FiO2 % Tidal Volume PEEP Crit Value Called To Crit Value Called By Crit Value Read Back Blood Gas Notified Time Potassium (3.6-5.2) mmol/L Carbon Dioxide (22-30) mmol/L Anion Gap (10-20) BUN (7-17) mg/dL Creatinine (0.7-1.2) mg/dL Est GFR ( Amer) Est GFR (Non-Af Amer) POC Glucose (mg/dL) (65-110) mg/dL Random Glucose (65-105) mg/dL Lactic Acid (0.7-2.1) mmol/L Calcium (8.6-10.4) mg/dl Phosphorus (2.5-4.5) mg/dL Magnesium (1.6-2.3) mg/dL Total Bilirubin (0.2-1.3) mg/dL AST (14-36) U/L ALT (9-52) U/L Alkaline Phosphatase (38-126) U/L Troponin I (0.00-0.120) ng/mL NT-Pro-B Natriuret Pep (0-450) pg/mL Total Protein (6.3-8.3) g/dL Albumin (3.5-5.0) g/dL Globulin (2.2-3.9) gm/dL Albumin/Globulin Ratio (1.0-2.1) TSH 3rd Generation (0.46-4.68) mIU/L Beta HCG, Quant mIU/ML Cortisol AM Sample (4.46-22.7) ug/dL Arterial Blood Potassium (3.6-5.2) mmol/L Blood Type A NEGATIVE Antibody Screen Negative Laboratory Results - last 24 hr 10/12/17 10/12/17 10/12/17 11:42 17:09 17:17 WBC RBC Hgb Hct MCV MCH MCHC RDW Plt Count MPV Neut % (Auto) Lymph % (Auto) [place] % (Auto) Eos % (Auto) Baso % (Auto) Neut # (Auto) Lymph # (Auto) [place] # (Auto) Eos # (Auto) Baso # (Auto) Neutrophils % (Manual) Band Neutrophils % Lymphocytes % (Manual) Reactive Lymphs % Monocytes % (Manual) Myelocytes % Promyelocytes % Nucleated RBC % Platelet Estimate Polychromasia Hypochromasia (manual) Anisocytosis (manual) Target Cells PT INR APTT Fibrinogen Puncture Site pCO2 pO2 HCO3 ABG pH ABG Total CO2 ABG O2 Saturation ABG Base Excess Alfredo Test ABG Potassium A-a O2 Difference Respiratory Index Sodium Chloride Glucose Lactate Vent Mode Mechanical Rate FiO2 Tidal Volume PEEP Crit Value Called To Crit Value Called By Crit Value Read Back Blood Gas Notified Time Potassium Carbon Dioxide Anion Gap BUN Creatinine Est GFR ( Amer) Est GFR (Non-Af Amer) POC Glucose (mg/dL) 21 L* 258 H Random Glucose Lactic Acid Calcium Phosphorus Magnesium Total Bilirubin AST ALT Alkaline Phosphatase Troponin I NT-Pro-B Natriuret Pep Total Protein Albumin Globulin Albumin/Globulin Ratio TSH 3rd Generation Beta HCG, Quant Cortisol AM Sample Arterial Blood Potassium Blood Type A NEGATIVE Antibody Screen Negative 10/12/17 10/12/17 10/12/17 17:50 18:10 18:26 WBC RBC Hgb Hct MCV MCH MCHC RDW Plt Count MPV Neut % (Auto) Lymph % (Auto) [place] % (Auto) Eos % (Auto) Baso % (Auto) Neut # (Auto) Lymph # (Auto) [place] # (Auto) Eos # (Auto) Baso # (Auto) Neutrophils % (Manual) Band Neutrophils % Lymphocytes % (Manual) Reactive Lymphs % Monocytes % (Manual) Myelocytes % Promyelocytes % Nucleated RBC % Platelet Estimate Polychromasia Hypochromasia (manual) Anisocytosis (manual) Target Cells PT INR APTT Fibrinogen Puncture Site Rba pCO2 39 pO2 96 HCO3 16.2 L ABG pH 7.22 L ABG Total CO2 17.2 L ABG O2 Saturation 97.7 ABG Base Excess -11.1 L Alfredo Test Pos ABG Potassium 5.6 H A-a O2 Difference 568.0 Respiratory Index 5.9 Sodium 137.0 142 Chloride 104.0 104 Glucose 127 H Lactate 8.7 H* Vent Mode Prvc Mechanical Rate 16 FiO2 100.0 Tidal Volume 500 PEEP 5 Crit Value Called To Dr kilpatrick Crit Value Called By [facility] Crit Value Read Back Y Blood Gas Notified Time 1822 Potassium 5.9 H Carbon Dioxide 13 L Anion Gap 31 H BUN 38 H Creatinine 6.2 H Est GFR ( Amer) 10 Est GFR (Non-Af Amer) 8 POC Glucose (mg/dL) 164 H Random Glucose 113 H Lactic Acid Calcium 6.6 L Phosphorus Magnesium Total Bilirubin 1.4 H AST 81 H D ALT 30 Alkaline Phosphatase 68 Troponin I 0.2980 H* NT-Pro-B Natriuret Pep Total Protein 4.4 L Albumin 2.2 L D Globulin 2.1 L Albumin/Globulin Ratio 1.1 TSH 3rd Generation Beta HCG, Quant Cortisol AM Sample Arterial Blood Potassium 5.6 H Blood Type Antibody Screen 10/12/17 10/12/17 10/12/17 18:26 18:45 19:50 WBC 21.0 H RBC 3.67 L Hgb 10.3 L Hct 32.8 L MCV 89.3 D MCH 28.0 MCHC 31.3 L RDW 19.0 H Plt Count 232 MPV 7.8 Neut % (Auto) Lymph % (Auto) [place] % (Auto) Eos % (Auto) Baso % (Auto) Neut # (Auto) Lymph # (Auto) [place] # (Auto) Eos # (Auto) Baso # (Auto) Neutrophils % (Manual) Band Neutrophils % Lymphocytes % (Manual) Reactive Lymphs % Monocytes % (Manual) Myelocytes % Promyelocytes % Nucleated RBC % Platelet Estimate Polychromasia Hypochromasia (manual) Anisocytosis (manual) Target Cells PT INR APTT Fibrinogen Puncture Site pCO2 pO2 HCO3 ABG pH ABG Total CO2 ABG O2 Saturation ABG Base Excess Alfredo Test ABG Potassium A-a O2 Difference Respiratory Index Sodium Chloride Glucose Lactate Vent Mode Mechanical Rate FiO2 Tidal Volume PEEP Crit Value Called To Crit Value Called By Crit Value Read Back Blood Gas Notified Time Potassium Carbon Dioxide Anion Gap BUN Creatinine Est GFR ( Amer) Est GFR (Non-Af Amer) POC Glucose (mg/dL) 97 191 H Random Glucose Lactic Acid Calcium Phosphorus Magnesium Total Bilirubin AST ALT Alkaline Phosphatase Troponin I NT-Pro-B Natriuret Pep Total Protein Albumin Globulin Albumin/Globulin Ratio TSH 3rd Generation Beta HCG, Quant Cortisol AM Sample Arterial Blood Potassium Blood Type Antibody Screen 10/12/17 10/12/17 10/12/17 21:04 21:52 22:15 WBC RBC Hgb Hct MCV MCH MCHC RDW Plt Count MPV Neut % (Auto) Lymph % (Auto) [place] % (Auto) Eos % (Auto) Baso % (Auto) Neut # (Auto) Lymph # (Auto) [place] # (Auto) Eos # (Auto) Baso # (Auto) Neutrophils % (Manual) Band Neutrophils % Lymphocytes % (Manual) Reactive Lymphs % Monocytes % (Manual) Myelocytes % Promyelocytes % Nucleated RBC % Platelet Estimate Polychromasia Hypochromasia (manual) Anisocytosis (manual) Target Cells PT INR APTT Fibrinogen Puncture Site pCO2 pO2 HCO3 ABG pH ABG Total CO2 ABG O2 Saturation ABG Base Excess Alfredo Test ABG Potassium A-a O2 Difference Respiratory Index Sodium Chloride Glucose Lactate Vent Mode Mechanical Rate FiO2 Tidal Volume PEEP Crit Value Called To Crit Value Called By Crit Value Read Back Blood Gas Notified Time Potassium Carbon Dioxide Anion Gap BUN Creatinine Est GFR ( Amer) Est GFR (Non-Af Amer) POC Glucose (mg/dL) 188 H 151 H Random Glucose Lactic Acid 5.9 H* Calcium Phosphorus Magnesium Total Bilirubin AST ALT Alkaline Phosphatase Troponin I NT-Pro-B Natriuret Pep Total Protein Albumin Globulin Albumin/Globulin Ratio TSH 3rd Generation Beta HCG, Quant Cortisol AM Sample Arterial Blood Potassium Blood Type Antibody Screen 10/12/17 10/12/17 10/12/17 22:15 22:15 22:15 WBC RBC Hgb Hct MCV MCH MCHC RDW Plt Count MPV Neut % (Auto) Lymph % (Auto) [place] % (Auto) Eos % (Auto) Baso % (Auto) Neut # (Auto) Lymph # (Auto) [place] # (Auto) Eos # (Auto) Baso # (Auto) Neutrophils % (Manual) Band Neutrophils % Lymphocytes % (Manual) Reactive Lymphs % Monocytes % (Manual) Myelocytes % Promyelocytes % Nucleated RBC % Platelet Estimate Polychromasia Hypochromasia (manual) Anisocytosis (manual) Target Cells PT 22.0 H INR 2.0 APTT 31 Fibrinogen 218 Puncture Site pCO2 pO2 HCO3 ABG pH ABG Total CO2 ABG O2 Saturation ABG Base Excess Alfredo Test ABG Potassium A-a O2 Difference Respiratory Index Sodium Chloride Glucose Lactate Vent Mode Mechanical Rate FiO2 Tidal Volume PEEP Crit Value Called To Crit Value Called By Crit Value Read Back Blood Gas Notified Time Potassium Carbon Dioxide Anion Gap BUN Creatinine Est GFR ( Amer) Est GFR (Non-Af Amer) POC Glucose (mg/dL) Random Glucose Lactic Acid Calcium Phosphorus Magnesium Total Bilirubin AST ALT Alkaline Phosphatase Troponin I 0.3220 H* NT-Pro-B Natriuret Pep 561053 H Total Protein Albumin Globulin Albumin/Globulin Ratio TSH 3rd Generation Beta HCG, Quant Cortisol AM Sample Arterial Blood Potassium Blood Type Antibody Screen 10/12/17 10/12/17 10/12/17 22:15 22:15 22:15 WBC 11.7 H RBC 3.82 Hgb 10.4 L Hct 32.9 L MCV 86.2 D MCH 27.3 MCHC 31.7 L RDW 18.7 H Plt Count 240 MPV 7.8 Neut % (Auto) 90.1 H Lymph % (Auto) 7.1 L [place] % (Auto) 1.3 Eos % (Auto) 0.3 Baso % (Auto) 1.2 Neut # (Auto) 10.6 H Lymph # (Auto) 0.8 L [place] # (Auto) 0.2 Eos # (Auto) 0.0 Baso # (Auto) 0.1 Neutrophils % (Manual) 51 Band Neutrophils % 30 H* Lymphocytes % (Manual) 7 L Reactive Lymphs % 7 H Monocytes % (Manual) 2 Myelocytes % 1 H Promyelocytes % 2 H Nucleated RBC % 2 H Platelet Estimate Normal Polychromasia Hypochromasia (manual) Anisocytosis (manual) Target Cells PT INR APTT Fibrinogen Puncture Site pCO2 pO2 HCO3 ABG pH ABG Total CO2 ABG O2 Saturation ABG Base Excess Alfredo Test ABG Potassium A-a O2 Difference Respiratory Index Sodium 139 Chloride 98 Glucose Lactate Vent Mode Mechanical Rate FiO2 Tidal Volume PEEP Crit Value Called To Crit Value Called By Crit Value Read Back Blood Gas Notified Time Potassium 4.2 Carbon Dioxide 21 L Anion Gap 25 H BUN 44 H Creatinine 6.1 H Est GFR ( Amer) 10 Est GFR (Non-Af Amer) 8 POC Glucose (mg/dL) Random Glucose 144 H Lactic Acid Calcium 7.7 L Phosphorus 6.5 H Magnesium 2.9 H Total Bilirubin 1.6 H AST 82 H ALT 70 H D Alkaline Phosphatase 83 Troponin I NT-Pro-B Natriuret Pep Total Protein 4.9 L Albumin 2.7 L D Globulin 2.2 Albumin/Globulin Ratio 1.2 TSH 3rd Generation Beta HCG, Quant < 2.39 Cortisol AM Sample Arterial Blood Potassium Blood Type Antibody Screen 10/12/17 10/12/17 10/13/17 23:06 23:54 00:56 WBC RBC Hgb Hct MCV MCH MCHC RDW Plt Count MPV Neut % (Auto) Lymph % (Auto) [place] % (Auto) Eos % (Auto) Baso % (Auto) Neut # (Auto) Lymph # (Auto) [place] # (Auto) Eos # (Auto) Baso # (Auto) Neutrophils % (Manual) Band Neutrophils % Lymphocytes % (Manual) Reactive Lymphs % Monocytes % (Manual) Myelocytes % Promyelocytes % Nucleated RBC % Platelet Estimate Polychromasia Hypochromasia (manual) Anisocytosis (manual) Target Cells PT INR APTT Fibrinogen Puncture Site pCO2 pO2 HCO3 ABG pH ABG Total CO2 ABG O2 Saturation ABG Base Excess Alfredo Test ABG Potassium A-a O2 Difference Respiratory Index Sodium Chloride Glucose Lactate Vent Mode Mechanical Rate FiO2 Tidal Volume PEEP Crit Value Called To Crit Value Called By Crit Value Read Back Blood Gas Notified Time Potassium Carbon Dioxide Anion Gap BUN Creatinine Est GFR ( Amer) Est GFR (Non-Af Amer) POC Glucose (mg/dL) 119 H 100 121 H Random Glucose Lactic Acid Calcium Phosphorus Magnesium Total Bilirubin AST ALT Alkaline Phosphatase Troponin I NT-Pro-B Natriuret Pep Total Protein Albumin Globulin Albumin/Globulin Ratio TSH 3rd Generation Beta HCG, Quant Cortisol AM Sample Arterial Blood Potassium Blood Type Antibody Screen 10/13/17 10/13/17 10/13/17 01:56 02:10 03:09 WBC RBC Hgb Hct MCV MCH MCHC RDW Plt Count MPV Neut % (Auto) Lymph % (Auto) [place] % (Auto) Eos % (Auto) Baso % (Auto) Neut # (Auto) Lymph # (Auto) [place] # (Auto) Eos # (Auto) Baso # (Auto) Neutrophils % (Manual) Band Neutrophils % Lymphocytes % (Manual) Reactive Lymphs % Monocytes % (Manual) Myelocytes % Promyelocytes % Nucleated RBC % Platelet Estimate Polychromasia Hypochromasia (manual) Anisocytosis (manual) Target Cells PT INR APTT Fibrinogen Puncture Site pCO2 pO2 HCO3 ABG pH ABG Total CO2 ABG O2 Saturation ABG Base Excess Alfredo Test ABG Potassium A-a O2 Difference Respiratory Index Sodium Chloride Glucose Lactate Vent Mode Mechanical Rate FiO2 Tidal Volume PEEP Crit Value Called To Crit Value Called By Crit Value Read Back Blood Gas Notified Time Potassium Carbon Dioxide Anion Gap BUN Creatinine Est GFR ( Amer) Est GFR (Non-Af Amer) POC Glucose (mg/dL) 111 H 129 H Random Glucose Lactic Acid 1.8 Calcium Phosphorus Magnesium Total Bilirubin AST ALT Alkaline Phosphatase Troponin I NT-Pro-B Natriuret Pep Total Protein Albumin Globulin Albumin/Globulin Ratio TSH 3rd Generation Beta HCG, Quant Cortisol AM Sample Arterial Blood Potassium Blood Type Antibody Screen 10/13/17 10/13/17 10/13/17 04:59 05:18 05:51 WBC RBC Hgb Hct MCV MCH MCHC RDW Plt Count MPV Neut % (Auto) Lymph % (Auto) [place] % (Auto) Eos % (Auto) Baso % (Auto) Neut # (Auto) Lymph # (Auto) [place] # (Auto) Eos # (Auto) Baso # (Auto) Neutrophils % (Manual) Band Neutrophils % Lymphocytes % (Manual) Reactive Lymphs % Monocytes % (Manual) Myelocytes % Promyelocytes % Nucleated RBC % Platelet Estimate Polychromasia Hypochromasia (manual) Anisocytosis (manual) Target Cells PT INR APTT Fibrinogen Puncture Site Rr pCO2 41 pO2 46 L HCO3 30.2 H ABG pH 7.49 H ABG Total CO2 32.5 H ABG O2 Saturation 82.7 L ABG Base Excess 7.2 H Alfredo Test Pos ABG Potassium 4.5 A-a O2 Difference 616.0 Respiratory Index 13.4 Sodium 137.0 Chloride 100.0 Glucose 158 H Lactate 3.0 H Vent Mode Prvc Mechanical Rate 22 FiO2 100.0 Tidal Volume 500 PEEP 5 Crit Value Called To Crit Value Called By Crit Value Read Back Blood Gas Notified Time Potassium Carbon Dioxide Anion Gap BUN Creatinine Est GFR ( Amer) Est GFR (Non-Af Amer) POC Glucose (mg/dL) 158 H 186 H Random Glucose Lactic Acid Calcium Phosphorus Magnesium Total Bilirubin AST ALT Alkaline Phosphatase Troponin I NT-Pro-B Natriuret Pep Total Protein Albumin Globulin Albumin/Globulin Ratio TSH 3rd Generation Beta HCG, Quant Cortisol AM Sample Arterial Blood Potassium 4.5 Blood Type Antibody Screen 10/13/17 10/13/17 10/13/17 06:33 06:33 06:33 WBC 13.1 H RBC 3.98 Hgb 11.3 Hct 33.8 L MCV 84.8 MCH 28.4 MCHC 33.5 RDW 18.7 H Plt Count 222 MPV 7.8 Neut % (Auto) 94.6 H Lymph % (Auto) 2.6 L [place] % (Auto) 2.5 Eos % (Auto) 0.1 Baso % (Auto) 0.2 Neut # (Auto) 12.3 H Lymph # (Auto) 0.3 L [place] # (Auto) 0.3 Eos # (Auto) 0.0 Baso # (Auto) 0.0 Neutrophils % (Manual) 45 L Band Neutrophils % 52 H* Lymphocytes % (Manual) 1 L Reactive Lymphs % Monocytes % (Manual) 2 Myelocytes % Promyelocytes % Nucleated RBC % Platelet Estimate Normal Polychromasia Slight Hypochromasia (manual) Slight Anisocytosis (manual) Slight Target Cells Slight PT INR APTT Fibrinogen Puncture Site pCO2 pO2 HCO3 ABG pH ABG Total CO2 ABG O2 Saturation ABG Base Excess Alfredo Test ABG Potassium A-a O2 Difference Respiratory Index Sodium 140 Chloride 95 L Glucose Lactate Vent Mode Mechanical Rate FiO2 Tidal Volume PEEP Crit Value Called To Crit Value Called By Crit Value Read Back Blood Gas Notified Time Potassium 4.3 Carbon Dioxide 30 Anion Gap 20 BUN 27 H Creatinine 4.2 H Est GFR ( Amer) 16 Est GFR (Non-Af Amer) 13 POC Glucose (mg/dL) Random Glucose 139 H Lactic Acid Calcium 7.8 L Phosphorus 3.8 Magnesium 2.6 H Total Bilirubin 1.3 AST 110 H D ALT 99 H D Alkaline Phosphatase 83 Troponin I 0.2870 H* NT-Pro-B Natriuret Pep Total Protein 5.4 L Albumin 3.0 L Globulin 2.5 Albumin/Globulin Ratio 1.2 TSH 3rd Generation Beta HCG, Quant Cortisol AM Sample 19.4 Arterial Blood Potassium Blood Type Antibody Screen 10/13/17 10/13/17 10/13/17 06:33 06:33 06:36 WBC RBC Hgb Hct MCV MCH MCHC RDW Plt Count MPV Neut % (Auto) Lymph % (Auto) [place] % (Auto) Eos % (Auto) Baso % (Auto) Neut # (Auto) Lymph # (Auto) [place] # (Auto) Eos # (Auto) Baso # (Auto) Neutrophils % (Manual) Band Neutrophils % Lymphocytes % (Manual) Reactive Lymphs % Monocytes % (Manual) Myelocytes % Promyelocytes % Nucleated RBC % Platelet Estimate Polychromasia Hypochromasia (manual) Anisocytosis (manual) Target Cells PT INR APTT Fibrinogen Puncture Site R rad pCO2 38 pO2 104 H HCO3 30.3 H ABG pH 7.51 H ABG Total CO2 31.5 H ABG O2 Saturation 98.6 H ABG Base Excess 6.9 H Alfredo Test Pos ABG Potassium 4.0 A-a O2 Difference 562.0 Respiratory Index 5.4 Sodium 134.0 Chloride 97.0 L Glucose 179 H Lactate 2.5 H Vent Mode Prvc Mechanical Rate 22 FiO2 100.0 Tidal Volume 500 PEEP 5 Crit Value Called To Crit Value Called By Crit Value Read Back Blood Gas Notified Time Potassium Carbon Dioxide Anion Gap BUN Creatinine Est GFR ( Amer) Est GFR (Non-Af Amer) POC Glucose (mg/dL) Random Glucose Lactic Acid 2.8 H Calcium Phosphorus Magnesium Total Bilirubin AST ALT Alkaline Phosphatase Troponin I NT-Pro-B Natriuret Pep Total Protein Albumin Globulin Albumin/Globulin Ratio TSH 3rd Generation 2.12 Beta HCG, Quant Cortisol AM Sample Arterial Blood Potassium 4.0 Blood Type Antibody Screen 10/13/17 10/13/17 10/13/17 06:51 07:50 09:13 WBC RBC Hgb Hct MCV MCH MCHC RDW Plt Count MPV Neut % (Auto) Lymph % (Auto) [place] % (Auto) Eos % (Auto) Baso % (Auto) Neut # (Auto) Lymph # (Auto) [place] # (Auto) Eos # (Auto) Baso # (Auto) Neutrophils % (Manual) Band Neutrophils % Lymphocytes % (Manual) Reactive Lymphs % Monocytes % (Manual) Myelocytes % Promyelocytes % Nucleated RBC % Platelet Estimate Polychromasia Hypochromasia (manual) Anisocytosis (manual) Target Cells PT INR APTT Fibrinogen Puncture Site pCO2 pO2 HCO3 ABG pH ABG Total CO2 ABG O2 Saturation ABG Base Excess Alfredo Test ABG Potassium A-a O2 Difference Respiratory Index Sodium Chloride Glucose Lactate Vent Mode Mechanical Rate FiO2 Tidal Volume PEEP Crit Value Called To Crit Value Called By Crit Value Read Back Blood Gas Notified Time Potassium Carbon Dioxide Anion Gap BUN Creatinine Est GFR ( Amer) Est GFR (Non-Af Amer) POC Glucose (mg/dL) 202 H 178 H 143 H Random Glucose Lactic Acid Calcium Phosphorus Magnesium Total Bilirubin AST ALT Alkaline Phosphatase Troponin I NT-Pro-B Natriuret Pep Total Protein Albumin Globulin Albumin/Globulin Ratio TSH 3rd Generation Beta HCG, Quant Cortisol AM Sample Arterial Blood Potassium Blood Type Antibody Screen 10/13/17 11:23 WBC RBC Hgb Hct MCV MCH MCHC RDW Plt Count MPV Neut % (Auto) Lymph % (Auto) [place] % (Auto) Eos % (Auto) Baso % (Auto) Neut # (Auto) Lymph # (Auto) [place] # (Auto) Eos # (Auto) Baso # (Auto) Neutrophils % (Manual) Band Neutrophils % Lymphocytes % (Manual) Reactive Lymphs % Monocytes % (Manual) Myelocytes % Promyelocytes % Nucleated RBC % Platelet Estimate Polychromasia Hypochromasia (manual) Anisocytosis (manual) Target Cells PT INR APTT Fibrinogen Puncture Site pCO2 pO2 HCO3 ABG pH ABG Total CO2 ABG O2 Saturation ABG Base Excess Alfredo Test ABG Potassium A-a O2 Difference Respiratory Index Sodium Chloride Glucose Lactate Vent Mode Mechanical Rate FiO2 Tidal Volume PEEP Crit Value Called To Crit Value Called By Crit Value Read Back Blood Gas Notified Time Potassium Carbon Dioxide Anion Gap BUN Creatinine Est GFR ( Amer) Est GFR (Non-Af Amer) POC Glucose (mg/dL) 131 H Random Glucose Lactic Acid Calcium Phosphorus Magnesium Total Bilirubin AST ALT Alkaline Phosphatase Troponin I NT-Pro-B Natriuret Pep Total Protein Albumin Globulin Albumin/Globulin Ratio TSH 3rd Generation Beta HCG, Quant Cortisol AM Sample Arterial Blood Potassium Blood Type Antibody Screen EKG/Cardiology Studies: Cardiology / EKG Studies 10/12/17 20:15 EKG [ELECTROCARDIOGRAM] Stat Comment: Mode Of Transportation: Reason For Exam: elevated troponin Critical Care Progress Note - Nutrition Nutrition: Nutrition Category Date Time Status NPO Diet [DIET] Diets 10/12/17 Breakfast Active Assessment/Plan - Assessment and Plan (Free Text) Plan: Patient is still critical condition. On ventilator. will wean once FiO2 stable
--- NOTE | 2017-10-13 11:46 | CP.PCM.CON ---
History of Present Illness - History of Present Illness History of Present Illness: 27F presents to the ER with a complaint of severe lower abdominal pain . Patient states she had a normal BM in the morning of 10/10 and around 1pm, started feeling lower abdominal pain. Pain does not radiate anywhere. Patient did not take anything for the pain and decided to come straight to emergency room. Patient states she does not have a history of diverticulosis. Patient states no family history of colon cancer. Patient denies dizziness, fever, chills, nausea, vomiting, diarrhea, hematochezia, chest pain, shortness of breath. Patient had a CT abdomen/pelvis with contrast showing constipation. No obstruction noted. ED doctor spoke to Commutator Operator covering for Dr. Correia and requests follow up cmp at 1 am to see changes to CMP after treatment in ER. Failed renal transplant hx, recently HTN poorly controlled despite increasing meds. PMH: ESRD on HD M,W,F and HTN Surgical History: left kidney transplant (around 2008), AV fistula Social History: denies smoking, drinking etoh, illicit drugs Allergies: Shrimp, vancomycin s/p exploratory lap for obstipation. Received dialysis last PM Awake on vent now On bicarb drip- will stop Was hypoglycemic- treated with D10W IV Review of Systems - Review of Systems Systems not reviewed;Unavailable: Intubated Past Patient History - Past Medical History & Family History Past Medical History?: Yes Past Family History: Reviewed and not pertinent - Past Social History Smoking Status: Never Smoked Chewing Tobacco Use: No Cigar Use: No Alcohol: None Drugs: Denies Home Situation {Lives}: With Family - CARDIAC Hx Hypertension: Yes - PULMONARY Hx Respiratory Disorders: No - NEUROLOGICAL Hx Neurological Disorder: No - HEENT Hx HEENT Problems: No - RENAL Hx Chronic Kidney Disease: Yes - ENDOCRINE/METABOLIC Hx Endocrine Disorders: No - HEMATOLOGICAL/ONCOLOGICAL Hx Blood Disorders: No - INTEGUMENTARY Hx Dermatological Problems: No - MUSCULOSKELETAL/RHEUMATOLOGICAL Hx Falls: No - GASTROINTESTINAL Hx Gastrointestinal Disorders: No - GENITOURINARY/GYNECOLOGICAL Hx Genitourinary Disorders: No - PSYCHIATRIC Hx Substance Use: No - SURGICAL HISTORY Hx Surgeries: Yes Hx Vascular Access Device: Yes (LEFT ARM SHUNT) - ANESTHESIA Hx Anesthesia: Yes Hx Anesthesia Reactions: No Hx Malignant Hyperthermia: No Meds Allergies/Adverse Reactions: Allergies Allergy/AdvReac Type Severity Reaction Status Date / Time shrimp Allergy Verified 10/11/17 20:17 vancomycin Allergy Verified 10/11/17 20:17 - Medications Medications: Current Medications Docusate Sodium (Colace) 100 mg PO TID COUNT INCLUDES THE [facility] Last Admin: 10/13/17 10:41 Dose: Not Given BUPIVACAINE 0.125%/0.9% NACL (Bupivacaine-Ns 0.125% On-Q Associate Application Developer) 600 mls @ 4 mls/ hr IJ ONCE ONE Stop: 10/18/17 17:08 Ciprofloxacin (Cipro 400mg/200ml Dsw) 400 mg in 200 mls @ 133 mls/hr IVPB Q24H VASILIY PRN Reason: Protocol Last Admin: 10/12/17 14:15 Dose: 200 mls Metronidazole (Flagyl) 500 mg in 100 mls @ 100 mls/hr IVPB Q8 VASILIY PRN Reason: Protocol Last Admin: 10/13/17 05:03 Dose: 100 mls/hr Norepinephrine Bitartrate 4 mg (/ Sodium Chloride) 254 mls @ 15.24 mls/hr IV .[id number] PRN; Protocol; 4 MCG/MIN PRN Reason: TITRATE PER MD ORDER Dextrose (Dextrose 10% In Water) 1,000 mls @ 100 mls/hr IV .Q10H COUNT INCLUDES THE [facility] Last Admin: 10/12/17 23:18 Dose: 100 mls/hr Meropenem 500 mg/ Sodium (Chloride) 100 mls @ 100 mls/hr IVPB DAILY VASILIY PRN Reason: Protocol Last Admin: 10/13/17 10:00 Dose: 100 mls/hr Lorazepam (Ativan) 2 mg IVP Q2H PRN PRN Reason: Seizure activity Last Admin: 10/13/17 06:57 Dose: 2 mg Ondansetron HCl (Zofran Inj) 4 mg IVP Q6H PRN PRN Reason: Nausea/Vomiting Last Admin: 10/12/17 10:12 Dose: 4 mg Pantoprazole Sodium (Protonix Inj) 40 mg IVP DAILY COUNT INCLUDES THE [facility] Last Admin: 10/13/17 10:40 Dose: 40 mg Simethicone (Mylicon Chew Tab) 80 mg PO TID COUNT INCLUDES THE [facility] Last Admin: 10/13/17 10:41 Dose: Not Given Physical Exam - Constitutional Appears: In Acute Distress, Chronically Ill - Head Exam Head Exam: ATRAUMATIC, NORMAL INSPECTION - Eye Exam Eye Exam: EOMI, Normal appearance - Neck Exam Neck exam: Positive for: Normal Inspection. Negative for: Tenderness - Respiratory Exam Respiratory Exam: Clear to Auscultation Bilateral, Respiratory Distress - Cardiovascular Exam Cardiovascular Exam: Tachycardia, +S1 - GI/Abdominal Exam GI & Abdominal Exam: Firm, Normal Bowel Sounds - Extremities Exam Extremities exam: Positive for: normal inspection. Negative for: tenderness - Neurological Exam Neurological exam: CN II-XII Intact - Skin Skin Exam: Dry, Warm Results - Vital Signs Recent Vital Signs: Last Vital Signs Temp 98.7 F 10/13/17 08:00 Pulse 94 H 10/13/17 08:00 Resp 22 10/13/17 08:00 BP 129/71 10/13/17 07:16 Pulse Ox 99 10/13/17 08:00 - Labs Result Diagrams: 10/13/17 06:33 10/13/17 06:33 Labs: Laboratory Results - last 24 hr 10/12/17 10/12/17 10/12/17 11:42 17:09 17:17 WBC RBC Hgb Hct MCV MCH MCHC RDW Plt Count MPV Neut % (Auto) Lymph % (Auto) Bibb % (Auto) Eos % (Auto) Baso % (Auto) Neut # (Auto) Lymph # (Auto) Bibb # (Auto) Eos # (Auto) Baso # (Auto) Neutrophils % (Manual) Band Neutrophils % Lymphocytes % (Manual) Reactive Lymphs % Monocytes % (Manual) Myelocytes % Promyelocytes % Nucleated RBC % Platelet Estimate Polychromasia Hypochromasia (manual) Anisocytosis (manual) Target Cells PT INR APTT Fibrinogen Puncture Site pCO2 pO2 HCO3 ABG pH ABG Total CO2 ABG O2 Saturation ABG Base Excess Alfredo Test ABG Potassium A-a O2 Difference Respiratory Index Sodium Chloride Glucose Lactate Vent Mode Mechanical Rate FiO2 Tidal Volume PEEP Crit Value Called To Crit Value Called By Crit Value Read Back Blood Gas Notified Time Potassium Carbon Dioxide Anion Gap BUN Creatinine Est GFR ( Amer) Est GFR (Non-Af Amer) POC Glucose (mg/dL) 21 L* 258 H Random Glucose Lactic Acid Calcium Phosphorus Magnesium Total Bilirubin AST ALT Alkaline Phosphatase Troponin I NT-Pro-B Natriuret Pep Total Protein Albumin Globulin Albumin/Globulin Ratio TSH 3rd Generation Beta HCG, Quant Cortisol AM Sample Arterial Blood Potassium Blood Type A NEGATIVE Antibody Screen Negative 0510/12/17 10/12/17 17:50 18:10 18:26 WBC RBC Hgb Hct MCV MCH MCHC RDW Plt Count MPV Neut % (Auto) Lymph % (Auto) Bibb % (Auto) Eos % (Auto) Baso % (Auto) Neut # (Auto) Lymph # (Auto) Bibb # (Auto) Eos # (Auto) Baso # (Auto) Neutrophils % (Manual) Band Neutrophils % Lymphocytes % (Manual) Reactive Lymphs % Monocytes % (Manual) Myelocytes % Promyelocytes % Nucleated RBC % Platelet Estimate Polychromasia Hypochromasia (manual) Anisocytosis (manual) Target Cells PT INR APTT Fibrinogen Puncture Site Rba pCO2 39 pO2 96 HCO3 16.2 L ABG pH 7.22 L ABG Total CO2 17.2 L ABG O2 Saturation 97.7 ABG Base Excess -11.1 L Alfredo Test Pos ABG Potassium 5.6 H A-a O2 Difference 568.0 Respiratory Index 5.9 Sodium 137.0 142 Chloride 104.0 104 Glucose 127 H Lactate 8.7 H* Vent Mode Prvc Mechanical Rate 16 FiO2 100.0 Tidal Volume 500 PEEP 5 Crit Value Called To Dr kilpatrick Crit Value Called By [facility] Crit Value Read Back Y Blood Gas Notified Time 1822 Potassium 5.9 H Carbon Dioxide 13 L Anion Gap 31 H BUN 38 H Creatinine 6.2 H Est GFR ( Amer) 10 Est GFR (Non-Af Amer) 8 POC Glucose (mg/dL) 164 H Random Glucose 113 H Lactic Acid Calcium 6.6 L Phosphorus Magnesium Total Bilirubin 1.4 H AST 81 H D ALT 30 Alkaline Phosphatase 68 Troponin I 0.2980 H* NT-Pro-B Natriuret Pep Total Protein 4.4 L Albumin 2.2 L D Globulin 2.1 L Albumin/Globulin Ratio 1.1 TSH 3rd Generation Beta HCG, Quant Cortisol AM Sample Arterial Blood Potassium 5.6 H Blood Type Antibody Screen 10/12/17 10/12/17 10/12/17 18:26 18:45 19:50 WBC 21.0 H RBC 3.67 L Hgb 10.3 L Hct 32.8 L MCV 89.3 D MCH 28.0 MCHC 31.3 L RDW 19.0 H Plt Count 232 MPV 7.8 Neut % (Auto) Lymph % (Auto) Bibb % (Auto) Eos % (Auto) Baso % (Auto) Neut # (Auto) Lymph # (Auto) Bibb # (Auto) Eos # (Auto) Baso # (Auto) Neutrophils % (Manual) Band Neutrophils % Lymphocytes % (Manual) Reactive Lymphs % Monocytes % (Manual) Myelocytes % Promyelocytes % Nucleated RBC % Platelet Estimate Polychromasia Hypochromasia (manual) Anisocytosis (manual) Target Cells PT INR APTT Fibrinogen Puncture Site pCO2 pO2 HCO3 ABG pH ABG Total CO2 ABG O2 Saturation ABG Base Excess Alfredo Test ABG Potassium A-a O2 Difference Respiratory Index Sodium Chloride Glucose Lactate Vent Mode Mechanical Rate FiO2 Tidal Volume PEEP Crit Value Called To Crit Value Called By Crit Value Read Back Blood Gas Notified Time Potassium Carbon Dioxide Anion Gap BUN Creatinine Est GFR ( Amer) Est GFR (Non-Af Amer) POC Glucose (mg/dL) 97 191 H Random Glucose Lactic Acid Calcium Phosphorus Magnesium Total Bilirubin AST ALT Alkaline Phosphatase Troponin I NT-Pro-B Natriuret Pep Total Protein Albumin Globulin Albumin/Globulin Ratio TSH 3rd Generation Beta HCG, Quant Cortisol AM Sample Arterial Blood Potassium Blood Type Antibody Screen 10/12/17 10/12/17 10/12/17 21:04 21:52 22:15 WBC RBC Hgb Hct MCV MCH MCHC RDW Plt Count MPV Neut % (Auto) Lymph % (Auto) Bibb % (Auto) Eos % (Auto) Baso % (Auto) Neut # (Auto) Lymph # (Auto) Bibb # (Auto) Eos # (Auto) Baso # (Auto) Neutrophils % (Manual) Band Neutrophils % Lymphocytes % (Manual) Reactive Lymphs % Monocytes % (Manual) Myelocytes % Promyelocytes % Nucleated RBC % Platelet Estimate Polychromasia Hypochromasia (manual) Anisocytosis (manual) Target Cells PT INR APTT Fibrinogen Puncture Site pCO2 pO2 HCO3 ABG pH ABG Total CO2 ABG O2 Saturation ABG Base Excess Alfredo Test ABG Potassium A-a O2 Difference Respiratory Index Sodium Chloride Glucose Lactate Vent Mode Mechanical Rate FiO2 Tidal Volume PEEP Crit Value Called To Crit Value Called By Crit Value Read Back Blood Gas Notified Time Potassium Carbon Dioxide Anion Gap BUN Creatinine Est GFR ( Amer) Est GFR (Non-Af Amer) POC Glucose (mg/dL) 188 H 151 H Random Glucose Lactic Acid 5.9 H* Calcium Phosphorus Magnesium Total Bilirubin AST ALT Alkaline Phosphatase Troponin I NT-Pro-B Natriuret Pep Total Protein Albumin Globulin Albumin/Globulin Ratio TSH 3rd Generation Beta HCG, Quant Cortisol AM Sample Arterial Blood Potassium Blood Type Antibody Screen 10/12/17 10/12/17 10/12/17 22:15 22:15 22:15 WBC RBC Hgb Hct MCV MCH MCHC RDW Plt Count MPV Neut % (Auto) Lymph % (Auto) Bibb % (Auto) Eos % (Auto) Baso % (Auto) Neut # (Auto) Lymph # (Auto) Bibb # (Auto) Eos # (Auto) Baso # (Auto) Neutrophils % (Manual) Band Neutrophils % Lymphocytes % (Manual) Reactive Lymphs % Monocytes % (Manual) Myelocytes % Promyelocytes % Nucleated RBC % Platelet Estimate Polychromasia Hypochromasia (manual) Anisocytosis (manual) Target Cells PT 22.0 H INR 2.0 APTT 31 Fibrinogen 218 Puncture Site pCO2 pO2 HCO3 ABG pH ABG Total CO2 ABG O2 Saturation ABG Base Excess Alfredo Test ABG Potassium A-a O2 Difference Respiratory Index Sodium Chloride Glucose Lactate Vent Mode Mechanical Rate FiO2 Tidal Volume PEEP Crit Value Called To Crit Value Called By Crit Value Read Back Blood Gas Notified Time Potassium Carbon Dioxide Anion Gap BUN Creatinine Est GFR ( Amer) Est GFR (Non-Af Amer) POC Glucose (mg/dL) Random Glucose Lactic Acid Calcium Phosphorus Magnesium Total Bilirubin AST ALT Alkaline Phosphatase Troponin I 0.3220 H* NT-Pro-B Natriuret Pep 448774 H Total Protein Albumin Globulin Albumin/Globulin Ratio TSH 3rd Generation Beta HCG, Quant Cortisol AM Sample Arterial Blood Potassium Blood Type Antibody Screen 10/12/17 10/12/17 10/12/17 22:15 22:15 22:15 WBC 11.7 H RBC 3.82 Hgb 10.4 L Hct 32.9 L MCV 86.2 D MCH 27.3 MCHC 31.7 L RDW 18.7 H Plt Count 240 MPV 7.8 Neut % (Auto) 90.1 H Lymph % (Auto) 7.1 L Bibb % (Auto) 1.3 Eos % (Auto) 0.3 Baso % (Auto) 1.2 Neut # (Auto) 10.6 H Lymph # (Auto) 0.8 L Bibb # (Auto) 0.2 Eos # (Auto) 0.0 Baso # (Auto) 0.1 Neutrophils % (Manual) 51 Band Neutrophils % 30 H* Lymphocytes % (Manual) 7 L Reactive Lymphs % 7 H Monocytes % (Manual) 2 Myelocytes % 1 H Promyelocytes % 2 H Nucleated RBC % 2 H Platelet Estimate Normal Polychromasia Hypochromasia (manual) Anisocytosis (manual) Target Cells PT INR APTT Fibrinogen Puncture Site pCO2 pO2 HCO3 ABG pH ABG Total CO2 ABG O2 Saturation ABG Base Excess Alfredo Test ABG Potassium A-a O2 Difference Respiratory Index Sodium 139 Chloride 98 Glucose Lactate Vent Mode Mechanical Rate FiO2 Tidal Volume PEEP Crit Value Called To Crit Value Called By Crit Value Read Back Blood Gas Notified Time Potassium 4.2 Carbon Dioxide 21 L Anion Gap 25 H BUN 44 H Creatinine 6.1 H Est GFR ( Amer) 10 Est GFR (Non-Af Amer) 8 POC Glucose (mg/dL) Random Glucose 144 H Lactic Acid Calcium 7.7 L Phosphorus 6.5 H Magnesium 2.9 H Total Bilirubin 1.6 H AST 82 H ALT 70 H D Alkaline Phosphatase 83 Troponin I NT-Pro-B Natriuret Pep Total Protein 4.9 L Albumin 2.7 L D Globulin 2.2 Albumin/Globulin Ratio 1.2 TSH 3rd Generation Beta HCG, Quant < 2.39 Cortisol AM Sample Arterial Blood Potassium Blood Type Antibody Screen 10/12/17 10/12/17 10/13/17 23:06 23:54 00:56 WBC RBC Hgb Hct MCV MCH MCHC RDW Plt Count MPV Neut % (Auto) Lymph % (Auto) Bibb % (Auto) Eos % (Auto) Baso % (Auto) Neut # (Auto) Lymph # (Auto) Bibb # (Auto) Eos # (Auto) Baso # (Auto) Neutrophils % (Manual) Band Neutrophils % Lymphocytes % (Manual) Reactive Lymphs % Monocytes % (Manual) Myelocytes % Promyelocytes % Nucleated RBC % Platelet Estimate Polychromasia Hypochromasia (manual) Anisocytosis (manual) Target Cells PT INR APTT Fibrinogen Puncture Site pCO2 pO2 HCO3 ABG pH ABG Total CO2 ABG O2 Saturation ABG Base Excess Alfredo Test ABG Potassium A-a O2 Difference Respiratory Index Sodium Chloride Glucose Lactate Vent Mode Mechanical Rate FiO2 Tidal Volume PEEP Crit Value Called To Crit Value Called By Crit Value Read Back Blood Gas Notified Time Potassium Carbon Dioxide Anion Gap BUN Creatinine Est GFR ( Amer) Est GFR (Non-Af Amer) POC Glucose (mg/dL) 119 H 100 121 H Random Glucose Lactic Acid Calcium Phosphorus Magnesium Total Bilirubin AST ALT Alkaline Phosphatase Troponin I NT-Pro-B Natriuret Pep Total Protein Albumin Globulin Albumin/Globulin Ratio TSH 3rd Generation Beta HCG, Quant Cortisol AM Sample Arterial Blood Potassium Blood Type Antibody Screen 10/13/17 10/13/17 10/13/17 01:56 02:10 03:09 WBC RBC Hgb Hct MCV MCH MCHC RDW Plt Count MPV Neut % (Auto) Lymph % (Auto) Bibb % (Auto) Eos % (Auto) Baso % (Auto) Neut # (Auto) Lymph # (Auto) Bibb # (Auto) Eos # (Auto) Baso # (Auto) Neutrophils % (Manual) Band Neutrophils % Lymphocytes % (Manual) Reactive Lymphs % Monocytes % (Manual) Myelocytes % Promyelocytes % Nucleated RBC % Platelet Estimate Polychromasia Hypochromasia (manual) Anisocytosis (manual) Target Cells PT INR APTT Fibrinogen Puncture Site pCO2 pO2 HCO3 ABG pH ABG Total CO2 ABG O2 Saturation ABG Base Excess Alfredo Test ABG Potassium A-a O2 Difference Respiratory Index Sodium Chloride Glucose Lactate Vent Mode Mechanical Rate FiO2 Tidal Volume PEEP Crit Value Called To Crit Value Called By Crit Value Read Back Blood Gas Notified Time Potassium Carbon Dioxide Anion Gap BUN Creatinine Est GFR ( Amer) Est GFR (Non-Af Amer) POC Glucose (mg/dL) 111 H 129 H Random Glucose Lactic Acid 1.8 Calcium Phosphorus Magnesium Total Bilirubin AST ALT Alkaline Phosphatase Troponin I NT-Pro-B Natriuret Pep Total Protein Albumin Globulin Albumin/Globulin Ratio TSH 3rd Generation Beta HCG, Quant Cortisol AM Sample Arterial Blood Potassium Blood Type Antibody Screen 10/13/17 10/13/17 10/13/17 04:59 05:18 05:51 WBC RBC Hgb Hct MCV MCH MCHC RDW Plt Count MPV Neut % (Auto) Lymph % (Auto) Bibb % (Auto) Eos % (Auto) Baso % (Auto) Neut # (Auto) Lymph # (Auto) Bibb # (Auto) Eos # (Auto) Baso # (Auto) Neutrophils % (Manual) Band Neutrophils % Lymphocytes % (Manual) Reactive Lymphs % Monocytes % (Manual) Myelocytes % Promyelocytes % Nucleated RBC % Platelet Estimate Polychromasia Hypochromasia (manual) Anisocytosis (manual) Target Cells PT INR APTT Fibrinogen Puncture Site Rr pCO2 41 pO2 46 L HCO3 30.2 H ABG pH 7.49 H ABG Total CO2 32.5 H ABG O2 Saturation 82.7 L ABG Base Excess 7.2 H Alfredo Test Pos ABG Potassium 4.5 A-a O2 Difference 616.0 Respiratory Index 13.4 Sodium 137.0 Chloride 100.0 Glucose 158 H Lactate 3.0 H Vent Mode Prvc Mechanical Rate 22 FiO2 100.0 Tidal Volume 500 PEEP 5 Crit Value Called To Crit Value Called By Crit Value Read Back Blood Gas Notified Time Potassium Carbon Dioxide Anion Gap BUN Creatinine Est GFR ( Amer) Est GFR (Non-Af Amer) POC Glucose (mg/dL) 158 H 186 H Random Glucose Lactic Acid Calcium Phosphorus Magnesium Total Bilirubin AST ALT Alkaline Phosphatase Troponin I NT-Pro-B Natriuret Pep Total Protein Albumin Globulin Albumin/Globulin Ratio TSH 3rd Generation Beta HCG, Quant Cortisol AM Sample Arterial Blood Potassium 4.5 Blood Type Antibody Screen 10/13/17 10/13/17 10/13/17 06:33 06:33 06:33 WBC 13.1 H RBC 3.98 Hgb 11.3 Hct 33.8 L MCV 84.8 MCH 28.4 MCHC 33.5 RDW 18.7 H Plt Count 222 MPV 7.8 Neut % (Auto) 94.6 H Lymph % (Auto) 2.6 L Bibb % (Auto) 2.5 Eos % (Auto) 0.1 Baso % (Auto) 0.2 Neut # (Auto) 12.3 H Lymph # (Auto) 0.3 L Bibb # (Auto) 0.3 Eos # (Auto) 0.0 Baso # (Auto) 0.0 Neutrophils % (Manual) 45 L Band Neutrophils % 52 H* Lymphocytes % (Manual) 1 L Reactive Lymphs % Monocytes % (Manual) 2 Myelocytes % Promyelocytes % Nucleated RBC % Platelet Estimate Normal Polychromasia Slight Hypochromasia (manual) Slight Anisocytosis (manual) Slight Target Cells Slight PT INR APTT Fibrinogen Puncture Site pCO2 pO2 HCO3 ABG pH ABG Total CO2 ABG O2 Saturation ABG Base Excess Alfredo Test ABG Potassium A-a O2 Difference Respiratory Index Sodium 140 Chloride 95 L Glucose Lactate Vent Mode Mechanical Rate FiO2 Tidal Volume PEEP Crit Value Called To Crit Value Called By Crit Value Read Back Blood Gas Notified Time Potassium 4.3 Carbon Dioxide 30 Anion Gap 20 BUN 27 H Creatinine 4.2 H Est GFR ( Amer) 16 Est GFR (Non-Af Amer) 13 POC Glucose (mg/dL) Random Glucose 139 H Lactic Acid Calcium 7.8 L Phosphorus 3.8 Magnesium 2.6 H Total Bilirubin 1.3 AST 110 H D ALT 99 H D Alkaline Phosphatase 83 Troponin I 0.2870 H* NT-Pro-B Natriuret Pep Total Protein 5.4 L Albumin 3.0 L Globulin 2.5 Albumin/Globulin Ratio 1.2 TSH 3rd Generation Beta HCG, Quant Cortisol AM Sample 19.4 Arterial Blood Potassium Blood Type Antibody Screen 10/13/17 10/13/17 10/13/17 06:33 06:33 06:36 WBC RBC Hgb Hct MCV MCH MCHC RDW Plt Count MPV Neut % (Auto) Lymph % (Auto) Bibb % (Auto) Eos % (Auto) Baso % (Auto) Neut # (Auto) Lymph # (Auto) Bibb # (Auto) Eos # (Auto) Baso # (Auto) Neutrophils % (Manual) Band Neutrophils % Lymphocytes % (Manual) Reactive Lymphs % Monocytes % (Manual) Myelocytes % Promyelocytes % Nucleated RBC % Platelet Estimate Polychromasia Hypochromasia (manual) Anisocytosis (manual) Target Cells PT INR APTT Fibrinogen Puncture Site R rad pCO2 38 pO2 104 H HCO3 30.3 H ABG pH 7.51 H ABG Total CO2 31.5 H ABG O2 Saturation 98.6 H ABG Base Excess 6.9 H Alfredo Test Pos ABG Potassium 4.0 A-a O2 Difference 562.0 Respiratory Index 5.4 Sodium 134.0 Chloride 97.0 L Glucose 179 H Lactate 2.5 H Vent Mode Prvc Mechanical Rate 22 FiO2 100.0 Tidal Volume 500 PEEP 5 Crit Value Called To Crit Value Called By Crit Value Read Back Blood Gas Notified Time Potassium Carbon Dioxide Anion Gap BUN Creatinine Est GFR ( Amer) Est GFR (Non-Af Amer) POC Glucose (mg/dL) Random Glucose Lactic Acid 2.8 H Calcium Phosphorus Magnesium Total Bilirubin AST ALT Alkaline Phosphatase Troponin I NT-Pro-B Natriuret Pep Total Protein Albumin Globulin Albumin/Globulin Ratio TSH 3rd Generation 2.12 Beta HCG, Quant Cortisol AM Sample Arterial Blood Potassium 4.0 Blood Type Antibody Screen 10/13/17 10/13/17 10/13/17 06:51 07:50 09:13 WBC RBC Hgb Hct MCV MCH MCHC RDW Plt Count MPV Neut % (Auto) Lymph % (Auto) Bibb % (Auto) Eos % (Auto) Baso % (Auto) Neut # (Auto) Lymph # (Auto) Bibb # (Auto) Eos # (Auto) Baso # (Auto) Neutrophils % (Manual) Band Neutrophils % Lymphocytes % (Manual) Reactive Lymphs % Monocytes % (Manual) Myelocytes % Promyelocytes % Nucleated RBC % Platelet Estimate Polychromasia Hypochromasia (manual) Anisocytosis (manual) Target Cells PT INR APTT Fibrinogen Puncture Site pCO2 pO2 HCO3 ABG pH ABG Total CO2 ABG O2 Saturation ABG Base Excess Alfredo Test ABG Potassium A-a O2 Difference Respiratory Index Sodium Chloride Glucose Lactate Vent Mode Mechanical Rate FiO2 Tidal Volume PEEP Crit Value Called To Crit Value Called By Crit Value Read Back Blood Gas Notified Time Potassium Carbon Dioxide Anion Gap BUN Creatinine Est GFR ( Amer) Est GFR (Non-Af Amer) POC Glucose (mg/dL) 202 H 178 H 143 H Random Glucose Lactic Acid Calcium Phosphorus Magnesium Total Bilirubin AST ALT Alkaline Phosphatase Troponin I NT-Pro-B Natriuret Pep Total Protein Albumin Globulin Albumin/Globulin Ratio TSH 3rd Generation Beta HCG, Quant Cortisol AM Sample Arterial Blood Potassium Blood Type Antibody Screen Assessment & Plan (1) Constipation Status: Acute (2) Hypertensive chronic kidney disease with stage 5 chronic kidney disease or end stage renal disease Status: Acute (3) Failed kidney transplant Status: Acute (4) S/P exploratory laparotomy Status: Acute - Assessment and Plan (Free Text) Plan: Stop bicarb drip vent care repeat dialysis D10W IV for hypoglycemia monitor mental status BP controlled now- has been difficult to control recently
--- NOTE | 2017-10-13 12:07 | CARD ---
APPROVED REPORT EKG Measurement Heart [id number] <Conclusion> Normal sinus rhythm Possible Left atrial enlargement Rightward axis Nonspecific ST abnormality Prolonged QT Abnormal ECG
[2017-10-13] MEDS: Ciprofloxacin 400mg/200ml D5W 400 MG/200 ML BAG IVPB SCH (13:21)
--- NOTE | 2017-10-13 18:48 | CP.PCM.CON ---
History of Present Illness - History of Present Illness History of Present Illness: I was asked to see patient by Dr Wilson. Patient is a 27 year old female with a history of ESRD on HD, kidney transplant , HTN who presented with an acute abdomen. She was found to necrotic colon, and underwent colectomy. She was difficult to arouse post op and was found to b hypoglycemic. She is currently intubated and seen in the ICU. She is awake, and family was present. Review of Systems - Review of Systems Systems not reviewed;Unavailable: Intubated Past Patient History - Past Medical History & Family History Past Medical History?: Yes Past Family History: Reviewed and not pertinent - Past Social History Smoking Status: Never Smoked Chewing Tobacco Use: No Cigar Use: No Alcohol: None Drugs: Denies Home Situation {Lives}: With Family - CARDIAC Hx Hypertension: Yes - PULMONARY Hx Respiratory Disorders: No - NEUROLOGICAL Hx Neurological Disorder: No - HEENT Hx HEENT Problems: No - RENAL Hx Chronic Kidney Disease: Yes - ENDOCRINE/METABOLIC Hx Endocrine Disorders: No - HEMATOLOGICAL/ONCOLOGICAL Hx Blood Disorders: No - INTEGUMENTARY Hx Dermatological Problems: No - MUSCULOSKELETAL/RHEUMATOLOGICAL Hx Falls: No - GASTROINTESTINAL Hx Gastrointestinal Disorders: No - GENITOURINARY/GYNECOLOGICAL Hx Genitourinary Disorders: No - PSYCHIATRIC Hx Substance Use: No - SURGICAL HISTORY Hx Surgeries: Yes Hx Vascular Access Device: Yes (LEFT ARM SHUNT) - ANESTHESIA Hx Anesthesia: Yes Hx Anesthesia Reactions: No Hx Malignant Hyperthermia: No Meds Allergies/Adverse Reactions: Allergies Allergy/AdvReac Type Severity Reaction Status Date / Time shrimp Allergy Verified 10/11/17 20:17 vancomycin Allergy Verified 10/11/17 20:17 - Medications Medications: Current Medications BUPIVACAINE 0.125%/0.9% NACL (Bupivacaine-Ns 0.125% On-Q Scallop Cutter) 600 mls @ 4 mls/ hr IJ ONCE ONE Stop: 10/18/17 17:08 Ciprofloxacin (Cipro 400mg/200ml Dsw) 400 mg in 200 mls @ 133 mls/hr IVPB Q24H VASILIY PRN Reason: Protocol Last Admin: 10/13/17 13:21 Dose: 133 mls/hr Metronidazole (Flagyl) 500 mg in 100 mls @ 100 mls/hr IVPB Q8 VASILIY PRN Reason: Protocol Last Admin: 10/13/17 13:22 Dose: 100 mls/hr Norepinephrine Bitartrate 4 mg (/ Sodium Chloride) 254 mls @ 15.24 mls/hr IV .[id number] PRN; Protocol; 4 MCG/MIN PRN Reason: TITRATE PER MD ORDER Dextrose (Dextrose 10% In Water) 1,000 mls @ 100 mls/hr IV .Q10H VASILIY Last Admin: 10/13/17 17:54 Dose: 100 mls/hr Meropenem 500 mg/ Sodium (Chloride) 100 mls @ 100 mls/hr IVPB DAILY VASILIY PRN Reason: Protocol Last Admin: 10/13/17 10:00 Dose: 100 mls/hr Dexmedetomidine HCl 200 mcg/ (Sodium Chloride) 50 mls @ 2.54 mls/hr IV TITR PRN ; Protocol; 0.2 MCG/KG/HR PRN Reason: Agitation Lorazepam (Ativan) 2 mg IVP Q2H PRN PRN Reason: Seizure activity Last Admin: 10/13/17 15:40 Dose: 2 mg Ondansetron HCl (Zofran Inj) 4 mg IVP Q6H PRN PRN Reason: Nausea/Vomiting Last Admin: 10/12/17 10:12 Dose: 4 mg Pantoprazole Sodium (Protonix Inj) 40 mg IVP DAILY [facility] Last Admin: 10/13/17 10:40 Dose: 40 mg Physical Exam - Constitutional Appears: Non-toxic - Head Exam Head Exam: NORMAL INSPECTION - Eye Exam Eye Exam: Normal appearance - ENT Exam ENT Exam: Mucous Membranes Moist - Neck Exam Neck exam: Positive for: Full Rom - Respiratory Exam Respiratory Exam: Decreased Breath Sounds - Cardiovascular Exam Cardiovascular Exam: Tachycardia, REGULAR RHYTHM - GI/Abdominal Exam GI & Abdominal Exam: Hypoactive Bowel Sounds - Rectal Exam Rectal Exam: Deferred - Extremities Exam Extremities exam: Negative for: pedal edema - Back Exam Back exam: NORMAL INSPECTION - Skin Skin Exam: Normal Color Results - Vital Signs Recent Vital Signs: Last Vital Signs Temp 98.8 F 10/13/17 16:00 Pulse 85 10/13/17 17:20 Resp 22 10/13/17 17:20 BP 195/102 H 10/13/17 17:20 Pulse Ox 98 10/13/17 17:20 - Labs Result Diagrams: 10/13/17 06:33 10/13/17 06:33 Labs: Laboratory Results - last 24 hr 0510/12/17 10/12/17 17:50 18:26 18:45 WBC RBC Hgb Hct MCV MCH MCHC RDW Plt Count MPV Neut % (Auto) Lymph % (Auto) Gilchrist % (Auto) Eos % (Auto) Baso % (Auto) Neut # (Auto) Lymph # (Auto) Gilchrist # (Auto) Eos # (Auto) Baso # (Auto) Neutrophils % (Manual) Band Neutrophils % Lymphocytes % (Manual) Reactive Lymphs % Monocytes % (Manual) Myelocytes % Promyelocytes % Nucleated RBC % Platelet Estimate Polychromasia Hypochromasia (manual) Anisocytosis (manual) Target Cells PT INR APTT Fibrinogen Puncture Site pCO2 pO2 HCO3 ABG pH ABG Total CO2 ABG O2 Saturation ABG Base Excess Alfredo Test ABG Potassium A-a O2 Difference Respiratory Index Glucose Lactate Vent Mode Mechanical Rate FiO2 Tidal Volume PEEP Sodium 142 Potassium 5.9 H Chloride 104 Carbon Dioxide 13 L Anion Gap 31 H BUN 38 H Creatinine 6.2 H Est GFR ( Amer) 10 Est GFR (Non-Af Amer) 8 POC Glucose (mg/dL) 164 H 97 Random Glucose 113 H Lactic Acid Calcium 6.6 L Phosphorus Magnesium Total Bilirubin 1.4 H AST 81 H D ALT 30 Alkaline Phosphatase 68 Troponin I 0.2980 H* NT-Pro-B Natriuret Pep Total Protein 4.4 L Albumin 2.2 L D Globulin 2.1 L Albumin/Globulin Ratio 1.1 TSH 3rd Generation Beta HCG, Quant Cortisol AM Sample Arterial Blood Potassium 10/12/17 10/12/17 10/12/17 19:50 21:04 21:52 WBC RBC Hgb Hct MCV MCH MCHC RDW Plt Count MPV Neut % (Auto) Lymph % (Auto) Gilchrist % (Auto) Eos % (Auto) Baso % (Auto) Neut # (Auto) Lymph # (Auto) Gilchrist # (Auto) Eos # (Auto) Baso # (Auto) Neutrophils % (Manual) Band Neutrophils % Lymphocytes % (Manual) Reactive Lymphs % Monocytes % (Manual) Myelocytes % Promyelocytes % Nucleated RBC % Platelet Estimate Polychromasia Hypochromasia (manual) Anisocytosis (manual) Target Cells PT INR APTT Fibrinogen Puncture Site pCO2 pO2 HCO3 ABG pH ABG Total CO2 ABG O2 Saturation ABG Base Excess Alfredo Test ABG Potassium A-a O2 Difference Respiratory Index Glucose Lactate Vent Mode Mechanical Rate FiO2 Tidal Volume PEEP Sodium Potassium Chloride Carbon Dioxide Anion Gap BUN Creatinine Est GFR ( Amer) Est GFR (Non-Af Amer) POC Glucose (mg/dL) 191 H 188 H 151 H Random Glucose Lactic Acid Calcium Phosphorus Magnesium Total Bilirubin AST ALT Alkaline Phosphatase Troponin I NT-Pro-B Natriuret Pep Total Protein Albumin Globulin Albumin/Globulin Ratio TSH 3rd Generation Beta HCG, Quant Cortisol AM Sample Arterial Blood Potassium 10/12/17 10/12/17 10/12/17 22:15 22:15 22:15 WBC RBC Hgb Hct MCV MCH MCHC RDW Plt Count MPV Neut % (Auto) Lymph % (Auto) Gilchrist % (Auto) Eos % (Auto) Baso % (Auto) Neut # (Auto) Lymph # (Auto) Gilchrist # (Auto) Eos # (Auto) Baso # (Auto) Neutrophils % (Manual) Band Neutrophils % Lymphocytes % (Manual) Reactive Lymphs % Monocytes % (Manual) Myelocytes % Promyelocytes % Nucleated RBC % Platelet Estimate Polychromasia Hypochromasia (manual) Anisocytosis (manual) Target Cells PT INR APTT Fibrinogen Puncture Site pCO2 pO2 HCO3 ABG pH ABG Total CO2 ABG O2 Saturation ABG Base Excess Alfredo Test ABG Potassium A-a O2 Difference Respiratory Index Glucose Lactate Vent Mode Mechanical Rate FiO2 Tidal Volume PEEP Sodium Potassium Chloride Carbon Dioxide Anion Gap BUN Creatinine Est GFR ( Amer) Est GFR (Non-Af Amer) POC Glucose (mg/dL) Random Glucose Lactic Acid 5.9 H* Calcium Phosphorus Magnesium Total Bilirubin AST ALT Alkaline Phosphatase Troponin I 0.3220 H* NT-Pro-B Natriuret Pep 558782 H Total Protein Albumin Globulin Albumin/Globulin Ratio TSH 3rd Generation Beta HCG, Quant Cortisol AM Sample Arterial Blood Potassium 10/12/17 10/12/17 10/12/17 22:15 22:15 22:15 WBC 11.7 H RBC 3.82 Hgb 10.4 L Hct 32.9 L MCV 86.2 D MCH 27.3 MCHC 31.7 L RDW 18.7 H Plt Count 240 MPV 7.8 Neut % (Auto) 90.1 H Lymph % (Auto) 7.1 L Gilchrist % (Auto) 1.3 Eos % (Auto) 0.3 Baso % (Auto) 1.2 Neut # (Auto) 10.6 H Lymph # (Auto) 0.8 L Gilchrist # (Auto) 0.2 Eos # (Auto) 0.0 Baso # (Auto) 0.1 Neutrophils % (Manual) 51 Band Neutrophils % 30 H* Lymphocytes % (Manual) 7 L Reactive Lymphs % 7 H Monocytes % (Manual) 2 Myelocytes % 1 H Promyelocytes % 2 H Nucleated RBC % 2 H Platelet Estimate Normal Polychromasia Hypochromasia (manual) Anisocytosis (manual) Target Cells PT 22.0 H INR 2.0 APTT 31 Fibrinogen 218 Puncture Site pCO2 pO2 HCO3 ABG pH ABG Total CO2 ABG O2 Saturation ABG Base Excess Alfredo Test ABG Potassium A-a O2 Difference Respiratory Index Glucose Lactate Vent Mode Mechanical Rate FiO2 Tidal Volume PEEP Sodium 139 Potassium 4.2 Chloride 98 Carbon Dioxide 21 L Anion Gap 25 H BUN 44 H Creatinine 6.1 H Est GFR ( Amer) 10 Est GFR (Non-Af Amer) 8 POC Glucose (mg/dL) Random Glucose 144 H Lactic Acid Calcium 7.7 L Phosphorus 6.5 H Magnesium 2.9 H Total Bilirubin 1.6 H AST 82 H ALT 70 H D Alkaline Phosphatase 83 Troponin I NT-Pro-B Natriuret Pep Total Protein 4.9 L Albumin 2.7 L D Globulin 2.2 Albumin/Globulin Ratio 1.2 TSH 3rd Generation Beta HCG, Quant Cortisol AM Sample Arterial Blood Potassium 10/12/17 10/12/17 10/12/17 22:15 23:06 23:54 WBC RBC Hgb Hct MCV MCH MCHC RDW Plt Count MPV Neut % (Auto) Lymph % (Auto) Gilchrist % (Auto) Eos % (Auto) Baso % (Auto) Neut # (Auto) Lymph # (Auto) Gilchrist # (Auto) Eos # (Auto) Baso # (Auto) Neutrophils % (Manual) Band Neutrophils % Lymphocytes % (Manual) Reactive Lymphs % Monocytes % (Manual) Myelocytes % Promyelocytes % Nucleated RBC % Platelet Estimate Polychromasia Hypochromasia (manual) Anisocytosis (manual) Target Cells PT INR APTT Fibrinogen Puncture Site pCO2 pO2 HCO3 ABG pH ABG Total CO2 ABG O2 Saturation ABG Base Excess Alfredo Test ABG Potassium A-a O2 Difference Respiratory Index Glucose Lactate Vent Mode Mechanical Rate FiO2 Tidal Volume PEEP Sodium Potassium Chloride Carbon Dioxide Anion Gap BUN Creatinine Est GFR ( Amer) Est GFR (Non-Af Amer) POC Glucose (mg/dL) 119 H 100 Random Glucose Lactic Acid Calcium Phosphorus Magnesium Total Bilirubin AST ALT Alkaline Phosphatase Troponin I NT-Pro-B Natriuret Pep Total Protein Albumin Globulin Albumin/Globulin Ratio TSH 3rd Generation Beta HCG, Quant < 2.39 Cortisol AM Sample Arterial Blood Potassium 10/13/17 10/13/17 10/13/17 00:56 01:56 02:10 WBC RBC Hgb Hct MCV MCH MCHC RDW Plt Count MPV Neut % (Auto) Lymph % (Auto) Gilchrist % (Auto) Eos % (Auto) Baso % (Auto) Neut # (Auto) Lymph # (Auto) Gilchrist # (Auto) Eos # (Auto) Baso # (Auto) Neutrophils % (Manual) Band Neutrophils % Lymphocytes % (Manual) Reactive Lymphs % Monocytes % (Manual) Myelocytes % Promyelocytes % Nucleated RBC % Platelet Estimate Polychromasia Hypochromasia (manual) Anisocytosis (manual) Target Cells PT INR APTT Fibrinogen Puncture Site pCO2 pO2 HCO3 ABG pH ABG Total CO2 ABG O2 Saturation ABG Base Excess Alfredo Test ABG Potassium A-a O2 Difference Respiratory Index Glucose Lactate Vent Mode Mechanical Rate FiO2 Tidal Volume PEEP Sodium Potassium Chloride Carbon Dioxide Anion Gap BUN Creatinine Est GFR ( Amer) Est GFR (Non-Af Amer) POC Glucose (mg/dL) 121 H 111 H Random Glucose Lactic Acid 1.8 Calcium Phosphorus Magnesium Total Bilirubin AST ALT Alkaline Phosphatase Troponin I NT-Pro-B Natriuret Pep Total Protein Albumin Globulin Albumin/Globulin Ratio TSH 3rd Generation Beta HCG, Quant Cortisol AM Sample Arterial Blood Potassium 10/13/17 10/13/17 10/13/17 03:09 04:59 05:18 WBC RBC Hgb Hct MCV MCH MCHC RDW Plt Count MPV Neut % (Auto) Lymph % (Auto) Gilchrist % (Auto) Eos % (Auto) Baso % (Auto) Neut # (Auto) Lymph # (Auto) Gilchrist # (Auto) Eos # (Auto) Baso # (Auto) Neutrophils % (Manual) Band Neutrophils % Lymphocytes % (Manual) Reactive Lymphs % Monocytes % (Manual) Myelocytes % Promyelocytes % Nucleated RBC % Platelet Estimate Polychromasia Hypochromasia (manual) Anisocytosis (manual) Target Cells PT INR APTT Fibrinogen Puncture Site Rr pCO2 41 pO2 46 L HCO3 30.2 H ABG pH 7.49 H ABG Total CO2 32.5 H ABG O2 Saturation 82.7 L ABG Base Excess 7.2 H Alfredo Test Pos ABG Potassium 4.5 A-a O2 Difference 616.0 Respiratory Index 13.4 Glucose 158 H Lactate 3.0 H Vent Mode Prvc Mechanical Rate 22 FiO2 100.0 Tidal Volume 500 PEEP 5 Sodium 137.0 Potassium Chloride 100.0 Carbon Dioxide Anion Gap BUN Creatinine Est GFR ( Amer) Est GFR (Non-Af Amer) POC Glucose (mg/dL) 129 H 158 H Random Glucose Lactic Acid Calcium Phosphorus Magnesium Total Bilirubin AST ALT Alkaline Phosphatase Troponin I NT-Pro-B Natriuret Pep Total Protein Albumin Globulin Albumin/Globulin Ratio TSH 3rd Generation Beta HCG, Quant Cortisol AM Sample Arterial Blood Potassium 4.5 10/13/17 10/13/17 10/13/17 05:51 06:33 06:33 WBC 13.1 H RBC 3.98 Hgb 11.3 Hct 33.8 L MCV 84.8 MCH 28.4 MCHC 33.5 RDW 18.7 H Plt Count 222 MPV 7.8 Neut % (Auto) 94.6 H Lymph % (Auto) 2.6 L Gilchrist % (Auto) 2.5 Eos % (Auto) 0.1 Baso % (Auto) 0.2 Neut # (Auto) 12.3 H Lymph # (Auto) 0.3 L Gilchrist # (Auto) 0.3 Eos # (Auto) 0.0 Baso # (Auto) 0.0 Neutrophils % (Manual) 45 L Band Neutrophils % 52 H* Lymphocytes % (Manual) 1 L Reactive Lymphs % Monocytes % (Manual) 2 Myelocytes % Promyelocytes % Nucleated RBC % Platelet Estimate Normal Polychromasia Slight Hypochromasia (manual) Slight Anisocytosis (manual) Slight Target Cells Slight PT INR APTT Fibrinogen Puncture Site pCO2 pO2 HCO3 ABG pH ABG Total CO2 ABG O2 Saturation ABG Base Excess Alfredo Test ABG Potassium A-a O2 Difference Respiratory Index Glucose Lactate Vent Mode Mechanical Rate FiO2 Tidal Volume PEEP Sodium 140 Potassium 4.3 Chloride 95 L Carbon Dioxide 30 Anion Gap 20 BUN 27 H Creatinine 4.2 H Est GFR ( Amer) 16 Est GFR (Non-Af Amer) 13 POC Glucose (mg/dL) 186 H Random Glucose 139 H Lactic Acid Calcium 7.8 L Phosphorus 3.8 Magnesium 2.6 H Total Bilirubin 1.3 AST 110 H D ALT 99 H D Alkaline Phosphatase 83 Troponin I 0.2870 H* NT-Pro-B Natriuret Pep Total Protein 5.4 L Albumin 3.0 L Globulin 2.5 Albumin/Globulin Ratio 1.2 TSH 3rd Generation Beta HCG, Quant Cortisol AM Sample Arterial Blood Potassium 10/13/17 10/13/17 10/13/17 06:33 06:33 06:33 WBC RBC Hgb Hct MCV MCH MCHC RDW Plt Count MPV Neut % (Auto) Lymph % (Auto) Gilchrist % (Auto) Eos % (Auto) Baso % (Auto) Neut # (Auto) Lymph # (Auto) Gilchrist # (Auto) Eos # (Auto) Baso # (Auto) Neutrophils % (Manual) Band Neutrophils % Lymphocytes % (Manual) Reactive Lymphs % Monocytes % (Manual) Myelocytes % Promyelocytes % Nucleated RBC % Platelet Estimate Polychromasia Hypochromasia (manual) Anisocytosis (manual) Target Cells PT INR APTT Fibrinogen Puncture Site R rad pCO2 38 pO2 104 H HCO3 30.3 H ABG pH 7.51 H ABG Total CO2 31.5 H ABG O2 Saturation 98.6 H ABG Base Excess 6.9 H Alfredo Test Pos ABG Potassium 4.0 A-a O2 Difference 562.0 Respiratory Index 5.4 Glucose 179 H Lactate 2.5 H Vent Mode Prvc Mechanical Rate 22 FiO2 100.0 Tidal Volume 500 PEEP 5 Sodium 134.0 Potassium Chloride 97.0 L Carbon Dioxide Anion Gap BUN Creatinine Est GFR ( Amer) Est GFR (Non-Af Amer) POC Glucose (mg/dL) Random Glucose Lactic Acid Calcium Phosphorus Magnesium Total Bilirubin AST ALT Alkaline Phosphatase Troponin I NT-Pro-B Natriuret Pep Total Protein Albumin Globulin Albumin/Globulin Ratio TSH 3rd Generation 2.12 Beta HCG, Quant Cortisol AM Sample 19.4 Arterial Blood Potassium 4.0 10/13/17 10/13/17 10/13/17 06:36 06:51 07:50 WBC RBC Hgb Hct MCV MCH MCHC RDW Plt Count MPV Neut % (Auto) Lymph % (Auto) Gilchrist % (Auto) Eos % (Auto) Baso % (Auto) Neut # (Auto) Lymph # (Auto) Gilchrist # (Auto) Eos # (Auto) Baso # (Auto) Neutrophils % (Manual) Band Neutrophils % Lymphocytes % (Manual) Reactive Lymphs % Monocytes % (Manual) Myelocytes % Promyelocytes % Nucleated RBC % Platelet Estimate Polychromasia Hypochromasia (manual) Anisocytosis (manual) Target Cells PT INR APTT Fibrinogen Puncture Site pCO2 pO2 HCO3 ABG pH ABG Total CO2 ABG O2 Saturation ABG Base Excess Alfredo Test ABG Potassium A-a O2 Difference Respiratory Index Glucose Lactate Vent Mode Mechanical Rate FiO2 Tidal Volume PEEP Sodium Potassium Chloride Carbon Dioxide Anion Gap BUN Creatinine Est GFR ( Amer) Est GFR (Non-Af Amer) POC Glucose (mg/dL) 202 H 178 H Random Glucose Lactic Acid 2.8 H Calcium Phosphorus Magnesium Total Bilirubin AST ALT Alkaline Phosphatase Troponin I NT-Pro-B Natriuret Pep Total Protein Albumin Globulin Albumin/Globulin Ratio TSH 3rd Generation Beta HCG, Quant Cortisol AM Sample Arterial Blood Potassium 10/13/17 10/13/17 10/13/17 09:13 11:23 12:08 WBC RBC Hgb Hct MCV MCH MCHC RDW Plt Count MPV Neut % (Auto) Lymph % (Auto) Gilchrist % (Auto) Eos % (Auto) Baso % (Auto) Neut # (Auto) Lymph # (Auto) Gilchrist # (Auto) Eos # (Auto) Baso # (Auto) Neutrophils % (Manual) Band Neutrophils % Lymphocytes % (Manual) Reactive Lymphs % Monocytes % (Manual) Myelocytes % Promyelocytes % Nucleated RBC % Platelet Estimate Polychromasia Hypochromasia (manual) Anisocytosis (manual) Target Cells PT INR APTT Fibrinogen Puncture Site pCO2 pO2 HCO3 ABG pH ABG Total CO2 ABG O2 Saturation ABG Base Excess Alfredo Test ABG Potassium A-a O2 Difference Respiratory Index Glucose Lactate Vent Mode Mechanical Rate FiO2 Tidal Volume PEEP Sodium Potassium Chloride Carbon Dioxide Anion Gap BUN Creatinine Est GFR ( Amer) Est GFR (Non-Af Amer) POC Glucose (mg/dL) 143 H 131 H Random Glucose Lactic Acid Calcium Phosphorus Magnesium Total Bilirubin AST ALT Alkaline Phosphatase Troponin I 0.2550 H* NT-Pro-B Natriuret Pep Total Protein Albumin Globulin Albumin/Globulin Ratio TSH 3rd Generation Beta HCG, Quant Cortisol AM Sample Arterial Blood Potassium 10/13/17 10/13/17 10/13/17 13:31 15:16 17:32 WBC RBC Hgb Hct MCV MCH MCHC RDW Plt Count MPV Neut % (Auto) Lymph % (Auto) Gilchrist % (Auto) Eos % (Auto) Baso % (Auto) Neut # (Auto) Lymph # (Auto) Gilchrist # (Auto) Eos # (Auto) Baso # (Auto) Neutrophils % (Manual) Band Neutrophils % Lymphocytes % (Manual) Reactive Lymphs % Monocytes % (Manual) Myelocytes % Promyelocytes % Nucleated RBC % Platelet Estimate Polychromasia Hypochromasia (manual) Anisocytosis (manual) Target Cells PT INR APTT Fibrinogen Puncture Site pCO2 pO2 HCO3 ABG pH ABG Total CO2 ABG O2 Saturation ABG Base Excess Alfredo Test ABG Potassium A-a O2 Difference Respiratory Index Glucose Lactate Vent Mode Mechanical Rate FiO2 Tidal Volume PEEP Sodium Potassium Chloride Carbon Dioxide Anion Gap BUN Creatinine Est GFR ( Amer) Est GFR (Non-Af Amer) POC Glucose (mg/dL) 154 H 116 H 139 H Random Glucose Lactic Acid Calcium Phosphorus Magnesium Total Bilirubin AST ALT Alkaline Phosphatase Troponin I NT-Pro-B Natriuret Pep Total Protein Albumin Globulin Albumin/Globulin Ratio TSH 3rd Generation Beta HCG, Quant Cortisol AM Sample Arterial Blood Potassium - EKG Data EKG Interpreted by: Myself Assessment & Plan (1) Pericardial effusion Assessment and Plan: there is a small circumferential pericardial effusion on echo. I will conitnue current medical therapy. There is no tamponade physiology. Status: Acute (2) Hypertensive chronic kidney disease with stage 5 chronic kidney disease or end stage renal disease Assessment and Plan: blood pressure control. can use hydralazine IV Status: Acute (3) Pulmonary HTN Assessment and Plan: appears severe by echocardiogram. consider work up when more stable. Status: Acute
[2017-10-13] MEDS: Dexmedetomidine Hydrochloride 200 MCG in Sodium Chloride 0.9% 48 ML IV PRN (20:20)
[2017-10-14] MEDS: Dexmedetomidine Hydrochloride 200 MCG in Sodium Chloride 0.9% 48 ML IV PRN ×2 (03:22→09:41)
[2017-10-14] MEDS: metroNIDAZOLE IV 500 mg/100 ml 500 MG/100 ML BAG IVPB SCH ×2 (05:11→14:00)
[2017-10-14 06:04] LABS: ARTERIAL BLOOD GAS HCO3 30.2 mmol/L (21-28); ARTERIAL BLOOD GAS HEMOGLOBIN 9.8 g/dL (11.7-17.4); ARTERIAL BLOOD GAS O2 SAT 99.3 % (95-98); ARTERIAL BLOOD GAS PCO2 38 mm/Hg (35-45); ARTERIAL BLOOD GAS PH 7.51 (7.35-7.45); ARTERIAL BLOOD GAS PO2 137 mm/Hg (80-100); ARTERIAL BLOOD GAS TCO2 31.5 mmol/L (22-28)
[2017-10-14 06:04] LABS: BASO % 0.3 % (0.0-2.0); EOS % 0.1 % (0.0-4.0); HEMOGLOBIN 9.7 g/dL (11.0-16.0); LYMPH # 0.4 K/uL (1.0-4.3); LYMPH % 3.1 % (20.0-40.0); MEAN CELL VOLUME 84.2 fL (81.0-99.0); MEAN CORPUSCULAR HEMOGLOBIN 27.5 pg (27.0-31.0); MEAN CORPUSCULAR HGB CONC 32.7 g/dL (33.0-37.0); MEAN PLATELET VOLUME 8.4 fL (7.2-11.7); MONO # 0.8 K/uL (0.0-0.8); MONO % 6.4 % (0.0-10.0); NEUT # 11.8 K/uL (1.8-7.0); NEUT % 90.1 % (50.0-75.0); NRBC % 0.3 % (0.0-2.0); PLATELET COUNT 208 K/uL (130-400); RBC 3.51 Mil/uL (3.80-5.20); RED CELL DISTRIBUTION WIDTH 19.6 % (11.5-14.5)
[2017-10-14 06:32] LABS: ALB/GLOB RATIO 1.2 (1.0-2.1); ALBUMIN 2.8 g/dL (3.5-5.0); CALCIUM 7.1 mg/dl (8.6-10.4)
[2017-10-14 08:12] LABS: ANISOCYTOSIS MODERATE; BANDS 37 % (0-2); LYMPHOCYTE 3 % (20-40); MONOCYTE 6 % (0-10); NUCLEATED RED BLOOD CELL 1 % (0-0); PLATELET ESTIMATE NORMAL (NORMAL); TOTAL CELLS COUNTED 100
[2017-10-14 08:13] LABS: HYPOCHROMIC SLIGHT; NEUTROPHIL 54 % (50-75); OVALOCYTES SLIGHT; TOXIC GRANULATION PRESENT
[2017-10-14 08:44] VITALS: TEMP 100.5
[2017-10-14] MEDS: Meropenem 500 MG in Sodium Chloride 0.9% 100 ML IVPB SCH (09:27)
--- NOTE | 2017-10-14 09:59 | RAD ---
HISTORY: vented COMPARISON: 10/13/2017 FINDINGS: LUNGS: No active pulmonary disease. PLEURA: No significant pleural effusion identified, no pneumothorax apparent. CARDIOVASCULAR: Cardiomegaly. ET tube, NG tube and right IJ central venous catheter unchanged. OSSEOUS STRUCTURES: No significant abnormalities. VISUALIZED UPPER ABDOMEN: Normal. OTHER FINDINGS: None. IMPRESSION: No active disease.
--- NOTE | 2017-10-14 10:55 | CP.PCM.PN ---
<Jake Barrett - Last Filed: 10/14/17 10:55> Subjective - Date & Time of Evaluation Date of Evaluation: 10/14/17 Time of Evaluation: 06:50 - Subjective Subjective: General Surgery- Dr. Hinds Patient seen and examined at bedside this AM. On PRVC and precedex. Off bicarb and pressors. failed CPAP trial yesterday. No acute events overnight. Dressing C /D/I ROS unobtainable, pt intubated Objective - Vital Signs/Intake and Output Vital Signs (last 24 hours): Temp Pulse Resp BP Pulse Ox 100.5 F H 80 22 145/83 100 10/14/17 08:00 10/14/17 10:00 10/14/17 10:00 10/14/17 09:50 10/14/17 10:00 Intake and Output: 10/14/17 10/14/17 06:59 18:59 Intake Total 1289.3 493.2 Output Total 240 0 Balance 1049.3 493.2 - Medications Medications: Current Medications BUPIVACAINE 0.125%/0.9% NACL (Bupivacaine-Ns 0.125% On-Q Cylindrical Mixer) 600 mls @ 4 mls/ hr IJ ONCE ONE Stop: 10/18/17 17:08 Ciprofloxacin (Cipro 400mg/200ml Dsw) 400 mg in 200 mls @ 133 mls/hr IVPB Q24H VASILIY PRN Reason: Protocol Last Admin: 10/13/17 13:21 Dose: 133 mls/hr Metronidazole (Flagyl) 500 mg in 100 mls @ 100 mls/hr IVPB Q8 VASILIY PRN Reason: Protocol Last Admin: 10/14/17 05:11 Dose: 100 mls/hr Dextrose (Dextrose 10% In Water) 1,000 mls @ 100 mls/hr IV .Q10H VASILIY Last Admin: 10/14/17 03:21 Dose: 100 mls/hr Meropenem 500 mg/ Sodium (Chloride) 100 mls @ 100 mls/hr IVPB DAILY [facility]IL[facility] PRN Reason: Protocol Last Admin: 10/14/17 09:27 Dose: 100 mls/hr Dexmedetomidine HCl 200 mcg/ (Sodium Chloride) 50 mls @ 2.54 mls/hr IV TITR PRN ; Protocol; 0.2 MCG/KG/HR PRN Reason: Agitation Last Admin: 10/14/17 09:41 Dose: 1 mcg/kg/hr, 12.7 mls/hr Lorazepam (Ativan) 2 mg IVP Q2H PRN PRN Reason: Seizure activity Last Admin: 10/14/17 07:24 Dose: 2 mg Ondansetron HCl (Zofran Inj) 4 mg IVP Q6H PRN PRN Reason: Nausea/Vomiting Last Admin: 10/12/17 10:12 Dose: 4 mg Pantoprazole Sodium (Protonix Inj) 40 mg IVP DAILY [facility] Last Admin: 10/14/17 09:44 Dose: 40 mg - Labs Labs: 10/14/17 06:00 10/14/17 06:00 PT 22.0 SECONDS (9.7-12.2) H 10/12/17 22:15 INR 2.0 10/12/17 22:15 APTT 31 SECONDS (21-34) 10/12/17 22:15 - Constitutional Appears: Non-toxic, No Acute Distress - Head Exam Head Exam: ATRAUMATIC - Eye Exam Eye Exam: EOMI - ENT Exam ENT Exam: Mucous Membranes Moist - Respiratory Exam Respiratory Exam: absent: Accessory Muscle Use, Respiratory Distress Additional comments: intubated on PRVC - Cardiovascular Exam Cardiovascular Exam: +S1, +S2. absent: Bradycardia, Tachycardia - GI/Abdominal Exam GI & Abdominal Exam: Distended, Soft. absent: Firm, Guarding, Tenderness Additional comments: Midline incision dressing C/D/I - Extremities Exam Extremities Exam: Pedal Edema - Neurological Exam Neurological Exam: Awake - Skin Skin Exam: Intact, Warm Assessment and Plan - Assessment and Plan (Free Text) Assessment: 27F sepsis 2/2 perforated colon s/p ex lap w/ left hemicolectomy and primary anastomosis POD2 Plan: NPO NGT to suction monitor for bowel function return sedation vacation & CPAP trial serial abdominal exams medical management per ICu team discussed w/ Dr. Hinds surgical attending PGY1 <Leonard Hinds - Last Filed: 10/18/17 18:17> Objective - Vital Signs/Intake and Output Vital Signs (last 24 hours): Temp Pulse Resp BP Pulse Ox 100.5 F H 77 39 H 238/30 H 71 L 10/14/17 12:00 10/14/17 17:39 10/14/17 17:39 10/14/17 17:39 10/14/17 16:59 - Labs Labs: 10/14/17 15:53 10/14/17 15:05 PT 16.6 SECONDS (9.7-12.2) H D 10/14/17 11:00 INR 1.5 D 10/14/17 11:00 APTT 29 SECONDS (21-34) 10/14/17 11:00 Attending/Attestation - Attestation I have personally seen and examined this patient.: Yes I have fully participated in the care of the patient.: Yes I have reviewed all pertinent clinical information, including history, physical exam and plan: Yes Notes (Text): Pt was seen and examined at bedside As per ICU attending pt developed sudden asystole CPR was done several time. Echo is suggestive of akinesia of LV and severe PHT Poor Prognosis Plan d.w parents and other family member at bedside C.w current mx as per ICU team.
[2017-10-14 11:11] LABS: INR 1.5; PROTHROMBIN TIME 16.6 SECONDS (9.7-12.2)
--- NOTE | 2017-10-14 11:47 | CP.PCM.PN ---
Subjective - Date & Time of Evaluation Date of Evaluation: 10/14/17 Time of Evaluation: 11:45 - Subjective Subjective: seen and examined discussed w/ DIRECTOR INSTRUMENTATION intubated sedated, off pressors hd terminated early yesterday due to pt agitation cxr noted febrile ROS cannot be obtained Objective - Vital Signs/Intake and Output Vital Signs (last 24 hours): Temp Pulse Resp BP Pulse Ox 100.5 F H 81 22 153/83 H 100 10/14/17 08:00 10/14/17 11:00 10/14/17 11:00 10/14/17 10:50 10/14/17 11:00 Intake and Output: 10/14/17 10/14/17 06:59 18:59 Intake Total 1289.3 493.2 Output Total 240 0 Balance 1049.3 493.2 - Medications Medications: Current Medications Heparin Sodium (Porcine) (Heparin) 5,000 units SC Q12 VASILIY BUPIVACAINE 0.125%/0.9% NACL (Bupivacaine-Ns 0.125% On-Q Leather Leveler) 600 mls @ 4 mls/ hr IJ ONCE ONE Stop: 10/18/17 17:08 Ciprofloxacin (Cipro 400mg/200ml Dsw) 400 mg in 200 mls @ 133 mls/hr IVPB Q24H VASILIY PRN Reason: Protocol Last Admin: 10/13/17 13:21 Dose: 133 mls/hr Metronidazole (Flagyl) 500 mg in 100 mls @ 100 mls/hr IVPB Q8 VASILIY PRN Reason: Protocol Last Admin: 10/14/17 05:11 Dose: 100 mls/hr Dextrose (Dextrose 10% In Water) 1,000 mls @ 100 mls/hr IV .Q10H VASILIY Last Admin: 10/14/17 03:21 Dose: 100 mls/hr Meropenem 500 mg/ Sodium (Chloride) 100 mls @ 100 mls/hr IVPB DAILY VASILIY PRN Reason: Protocol Last Admin: 10/14/17 09:27 Dose: 100 mls/hr Dexmedetomidine HCl 200 mcg/ (Sodium Chloride) 50 mls @ 2.54 mls/hr IV TITR PRN ; Protocol; 0.2 MCG/KG/HR PRN Reason: Agitation Last Admin: 10/14/17 09:41 Dose: 1 mcg/kg/hr, 12.7 mls/hr Lorazepam (Ativan) 2 mg IVP Q2H PRN PRN Reason: Seizure activity Last Admin: 10/14/17 07:24 Dose: 2 mg Ondansetron HCl (Zofran Inj) 4 mg IVP Q6H PRN PRN Reason: Nausea/Vomiting Last Admin: 10/12/17 10:12 Dose: 4 mg Pantoprazole Sodium (Protonix Inj) 40 mg IVP DAILY VASILIY Last Admin: 10/14/17 09:44 Dose: 40 mg - Labs Labs: 10/14/17 06:00 10/14/17 06:00 PT 16.6 SECONDS (9.7-12.2) H D 10/14/17 11:00 INR 1.5 D 10/14/17 11:00 APTT 29 SECONDS (21-34) 10/14/17 11:00 - Constitutional Appears: No Acute Distress (intubated sedated) - Head Exam Head Exam: NORMAL INSPECTION, NORMOCEPHALIC - Eye Exam Eye Exam: Normal appearance - ENT Exam ENT Exam: Normal Exam (ET tube) - Neck Exam Neck Exam: Normal Inspection - Respiratory Exam Respiratory Exam: NORMAL BREATHING PATTERN (b/l air entry) - Cardiovascular Exam Cardiovascular Exam: REGULAR RHYTHM, RRR - GI/Abdominal Exam GI & Abdominal Exam: Distended, Soft - Extremities Exam Extremities Exam: Normal Inspection, Pedal Edema - Neurological Exam Neurological Exam: absent: Alert, Awake - Skin Skin Exam: Intact, Warm Assessment and Plan (1) Hypoglycemia Status: Acute (2) S/P exploratory laparotomy Status: Acute (3) ESRD (end stage renal disease) on dialysis Status: Chronic (4) Anemia Status: Acute (5) Failed kidney transplant Status: Acute (6) HTN (hypertension) Status: Chronic - Assessment and Plan (Free Text) Assessment: s/p ex lap for bowel perf sepsis vdrf esrd improved chf hypoglycemia resolved plan: plan for hd tomorrow weaning / extubation per icu team on d5 for hypoglycemia consider ppn
--- NOTE | 2017-10-14 13:14 | CARD ---
APPROVED REPORT EXAM: Two-dimensional and M-mode echocardiogram with Doppler and color Doppler. Other Information Quality : GoodRhythm : INDICATION ESRD/ Myocardial Injury RISK FACTORS Hypertension 2D DIMENSIONS IVSd1.4 (0.7-1.1cm)LVDd4.5 (3.9-5.9cm) PWd1.4 (0.7-1.1cm)LVDs2.6 (2.5-4.0cm) FS (%) 40.9 %LVEF (%)71.9 (>50%) M-Mode DIMENSIONS Left Atrium (MM)3.68 (2.5-4.0cm)Aortic Root3.12 (2.2-3.7cm) Aortic Cusp Exc.2.39 (1.5-2.0cm) Mitral Valve MV E Jcqehpyh16.0cm/sMV A Xpotfrfv97.6cm/sE/A ratio1.3 TDI E/Lateral E'0.0E/Medial E'0.0 Tricuspid Valve TR Peak [id number]/sTR Peak Gr.[id number] LEFT VENTRICLE The left ventricle is normal size. There is moderate concentric left ventricular hypertrophy. The left ventricular function is normal. The left ventricular ejection fraction is within the normal range. There is normal LV segmental wall motion. The left ventricular diastolic function is normal. No left ventricle thrombus noted on this study. There is no ventricular septal defect visualized. There is no left ventricular aneurysm. There is no mass noted in the left ventricle. RIGHT VENTRICLE The right ventricle is normal size. The right ventricular systolic function is normal. moderator band noted in rv. ATRIA The left atrium size is normal. The right atrium is moderately dilated. The interatrial septum is intact with no evidence for an atrial septal defect. AORTIC VALVE The aortic valve is normal in structure. No aortic regurgitation is present. There is no aortic valvular stenosis. There is no aortic valvular vegetation. MITRAL VALVE The mitral valve is normal in structure. There is no mitral valve stenosis. Mitral regurgitation is moderate. TRICUSPID VALVE The tricuspid valve is normal in structure. There is moderate tricuspid regurgitation. There is severe pulmonary hypertension. PULMONIC VALVE The pulmonary valve is normal in structure. There is mild to moderate pulmonic valvular regurgitation. GREAT VESSELS The aortic root is normal in size. The ascending aorta is normal in size. The pulmonary artery is normal. The IVC is normal in size and collapses >50% with inspiration. PERICARDIAL EFFUSION There is a small circumferential pericardial effusion. <Conclusion> There is moderate concentric left ventricular hypertrophy. The right atrium is moderately dilated. Mitral regurgitation is moderate. There is moderate tricuspid regurgitation. There is severe pulmonary hypertension. There is mild to moderate pulmonic valvular regurgitation. There is a small circumferential pericardial effusion.
[2017-10-14] MEDS: Ciprofloxacin 400mg/200ml D5W 400 MG/200 ML BAG IVPB SCH (13:30)
[2017-10-14] MEDS ORDERED: Propofol 10 mg/ml 1,000 MG/100 ML VIAL IV PRN (14:10)
[2017-10-14] MEDS ORDERED: Sodium Bicarbonate (8.4%) 50 Meq Syringe ONE ×5 (14:42→17:35)
[2017-10-14 15:01] LABS: ARTERIAL BLOOD GAS HCO3 19.8 mmol/L (21-28); ARTERIAL BLOOD GAS O2 SAT 11.2 % (95-98); ARTERIAL BLOOD GAS PCO2 54 mm/Hg (35-45); ARTERIAL BLOOD GAS PH 7.26 (7.35-7.45); ARTERIAL BLOOD GAS PO2 14 mm/Hg (80-100); ARTERIAL BLOOD GAS TCO2 25.9 mmol/L (22-28)
--- NOTE | 2017-10-14 15:02 | CP.CCUPN ---
<Jordan Hess - Last Filed: 10/14/17 16:52> CCU Subjective - Physician Review Subjective (Free Text): Patient seen and examined w/ mother at bedside. No overnight events reported. Patient currently intubated and cannot provide ROS. CCU Objective - Vital Signs / Intake & Output Vital Signs (Last 4 hours): Vital Signs Pulse Resp BP Pulse Ox 10/14/17 12:00 82 19 100 10/14/17 11:50 79 11 L 143/84 98 Intake and Output (Last 8hrs): Intake & Output 10/14/17 10/14/17 10/14/17 06:59 14:59 22:59 Intake Total 878.3 718.6 Output Total 190 70 Balance 688.3 648.6 Weight 111 lb 1.6 oz Intake: IV 44 50 Intake, IV Amount 834.3 668.6 Right Medial Port 34.3 68.6 Internal Jugular Right Proximal Port 800 600 Internal Jugular Output: Gastric Amount 0 Nares 0 Drainage 190 70 Right Lateral Abdomen 190 70 Urine 0 Urine, Voided 0 Urine/Stool Mix 0 Emesis 0 Other: # Bowel Movements 0 - Physical Exam Head: Positive for: Atraumatic, Normocephalic Extroacular Muscles: Positive for: EOMI Conjunctiva: Positive for: Normal Ears: Positive for: Normal Mouth: Positive for: Moist Mucous Membranes Neck: Positive for: Normal Range of Motion Respiratory/Chest: Positive for: Clear to Auscultation Cardiovascular: Positive for: Normal S1, S2 Abdomen: Positive for: Tenderness, Other (Midline incision with dressing on it. Dressing Clean, Dry, and Intact. On-Q Catheter. ) Neurological: Positive for: GCS=15 Psychiatric: Positive for: Alert - Medications Active Medications: Active Medications Generic Name Dose Route Start Last Admin Trade Name Freq PRN Reason Stop Dose Admin Heparin Sodium (Porcine) 5,000 units 10/14/17 11:15 10/14/17 12:23 Heparin SC 5,000 units Q12 VASILIY Administration BUPIVACAINE 0.125%/0.9% NACL 600 mls @ 4 mls/hr 10/12/17 11:09 Bupivacaine-Ns 0.125% On-Q Diamond Polisher IJ 10/18/17 17:08 ONCE ONE Ciprofloxacin 400 mg in 200 mls @ 133 mls/hr 10/12/17 13:45 10/13/17 13:21 Cipro 400mg/200ml Dsw IVPB 133 mls/hr Q24H VASILIY Administration Protocol Metronidazole 500 mg in 100 mls @ 100 mls/hr 10/12/17 14:00 10/14/17 05:11 Flagyl IVPB 100 mls/hr Q8 VASILIY Administration Protocol Dextrose 1,000 mls @ 100 mls/hr 10/12/17 22:00 10/14/17 03:21 Dextrose 10% In Water IV 100 mls/hr .Q10H VASILIY Administration Meropenem 500 mg/ Sodium 100 mls @ 100 mls/hr 10/13/17 10:00 10/14/17 09:27 Chloride IVPB 100 mls/hr DAILY VASILIY Administration Protocol Dexmedetomidine HCl 200 mcg/ 50 mls @ 2.54 mls/hr 10/13/17 17:12 10/14/17 09: 41 Sodium Chloride IV 1 mcg/kg/hr TITR PRN 12.7 mls/hr Agitation Administration Protocol 0.2 MCG/KG/HR Propofol 1,000 mg in 100 mls @ 1.512 mls/hr 10/14/17 14:10 Diprivan IV .Q24H PRN TITRATE PER MD ORDER Protocol 5 MCG/KG/MIN Lorazepam 2 mg 10/12/17 20:46 10/14/17 07:24 Ativan IVP 2 mg Q2H PRN Administration Seizure activity Ondansetron HCl 4 mg 10/12/17 10:00 10/12/17 10:12 Zofran Inj IVP 4 mg Q6H PRN Administration Nausea/Vomiting Pantoprazole Sodium 40 mg 10/12/17 10:00 10/14/17 09:44 Protonix Inj IVP 40 mg DAILY VASILIY Administration - Patient Studies Lab Studies: Microbiology Studies 10/12/17 15:40 Gram Stain - Final Peritoneal Fluid Body Fluid Culture - Preliminary Gram Negative Eric Gram Positive Cocci 10/12/17 19:56 MRSA Culture (Admit) - Final Nose MRSA NOT DETECTED 10/12/17 11:18 Blood Culture - Preliminary Blood-Venous NO GROWTH AFTER 48 HOURS 10/12/17 11:18 Blood Culture - Preliminary Blood-Venous NO GROWTH AFTER 48 HOURS 10/12/17 22:00 Blood Culture - Preliminary Blood-Venous NO GROWTH AFTER 24 HOURS 10/12/17 21:30 Blood Culture - Preliminary Blood-Venous NO GROWTH AFTER 24 HOURS 10/12/17 18:37 Gram Stain - Final Trachasp Lab Studies 10/14/17 10/14/17 10/14/17 Range/Units 14:57 13:01 11:16 WBC (4.8-10.8) K/uL RBC (3.80-5.20) Mil/uL Hgb (11.0-16.0) g/dL Hct (34.0-47.0) % MCV (81.0-99.0) fL MCH (27.0-31.0) pg MCHC (33.0-37.0) g/dL RDW (11.5-14.5) % Plt Count (130-400) K/uL MPV (7.2-11.7) fL Neut % (Auto) (50.0-75.0) % Lymph % (Auto) (20.0-40.0) % Dougherty % (Auto) (0.0-10.0) % Eos % (Auto) (0.0-4.0) % Baso % (Auto) (0.0-2.0) % Neut # (Auto) (1.8-7.0) K/uL Lymph # (Auto) (1.0-4.3) K/uL Dougherty # (Auto) (0.0-0.8) K/uL Eos # (Auto) (0.0-0.7) K/uL Baso # (Auto) (0.0-0.2) K/uL Neutrophils % (Manual) (50-75) % Band Neutrophils % (0-2) % Lymphocytes % (Manual) (20-40) % Monocytes % (Manual) (0-10) % Nucleated RBC % (0-0) % Toxic Granulation Dohle Bodies Platelet Estimate (NORMAL) Hypochromasia (manual) Anisocytosis (manual) Ovalocytes PT (9.7-12.2) SECONDS INR APTT (21-34) SECONDS Puncture Site Lf pCO2 54 H (35-45) mm/Hg pO2 14 L* (80-100) mm/Hg HCO3 19.8 L (21-28) mmol/L ABG pH 7.26 L (7.35-7.45) ABG Total CO2 25.9 (22-28) mmol/L ABG O2 Saturation 11.2 L (95-98) % ABG Base Excess -3.6 L (-2.0-3.0) mmol/L ABG Hemoglobin (11.7-17.4) g/dL ABG Carboxyhemoglobin (0.5-1.5) % POC ABG HHb (Measured) (0.0-5.0) % ABG Methemoglobin (0.0-3.0) % Alfredo Test Na ABG Potassium 5.7 H (3.6-5.2) mmol/L A-a O2 Difference 632.0 mm/Hg Respiratory Index 45.1 Hgb O2 Saturation (95.0-98.0) % Glucose 171 H (65-105) mg/dl Lactate 9.1 H* (0.7-2.1) mmol/L Vent Mode Prvc Mechanical Rate 22 FiO2 100.0 % Tidal Volume 450 PEEP CPAP 5 Crit Value Called To Dr hussein tirado Crit Value Called By Ashley torres reel hooker Crit Value Read Back Y Blood Gas Notified Time 1500 Sodium 129.0 L (132-148) mmol/L Potassium (3.6-5.2) mmol/L Chloride 90.0 L (98-107) mmol/L Carbon Dioxide (22-30) mmol/L Anion Gap (10-20) BUN (7-17) mg/dL Creatinine (0.7-1.2) mg/dL Est GFR ( Amer) Est GFR (Non-Af Amer) POC Glucose (mg/dL) 122 H 150 H (65-110) mg/dL Random Glucose (65-105) mg/dL Calcium (8.6-10.4) mg/dl Phosphorus (2.5-4.5) mg/dL Magnesium (1.6-2.3) mg/dL Total Bilirubin (0.2-1.3) mg/dL AST (14-36) U/L ALT (9-52) U/L Alkaline Phosphatase (38-126) U/L Total Protein (6.3-8.3) g/dL Albumin (3.5-5.0) g/dL Globulin (2.2-3.9) gm/dL Albumin/Globulin Ratio (1.0-2.1) Arterial Blood Potassium 5.7 H (3.6-5.2) mmol/L 05/15/18 05/15/18 05/15/18 Range/Units 11:00 09:27 06:56 WBC (4.8-10.8) K/uL RBC (3.80-5.20) Mil/uL Hgb (11.0-16.0) g/dL Hct (34.0-47.0) % MCV (81.0-99.0) fL MCH (27.0-31.0) pg MCHC (33.0-37.0) g/dL RDW (11.5-14.5) % Plt Count (130-400) K/uL MPV (7.2-11.7) fL Neut % (Auto) (50.0-75.0) % Lymph % (Auto) (20.0-40.0) % Dougherty % (Auto) (0.0-10.0) % Eos % (Auto) (0.0-4.0) % Baso % (Auto) (0.0-2.0) % Neut # (Auto) (1.8-7.0) K/uL Lymph # (Auto) (1.0-4.3) K/uL Dougherty # (Auto) (0.0-0.8) K/uL Eos # (Auto) (0.0-0.7) K/uL Baso # (Auto) (0.0-0.2) K/uL Neutrophils % (Manual) (50-75) % Band Neutrophils % (0-2) % Lymphocytes % (Manual) (20-40) % Monocytes % (Manual) (0-10) % Nucleated RBC % (0-0) % Toxic Granulation Dohle Bodies Platelet Estimate (NORMAL) Hypochromasia (manual) Anisocytosis (manual) Ovalocytes PT 16.6 H D (9.7-12.2) SECONDS INR 1.5 D APTT 29 (21-34) SECONDS Puncture Site pCO2 (35-45) mm/Hg pO2 (80-100) mm/Hg HCO3 (21-28) mmol/L ABG pH (7.35-7.45) ABG Total CO2 (22-28) mmol/L ABG O2 Saturation (95-98) % ABG Base Excess (-2.0-3.0) mmol/L ABG Hemoglobin (11.7-17.4) g/dL ABG Carboxyhemoglobin (0.5-1.5) % POC ABG HHb (Measured) (0.0-5.0) % ABG Methemoglobin (0.0-3.0) % Alfredo Test ABG Potassium (3.6-5.2) mmol/L A-a O2 Difference mm/Hg Respiratory Index Hgb O2 Saturation (95.0-98.0) % Glucose (65-105) mg/dl Lactate (0.7-2.1) mmol/L Vent Mode Mechanical Rate FiO2 % Tidal Volume PEEP CPAP Crit Value Called To Crit Value Called By Crit Value Read Back Blood Gas Notified Time Sodium (132-148) mmol/L Potassium (3.6-5.2) mmol/L Chloride (98-107) mmol/L Carbon Dioxide (22-30) mmol/L Anion Gap (10-20) BUN (7-17) mg/dL Creatinine (0.7-1.2) mg/dL Est GFR ( Amer) Est GFR (Non-Af Amer) POC Glucose (mg/dL) 162 H 134 H (65-110) mg/dL Random Glucose (65-105) mg/dL Calcium (8.6-10.4) mg/dl Phosphorus (2.5-4.5) mg/dL Magnesium (1.6-2.3) mg/dL Total Bilirubin (0.2-1.3) mg/dL AST (14-36) U/L ALT (9-52) U/L Alkaline Phosphatase (38-126) U/L Total Protein (6.3-8.3) g/dL Albumin (3.5-5.0) g/dL Globulin (2.2-3.9) gm/dL Albumin/Globulin Ratio (1.0-2.1) Arterial Blood Potassium (3.6-5.2) mmol/L 10/14/17 10/14/17 10/14/17 Range/Units 06:00 06:00 05:43 WBC 13.0 H (4.8-10.8) K/uL RBC 3.51 L (3.80-5.20) Mil/uL Hgb 9.7 L (11.0-16.0) g/dL Hct 29.6 L (34.0-47.0) % MCV 84.2 (81.0-99.0) fL MCH 27.5 (27.0-31.0) pg MCHC 32.7 L (33.0-37.0) g/dL RDW 19.6 H (11.5-14.5) % Plt Count 208 (130-400) K/uL MPV 8.4 (7.2-11.7) fL Neut % (Auto) 90.1 H (50.0-75.0) % Lymph % (Auto) 3.1 L (20.0-40.0) % Dougherty % (Auto) 6.4 (0.0-10.0) % Eos % (Auto) 0.1 (0.0-4.0) % Baso % (Auto) 0.3 (0.0-2.0) % Neut # (Auto) 11.8 H (1.8-7.0) K/uL Lymph # (Auto) 0.4 L (1.0-4.3) K/uL Dougherty # (Auto) 0.8 (0.0-0.8) K/uL Eos # (Auto) 0.0 (0.0-0.7) K/uL Baso # (Auto) 0.0 (0.0-0.2) K/uL Neutrophils % (Manual) 54 (50-75) % Band Neutrophils % 37 H* (0-2) % Lymphocytes % (Manual) 3 L (20-40) % Monocytes % (Manual) 6 (0-10) % Nucleated RBC % 1 H (0-0) % Toxic Granulation Present Dohle Bodies Present Platelet Estimate Normal (NORMAL) Hypochromasia (manual) Slight Anisocytosis (manual) Moderate Ovalocytes Slight PT (9.7-12.2) SECONDS INR APTT (21-34) SECONDS Puncture Site R bra pCO2 38 (35-45) mm/Hg pO2 137 H (80-100) mm/Hg HCO3 30.2 H (21-28) mmol/L ABG pH 7.51 H (7.35-7.45) ABG Total CO2 31.5 H (22-28) mmol/L ABG O2 Saturation 99.3 H (95-98) % ABG Base Excess 6.8 H (-2.0-3.0) mmol/L ABG Hemoglobin 9.8 L (11.7-17.4) g/dL ABG Carboxyhemoglobin 1.6 H (0.5-1.5) % POC ABG HHb (Measured) 0.7 (0.0-5.0) % ABG Methemoglobin 0.8 (0.0-3.0) % Alfredo Test Na ABG Potassium (3.6-5.2) mmol/L A-a O2 Difference 315.0 mm/Hg Respiratory Index 2.3 Hgb O2 Saturation 96.9 (95.0-98.0) % Glucose (65-105) mg/dl Lactate (0.7-2.1) mmol/L Vent Mode Prvc Mechanical Rate 22 FiO2 70.0 % Tidal Volume 450 PEEP 5 CPAP Crit Value Called To Crit Value Called By Crit Value Read Back Blood Gas Notified Time Sodium 134 (132-148) mmol/L Potassium 4.5 (3.6-5.2) mmol/L Chloride 92 L (98-107) mmol/L Carbon Dioxide 29 (22-30) mmol/L Anion Gap 18 (10-20) BUN 26 H (7-17) mg/dL Creatinine 3.6 H (0.7-1.2) mg/dL Est GFR ( Amer) 19 Est GFR (Non-Af Amer) 15 POC Glucose (mg/dL) (65-110) mg/dL Random Glucose 108 H (65-105) mg/dL Calcium 7.1 L (8.6-10.4) mg/dl Phosphorus 4.8 H (2.5-4.5) mg/dL Magnesium 2.3 (1.6-2.3) mg/dL Total Bilirubin 1.0 (0.2-1.3) mg/dL AST 72 H D (14-36) U/L ALT 108 H (9-52) U/L Alkaline Phosphatase 98 (38-126) U/L Total Protein 5.3 L (6.3-8.3) g/dL Albumin 2.8 L (3.5-5.0) g/dL Globulin 2.4 (2.2-3.9) gm/dL Albumin/Globulin Ratio 1.2 (1.0-2.1) Arterial Blood Potassium (3.6-5.2) mmol/L 10/14/17 10/14/17 10/14/17 Range/Units 05:03 03:25 01:02 WBC (4.8-10.8) K/uL RBC (3.80-5.20) Mil/uL Hgb (11.0-16.0) g/dL Hct (34.0-47.0) % MCV (81.0-99.0) fL MCH (27.0-31.0) pg MCHC (33.0-37.0) g/dL RDW (11.5-14.5) % Plt Count (130-400) K/uL MPV (7.2-11.7) fL Neut % (Auto) (50.0-75.0) % Lymph % (Auto) (20.0-40.0) % Dougherty % (Auto) (0.0-10.0) % Eos % (Auto) (0.0-4.0) % Baso % (Auto) (0.0-2.0) % Neut # (Auto) (1.8-7.0) K/uL Lymph # (Auto) (1.0-4.3) K/uL Dougherty # (Auto) (0.0-0.8) K/uL Eos # (Auto) (0.0-0.7) K/uL Baso # (Auto) (0.0-0.2) K/uL Neutrophils % (Manual) (50-75) % Band Neutrophils % (0-2) % Lymphocytes % (Manual) (20-40) % Monocytes % (Manual) (0-10) % Nucleated RBC % (0-0) % Toxic Granulation Dohle Bodies Platelet Estimate (NORMAL) Hypochromasia (manual) Anisocytosis (manual) Ovalocytes PT (9.7-12.2) SECONDS INR APTT (21-34) SECONDS Puncture Site pCO2 (35-45) mm/Hg pO2 (80-100) mm/Hg HCO3 (21-28) mmol/L ABG pH (7.35-7.45) ABG Total CO2 (22-28) mmol/L ABG O2 Saturation (95-98) % ABG Base Excess (-2.0-3.0) mmol/L ABG Hemoglobin (11.7-17.4) g/dL ABG Carboxyhemoglobin (0.5-1.5) % POC ABG HHb (Measured) (0.0-5.0) % ABG Methemoglobin (0.0-3.0) % Alfredo Test ABG Potassium (3.6-5.2) mmol/L A-a O2 Difference mm/Hg Respiratory Index Hgb O2 Saturation (95.0-98.0) % Glucose (65-105) mg/dl Lactate (0.7-2.1) mmol/L Vent Mode Mechanical Rate FiO2 % Tidal Volume PEEP CPAP Crit Value Called To Crit Value Called By Crit Value Read Back Blood Gas Notified Time Sodium (132-148) mmol/L Potassium (3.6-5.2) mmol/L Chloride (98-107) mmol/L Carbon Dioxide (22-30) mmol/L Anion Gap (10-20) BUN (7-17) mg/dL Creatinine (0.7-1.2) mg/dL Est GFR ( Amer) Est GFR (Non-Af Amer) POC Glucose (mg/dL) 143 H 170 H 145 H (65-110) mg/dL Random Glucose (65-105) mg/dL Calcium (8.6-10.4) mg/dl Phosphorus (2.5-4.5) mg/dL Magnesium (1.6-2.3) mg/dL Total Bilirubin (0.2-1.3) mg/dL AST (14-36) U/L ALT (9-52) U/L Alkaline Phosphatase (38-126) U/L Total Protein (6.3-8.3) g/dL Albumin (3.5-5.0) g/dL Globulin (2.2-3.9) gm/dL Albumin/Globulin Ratio (1.0-2.1) Arterial Blood Potassium (3.6-5.2) mmol/L 10/13/17 10/13/17 10/13/17 Range/Units 21:03 19:10 17:32 WBC (4.8-10.8) K/uL RBC (3.80-5.20) Mil/uL Hgb (11.0-16.0) g/dL Hct (34.0-47.0) % MCV (81.0-99.0) fL MCH (27.0-31.0) pg MCHC (33.0-37.0) g/dL RDW (11.5-14.5) % Plt Count (130-400) K/uL MPV (7.2-11.7) fL Neut % (Auto) (50.0-75.0) % Lymph % (Auto) (20.0-40.0) % Dougherty % (Auto) (0.0-10.0) % Eos % (Auto) (0.0-4.0) % Baso % (Auto) (0.0-2.0) % Neut # (Auto) (1.8-7.0) K/uL Lymph # (Auto) (1.0-4.3) K/uL Dougherty # (Auto) (0.0-0.8) K/uL Eos # (Auto) (0.0-0.7) K/uL Baso # (Auto) (0.0-0.2) K/uL Neutrophils % (Manual) (50-75) % Band Neutrophils % (0-2) % Lymphocytes % (Manual) (20-40) % Monocytes % (Manual) (0-10) % Nucleated RBC % (0-0) % Toxic Granulation Dohle Bodies Platelet Estimate (NORMAL) Hypochromasia (manual) Anisocytosis (manual) Ovalocytes PT (9.7-12.2) SECONDS INR APTT (21-34) SECONDS Puncture Site pCO2 (35-45) mm/Hg pO2 (80-100) mm/Hg HCO3 (21-28) mmol/L ABG pH (7.35-7.45) ABG Total CO2 (22-28) mmol/L ABG O2 Saturation (95-98) % ABG Base Excess (-2.0-3.0) mmol/L ABG Hemoglobin (11.7-17.4) g/dL ABG Carboxyhemoglobin (0.5-1.5) % POC ABG HHb (Measured) (0.0-5.0) % ABG Methemoglobin (0.0-3.0) % Alfredo Test ABG Potassium (3.6-5.2) mmol/L A-a O2 Difference mm/Hg Respiratory Index Hgb O2 Saturation (95.0-98.0) % Glucose (65-105) mg/dl Lactate (0.7-2.1) mmol/L Vent Mode Mechanical Rate FiO2 % Tidal Volume PEEP CPAP Crit Value Called To Crit Value Called By Crit Value Read Back Blood Gas Notified Time Sodium (132-148) mmol/L Potassium (3.6-5.2) mmol/L Chloride (98-107) mmol/L Carbon Dioxide (22-30) mmol/L Anion Gap (10-20) BUN (7-17) mg/dL Creatinine (0.7-1.2) mg/dL Est GFR ( Amer) Est GFR (Non-Af Amer) POC Glucose (mg/dL) 136 H 104 139 H (65-110) mg/dL Random Glucose (65-105) mg/dL Calcium (8.6-10.4) mg/dl Phosphorus (2.5-4.5) mg/dL Magnesium (1.6-2.3) mg/dL Total Bilirubin (0.2-1.3) mg/dL AST (14-36) U/L ALT (9-52) U/L Alkaline Phosphatase (38-126) U/L Total Protein (6.3-8.3) g/dL Albumin (3.5-5.0) g/dL Globulin (2.2-3.9) gm/dL Albumin/Globulin Ratio (1.0-2.1) Arterial Blood Potassium (3.6-5.2) mmol/L 10/13/17 Range/Units 15:16 WBC (4.8-10.8) K/uL RBC (3.80-5.20) Mil/uL Hgb (11.0-16.0) g/dL Hct (34.0-47.0) % MCV (81.0-99.0) fL MCH (27.0-31.0) pg MCHC (33.0-37.0) g/dL RDW (11.5-14.5) % Plt Count (130-400) K/uL MPV (7.2-11.7) fL Neut % (Auto) (50.0-75.0) % Lymph % (Auto) (20.0-40.0) % Dougherty % (Auto) (0.0-10.0) % Eos % (Auto) (0.0-4.0) % Baso % (Auto) (0.0-2.0) % Neut # (Auto) (1.8-7.0) K/uL Lymph # (Auto) (1.0-4.3) K/uL Dougherty # (Auto) (0.0-0.8) K/uL Eos # (Auto) (0.0-0.7) K/uL Baso # (Auto) (0.0-0.2) K/uL Neutrophils % (Manual) (50-75) % Band Neutrophils % (0-2) % Lymphocytes % (Manual) (20-40) % Monocytes % (Manual) (0-10) % Nucleated RBC % (0-0) % Toxic Granulation Dohle Bodies Platelet Estimate (NORMAL) Hypochromasia (manual) Anisocytosis (manual) Ovalocytes PT (9.7-12.2) SECONDS INR APTT (21-34) SECONDS Puncture Site pCO2 (35-45) mm/Hg pO2 (80-100) mm/Hg HCO3 (21-28) mmol/L ABG pH (7.35-7.45) ABG Total CO2 (22-28) mmol/L ABG O2 Saturation (95-98) % ABG Base Excess (-2.0-3.0) mmol/L ABG Hemoglobin (11.7-17.4) g/dL ABG Carboxyhemoglobin (0.5-1.5) % POC ABG HHb (Measured) (0.0-5.0) % ABG Methemoglobin (0.0-3.0) % Alfredo Test ABG Potassium (3.6-5.2) mmol/L A-a O2 Difference mm/Hg Respiratory Index Hgb O2 Saturation (95.0-98.0) % Glucose (65-105) mg/dl Lactate (0.7-2.1) mmol/L Vent Mode Mechanical Rate FiO2 % Tidal Volume PEEP CPAP Crit Value Called To Crit Value Called By Crit Value Read Back Blood Gas Notified Time Sodium (132-148) mmol/L Potassium (3.6-5.2) mmol/L Chloride (98-107) mmol/L Carbon Dioxide (22-30) mmol/L Anion Gap (10-20) BUN (7-17) mg/dL Creatinine (0.7-1.2) mg/dL Est GFR ( Amer) Est GFR (Non-Af Amer) POC Glucose (mg/dL) 116 H (65-110) mg/dL Random Glucose (65-105) mg/dL Calcium (8.6-10.4) mg/dl Phosphorus (2.5-4.5) mg/dL Magnesium (1.6-2.3) mg/dL Total Bilirubin (0.2-1.3) mg/dL AST (14-36) U/L ALT (9-52) U/L Alkaline Phosphatase (38-126) U/L Total Protein (6.3-8.3) g/dL Albumin (3.5-5.0) g/dL Globulin (2.2-3.9) gm/dL Albumin/Globulin Ratio (1.0-2.1) Arterial Blood Potassium (3.6-5.2) mmol/L Laboratory Results - last 24 hr 10/13/17 10/13/17 10/13/17 15:16 17:32 19:10 WBC RBC Hgb Hct MCV MCH MCHC RDW Plt Count MPV Neut % (Auto) Lymph % (Auto) Dougherty % (Auto) Eos % (Auto) Baso % (Auto) Neut # (Auto) Lymph # (Auto) Dougherty # (Auto) Eos # (Auto) Baso # (Auto) Neutrophils % (Manual) Band Neutrophils % Lymphocytes % (Manual) Monocytes % (Manual) Nucleated RBC % Toxic Granulation Dohle Bodies Platelet Estimate Hypochromasia (manual) Anisocytosis (manual) Ovalocytes PT INR APTT Puncture Site pCO2 pO2 HCO3 ABG pH ABG Total CO2 ABG O2 Saturation ABG Base Excess ABG Hemoglobin ABG Carboxyhemoglobin POC ABG HHb (Measured) ABG Methemoglobin Alfredo Test ABG Potassium A-a O2 Difference Respiratory Index Hgb O2 Saturation Glucose Lactate Vent Mode Mechanical Rate FiO2 Tidal Volume PEEP CPAP Crit Value Called To Crit Value Called By Crit Value Read Back Blood Gas Notified Time Sodium Potassium Chloride Carbon Dioxide Anion Gap BUN Creatinine Est GFR ( Amer) Est GFR (Non-Af Amer) POC Glucose (mg/dL) 116 H 139 H 104 Random Glucose Calcium Phosphorus Magnesium Total Bilirubin AST ALT Alkaline Phosphatase Total Protein Albumin Globulin Albumin/Globulin Ratio Arterial Blood Potassium 10/13/17 10/14/17 10/14/17 21:03 01:02 03:25 WBC RBC Hgb Hct MCV MCH MCHC RDW Plt Count MPV Neut % (Auto) Lymph % (Auto) Dougherty % (Auto) Eos % (Auto) Baso % (Auto) Neut # (Auto) Lymph # (Auto) Dougherty # (Auto) Eos # (Auto) Baso # (Auto) Neutrophils % (Manual) Band Neutrophils % Lymphocytes % (Manual) Monocytes % (Manual) Nucleated RBC % Toxic Granulation Dohle Bodies Platelet Estimate Hypochromasia (manual) Anisocytosis (manual) Ovalocytes PT INR APTT Puncture Site pCO2 pO2 HCO3 ABG pH ABG Total CO2 ABG O2 Saturation ABG Base Excess ABG Hemoglobin ABG Carboxyhemoglobin POC ABG HHb (Measured) ABG Methemoglobin Alfredo Test ABG Potassium A-a O2 Difference Respiratory Index Hgb O2 Saturation Glucose Lactate Vent Mode Mechanical Rate FiO2 Tidal Volume PEEP CPAP Crit Value Called To Crit Value Called By Crit Value Read Back Blood Gas Notified Time Sodium Potassium Chloride Carbon Dioxide Anion Gap BUN Creatinine Est GFR ( Amer) Est GFR (Non-Af Amer) POC Glucose (mg/dL) 136 H 145 H 170 H Random Glucose Calcium Phosphorus Magnesium Total Bilirubin AST ALT Alkaline Phosphatase Total Protein Albumin Globulin Albumin/Globulin Ratio Arterial Blood Potassium 10/14/17 10/14/17 10/14/17 05:03 05:43 06:00 WBC 13.0 H RBC 3.51 L Hgb 9.7 L Hct 29.6 L MCV 84.2 MCH 27.5 MCHC 32.7 L RDW 19.6 H Plt Count 208 MPV 8.4 Neut % (Auto) 90.1 H Lymph % (Auto) 3.1 L Dougherty % (Auto) 6.4 Eos % (Auto) 0.1 Baso % (Auto) 0.3 Neut # (Auto) 11.8 H Lymph # (Auto) 0.4 L Dougherty # (Auto) 0.8 Eos # (Auto) 0.0 Baso # (Auto) 0.0 Neutrophils % (Manual) 54 Band Neutrophils % 37 H* Lymphocytes % (Manual) 3 L Monocytes % (Manual) 6 Nucleated RBC % 1 H Toxic Granulation Present Dohle Bodies Present Platelet Estimate Normal Hypochromasia (manual) Slight Anisocytosis (manual) Moderate Ovalocytes Slight PT INR APTT Puncture Site R bra pCO2 38 pO2 137 H HCO3 30.2 H ABG pH 7.51 H ABG Total CO2 31.5 H ABG O2 Saturation 99.3 H ABG Base Excess 6.8 H ABG Hemoglobin 9.8 L ABG Carboxyhemoglobin 1.6 H POC ABG HHb (Measured) 0.7 ABG Methemoglobin 0.8 Alfredo Test Na ABG Potassium A-a O2 Difference 315.0 Respiratory Index 2.3 Hgb O2 Saturation 96.9 Glucose Lactate Vent Mode Prvc Mechanical Rate 22 FiO2 70.0 Tidal Volume 450 PEEP 5 CPAP Crit Value Called To Crit Value Called By Crit Value Read Back Blood Gas Notified Time Sodium Potassium Chloride Carbon Dioxide Anion Gap BUN Creatinine Est GFR ( Amer) Est GFR (Non-Af Amer) POC Glucose (mg/dL) 143 H Random Glucose Calcium Phosphorus Magnesium Total Bilirubin AST ALT Alkaline Phosphatase Total Protein Albumin Globulin Albumin/Globulin Ratio Arterial Blood Potassium 10/14/17 10/14/17 10/14/17 06:00 06:56 09:27 WBC RBC Hgb Hct MCV MCH MCHC RDW Plt Count MPV Neut % (Auto) Lymph % (Auto) Dougherty % (Auto) Eos % (Auto) Baso % (Auto) Neut # (Auto) Lymph # (Auto) Dougherty # (Auto) Eos # (Auto) Baso # (Auto) Neutrophils % (Manual) Band Neutrophils % Lymphocytes % (Manual) Monocytes % (Manual) Nucleated RBC % Toxic Granulation Dohle Bodies Platelet Estimate Hypochromasia (manual) Anisocytosis (manual) Ovalocytes PT INR APTT Puncture Site pCO2 pO2 HCO3 ABG pH ABG Total CO2 ABG O2 Saturation ABG Base Excess ABG Hemoglobin ABG Carboxyhemoglobin POC ABG HHb (Measured) ABG Methemoglobin Alfredo Test ABG Potassium A-a O2 Difference Respiratory Index Hgb O2 Saturation Glucose Lactate Vent Mode Mechanical Rate FiO2 Tidal Volume PEEP CPAP Crit Value Called To Crit Value Called By Crit Value Read Back Blood Gas Notified Time Sodium 134 Potassium 4.5 Chloride 92 L Carbon Dioxide 29 Anion Gap 18 BUN 26 H Creatinine 3.6 H Est GFR ( Amer) 19 Est GFR (Non-Af Amer) 15 POC Glucose (mg/dL) 134 H 162 H Random Glucose 108 H Calcium 7.1 L Phosphorus 4.8 H Magnesium 2.3 Total Bilirubin 1.0 AST 72 H D ALT 108 H Alkaline Phosphatase 98 Total Protein 5.3 L Albumin 2.8 L Globulin 2.4 Albumin/Globulin Ratio 1.2 Arterial Blood Potassium 10/14/17 10/14/17 10/14/17 11:00 11:16 13:01 WBC RBC Hgb Hct MCV MCH MCHC RDW Plt Count MPV Neut % (Auto) Lymph % (Auto) Dougherty % (Auto) Eos % (Auto) Baso % (Auto) Neut # (Auto) Lymph # (Auto) Dougherty # (Auto) Eos # (Auto) Baso # (Auto) Neutrophils % (Manual) Band Neutrophils % Lymphocytes % (Manual) Monocytes % (Manual) Nucleated RBC % Toxic Granulation Dohle Bodies Platelet Estimate Hypochromasia (manual) Anisocytosis (manual) Ovalocytes PT 16.6 H D INR 1.5 D APTT 29 Puncture Site pCO2 pO2 HCO3 ABG pH ABG Total CO2 ABG O2 Saturation ABG Base Excess ABG Hemoglobin ABG Carboxyhemoglobin POC ABG HHb (Measured) ABG Methemoglobin Alfredo Test ABG Potassium A-a O2 Difference Respiratory Index Hgb O2 Saturation Glucose Lactate Vent Mode Mechanical Rate FiO2 Tidal Volume PEEP CPAP Crit Value Called To Crit Value Called By Crit Value Read Back Blood Gas Notified Time Sodium Potassium Chloride Carbon Dioxide Anion Gap BUN Creatinine Est GFR ( Amer) Est GFR (Non-Af Amer) POC Glucose (mg/dL) 150 H 122 H Random Glucose Calcium Phosphorus Magnesium Total Bilirubin AST ALT Alkaline Phosphatase Total Protein Albumin Globulin Albumin/Globulin Ratio Arterial Blood Potassium 10/14/17 14:57 WBC RBC Hgb Hct MCV MCH MCHC RDW Plt Count MPV Neut % (Auto) Lymph % (Auto) Dougherty % (Auto) Eos % (Auto) Baso % (Auto) Neut # (Auto) Lymph # (Auto) Dougherty # (Auto) Eos # (Auto) Baso # (Auto) Neutrophils % (Manual) Band Neutrophils % Lymphocytes % (Manual) Monocytes % (Manual) Nucleated RBC % Toxic Granulation Dohle Bodies Platelet Estimate Hypochromasia (manual) Anisocytosis (manual) Ovalocytes PT INR APTT Puncture Site Lf pCO2 54 H pO2 14 L* HCO3 19.8 L ABG pH 7.26 L ABG Total CO2 25.9 ABG O2 Saturation 11.2 L ABG Base Excess -3.6 L ABG Hemoglobin ABG Carboxyhemoglobin POC ABG HHb (Measured) ABG Methemoglobin Alfredo Test Na ABG Potassium 5.7 H A-a O2 Difference 632.0 Respiratory Index 45.1 Hgb O2 Saturation Glucose 171 H Lactate 9.1 H* Vent Mode Prvc Mechanical Rate 22 FiO2 100.0 Tidal Volume 450 PEEP CPAP 5 Crit Value Called To Dr hussein tirado Crit Value Called By Ashley torres reel hooker Crit Value Read Back Y Blood Gas Notified Time 1500 Sodium 129.0 L Potassium Chloride 90.0 L Carbon Dioxide Anion Gap BUN Creatinine Est GFR ( Amer) Est GFR (Non-Af Amer) POC Glucose (mg/dL) Random Glucose Calcium Phosphorus Magnesium Total Bilirubin AST ALT Alkaline Phosphatase Total Protein Albumin Globulin Albumin/Globulin Ratio Arterial Blood Potassium 5.7 H EKG/Cardiology Studies: Cardiology / EKG Studies 10/14/17 14:57 ELECTROCARDIOGRAM Stat Mode Of Transportation: Reason For Exam: Arrythymia Comment: Fingerstick Blood Sugar Results: 150 Review of Systems - Review of Systems Systems not reviewed;Unavailable: Intubated Critical Care Progress Note - Nutrition Nutrition: Nutrition Category Date Time Status NPO Diet [DIET] Diets 10/12/17 Breakfast Active Assessment/Plan - Assessment and Plan (Free Text) Assessment: 27 y/o female admitted to ER with c/o abdominal pain. Patient was dx with perforated transverse colon. Patient underwent abdominal surgery. Post surgery, patient did not awaken and blood sugar was found to be ~20s. ICu consulted for AMS post surgery and hypoxic respiratory failure. Plan: Neuro: A: Altered Mental Status. Seizures GCS: 11T Sedation: None Head CT (10/12): NEGATIVE Neurology on [place]. F/U EEG Reading. Cardio A: Hx of HTN. Patient is normotensive. Hold Anti-Hypertensi ves ECHO (10/12): LVH, Severe Pulm HTN, small circumferential pericardial effusion, and 71.9% EF Pulm: A: Hypoxic Res. Failure ABG (10/13): 7.5/38/104/30 ABG (10/14): 7.51/38/137/30.2 CXR Today NEGATIVE PRVC 22 RR, 100 Fi02, 500 TV, 5 PEEP Wean Fi02 as Tolerated. GI A: perforated colon s/p ex lap w/ left hemicolectomy and primary anastomosis POD 2 ON-Q G-Tube NPO Protonix IV Daily Gen Surg on Consult. Renal A: CARMELO on CKD, Hypocalcemia, Hypermangeseima. Cr improving HD on MWF - Dialysis tomorrow. ID A: Sepsis post Adominal Surgery, Leukocytosis (Improving), Increase Band Neutrophils, Febrile in AM. Cont. IV Antibiotics: Cipro, Flagyl, Meropenem. Proph Heparin Q12H IV protonix. Patient seen and examined with ICU Attending Jordan Hess, PGY - 1 <Ovidio Tirado S - Last Filed: 10/15/17 17:50> CCU Objective - Vital Signs / Intake & Output Vital Signs (Last 4 hours): Vital Signs Pulse Resp BP 10/14/17 15:20 85 24 120/75 Intake and Output (Last 8hrs): Intake & Output 10/14/17 10/14/17 10/14/17 06:59 14:59 22:59 Intake Total 878.3 718.6 250 Output Total 190 70 Balance 688.3 648.6 250 Weight 111 lb 1.6 oz Intake: IV 44 50 250 Intake, IV Amount 834.3 668.6 Right Medial Port 34.3 68.6 Internal Jugular Right Proximal Port 800 600 Internal Jugular Output: Gastric Amount 0 Nares 0 Drainage 190 70 Right Lateral Abdomen 190 70 Urine 0 Urine, Voided 0 Urine/Stool Mix 0 Emesis 0 Other: # Bowel Movements 0 - Medications Active Medications: Active Medications Generic Name Dose Route Start Last Admin Trade Name Freq PRN Reason Stop Dose Admin Heparin Sodium (Porcine) 5,000 units 10/14/17 11:15 10/14/17 12:23 Heparin SC 5,000 units Q12 VASILIY Administration BUPIVACAINE 0.125%/0.9% NACL 600 mls @ 4 mls/hr 10/12/17 11:09 Bupivacaine-Ns 0.125% On-Q Diamond Polisher IJ 10/18/17 17:08 ONCE ONE Ciprofloxacin 400 mg in 200 mls @ 133 mls/hr 10/12/17 13:45 10/14/17 13:30 Cipro 400mg/200ml Dsw IVPB 133 mls/hr Q24H VASILIY Administration Protocol Metronidazole 500 mg in 100 mls @ 100 mls/hr 10/12/17 14:00 10/14/17 14:00 Flagyl IVPB Not Given Q8 VASILIY Protocol Dextrose 1,000 mls @ 100 mls/hr 10/12/17 22:00 10/14/17 17:51 Dextrose 10% In Water IV Not Given .Q10H VASILIY Meropenem 500 mg/ Sodium 100 mls @ 100 mls/hr 10/13/17 10:00 10/14/17 09:27 Chloride IVPB 100 mls/hr DAILY VASILIY Administration Protocol Dexmedetomidine HCl 200 mcg/ 50 mls @ 2.54 mls/hr 10/13/17 17:12 10/14/17 09: 41 Sodium Chloride IV 1 mcg/kg/hr TITR PRN 12.7 mls/hr Agitation Administration Protocol 0.2 MCG/KG/HR Propofol 1,000 mg in 100 mls @ 1.512 mls/hr 10/14/17 14:10 10/14/17 14:15 Diprivan IV 5 mcg/kg/min .Q24H PRN 1.512 mls/hr TITRATE PER MD ORDER Administration Protocol 5 MCG/KG/MIN Heparin Sodium/Sodium Chloride 25,000 units in 250 mls @ 6.047 mls/hr 15:11 10/14/17 17:13 Heparin 49763 Units/250ml 1/2 Normal Saline IV 18 units/kg/hr .Q24H PRN 9.071 mls/hr PROTOCOL Administration Protocol 12 UNITS/KG/HR Amiodarone HCl 900 mg/ 500 mls @ 33.33 mls/hr 10/14/17 15:19 10/14/17 15:20 Dextrose IV 10/15/17 06:19 33.33 mls/hr .[id number] ONE Administration Protocol 1 MG/MIN Epinephrine HCl 1 mg/ Sodium 241 mls @ 14.46 mls/hr 10/14/17 15:30 10/14/17 15:34 Chloride IV 10.37 mcg/min .[id number] PRN 150 mls/hr TITRATE PER MD ORDER Administration Protocol 1 MCG/MIN Sodium Bicarbonate 150 meq/ 1,000 mls @ 100 mls/hr 10/14/17 15:45 10/14/17 15 :58 Sodium Chloride IV 100 mls/hr .Q10H VASILIY Administration Lorazepam 2 mg 10/12/17 20:46 10/14/17 07:24 Ativan IVP 2 mg Q2H PRN Administration Seizure activity Ondansetron HCl 4 mg 10/12/17 10:00 10/12/17 10:12 Zofran Inj IVP 4 mg Q6H PRN Administration Nausea/Vomiting Pantoprazole Sodium 40 mg 10/12/17 10:00 10/14/17 09:44 Protonix Inj IVP 40 mg DAILY VASILIY Administration - Patient Studies Lab Studies: Microbiology Studies 10/12/17 15:40 Gram Stain - Final Peritoneal Fluid Body Fluid Culture - Preliminary Gram Negative Eric Gram Positive Cocci 10/12/17 19:56 MRSA Culture (Admit) - Final Nose MRSA NOT DETECTED 10/12/17 11:18 Blood Culture - Preliminary Blood-Venous NO GROWTH AFTER 48 HOURS 10/12/17 11:18 Blood Culture - Preliminary Blood-Venous NO GROWTH AFTER 48 HOURS 10/12/17 22:00 Blood Culture - Preliminary Blood-Venous NO GROWTH AFTER 24 HOURS 10/12/17 21:30 Blood Culture - Preliminary Blood-Venous NO GROWTH AFTER 24 HOURS 10/12/17 18:37 Gram Stain - Final Trachasp Lab Studies 10/14/17 10/14/17 10/14/17 Range/Units 16:47 16:00 15:53 WBC 12.7 H (4.8-10.8) K/uL RBC 3.02 L (3.80-5.20) Mil/uL Hgb 8.4 L (11.0-16.0) g/dL Hct 26.0 L (34.0-47.0) % MCV 86.1 (81.0-99.0) fL MCH 28.0 (27.0-31.0) pg MCHC 32.5 L (33.0-37.0) g/dL RDW 20.5 H (11.5-14.5) % Plt Count 150 (130-400) K/uL MPV 8.5 (7.2-11.7) fL Neut % (Auto) 74.4 (50.0-75.0) % Lymph % (Auto) 17.3 L (20.0-40.0) % Dougherty % (Auto) 8.0 (0.0-10.0) % Eos % (Auto) 0.1 (0.0-4.0) % Baso % (Auto) 0.2 (0.0-2.0) % Neut # (Auto) 9.5 H (1.8-7.0) K/uL Lymph # (Auto) 2.2 (1.0-4.3) K/uL Dougherty # (Auto) 1.0 H (0.0-0.8) K/uL Eos # (Auto) 0.0 (0.0-0.7) K/uL Baso # (Auto) 0.0 (0.0-0.2) K/uL Neutrophils % (Manual) (50-75) % Band Neutrophils % (0-2) % Lymphocytes % (Manual) (20-40) % Monocytes % (Manual) (0-10) % Nucleated RBC % (0-0) % Toxic Granulation Dohle Bodies Platelet Estimate (NORMAL) Hypochromasia (manual) Anisocytosis (manual) Ovalocytes PT (9.7-12.2) SECONDS INR APTT (21-34) SECONDS D-Dimer, Quantitative (0-243) ng/mlDDU Puncture Site Fem pCO2 34 L (35-45) mm/Hg pO2 333 H (80-100) mm/Hg HCO3 30.7 H (21-28) mmol/L ABG pH 7.55 H (7.35-7.45) ABG Total CO2 30.7 H (22-28) mmol/L ABG O2 Saturation 99.5 H (95-98) % ABG Base Excess 7.3 H (-2.0-3.0) mmol/L ABG Hemoglobin (11.7-17.4) g/dL ABG Carboxyhemoglobin (0.5-1.5) % POC ABG HHb (Measured) (0.0-5.0) % ABG Methemoglobin (0.0-3.0) % Alfredo Test Na ABG Potassium 6.0 H (3.6-5.2) mmol/L A-a O2 Difference 338.0 mm/Hg Respiratory Index 1.0 Hgb O2 Saturation (95.0-98.0) % Glucose 207 H (65-105) mg/dl Lactate > 20.0 H* (0.7-2.1) mmol/L Vent Mode Mechanical Rate FiO2 100.0 % Tidal Volume PEEP CPAP Crit Value Called To Dr tirado Crit Value Called By Tricia Crit Value Read Back Y Blood Gas Notified Time 1604 Sodium 143.0 (132-148) mmol/L Potassium (3.6-5.2) mmol/L Chloride 93.0 L (98-107) mmol/L Carbon Dioxide (22-30) mmol/L Anion Gap (10-20) BUN (7-17) mg/dL Creatinine (0.7-1.2) mg/dL Est GFR ( Amer) Est GFR (Non-Af Amer) POC Glucose (mg/dL) 181 H (65-110) mg/dL Random Glucose (65-105) mg/dL Calcium (8.6-10.4) mg/dl Phosphorus (2.5-4.5) mg/dL Magnesium (1.6-2.3) mg/dL Total Bilirubin (0.2-1.3) mg/dL AST (14-36) U/L ALT (9-52) U/L Alkaline Phosphatase (38-126) U/L Total Creatine Kinase (30-135) U/L CK-MB (Mass) (0.0-3.38) ng/mL Troponin I (0.00-0.120) ng/mL Total Protein (6.3-8.3) g/dL Albumin (3.5-5.0) g/dL Globulin (2.2-3.9) gm/dL Albumin/Globulin Ratio (1.0-2.1) Arterial Blood Potassium 6.0 H (3.6-5.2) mmol/L 10/14/17 10/14/17 10/14/17 Range/Units 15:05 15:05 14:57 WBC (4.8-10.8) K/uL RBC (3.80-5.20) Mil/uL Hgb (11.0-16.0) g/dL Hct (34.0-47.0) % MCV (81.0-99.0) fL MCH (27.0-31.0) pg MCHC (33.0-37.0) g/dL RDW (11.5-14.5) % Plt Count (130-400) K/uL MPV (7.2-11.7) fL Neut % (Auto) (50.0-75.0) % Lymph % (Auto) (20.0-40.0) % Dougherty % (Auto) (0.0-10.0) % Eos % (Auto) (0.0-4.0) % Baso % (Auto) (0.0-2.0) % Neut # (Auto) (1.8-7.0) K/uL Lymph # (Auto) (1.0-4.3) K/uL Dougherty # (Auto) (0.0-0.8) K/uL Eos # (Auto) (0.0-0.7) K/uL Baso # (Auto) (0.0-0.2) K/uL Neutrophils % (Manual) (50-75) % Band Neutrophils % (0-2) % Lymphocytes % (Manual) (20-40) % Monocytes % (Manual) (0-10) % Nucleated RBC % (0-0) % Toxic Granulation Dohle Bodies Platelet Estimate (NORMAL) Hypochromasia (manual) Anisocytosis (manual) Ovalocytes PT (9.7-12.2) SECONDS INR APTT (21-34) SECONDS D-Dimer, Quantitative 4198 H (0-243) ng/mlDDU Puncture Site Lf pCO2 54 H (35-45) mm/Hg pO2 14 L* (80-100) mm/Hg HCO3 19.8 L (21-28) mmol/L ABG pH 7.26 L (7.35-7.45) ABG Total CO2 25.9 (22-28) mmol/L ABG O2 Saturation 11.2 L (95-98) % ABG Base Excess -3.6 L (-2.0-3.0) mmol/L ABG Hemoglobin (11.7-17.4) g/dL ABG Carboxyhemoglobin (0.5-1.5) % POC ABG HHb (Measured) (0.0-5.0) % ABG Methemoglobin (0.0-3.0) % Alfredo Test Na ABG Potassium 5.7 H (3.6-5.2) mmol/L A-a O2 Difference 632.0 mm/Hg Respiratory Index 45.1 Hgb O2 Saturation (95.0-98.0) % Glucose 171 H (65-105) mg/dl Lactate 9.1 H* (0.7-2.1) mmol/L Vent Mode Prvc Mechanical Rate 22 FiO2 100.0 % Tidal Volume 450 PEEP CPAP 5 Crit Value Called To Dr hussein tirado Crit Value Called By Ashley torres reel hooker Crit Value Read Back Y Blood Gas Notified Time 1500 Sodium 137 129.0 L (132-148) mmol/L Potassium 5.7 H (3.6-5.2) mmol/L Chloride 90 L 90.0 L (98-107) mmol/L Carbon Dioxide 20 L (22-30) mmol/L Anion Gap 32 H (10-20) BUN 32 H (7-17) mg/dL Creatinine 4.5 H (0.7-1.2) mg/dL Est GFR ( Amer) 14 Est GFR (Non-Af Amer) 12 POC Glucose (mg/dL) (65-110) mg/dL Random Glucose 247 H (65-105) mg/dL Calcium 6.7 L (8.6-10.4) mg/dl Phosphorus 7.8 H (2.5-4.5) mg/dL Magnesium 2.6 H (1.6-2.3) mg/dL Total Bilirubin 0.8 (0.2-1.3) mg/dL AST 57 H D (14-36) U/L ALT 81 H D (9-52) U/L Alkaline Phosphatase 90 (38-126) U/L Total Creatine Kinase 944 H (30-135) U/L CK-MB (Mass) 1.57 (0.0-3.38) ng/mL Troponin I 0.1180 (0.00-0.120) ng/mL Total Protein 4.4 L (6.3-8.3) g/dL Albumin 2.4 L (3.5-5.0) g/dL Globulin 2.1 L (2.2-3.9) gm/dL Albumin/Globulin Ratio 1.1 (1.0-2.1) Arterial Blood Potassium 5.7 H (3.6-5.2) mmol/L 10/14/17 10/14/17 10/14/17 Range/Units 14:51 13:01 11:16 WBC (4.8-10.8) K/uL RBC (3.80-5.20) Mil/uL Hgb (11.0-16.0) g/dL Hct (34.0-47.0) % MCV (81.0-99.0) fL MCH (27.0-31.0) pg MCHC (33.0-37.0) g/dL RDW (11.5-14.5) % Plt Count (130-400) K/uL MPV (7.2-11.7) fL Neut % (Auto) (50.0-75.0) % Lymph % (Auto) (20.0-40.0) % Dougherty % (Auto) (0.0-10.0) % Eos % (Auto) (0.0-4.0) % Baso % (Auto) (0.0-2.0) % Neut # (Auto) (1.8-7.0) K/uL Lymph # (Auto) (1.0-4.3) K/uL Dougherty # (Auto) (0.0-0.8) K/uL Eos # (Auto) (0.0-0.7) K/uL Baso # (Auto) (0.0-0.2) K/uL Neutrophils % (Manual) (50-75) % Band Neutrophils % (0-2) % Lymphocytes % (Manual) (20-40) % Monocytes % (Manual) (0-10) % Nucleated RBC % (0-0) % Toxic Granulation Dohle Bodies Platelet Estimate (NORMAL) Hypochromasia (manual) Anisocytosis (manual) Ovalocytes PT (9.7-12.2) SECONDS INR APTT (21-34) SECONDS D-Dimer, Quantitative (0-243) ng/mlDDU Puncture Site pCO2 (35-45) mm/Hg pO2 (80-100) mm/Hg HCO3 (21-28) mmol/L ABG pH (7.35-7.45) ABG Total CO2 (22-28) mmol/L ABG O2 Saturation (95-98) % ABG Base Excess (-2.0-3.0) mmol/L ABG Hemoglobin (11.7-17.4) g/dL ABG Carboxyhemoglobin (0.5-1.5) % POC ABG HHb (Measured) (0.0-5.0) % ABG Methemoglobin (0.0-3.0) % Alfredo Test ABG Potassium (3.6-5.2) mmol/L A-a O2 Difference mm/Hg Respiratory Index Hgb O2 Saturation (95.0-98.0) % Glucose (65-105) mg/dl Lactate (0.7-2.1) mmol/L Vent Mode Mechanical Rate FiO2 % Tidal Volume PEEP CPAP Crit Value Called To Crit Value Called By Crit Value Read Back Blood Gas Notified Time Sodium (132-148) mmol/L Potassium (3.6-5.2) mmol/L Chloride (98-107) mmol/L Carbon Dioxide (22-30) mmol/L Anion Gap (10-20) BUN (7-17) mg/dL Creatinine (0.7-1.2) mg/dL Est GFR ( Amer) Est GFR (Non-Af Amer) POC Glucose (mg/dL) 167 H 122 H 150 H (65-110) mg/dL Random Glucose (65-105) mg/dL Calcium (8.6-10.4) mg/dl Phosphorus (2.5-4.5) mg/dL Magnesium (1.6-2.3) mg/dL Total Bilirubin (0.2-1.3) mg/dL AST (14-36) U/L ALT (9-52) U/L Alkaline Phosphatase (38-126) U/L Total Creatine Kinase (30-135) U/L CK-MB (Mass) (0.0-3.38) ng/mL Troponin I (0.00-0.120) ng/mL Total Protein (6.3-8.3) g/dL Albumin (3.5-5.0) g/dL Globulin (2.2-3.9) gm/dL Albumin/Globulin Ratio (1.0-2.1) Arterial Blood Potassium (3.6-5.2) mmol/L 10/14/17 10/14/17 10/14/17 Range/Units 11:00 09:27 06:56 WBC (4.8-10.8) K/uL RBC (3.80-5.20) Mil/uL Hgb (11.0-16.0) g/dL Hct (34.0-47.0) % MCV (81.0-99.0) fL MCH (27.0-31.0) pg MCHC (33.0-37.0) g/dL RDW (11.5-14.5) % Plt Count (130-400) K/uL MPV (7.2-11.7) fL Neut % (Auto) (50.0-75.0) % Lymph % (Auto) (20.0-40.0) % Dougherty % (Auto) (0.0-10.0) % Eos % (Auto) (0.0-4.0) % Baso % (Auto) (0.0-2.0) % Neut # (Auto) (1.8-7.0) K/uL Lymph # (Auto) (1.0-4.3) K/uL Dougherty # (Auto) (0.0-0.8) K/uL Eos # (Auto) (0.0-0.7) K/uL Baso # (Auto) (0.0-0.2) K/uL Neutrophils % (Manual) (50-75) % Band Neutrophils % (0-2) % Lymphocytes % (Manual) (20-40) % Monocytes % (Manual) (0-10) % Nucleated RBC % (0-0) % Toxic Granulation Dohle Bodies Platelet Estimate (NORMAL) Hypochromasia (manual) Anisocytosis (manual) Ovalocytes PT 16.6 H D (9.7-12.2) SECONDS INR 1.5 D APTT 29 (21-34) SECONDS D-Dimer, Quantitative (0-243) ng/mlDDU Puncture Site pCO2 (35-45) mm/Hg pO2 (80-100) mm/Hg HCO3 (21-28) mmol/L ABG pH (7.35-7.45) ABG Total CO2 (22-28) mmol/L ABG O2 Saturation (95-98) % ABG Base Excess (-2.0-3.0) mmol/L ABG Hemoglobin (11.7-17.4) g/dL ABG Carboxyhemoglobin (0.5-1.5) % POC ABG HHb (Measured) (0.0-5.0) % ABG Methemoglobin (0.0-3.0) % Alfredo Test ABG Potassium (3.6-5.2) mmol/L A-a O2 Difference mm/Hg Respiratory Index Hgb O2 Saturation (95.0-98.0) % Glucose (65-105) mg/dl Lactate (0.7-2.1) mmol/L Vent Mode Mechanical Rate FiO2 % Tidal Volume PEEP CPAP Crit Value Called To Crit Value Called By Crit Value Read Back Blood Gas Notified Time Sodium (132-148) mmol/L Potassium (3.6-5.2) mmol/L Chloride (98-107) mmol/L Carbon Dioxide (22-30) mmol/L Anion Gap (10-20) BUN (7-17) mg/dL Creatinine (0.7-1.2) mg/dL Est GFR ( Amer) Est GFR (Non-Af Amer) POC Glucose (mg/dL) 162 H 134 H (65-110) mg/dL Random Glucose (65-105) mg/dL Calcium (8.6-10.4) mg/dl Phosphorus (2.5-4.5) mg/dL Magnesium (1.6-2.3) mg/dL Total Bilirubin (0.2-1.3) mg/dL AST (14-36) U/L ALT (9-52) U/L Alkaline Phosphatase (38-126) U/L Total Creatine Kinase (30-135) U/L CK-MB (Mass) (0.0-3.38) ng/mL Troponin I (0.00-0.120) ng/mL Total Protein (6.3-8.3) g/dL Albumin (3.5-5.0) g/dL Globulin (2.2-3.9) gm/dL Albumin/Globulin Ratio (1.0-2.1) Arterial Blood Potassium (3.6-5.2) mmol/L 10/14/17 10/14/17 10/14/17 Range/Units 06:00 06:00 05:43 WBC 13.0 H (4.8-10.8) K/uL RBC 3.51 L (3.80-5.20) Mil/uL Hgb 9.7 L (11.0-16.0) g/dL Hct 29.6 L (34.0-47.0) % MCV 84.2 (81.0-99.0) fL MCH 27.5 (27.0-31.0) pg MCHC 32.7 L (33.0-37.0) g/dL RDW 19.6 H (11.5-14.5) % Plt Count 208 (130-400) K/uL MPV 8.4 (7.2-11.7) fL Neut % (Auto) 90.1 H (50.0-75.0) % Lymph % (Auto) 3.1 L (20.0-40.0) % Dougherty % (Auto) 6.4 (0.0-10.0) % Eos % (Auto) 0.1 (0.0-4.0) % Baso % (Auto) 0.3 (0.0-2.0) % Neut # (Auto) 11.8 H (1.8-7.0) K/uL Lymph # (Auto) 0.4 L (1.0-4.3) K/uL Dougherty # (Auto) 0.8 (0.0-0.8) K/uL Eos # (Auto) 0.0 (0.0-0.7) K/uL Baso # (Auto) 0.0 (0.0-0.2) K/uL Neutrophils % (Manual) 54 (50-75) % Band Neutrophils % 37 H* (0-2) % Lymphocytes % (Manual) 3 L (20-40) % Monocytes % (Manual) 6 (0-10) % Nucleated RBC % 1 H (0-0) % Toxic Granulation Present Dohle Bodies Present Platelet Estimate Normal (NORMAL) Hypochromasia (manual) Slight Anisocytosis (manual) Moderate Ovalocytes Slight PT (9.7-12.2) SECONDS INR APTT (21-34) SECONDS D-Dimer, Quantitative (0-243) ng/mlDDU Puncture Site R bra pCO2 38 (35-45) mm/Hg pO2 137 H (80-100) mm/Hg HCO3 30.2 H (21-28) mmol/L ABG pH 7.51 H (7.35-7.45) ABG Total CO2 31.5 H (22-28) mmol/L ABG O2 Saturation 99.3 H (95-98) % ABG Base Excess 6.8 H (-2.0-3.0) mmol/L ABG Hemoglobin 9.8 L (11.7-17.4) g/dL ABG Carboxyhemoglobin 1.6 H (0.5-1.5) % POC ABG HHb (Measured) 0.7 (0.0-5.0) % ABG Methemoglobin 0.8 (0.0-3.0) % Alfredo Test Na ABG Potassium (3.6-5.2) mmol/L A-a O2 Difference 315.0 mm/Hg Respiratory Index 2.3 Hgb O2 Saturation 96.9 (95.0-98.0) % Glucose (65-105) mg/dl Lactate (0.7-2.1) mmol/L Vent Mode Prvc Mechanical Rate 22 FiO2 70.0 % Tidal Volume 450 PEEP 5 CPAP Crit Value Called To Crit Value Called By Crit Value Read Back Blood Gas Notified Time Sodium 134 (132-148) mmol/L Potassium 4.5 (3.6-5.2) mmol/L Chloride 92 L (98-107) mmol/L Carbon Dioxide 29 (22-30) mmol/L Anion Gap 18 (10-20) BUN 26 H (7-17) mg/dL Creatinine 3.6 H (0.7-1.2) mg/dL Est GFR ( Amer) 19 Est GFR (Non-Af Amer) 15 POC Glucose (mg/dL) (65-110) mg/dL Random Glucose 108 H (65-105) mg/dL Calcium 7.1 L (8.6-10.4) mg/dl Phosphorus 4.8 H (2.5-4.5) mg/dL Magnesium 2.3 (1.6-2.3) mg/dL Total Bilirubin 1.0 (0.2-1.3) mg/dL AST 72 H D (14-36) U/L ALT 108 H (9-52) U/L Alkaline Phosphatase 98 (38-126) U/L Total Creatine Kinase (30-135) U/L CK-MB (Mass) (0.0-3.38) ng/mL Troponin I (0.00-0.120) ng/mL Total Protein 5.3 L (6.3-8.3) g/dL Albumin 2.8 L (3.5-5.0) g/dL Globulin 2.4 (2.2-3.9) gm/dL Albumin/Globulin Ratio 1.2 (1.0-2.1) Arterial Blood Potassium (3.6-5.2) mmol/L 10/14/17 10/14/17 10/14/17 Range/Units 05:03 03:25 01:02 WBC (4.8-10.8) K/uL RBC (3.80-5.20) Mil/uL Hgb (11.0-16.0) g/dL Hct (34.0-47.0) % MCV (81.0-99.0) fL MCH (27.0-31.0) pg MCHC (33.0-37.0) g/dL RDW (11.5-14.5) % Plt Count (130-400) K/uL MPV (7.2-11.7) fL Neut % (Auto) (50.0-75.0) % Lymph % (Auto) (20.0-40.0) % Dougherty % (Auto) (0.0-10.0) % Eos % (Auto) (0.0-4.0) % Baso % (Auto) (0.0-2.0) % Neut # (Auto) (1.8-7.0) K/uL Lymph # (Auto) (1.0-4.3) K/uL Dougherty # (Auto) (0.0-0.8) K/uL Eos # (Auto) (0.0-0.7) K/uL Baso # (Auto) (0.0-0.2) K/uL Neutrophils % (Manual) (50-75) % Band Neutrophils % (0-2) % Lymphocytes % (Manual) (20-40) % Monocytes % (Manual) (0-10) % Nucleated RBC % (0-0) % Toxic Granulation Dohle Bodies Platelet Estimate (NORMAL) Hypochromasia (manual) Anisocytosis (manual) Ovalocytes PT (9.7-12.2) SECONDS INR APTT (21-34) SECONDS D-Dimer, Quantitative (0-243) ng/mlDDU Puncture Site pCO2 (35-45) mm/Hg pO2 (80-100) mm/Hg HCO3 (21-28) mmol/L ABG pH (7.35-7.45) ABG Total CO2 (22-28) mmol/L ABG O2 Saturation (95-98) % ABG Base Excess (-2.0-3.0) mmol/L ABG Hemoglobin (11.7-17.4) g/dL ABG Carboxyhemoglobin (0.5-1.5) % POC ABG HHb (Measured) (0.0-5.0) % ABG Methemoglobin (0.0-3.0) % Alfredo Test ABG Potassium (3.6-5.2) mmol/L A-a O2 Difference mm/Hg Respiratory Index Hgb O2 Saturation (95.0-98.0) % Glucose (65-105) mg/dl Lactate (0.7-2.1) mmol/L Vent Mode Mechanical Rate FiO2 % Tidal Volume PEEP CPAP Crit Value Called To Crit Value Called By Crit Value Read Back Blood Gas Notified Time Sodium (132-148) mmol/L Potassium (3.6-5.2) mmol/L Chloride (98-107) mmol/L Carbon Dioxide (22-30) mmol/L Anion Gap (10-20) BUN (7-17) mg/dL Creatinine (0.7-1.2) mg/dL Est GFR ( Amer) Est GFR (Non-Af Amer) POC Glucose (mg/dL) 143 H 170 H 145 H (65-110) mg/dL Random Glucose (65-105) mg/dL Calcium (8.6-10.4) mg/dl Phosphorus (2.5-4.5) mg/dL Magnesium (1.6-2.3) mg/dL Total Bilirubin (0.2-1.3) mg/dL AST (14-36) U/L ALT (9-52) U/L Alkaline Phosphatase (38-126) U/L Total Creatine Kinase (30-135) U/L CK-MB (Mass) (0.0-3.38) ng/mL Troponin I (0.00-0.120) ng/mL Total Protein (6.3-8.3) g/dL Albumin (3.5-5.0) g/dL Globulin (2.2-3.9) gm/dL Albumin/Globulin Ratio (1.0-2.1) Arterial Blood Potassium (3.6-5.2) mmol/L 10/13/17 10/13/17 Range/Units 21:03 19:10 WBC (4.8-10.8) K/uL RBC (3.80-5.20) Mil/uL Hgb (11.0-16.0) g/dL Hct (34.0-47.0) % MCV (81.0-99.0) fL MCH (27.0-31.0) pg MCHC (33.0-37.0) g/dL RDW (11.5-14.5) % Plt Count (130-400) K/uL MPV (7.2-11.7) fL Neut % (Auto) (50.0-75.0) % Lymph % (Auto) (20.0-40.0) % Dougherty % (Auto) (0.0-10.0) % Eos % (Auto) (0.0-4.0) % Baso % (Auto) (0.0-2.0) % Neut # (Auto) (1.8-7.0) K/uL Lymph # (Auto) (1.0-4.3) K/uL Dougherty # (Auto) (0.0-0.8) K/uL Eos # (Auto) (0.0-0.7) K/uL Baso # (Auto) (0.0-0.2) K/uL Neutrophils % (Manual) (50-75) % Band Neutrophils % (0-2) % Lymphocytes % (Manual) (20-40) % Monocytes % (Manual) (0-10) % Nucleated RBC % (0-0) % Toxic Granulation Dohle Bodies Platelet Estimate (NORMAL) Hypochromasia (manual) Anisocytosis (manual) Ovalocytes PT (9.7-12.2) SECONDS INR APTT (21-34) SECONDS D-Dimer, Quantitative (0-243) ng/mlDDU Puncture Site pCO2 (35-45) mm/Hg pO2 (80-100) mm/Hg HCO3 (21-28) mmol/L ABG pH (7.35-7.45) ABG Total CO2 (22-28) mmol/L ABG O2 Saturation (95-98) % ABG Base Excess (-2.0-3.0) mmol/L ABG Hemoglobin (11.7-17.4) g/dL ABG Carboxyhemoglobin (0.5-1.5) % POC ABG HHb (Measured) (0.0-5.0) % ABG Methemoglobin (0.0-3.0) % Alfredo Test ABG Potassium (3.6-5.2) mmol/L A-a O2 Difference mm/Hg Respiratory Index Hgb O2 Saturation (95.0-98.0) % Glucose (65-105) mg/dl Lactate (0.7-2.1) mmol/L Vent Mode Mechanical Rate FiO2 % Tidal Volume PEEP CPAP Crit Value Called To Crit Value Called By Crit Value Read Back Blood Gas Notified Time Sodium (132-148) mmol/L Potassium (3.6-5.2) mmol/L Chloride (98-107) mmol/L Carbon Dioxide (22-30) mmol/L Anion Gap (10-20) BUN (7-17) mg/dL Creatinine (0.7-1.2) mg/dL Est GFR ( Amer) Est GFR (Non-Af Amer) POC Glucose (mg/dL) 136 H 104 (65-110) mg/dL Random Glucose (65-105) mg/dL Calcium (8.6-10.4) mg/dl Phosphorus (2.5-4.5) mg/dL Magnesium (1.6-2.3) mg/dL Total Bilirubin (0.2-1.3) mg/dL AST (14-36) U/L ALT (9-52) U/L Alkaline Phosphatase (38-126) U/L Total Creatine Kinase (30-135) U/L CK-MB (Mass) (0.0-3.38) ng/mL Troponin I (0.00-0.120) ng/mL Total Protein (6.3-8.3) g/dL Albumin (3.5-5.0) g/dL Globulin (2.2-3.9) gm/dL Albumin/Globulin Ratio (1.0-2.1) Arterial Blood Potassium (3.6-5.2) mmol/L Laboratory Results - last 24 hr 10/13/17 10/13/17 10/14/17 19:10 21:03 01:02 WBC RBC Hgb Hct MCV MCH MCHC RDW Plt Count MPV Neut % (Auto) Lymph % (Auto) Dougherty % (Auto) Eos % (Auto) Baso % (Auto) Neut # (Auto) Lymph # (Auto) Dougherty # (Auto) Eos # (Auto) Baso # (Auto) Neutrophils % (Manual) Band Neutrophils % Lymphocytes % (Manual) Monocytes % (Manual) Nucleated RBC % Toxic Granulation Dohle Bodies Platelet Estimate Hypochromasia (manual) Anisocytosis (manual) Ovalocytes PT INR APTT D-Dimer, Quantitative Puncture Site pCO2 pO2 HCO3 ABG pH ABG Total CO2 ABG O2 Saturation ABG Base Excess ABG Hemoglobin ABG Carboxyhemoglobin POC ABG HHb (Measured) ABG Methemoglobin Alfredo Test ABG Potassium A-a O2 Difference Respiratory Index Hgb O2 Saturation Glucose Lactate Vent Mode Mechanical Rate FiO2 Tidal Volume PEEP CPAP Crit Value Called To Crit Value Called By Crit Value Read Back Blood Gas Notified Time Sodium Potassium Chloride Carbon Dioxide Anion Gap BUN Creatinine Est GFR ( Amer) Est GFR (Non-Af Amer) POC Glucose (mg/dL) 104 136 H 145 H Random Glucose Calcium Phosphorus Magnesium Total Bilirubin AST ALT Alkaline Phosphatase Total Creatine Kinase CK-MB (Mass) Troponin I Total Protein Albumin Globulin Albumin/Globulin Ratio Arterial Blood Potassium 10/14/17 10/14/17 10/14/17 03:25 05:03 05:43 WBC RBC Hgb Hct MCV MCH MCHC RDW Plt Count MPV Neut % (Auto) Lymph % (Auto) Dougherty % (Auto) Eos % (Auto) Baso % (Auto) Neut # (Auto) Lymph # (Auto) Dougherty # (Auto) Eos # (Auto) Baso # (Auto) Neutrophils % (Manual) Band Neutrophils % Lymphocytes % (Manual) Monocytes % (Manual) Nucleated RBC % Toxic Granulation Dohle Bodies Platelet Estimate Hypochromasia (manual) Anisocytosis (manual) Ovalocytes PT INR APTT D-Dimer, Quantitative Puncture Site R bra pCO2 38 pO2 137 H HCO3 30.2 H ABG pH 7.51 H ABG Total CO2 31.5 H ABG O2 Saturation 99.3 H ABG Base Excess 6.8 H ABG Hemoglobin 9.8 L ABG Carboxyhemoglobin 1.6 H POC ABG HHb (Measured) 0.7 ABG Methemoglobin 0.8 Alfredo Test Na ABG Potassium A-a O2 Difference 315.0 Respiratory Index 2.3 Hgb O2 Saturation 96.9 Glucose Lactate Vent Mode Prvc Mechanical Rate 22 FiO2 70.0 Tidal Volume 450 PEEP 5 CPAP Crit Value Called To Crit Value Called By Crit Value Read Back Blood Gas Notified Time Sodium Potassium Chloride Carbon Dioxide Anion Gap BUN Creatinine Est GFR ( Amer) Est GFR (Non-Af Amer) POC Glucose (mg/dL) 170 H 143 H Random Glucose Calcium Phosphorus Magnesium Total Bilirubin AST ALT Alkaline Phosphatase Total Creatine Kinase CK-MB (Mass) Troponin I Total Protein Albumin Globulin Albumin/Globulin Ratio Arterial Blood Potassium 10/14/17 10/14/17 10/14/17 06:00 06:00 06:56 WBC 13.0 H RBC 3.51 L Hgb 9.7 L Hct 29.6 L MCV 84.2 MCH 27.5 MCHC 32.7 L RDW 19.6 H Plt Count 208 MPV 8.4 Neut % (Auto) 90.1 H Lymph % (Auto) 3.1 L Dougherty % (Auto) 6.4 Eos % (Auto) 0.1 Baso % (Auto) 0.3 Neut # (Auto) 11.8 H Lymph # (Auto) 0.4 L Dougherty # (Auto) 0.8 Eos # (Auto) 0.0 Baso # (Auto) 0.0 Neutrophils % (Manual) 54 Band Neutrophils % 37 H* Lymphocytes % (Manual) 3 L Monocytes % (Manual) 6 Nucleated RBC % 1 H Toxic Granulation Present Dohle Bodies Present Platelet Estimate Normal Hypochromasia (manual) Slight Anisocytosis (manual) Moderate Ovalocytes Slight PT INR APTT D-Dimer, Quantitative Puncture Site pCO2 pO2 HCO3 ABG pH ABG Total CO2 ABG O2 Saturation ABG Base Excess ABG Hemoglobin ABG Carboxyhemoglobin POC ABG HHb (Measured) ABG Methemoglobin Alfredo Test ABG Potassium A-a O2 Difference Respiratory Index Hgb O2 Saturation Glucose Lactate Vent Mode Mechanical Rate FiO2 Tidal Volume PEEP CPAP Crit Value Called To Crit Value Called By Crit Value Read Back Blood Gas Notified Time Sodium 134 Potassium 4.5 Chloride 92 L Carbon Dioxide 29 Anion Gap 18 BUN 26 H Creatinine 3.6 H Est GFR ( Amer) 19 Est GFR (Non-Af Amer) 15 POC Glucose (mg/dL) 134 H Random Glucose 108 H Calcium 7.1 L Phosphorus 4.8 H Magnesium 2.3 Total Bilirubin 1.0 AST 72 H D ALT 108 H Alkaline Phosphatase 98 Total Creatine Kinase CK-MB (Mass) Troponin I Total Protein 5.3 L Albumin 2.8 L Globulin 2.4 Albumin/Globulin Ratio 1.2 Arterial Blood Potassium 10/14/17 10/14/17 10/14/17 09:27 11:00 11:16 WBC RBC Hgb Hct MCV MCH MCHC RDW Plt Count MPV Neut % (Auto) Lymph % (Auto) Dougherty % (Auto) Eos % (Auto) Baso % (Auto) Neut # (Auto) Lymph # (Auto) Dougherty # (Auto) Eos # (Auto) Baso # (Auto) Neutrophils % (Manual) Band Neutrophils % Lymphocytes % (Manual) Monocytes % (Manual) Nucleated RBC % Toxic Granulation Dohle Bodies Platelet Estimate Hypochromasia (manual) Anisocytosis (manual) Ovalocytes PT 16.6 H D INR 1.5 D APTT 29 D-Dimer, Quantitative Puncture Site pCO2 pO2 HCO3 ABG pH ABG Total CO2 ABG O2 Saturation ABG Base Excess ABG Hemoglobin ABG Carboxyhemoglobin POC ABG HHb (Measured) ABG Methemoglobin Alfredo Test ABG Potassium A-a O2 Difference Respiratory Index Hgb O2 Saturation Glucose Lactate Vent Mode Mechanical Rate FiO2 Tidal Volume PEEP CPAP Crit Value Called To Crit Value Called By Crit Value Read Back Blood Gas Notified Time Sodium Potassium Chloride Carbon Dioxide Anion Gap BUN Creatinine Est GFR ( Amer) Est GFR (Non-Af Amer) POC Glucose (mg/dL) 162 H 150 H Random Glucose Calcium Phosphorus Magnesium Total Bilirubin AST ALT Alkaline Phosphatase Total Creatine Kinase CK-MB (Mass) Troponin I Total Protein Albumin Globulin Albumin/Globulin Ratio Arterial Blood Potassium 10/14/17 10/14/17 10/14/17 13:01 14:51 14:57 WBC RBC Hgb Hct MCV MCH MCHC RDW Plt Count MPV Neut % (Auto) Lymph % (Auto) Dougherty % (Auto) Eos % (Auto) Baso % (Auto) Neut # (Auto) Lymph # (Auto) Dougherty # (Auto) Eos # (Auto) Baso # (Auto) Neutrophils % (Manual) Band Neutrophils % Lymphocytes % (Manual) Monocytes % (Manual) Nucleated RBC % Toxic Granulation Dohle Bodies Platelet Estimate Hypochromasia (manual) Anisocytosis (manual) Ovalocytes PT INR APTT D-Dimer, Quantitative Puncture Site Lf pCO2 54 H pO2 14 L* HCO3 19.8 L ABG pH 7.26 L ABG Total CO2 25.9 ABG O2 Saturation 11.2 L ABG Base Excess -3.6 L ABG Hemoglobin ABG Carboxyhemoglobin POC ABG HHb (Measured) ABG Methemoglobin Alfredo Test Na ABG Potassium 5.7 H A-a O2 Difference 632.0 Respiratory Index 45.1 Hgb O2 Saturation Glucose 171 H Lactate 9.1 H* Vent Mode Prvc Mechanical Rate 22 FiO2 100.0 Tidal Volume 450 PEEP CPAP 5 Crit Value Called To Dr hussein tirado Crit Value Called By Ashley torres reel hooker Crit Value Read Back Y Blood Gas Notified Time 1500 Sodium 129.0 L Potassium Chloride 90.0 L Carbon Dioxide Anion Gap BUN Creatinine Est GFR ( Amer) Est GFR (Non-Af Amer) POC Glucose (mg/dL) 122 H 167 H Random Glucose Calcium Phosphorus Magnesium Total Bilirubin AST ALT Alkaline Phosphatase Total Creatine Kinase CK-MB (Mass) Troponin I Total Protein Albumin Globulin Albumin/Globulin Ratio Arterial Blood Potassium 5.7 H 10/14/17 10/14/17 10/14/17 15:05 15:05 15:53 WBC 12.7 H RBC 3.02 L Hgb 8.4 L Hct 26.0 L MCV 86.1 MCH 28.0 MCHC 32.5 L RDW 20.5 H Plt Count 150 MPV 8.5 Neut % (Auto) 74.4 Lymph % (Auto) 17.3 L Dougherty % (Auto) 8.0 Eos % (Auto) 0.1 Baso % (Auto) 0.2 Neut # (Auto) 9.5 H Lymph # (Auto) 2.2 Dougherty # (Auto) 1.0 H Eos # (Auto) 0.0 Baso # (Auto) 0.0 Neutrophils % (Manual) Band Neutrophils % Lymphocytes % (Manual) Monocytes % (Manual) Nucleated RBC % Toxic Granulation Dohle Bodies Platelet Estimate Hypochromasia (manual) Anisocytosis (manual) Ovalocytes PT INR APTT D-Dimer, Quantitative 4198 H Puncture Site pCO2 pO2 HCO3 ABG pH ABG Total CO2 ABG O2 Saturation ABG Base Excess ABG Hemoglobin ABG Carboxyhemoglobin POC ABG HHb (Measured) ABG Methemoglobin Alfredo Test ABG Potassium A-a O2 Difference Respiratory Index Hgb O2 Saturation Glucose Lactate Vent Mode Mechanical Rate FiO2 Tidal Volume PEEP CPAP Crit Value Called To Crit Value Called By Crit Value Read Back Blood Gas Notified Time Sodium 137 Potassium 5.7 H Chloride 90 L Carbon Dioxide 20 L Anion Gap 32 H BUN 32 H Creatinine 4.5 H Est GFR ( Amer) 14 Est GFR (Non-Af Amer) 12 POC Glucose (mg/dL) Random Glucose 247 H Calcium 6.7 L Phosphorus 7.8 H Magnesium 2.6 H Total Bilirubin 0.8 AST 57 H D ALT 81 H D Alkaline Phosphatase 90 Total Creatine Kinase 944 H CK-MB (Mass) 1.57 Troponin I 0.1180 Total Protein 4.4 L Albumin 2.4 L Globulin 2.1 L Albumin/Globulin Ratio 1.1 Arterial Blood Potassium 10/14/17 10/14/17 16:00 16:47 WBC RBC Hgb Hct MCV MCH MCHC RDW Plt Count MPV Neut % (Auto) Lymph % (Auto) Dougherty % (Auto) Eos % (Auto) Baso % (Auto) Neut # (Auto) Lymph # (Auto) Dougherty # (Auto) Eos # (Auto) Baso # (Auto) Neutrophils % (Manual) Band Neutrophils % Lymphocytes % (Manual) Monocytes % (Manual) Nucleated RBC % Toxic Granulation Dohle Bodies Platelet Estimate Hypochromasia (manual) Anisocytosis (manual) Ovalocytes PT INR APTT D-Dimer, Quantitative Puncture Site Fem pCO2 34 L pO2 333 H HCO3 30.7 H ABG pH 7.55 H ABG Total CO2 30.7 H ABG O2 Saturation 99.5 H ABG Base Excess 7.3 H ABG Hemoglobin ABG Carboxyhemoglobin POC ABG HHb (Measured) ABG Methemoglobin Alfredo Test Na ABG Potassium 6.0 H A-a O2 Difference 338.0 Respiratory Index 1.0 Hgb O2 Saturation Glucose 207 H Lactate > 20.0 H* Vent Mode Mechanical Rate FiO2 100.0 Tidal Volume PEEP CPAP Crit Value Called To Dr tirado Crit Value Called By Tricia Crit Value Read Back Y Blood Gas Notified Time 1604 Sodium 143.0 Potassium Chloride 93.0 L Carbon Dioxide Anion Gap BUN Creatinine Est GFR ( Amer) Est GFR (Non-Af Amer) POC Glucose (mg/dL) 181 H Random Glucose Calcium Phosphorus Magnesium Total Bilirubin AST ALT Alkaline Phosphatase Total Creatine Kinase CK-MB (Mass) Troponin I Total Protein Albumin Globulin Albumin/Globulin Ratio Arterial Blood Potassium 6.0 H EKG/Cardiology Studies: Cardiology / EKG Studies 10/14/17 14:57 ELECTROCARDIOGRAM Stat Comment: Mode Of Transportation: Reason For Exam: Arrythymia 10/14/17 15:21 EKG [ELECTROCARDIOGRAM] Stat Comment: Mode Of Transportation: PORTABLE Reason For Exam: code blue Critical Care Progress Note - Nutrition Nutrition: Nutrition Category Date Time Status NPO Diet [DIET] Diets 10/12/17 Breakfast Active Attending/Attestation - Attestation I have personally seen and examined this patient.: Yes I have fully participated in the care of the patient.: Yes I have reviewed all pertinent clinical information: Yes Notes (Text): patient seen and examined. Case discussed with resident during morning rounds Patient 27 y/o female admitted to ER with c/o abdominal pain. Patient was dx with perforated transverse colon. Patient underwent abdominal surgery and was transferred to intensive care unit on ventilatory support. Patient on hemodialysis Patient on Precedex drip Patient suddenly became hypotensive, bradycardic and then ventricular fibrillation, CPR started and full ACLS protocol. Patient did not respond and pronounced at 549 pm.
--- NOTE | 2017-10-14 15:02 | PCM.RRT ---
MEAT DRESSER Nurses Assessment - Situation Date: 10/14/17 Time MEAT DRESSER was called: 14:42 MEAT DRESSER Responder Arrival Time:: 14:42 MEAT DRESSER Location:: 9I ICU Room Number: 3 MEAT DRESSER Reason for Call: Bradycardia, Hypotension, Change in Mental Status (CODE BLUE ) MEAT DRESSER Called By: RN - IV IV Inserted during MEAT DRESSER?: No - Respiratory MEAT DRESSER Delivery Method: Intubated Oxygen Flow Rate: 100 (100% Fi02) Was the Patient Intubated?: Yes (Patient already intubated. ) - Ventilator Settings Mode: PRVC Ventilator Respiratory Rate Settin Ventilator Tidal Volume Settin PEEP/CPAP (cm H2O): 5 SAO2 %: 100 FIO2 (% Oxygen): 50 I.Reason for MEAT DRESSER - A) Acute Change in Patient: Subjective: CODE BLUE NOTE This Code Blue Note summarizes 7 codes that were called. First code was called at 14:42 and patient was pronounced by the 7th code at 17:49. Code Blue called by nurse at 14:43 due to patient becoming bradycardic and then going into V-fib. Compressions were immediately started. Code 1: 14:43-14:47 - Epinephrine x 2, and 1 amp of Sodium Bicarb given, Shock x 1. Code 2: 15:03-15:08. Epinephrine x 1, Shock x 2, Amiodarone x 1 Code 3: 15:19-15:22. Shock x 3, Epinephrine x 2, Lidocaine x 1 Code 4: 15:57-15:58. Sodium Bicarb x 1, Epinephrine x 1. Amiodarone Drip Started Code 5: Shock x 1, Epinephrine x 2, Epinephrine Drip started, Sodium Bicarb drip started. Amiodarone Drip Stopped Code 6: Epinephrine x 2, Continued Bicarb and Epinephrine Drip Code 7: Epinephrine x 4, Continued Epinephrine Drip, 1 Amp of Sodium Bicarb, Sodium Bicarb Drip Continue. Efforts Terminated by 17:43. Heparin and TPA Given between codes due to susupicion of Pulmonary Embolism ECHO showed Severely reduced RV Systolic Function and EF of 15-20% CXR showed stable gross cardiomegaly. Patient was already on mechanical ventilation. Insulin 10, Calcium Gluconate, D50 given to correct HyperKalemia Unit of Blood ordered but not given due to hemodynamic instability. Labs Ordered: CBC: HgB of 8.4 from 9.7 in AM CMP - Hyperkalemia Troponins - NEGATIVE ABG x 2 which showed acidosis then alkolosis. D-Dimer - Elevated (4198) EKG - Wide QRS Rhythym, RBBB. Physical Exam significant for distended abdomen by Code 4.
[2017-10-14] MEDS ORDERED: EPINEPHrine- 1 MG in Sodium Chloride 0.9% 250 ML IV PRN (15:15)
[2017-10-14] MEDS ORDERED: SODIUM CHLORIDE 0.9% IV PRN (15:30)
[2017-10-14] MEDS ORDERED: EPINEPHRINE IV PRN (15:30)
[2017-10-14 15:33] LABS: ALB/GLOB RATIO 1.1 (1.0-2.1); ALBUMIN 2.4 g/dL (3.5-5.0); CALCIUM 6.7 mg/dl (8.6-10.4)
[2017-10-14] MEDS ORDERED: Enoxaparin 60 mg Syringe SC STA (15:36)
[2017-10-14 15:38] LABS: CK-MB 1.57 ng/mL (0.0-3.38)
[2017-10-14] MEDS: Heparin25000 units/250ml 1/2NS 25,000 UNITS/250 ML BAG IV PRN ×2 (15:39→17:13)
[2017-10-14] MEDS ORDERED: Sodium Bicarbonate 8.4% 150 MEQ in Sodium Chloride 0.45% 850 ML IV SCH (15:45)
[2017-10-14 15:47] LABS: TROPONIN I 0.118 ng/mL (0.00-0.120)
[2017-10-14 15:57] LABS: HEMOGLOBIN 8.4 g/dL (11.0-16.0); MEAN CELL VOLUME 86.1 fL (81.0-99.0)
[2017-10-14 16:00] LABS: BASO % 0.2 % (0.0-2.0); EOS % 0.1 % (0.0-4.0); LYMPH # 2.2 K/uL (1.0-4.3); LYMPH % 17.3 % (20.0-40.0); MEAN CORPUSCULAR HGB CONC 32.5 g/dL (33.0-37.0); MEAN PLATELET VOLUME 8.5 fL (7.2-11.7); NEUT # 9.5 K/uL (1.8-7.0); NEUT % 74.4 % (50.0-75.0); NRBC % 0.5 % (0.0-2.0); RBC 3.02 Mil/uL (3.80-5.20); RED CELL DISTRIBUTION WIDTH 20.5 % (11.5-14.5); WHITE BLOOD COUNT 12.7 K/uL (4.8-10.8)
[2017-10-14] MEDS ORDERED: Dextrose 50% SYRINGE Inj (50 ml) IV STA (16:07)
[2017-10-14] MEDS ORDERED: (Novolin R) Insulin Human Regular 100 units/ml vial IV STA (16:07)
[2017-10-14] MEDS ORDERED: Dextrose 50% SYRINGE Inj (50 ml) ONE (16:11)
[2017-10-14] MEDS ORDERED: (Novolin R) Insulin Human Regular 100 units/ml vial ONE (16:12)
[2017-10-14 16:13] LABS: ARTERIAL BLOOD GAS HCO3 30.7 mmol/L (21-28); ARTERIAL BLOOD GAS O2 SAT 99.5 % (95-98); ARTERIAL BLOOD GAS PCO2 34 mm/Hg (35-45); ARTERIAL BLOOD GAS PH 7.55 (7.35-7.45); ARTERIAL BLOOD GAS PO2 333 mm/Hg (80-100); ARTERIAL BLOOD GAS TCO2 30.7 mmol/L (22-28)
--- NOTE | 2017-10-14 16:51 | CARD ---
APPROVED REPORT EXAM: LIMITED Two-dimensional and M-mode echocardiogram. Other Information Quality : LimitedRhythm : INDICATION Dyspnea Pulmonary Embolism ESRD/ Hyperkalemia LEFT VENTRICLE The left ventricle is normal size. There is moderate concentric left ventricular hypertrophy with speckled pattern The systolic function is severely impaired. The Ejection Fraction is 15-20%. There is a flattened septum RIGHT VENTRICLE The right ventricle is moderately dilated. There is normal right ventricular wall thickness. RV Systolic function is severely reduced. ATRIA The left atrium size is normal. The right atrium is moderately dilated. AORTIC VALVE The aortic valve is moderately thickened. MITRAL VALVE The mitral valve is moderately thickened. PERICARDIAL EFFUSION There is a small circumferential pericardial effusion. <Conclusion> The right ventricle is moderately dilated. RV Systolic function is severely reduced. The left ventricle is normal size. There is moderate concentric left ventricular hypertrophy with speckled pattern The systolic function is severely impaired. The Ejection Fraction is 15-20%. There is a small circumferential pericardial effusion.
--- NOTE | 2017-10-14 17:03 | RAD ---
HISTORY: SOB COMPARISON: No prior. FINDINGS: LUNGS: Limited left basilar linear atelectasis noted. Right chest remains clear. Endotracheal and nasogastric tubes do not appear simply changed in position with the stomach decompressed by a NG tube. Skin yuri again seen the midline abdomen. Right center venous line unchanged in position. PLEURA: No significant pleural effusion identified, no pneumothorax apparent. CARDIOVASCULAR: Marked cardiomegaly and unchanged. No pulmonary vascular derangement appreciable. OSSEOUS STRUCTURES: No significant abnormalities. VISUALIZED UPPER ABDOMEN: Normal. OTHER FINDINGS: None. IMPRESSION: Stable gross cardiomegaly. No pulmonary vascular congestion or interval infiltrate bilaterally. No pneumothorax bilaterally.
--- NOTE | 2017-10-14 17:56 | CP.PCM.PRO ---
Pronouncement of Note - Clinical Findings Physical Exam: No Response Verbal/Painful Stimuli, Absent Peripheral Pulses{ Carotid & Femoral}, Absent Heart & Breath Sounds, No Pupillary Light Reflex, Pupils Fixed & Dilated, Absence of Vital Signs - Pronouncement Time Time of Pronouncement of : 17:49 - Notifications Pronouncement Notifications: Family Notified, Atending Notified Property Management Coordinator Notified: No - Autopsy Autopsy Requested: No
[2017-10-14 20:03] VITALS: BP 238/30; PULSE 77; RESP 39; O2SAT 71
--- NOTE | 2017-10-17 17:16 | CARD ---
APPROVED REPORT EKG Measurement Heart [id number] <Conclusion> Complete A-V block Right bundle branch block Abnormal ECG
== END 2017-10-14 21:50 | DRG 585 ==
LOC: C.ER 20:02 → C.9E 23:16 → C.6T 23:54 → C.9I 10-12 19:47 → C.3T 10-13 18:48 → C.9I 10-13 20:34
PROVIDERS: ADMIT Internal Medicine; ATTEND Internal Medicine
PROC: 0DTL0ZZ Resection of Transverse Colon, Open Approach (ICD-10-PCS; 2017-10-12)
PROC: 0W9G0ZX Drainage of Peritoneal Cavity, Open Approach, Diagnostic (ICD-10-PCS; 2017-10-12)
PROC: 0DBU0ZZ Excision of Omentum, Open Approach (ICD-10-PCS; 2017-10-12)
PROC: 0JH80VZ Insertion of Infusion Pump into Abdomen Subcutaneous Tissue and Fascia, Open Approach (ICD-10-PCS; 2017-10-12)
PROC: 5A1D70Z Performance of Urinary Filtration, Intermittent, Less than 6 Hours Per Day (ICD-10-PCS; principal; 2017-10-13)
DX: K63.1 Perforation of intestine (nontraumatic) (principal); K55.049 Acute infarction of large intestine, extent unspecified; A41.9 Sepsis, unspecified organism; I21.A1 Myocardial infarction type 2; T86.12 Kidney transplant failure; J96.91 Respiratory failure, unspecified with hypoxia; I21.9 Acute myocardial infarction, unspecified; K65.1 Peritoneal abscess; E87.5 Hyperkalemia; I13.2 Hypertensive heart and chronic kidney disease with heart failure and with stage 5 chronic kidney disease, or end stage renal disease; K56.41 Fecal impaction; N18.6 End stage renal disease; R56.9 Unspecified convulsions; I50.9 Heart failure, unspecified; D63.8 Anemia in other chronic diseases classified elsewhere; E16.2 Hypoglycemia, unspecified; E83.51 Hypocalcemia; G93.41 Metabolic encephalopathy; I31.3 Pericardial effusion (noninflammatory); I27.20 Pulmonary hypertension, unspecified; Y83.0 Surgical operation with transplant of whole organ as the cause of abnormal reaction of the patient, or of later complication, without mention of misadventure at the time of the procedure; Z99.2 Dependence on renal dialysis